=== PATIENT | male | born 1965 | race Caucasian/White ===

== ENCOUNTER 2017-08-26 19:12 | Observation (INO) | payer OTHER, SELFPAY ==
[2017-08-26 19:14] VITALS: BP 142/83; PULSE 117; RESP 18; TEMP 36.4; O2SAT 96; BMI 41.4
--- NOTE | 2017-08-26 19:21 | NURSING ---
CALLED FOR EKG PER RN REQUEST, NO OLD EKG'S IN MUSE
[2017-08-26 19:24] VITALS: BP 139/78; PULSE 123; RESP 20; O2SAT 96
--- NOTE | 2017-08-26 20:25 | EKG12_ITS ---
Test Reason : CP Blood Pressure : / mmHG Vent. Rate : 119 BPM Atrial Rate : 119 BPM P-R Int : 000 ms QRS Dur : 090 ms QT Int : 270 ms P-R-T Axes : 000 057 034 degrees QTc Int : 379 ms Atrial fibrillation Abnormal ECG Confirmed by JAYANT VELASQUEZ, LEV ([id number]), material expeditor RONEN PATEL ([id number] on 08/29/2017 12:53:08 PM Referred By: ZENA Confirmed By:LEV SABA MD
[2017-08-26 20:35] VITALS: BP 114/73; PULSE 107; RESP 17; O2SAT 96
[2017-08-26 20:39] LABS: Absolute Lymphocyte Count 1.23 X10^3/ul (0.83-4.51); Absolute Neutrophil Count 3.4 X10^3/uL (2.0-7.7); Basophil# 0.03 X10^3/uL; Basophil% 0.5 % (0-1); Eosinophil# 0.28 X10^3/uL; Eosinophils% 5.1 % (0-5); Hematocrit 43.5 % (40-54); Hemoglobin 14.7 g/dl (13.0-16.5); Lymphocyte # 1.23 X10^3/ul (4.0); Lymphocyte % 22.5 % (19-41); Mean Corp Hgb Conc 33.8 g/gl (32-36); Mean Corpuscular Hgb 32.5 pg (27.0-32.0); Mean Corpuscular Volume 96.2 fL (80-94); Mean Platelet Vol. 10.8 fl (6.2-12.0); Monocyte# 0.52 X10^3/uL; Monocyte% 9.5 % (0-10); Neutrophil % 62.4 % (47-70); POSITIVE COUNT NO; POSITIVE DIFFERENTIAL NO; POSITIVE MORPHOLOGY NO; Platelet Count 159 K/mm3 (150-450); RBC Distribution Width CV 13.3 % (11.6-14.6); RBC Distribution Width SD 47.2 fl (35.1-43.9); Red Blood Count 4.52 M/mm3 (4.6-6.2); White Blood Count 5.5 K/mm3 (4.4-11.0)
--- NOTE | 2017-08-26 20:45 | RAD_ITS ---
STUDY: X-RAY CHEST REASON FOR EXAM: Male, 52 years old. Chest pain with palpitations TECHNIQUE: PA and lateral views of the chest. COMPARISON: None. 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 The lungs are clear and expanded. There is no demonstrated pleural abnormality. Normal size heart. Normal mediastinum and dereck. Normal visualized pulmonary arteries. Normal visualized aortic arch and descending thoracic aorta. Normal visualized thoracic spine. Normal visualized ribs, clavicles, and shoulders. There is no demonstrated abnormality of the visualized soft tissue structures of the upper abdomen. RAD/Chest PA and Lateral IMPRESSION: No acute cardiopulmonary disease process is seen. Electronically Signed: Angelito Rodriguez MD at 22:21 EST , Service support ,
[2017-08-26 20:50] LABS: Anion Gap 9 (5-15); BUN 16 mg/dL (7-18); BUN/Creat Ratio 16.6 RATIO (10-20); Calcium,Total 8.7 mg/dL (8.5-10.1); Chloride 104 mmol/L (98-107); Creatinine, Serum 0.96 mg/dL (0.70-1.30); EST Glomerular Filtration Rate 86 mL/min (>60); Est Glom Filt Rate - Afr Amer 104 mL/min (>60); Estimated Creatinine Clearance 93.69 ml/min; Glucose 93 mg/dL (74-106); Sodium Level 140 mmol/L (136-145)
[2017-08-26 21:35] VITALS: BP 119/79; PULSE 96; RESP 14; O2SAT 96
[2017-08-26 22:32] VITALS: BP 128/77; PULSE 107; RESP 16; O2SAT 99
--- NOTE | 2017-08-26 22:48 | PCM.HP.STD ---
Problem List (1) BPH (benign prostatic hyperplasia) Status: Chronic Qualifiers: Lower urinary tract symptom presence: unspecified whether lower urinary tract symptoms present Qualified Code(s): N40.0 - Benign prostatic hyperplasia without lower urinary tract symptoms (2) DOMI (obstructive sleep apnea) Status: Chronic (3) Morbid obesity with BMI of 40.0-44.9, adult Status: Chronic (4) Caffeine dependence, continuous Status: Chronic Comment: Notes ongoing routine consumption 12 cups coffee/day (5) New onset atrial fibrillation Status: Acute (6) Sinus infection Status: Acute Qualifiers: Sinusitis location: unspecified location Chronicity: acute Recurrence: non-recurrent Qualified Code(s): J01.90 - Acute sinusitis, unspecified History of Present Illness Date of Admission: 08/26/17 Chief Complaint: Sent per UC with irregular HR, recent sinus infection The patient is a 52 y/o M w/ PMHx: DOMI on q HS CPAP, Caffeine dependence (~12 cup coffee/day), BPH, Morbid Obesity who presents to the [facility] ED on 08/26/17 with history of ongoing sinus pressure, congestion, rhinorrhea, headache with low grade temperatures over the last several days prompting UC evaluation with initiation of abx therapy at that time and concurrent noted irregular HR prompting referral to the ED. 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 He denies any associated chest pain, pressure, dyspnea, increased fatigue although difficult to assess given concurrent sinus infection or palpitations. In the ED work-up included AF, HR 90->120s, BP 114/73, RR 17, 96% on RA, CBC not marked appearing, BMP unremarkable, trop normal x 1, EKG w/ atrial fibrillation rate 120s, CXR without acute process. Past Medical History Past Medical History (Chronic Problems): Chronic Problems BPH (benign prostatic hyperplasia) (Chronic) DOMI (obstructive sleep apnea) (Chronic) Morbid obesity with BMI of 40.0-44.9, adult (Chronic) Caffeine dependence, continuous (Chronic) Notes ongoing routine consumption 12 cups coffee/day Allergies bacitracin [From Neosporin ([id number])] Allergy (Verified 08/26/17 19:24) Rash bacitracin zinc [From Neosporin ([id number])] Allergy (Verified 08/26/17 19:24) Rash neomycin sulfate [From Neosporin ([id number])] Allergy (Verified 08/26/17 19:24) Rash polymyxin B [From Neosporin ([id number])] Allergy (Verified 08/26/17 19:24) Rash Home Medications: Ambulatory Orders Medication Instructions Recorded Terazosin HCl 2 mg PO DAILY 05/06/17 Multivitamin [Multiple Vitamins] 1 each PO DAILY 08/26/17 Surgical History: no surgical history Psychiatric History: No pertinent psych hx Lives: Alone Smoking Status: Never smoker Tobacco Use: Non-smoker Alcohol: None Drugs: - - Caffeine consumptions ~ 12 cups/day. - *Family History Maternal History Items: Diabetes Paternal History Items: Heart Disease - Father w/ history of CHF. Review of Systems Constitutional: Reports: Anorexia, Fever, Malaise, Weakness, Fatigue. Denies: Chills, Weight Change HEENT: Reports: Head Aches, Nasal Congestion, Post Nasal Drip, Sinus Congestion, Sinus Drainage Cardiovascular: Denies: Chest Pain, Edema, Heaviness, Light Headedness, Orthopnea, Palpitations, Syncope Respiratory: Denies: Cough, Shortness of Breath, Shortness of breath at rest, Shortness of breath upon exertion, Sputum production Gastrointestinal: Denies: Abdominal Pain, Nausea, Vomiting Genitourinary: Denies: Dysuria Musculoskeletal: Denies: Joint Pain, Joint Tenderness Skin: Denies: Rash, Wounds Neurological: Denies: Numbness, Tingling, Focal weakness Psychiatric: Denies: Anxiety, Depression, Homicidal Ideations, Suicidal Ideations Hematologic/ Lymphatic: Denies: Easy Bruising, Easy Bleeding VTE Information - Inpt Only VTE Present on Admission: No VTE Mechan Device Prophylaxis: SCD's VTE Pharm Prophylaxis ordered?: Yes Patient Problems: Active and Suspected Problems New onset atrial fibrillation (Acute) Sinus infection (Acute) Subjective: Seated upright in the ED bed, NAD, fatigued. Objective: Physical Examination: General: awake, alert, oriented x 3 and cooperative, seated upright in the ED bed in no apparent distress. Skin: normal color, turgor, no icterus, cyanosis. HEENT: AT/NC, EOMI, PERRLA, moderately dry MM, no carotid bruits or JVD noted, + BL maxillary, frontal facial pressure/discomfort to palpation, congested, posterior OP erythema. Lungs: CTA bilaterally, moderate effort, mild decrease BL bases, no rales, ronchi or wheezing. Heart: Irregular irregular; no gallop, rub audible. Abdomen: soft, morbidly obese, NTTP, ND, normal BS, no HSM; however, habitus makes examination difficult. Extremities: no cyanosis, clubbing, or edema. Neurological: patient awake, alert, oriented x 3; cognitive function intact; pupils equally reactive to light and accomodation; cranial nerves II-XII grossly normal, moving all 4 extremities, no focal deficits, strength mildly globally decreased. Psychiatric: affect appears normal, fatigued, no acute evidence of depressive or anxiety feelings. - Physical Exam Vital Signs Temp Pulse Resp BP Pulse Ox 97.6 F L 107 H 16 128/77 H 99 08/26/17 19:14 08/26/17 22:32 08/26/17 22:32 08/26/17 22:32 08/26/17 22:32 Oxygen Delivery Method Room Air Weight: 297 lb 6.457 oz Body Mass Index (BMI) 41.4 Laboratory Tests Past 24 Hrs 08/26/17 08/26/17 19:20 19:20 WBC 5.5 RBC 4.52 L Hgb 14.7 Hct 43.5 MCV 96.2 H MCH 32.5 H MCHC 33.8 RDW 13.3 RDW Differential 47.2 H Plt Count 159 MPV 10.8 Immature Gran % (Auto) 0.000 Neut % (Auto) 62.4 Lymph % (Auto) 22.5 [place] % (Auto) 9.5 Eos % (Auto) 5.1 H Baso % (Auto) 0.5 Absolute Neuts (auto) 3.4 Absolute Lymphs (auto) 1.23 Total Counted Not Reportable Sodium 140 Potassium 4.0 Chloride 104 Carbon Dioxide 27.0 Anion Gap 9 BUN 16 Creatinine 0.96 Estim Creat Clear Calc 93.69 Est GFR (MDRD) Af Amer 104 Est GFR (MDRD) Non-Af 86 BUN/Creatinine Ratio 16.6 Glucose 93 Calcium 8.7 Troponin I < 0.02 Assessment/Plan Active and Suspected Problems New onset atrial fibrillation (Acute) Sinus infection (Acute) 18 with history of ongoing sinus pressure, congestion, rhinorrhea, headache with low grade temperatures over the last several days prompting UC evaluation with initiation of abx therapy at that time and concurrent noted irregular HR prompting referral to the ED. (1) New onset, Paroxsymal atrial fibrillation: EKG in ED w/ atrial fibrillarion with rate 118, rate variation 90-120s in the ED, asymptomatic. Will admit to PCU, maintain on telemetry, obtain cardiac enzyme serial set, obtain magnesium level, obtain ECHO, obtain TSH level, initiate low dose metoprolol and titrate as needed. Lovenox therapeutic administered. Cardiology consulted given profession with strict parameters of clearance, pending. Advised strongly need to wean caffeine as likely contributor given at least 12 cups coffee per day. (2) Recent Acute Sinus Infection: Possibly viral; however, given ongoing sxs, complaints and low grade temperatures per discussion preference will continue on augmentin, if sxs improved would stop therapy after 5-7 days, add flonase to his current regimen. (3) Morbid Obesity: Weight loss and lifestyle changes encouraged, nutrition consulted. Notes marked weight loss, ~ 150lb over the last 2 years. (4) BPH: Continue home terazosin regimen. (5) DOMI: CPAP q HS. Notes compliance with his therapy. (6) DVT Prophylaxis: SCDs, lovenox. Code Visit OBSV E&M: 78058 Initial observation care L3
--- NOTE | 2017-08-26 22:51 | ED.VISSUMM ---
- ER Visit Summary Date of Service: 08/26/17 Chief Complaint: Atrial fibrillation History of Present Illness: The patient is a 52 M who presents in new onset A. fib. He was recently seen in urgent care for a sinusitis or URI-like illness. He has had about 3-4 days of chills congestion and rhinorrhea. No documented fevers vomiting or diarrhea. They noted that he had an irregular heart rate and that was fast and he was advised to be evaluated in the emergency department. Denies chest pain shortness of breath lightheadedness near syncope. Physical Examination: Initial heart rate 123 vitals otherwise unremarkable Heart irregularly irregular and tachycardic Lungs are clear Abdomen soft nontender Extremities nontender without edema Test Results: EKG shows atrial fibrillation at a rate of 119. CBC BMP troponin unremarkable and chest x-ray shows no acute process. Emergency Department Course and Treatment: Patient was discussed with the hospitalist for observation and further workup including echocardiogram. Treatment Plan: [] Disposition: Admit Impression: New onset atrial fibrillation This note was generated with [employer] dictation software. It may contain incorrect words, spelling, and punctuation that were not noted in review of the chart prior to signing ED Disposition - Plan for ED Patient: Chief Complaint: Palpitations Referrals: Ale Costa NP-C [Primary Care Provider] -
--- NOTE | 2017-08-26 22:58 | HP.PCM_ITS ---
Problem List (1) BPH (benign prostatic hyperplasia) Status: Chronic Qualifiers: Lower urinary tract symptom presence: unspecified whether lower urinary tract symptoms present Qualified Code(s): N40.0 - Benign prostatic hyperplasia without lower urinary tract symptoms (2) DOMI (obstructive sleep apnea) Status: Chronic (3) Morbid obesity with BMI of 40.0-44.9, adult Status: Chronic (4) Caffeine dependence, continuous Status: Chronic Comment: Notes ongoing routine consumption 12 cups coffee/day (5) New onset atrial fibrillation Status: Acute (6) Sinus infection Status: Acute Qualifiers: Sinusitis location: unspecified location Chronicity: acute Recurrence: non-recurrent Qualified Code(s): J01.90 - Acute sinusitis, unspecified History of Present Illness Date of Admission: 08/26/17 Chief Complaint: Sent per UC with irregular HR, recent sinus infection The patient is a 52 y/o M w/ PMHx: DOMI on q HS CPAP, Caffeine dependence (~12 cup coffee/day), BPH, Morbid Obesity who presents to the [facility] ED on 08/26/17 with history of ongoing sinus pressure, congestion, rhinorrhea, headache with low grade temperatures over the last several days prompting UC evaluation with initiation of abx therapy at that time and concurrent noted irregular HR prompting referral to the ED. 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 He denies any associated chest pain, pressure, dyspnea, increased fatigue although difficult to assess given concurrent sinus infection or palpitations. In the ED work-up included AF, HR 90->120s, BP 114/73 , RR 17, 96% on RA, CBC not marked appearing, BMP unremarkable, trop normal x 1 , EKG w/ atrial fibrillation rate 120s, CXR without acute process. Past Medical History Past Medical History (Chronic Problems): Chronic Problems BPH (benign prostatic hyperplasia) (Chronic) DOMI (obstructive sleep apnea) (Chronic) Morbid obesity with BMI of 40.0-44.9, adult (Chronic) Caffeine dependence, continuous (Chronic) Notes ongoing routine consumption 12 cups coffee/day Allergies bacitracin [From Neosporin ([id number])] Allergy (Verified 08/26/17 19:24) Rash bacitracin zinc [From Neosporin ([id number])] Allergy (Verified 08/26/17 19: 24) Rash neomycin sulfate [From Neosporin ([id number])] Allergy (Verified 08/26/17 19: 24) Rash polymyxin B [From Neosporin ([id number])] Allergy (Verified 08/26/17 19:24) Rash Home Medications: Ambulatory Orders Medication Instructions Recorded Terazosin HCl 2 mg PO DAILY 05/06/17 Multivitamin [Multiple Vitamins] 1 each PO DAILY 08/26/17 Surgical History: no surgical history Psychiatric History: No pertinent psych hx Lives: Alone Smoking Status: Never smoker Tobacco Use: Non-smoker Alcohol: None Drugs: - - Caffeine consumptions ~ 12 cups/day. - *Family History Maternal History Items: Diabetes Paternal History Items: Heart Disease - Father w/ history of CHF. Review of Systems Constitutional: Reports: Anorexia, Fever, Malaise, Weakness, Fatigue. Denies: Chills, Weight Change HEENT: Reports: Head Aches, Nasal Congestion, Post Nasal Drip, Sinus Congestion , Sinus Drainage Cardiovascular: Denies: Chest Pain, Edema, Heaviness, Light Headedness, Orthopnea, Palpitations, Syncope Respiratory: Denies: Cough, Shortness of Breath, Shortness of breath at rest, Shortness of breath upon exertion, Sputum production Gastrointestinal: Denies: Abdominal Pain, Nausea, Vomiting Genitourinary: Denies: Dysuria Musculoskeletal: Denies: Joint Pain, Joint Tenderness Skin: Denies: Rash, Wounds Neurological: Denies: Numbness, Tingling, Focal weakness Psychiatric: Denies: Anxiety, Depression, Homicidal Ideations, Suicidal Ideations Hematologic/ Lymphatic: Denies: Easy Bruising, Easy Bleeding VTE Information - Inpt Only VTE Present on Admission: No VTE Mechan Device Prophylaxis: SCD's VTE Pharm Prophylaxis ordered?: Yes Patient Problems: Active and Suspected Problems New onset atrial fibrillation (Acute) Sinus infection (Acute) Subjective: Seated upright in the ED bed, NAD, fatigued. Objective: Physical Examination: General: awake, alert, oriented x 3 and cooperative, seated upright in the ED bed in no apparent distress. Skin: normal color, turgor, no icterus, cyanosis. HEENT: AT/NC, EOMI, PERRLA, moderately dry MM, no carotid bruits or JVD noted, + BL maxillary, frontal facial pressure/discomfort to palpation, congested, posterior OP erythema. Lungs: CTA bilaterally, moderate effort, mild decrease BL bases, no rales, ronchi or wheezing. Heart: Irregular irregular; no gallop, rub audible. Abdomen: soft, morbidly obese, NTTP, ND, normal BS, no HSM; however, habitus makes examination difficult. Extremities: no cyanosis, clubbing, or edema. Neurological: patient awake, alert, oriented x 3; cognitive function intact; pupils equally reactive to light and accomodation; cranial nerves II-XII grossly normal, moving all 4 extremities, no focal deficits, strength mildly globally decreased. Psychiatric: affect appears normal, fatigued, no acute evidence of depressive or anxiety feelings. - Physical Exam Vital Signs Temp Pulse Resp BP Pulse Ox 97.6 F L 107 H 16 128/77 H 99 08/26/17 19:14 08/26/17 22:32 08/26/17 22:32 08/26/17 22:32 08/26/17 22:32 Oxygen Delivery Method Room Air Weight: 297 lb 6.457 oz Body Mass Index (BMI) 41.4 Laboratory Tests Past 24 Hrs 08/26/17 08/26/17 19:20 19:20 WBC 5.5 RBC 4.52 L Hgb 14.7 Hct 43.5 MCV 96.2 H MCH 32.5 H MCHC 33.8 RDW 13.3 RDW Differential 47.2 H Plt Count 159 MPV 10.8 Immature Gran % (Auto) 0.000 Neut % (Auto) 62.4 Lymph % (Auto) 22.5 [place] % (Auto) 9.5 Eos % (Auto) 5.1 H Baso % (Auto) 0.5 Absolute Neuts (auto) 3.4 Absolute Lymphs (auto) 1.23 Total Counted Not Reportable Sodium 140 Potassium 4.0 Chloride 104 Carbon Dioxide 27.0 Anion Gap 9 BUN 16 Creatinine 0.96 Estim Creat Clear Calc 93.69 Est GFR (MDRD) Af Amer 104 Est GFR (MDRD) Non-Af 86 BUN/Creatinine Ratio 16.6 Glucose 93 Calcium 8.7 Troponin I < 0.02 Assessment/Plan Active and Suspected Problems New onset atrial fibrillation (Acute) Sinus infection (Acute) 18 with history of ongoing sinus pressure, congestion, rhinorrhea, headache with low grade temperatures over the last several days prompting UC evaluation with initiation of abx therapy at that time and concurrent noted irregular HR prompting referral to the ED. (1) New onset, Paroxsymal atrial fibrillation: EKG in ED w/ atrial fibrillarion with rate 118, rate variation 90-120s in the ED, asymptomatic. Will admit to PCU , maintain on telemetry, obtain cardiac enzyme serial set, obtain magnesium level, obtain ECHO, obtain TSH level, initiate low dose metoprolol and titrate as needed. Lovenox therapeutic administered. Cardiology consulted given profession with strict parameters of clearance, pending. Advised strongly need to wean caffeine as likely contributor given at least 12 cups coffee per day. (2) Recent Acute Sinus Infection: Possibly viral; however, given ongoing sxs, complaints and low grade temperatures per discussion preference will continue on augmentin, if sxs improved would stop therapy after 5-7 days, add flonase to his current regimen. (3) Morbid Obesity: Weight loss and lifestyle changes encouraged, nutrition consulted. Notes marked weight loss, ~ 150lb over the last 2 years. (4) BPH: Continue home terazosin regimen. (5) DOMI: CPAP q HS. Notes compliance with his therapy. (6) DVT Prophylaxis: SCDs, lovenox. Code Visit OBSV E&M: 21444 Initial observation care L3
[2017-08-26 23:17] VITALS: BP 114/71; PULSE 108; RESP 17; O2SAT 95
[2017-08-27] VITALS (15 sets, daily range): BP systolic 117–139; BP diastolic 69–79; PULSE 67–129; RESP 16–18; TEMP 36.6–37.5; O2SAT 93–97; BMI 41.5; BMI 42.0
--- NOTE | 2017-08-27 00:10 | ECHOCS_ITS ---
Reason For Study: Afib, Aflutter Procedure This was a 2D Doppler, Color Flow transthoracic echocardiogram. Exam performed portable in patient room. Left Ventricle Mild concentric left ventricular hypertrophy. Normal LV size. The estimated ejection fraction is 35 -40 %. Anterior septum, anterior and apical hypokinesis. Right Ventricle The right ventricle is not well visualized. Atria The left atrium is mildly enlarged. Normal right atrium. Mitral Valve Mild (1+) mitral valve insufficiency. Tricuspid Valve Trivial tricuspid valve insufficiency. Aortic Valve Aortic sclerosis, no stenosis. Pulmonic Valve The pulmonic valve is not well visualized. Great Vessels Normal aortic root. Pericardium/Pleural No pericardial effusion. Medication Definity0.4ml given slow IV push to enhance endocardial definition. MMode/2D Measurements & Calculations LVIDd: 4.9 cm IVSd: 1.2 cm Ao root diam: 3.2 cm LVIDs: 3.7 cm LVPWd: 1.2 cm LA dimension: 4.4 cm RVDd: 4.4 cm FS: 25.4 % LAV(MOD-bp): 64.0 ml LAV(MOD-bp) Indexed: 25.8 ml/m2 LA A4 area: 21.4 cm2 RA A4 area: 19.9 cm2 LAV(MOD-sp2): 59.1 ml LAV(MOD-sp4): 61.0 ml Doppler Measurements & Calculations MV E max zaire: 86.7 cm/sec Lat Peak E' [place]: 16.5 cm/sec Med Peak E' [place]: 11.6 cm/sec E/E' lat: 5.3 E/E' med: 7.5 Ao V2 max: 117.6 cm/sec LV V1 max: 91.5 cm/sec PA V2 max: 105.4 cm/sec Ao max P.6 mmHg LV V1 max P.4 mmHg Ao V2 mean: 90.5 cm/sec Ao mean P.5 mmHg Ao V2 VTI: 20.7 cm TR max [place]: 211.3 cm/sec TR max P.9 mmHg Interpretation Summary Mild concentric left ventricular hypertrophy. The estimated ejection fraction is 35-40 %. Anterior septum, anterior and apical hypokinesis The left atrium is mildly enlarged. Mild (1+) mitral valve insufficiency. Ordering Physician: Jossie Heredia Referring Physician: Ale Costa Performed By: Michelle Abebe, DORIAN, RVT
[2017-08-27] MEDS: 0.9% Normal Saline 1,000 ML 125 ML IV (00:32)
[2017-08-27] MEDS: Fluticasone 0.05% 1 SPRAY NASAL.SRY NASAL ×3 (00:51→21:19)
[2017-08-27] MEDS: Amox/Clavulanate 875 MG Tablet PO ×3 (00:52→21:19)
[2017-08-27] MEDS: Metoprolol Tartrate 25 MG Tablet PO ×2 (00:52→08:37)
[2017-08-27] MEDS: Enoxaparin 150 MG/ML Syringe 135 MG SC ×2 (00:52→05:19)
[2017-08-27 01:04] LABS: Magnesium 2.2 mg/dL (1.6-2.6); Thyroid Stim Hormone (TSH) 1.14 uIU/mL (0.358-3.74)
[2017-08-27 05:40] LABS: Hemoglobin 14.3 g/dl (13.0-16.5); Mean Corp Hgb Conc 33.3 g/gl (32-36); Mean Corpuscular Hgb 32.3 pg (27.0-32.0); Mean Corpuscular Volume 97.1 fL (80-94); Mean Platelet Vol. 10.1 fl (6.2-12.0); Platelet Count 150 K/mm3 (150-450); RBC Distribution Width CV 13.3 % (11.6-14.6); RBC Distribution Width SD 47.6 fl (35.1-43.9); Red Blood Count 4.43 M/mm3 (4.6-6.2); White Blood Count 4.5 K/mm3 (4.4-11.0)
[2017-08-27 05:41] LABS: Scan Indicated on CBC? Y/N NO
[2017-08-27 06:14] LABS: Anion Gap 9 (5-15); BUN 13 mg/dL (7-18); BUN/Creat Ratio 16.1 RATIO (10-20); Calcium,Total 8.3 mg/dL (8.5-10.1); Chloride 106 mmol/L (98-107); Cholesterol 89 mg/dL (200); Creatinine, Serum 0.81 mg/dL (0.70-1.30); EST Glomerular Filtration Rate 106 mL/min (>60); Est Glom Filt Rate - Afr Amer 128 mL/min (>60); Estimated Creatinine Clearance 107.65 ml/min; Glucose 88 mg/dL (74-106); High Density Lipoprotein 45 mg/dL; Sodium Level 140 mmol/L (136-145); Triglycerides 30 mg/dL; Very Low Density Lipoprotein 6 mg/dL (5-40)
--- NOTE | 2017-08-27 08:21 | CPS ---
pt has CPAP @[facility] at home, he is going to see if family can bring it in for tonight.
[2017-08-27] MEDS: Doxazosin 1 MG Tablet 2 MG PO (08:36)
[2017-08-27] MEDS: Aspirin 81 MG TAB.CHEW PO (08:36)
[2017-08-27] MEDS: Famotidine 20 MG Tablet PO ×2 (08:37→21:19)
--- NOTE | 2017-08-27 12:00 | PCM.PN.HOSP ---
Patient Problems: Active and Suspected Problems New onset atrial fibrillation (Acute) Sinus infection (Acute) Subjective: Patient is a 52-year-old male with a past medical history of cocaine dependence drinking about 12 cups of coffee daily, obstructive sleep apnea on CPAP nightly, BPH and morbid obesity was admitted on August 26 with a complaint of frontal sinus pressure, congestion, rhinorrhea and headache with low-grade temperature for a few days. On admission he was also noted to have an irregularly irregular heart rate. He was admitted and is is being managed for acute sinusitis and paroxysmal A. fib. He is on Lovenox and metoprolol. Cardiology has been consulted. In and examined this morning. He feels well and has no complaints. He denied having any previous history of an irregularly irregular heart rate, and denies any history of such in his family. He does not have any history of thyroid dysfunction as well. He only knows that his brother has had valve replacement but does not know the indication. He denies any cough, any chest pain, any palpitations, any dizziness or lightheadedness, any abdominal pain, any vomiting or diarrhea. Review of systems otherwise negative. Vitals/I&O's: Vital Signs Temp Pulse Resp BP Pulse Ox 98.2 F 92 16 121/78 H 93 08/27/17 11:03 08/27/17 11:12 08/27/17 11:03 08/27/17 11:03 08/27/17 11:03 Oxygen Delivery Method Room Air Weight: 292 lb 15.909 oz Body Mass Index (BMI) 42.0 Intake and Output for Last 24 Hours 08/25/17 08/26/17 08/27/17 23:59 23:59 23:59 Intake Total 758 / 758 Balance 758 / 758 General: Alert, Oriented x3, Cooperative HEENT: Atraumatic, PERRLA, EOMI, Normocephalic Oral: Moist Mucosa Neck: Supple, No JVD, Negative Carotid Bruits Lungs: Clear to auscultation, Normal air movement, No rhonchi, No wheeze, No rales Cardiovascular: Normal S1, Normal S2, No murmurs, Irregular Rate - Irregularly irregular Abdomen: Bowel Sounds Present, Soft, Non Tender, Non-Distended, No Hepato-splenomegaly Extremities: No clubbing, No cyanosis, No edema, Capillary Refill Less than 3 Seconds Skin: No rashes, No breakdown Musculoskeletal: No Tenderness to Palpation of Joints or Extremities Lymphatic: No Cervical, Supraclavicular, or Inguinal Adenopathy Neurological: Cranial nerves II-XII grossly intact, Motor Exam 5/5 strength throughout Psych/Mental Status: Normal Affect, Appropriate, Alert and oriented to time, place, person, mood and affect Laboratory Results 08/27/17 01:25: Troponin I < 0.02 08/27/17 05:15: WBC 4.5, RBC 4.43 L, Hgb 14.3, Hct 43.0, MCV 97.1 H, MCH 32.3 H, MCHC 33.3, RDW 13.3, RDW Differential 47.6 H, Plt Count 150, MPV 10.1 08/27/17 05:15: Sodium 140, Potassium 4.0, Chloride 106, Carbon Dioxide 25.0, Anion Gap 9, BUN 13, Creatinine 0.81, Estim Creat Clear Calc 107.65, Est GFR (MDRD) Af Amer 128, Est GFR (MDRD) Non-Af 106, BUN/Creatinine Ratio 16.1, Glucose 88, Calcium 8.3 L, Triglycerides 30, Cholesterol 89, LDL Cholesterol 38, VLDL Cholesterol 6, HDL Cholesterol 45 08/27/17 05:15: Troponin I < 0.02 08/27/17 08:55: Troponin I < 0.02 Current Medications Acetaminophen (Tylenol) 650 mg PO Q6H PRN PRN PRN Reason: Mild Pain (scale 0-3)/T>100.7 Al Hydroxide/Mg Hydroxide (Mylanta Ii) 30 ml PO Q6H PRN PRN PRN Reason: Gastric burning Amoxicillin/Clavulanate Potassium (Augmentin Tablet) 875 mg PO BID [facility] Last Admin: 08/27/17 08:36 Dose: 875 mg Aspirin (Aspirin, Baby) 81 mg PO DAILY@0800 [facility] Last Admin: 08/27/17 08:36 Dose: 81 mg Doxazosin Mesylate (Cardura) 2 mg PO DAILY [facility] Last Admin: 08/27/17 08:36 Dose: 2 mg Enoxaparin Sodium (Lovenox) 135 mg SC Q12@0600,1800 [facility] Last Admin: 08/27/17 05:19 Dose: 135 mg Famotidine (Pepcid) 20 mg PO BID [facility] Last Admin: 08/27/17 08:37 Dose: 20 mg Fluticasone Propionate (Flonase Nasal [place]) 1 spray NASAL BID [facility] Last Admin: 08/27/17 08:37 Dose: 1 spray Hydralazine HCl (Apresoline) 10 mg IV Q4H PRN PRN PRN Reason: SBP > 160 Magnesium Hydroxide (Milk Of Magnesia) 30 ml PO DAILY PRN PRN Reason: Constipation Metoprolol Tartrate (Lopressor (Beta Natalie)) 25 mg PO BID [facility] Last Admin: 08/27/17 08:37 Dose: 25 mg Morphine Sulfate (Morphine) 2 - 4 mg IV Q3H PRN PRN PRN Reason: Severe Pain (pain scale 6-10) Morphine Sulfate (Morphine) 1 - 2 mg IV Q4H PRN PRN PRN Reason: Moderate Pain (pain scale 4-5) Ondansetron HCl (Zofran) 4 mg IV Q8H PRN PRN PRN Reason: NAUSEA Oxycodone HCl (Oxyir) 5 mg PO Q4H PRN PRN PRN Reason: Moderate Pain (pain scale 4-5) Promethazine HCl (Phenergan (Ll)) 12.5 mg IV Q6H PRN PRN PRN Reason: NAUSEA/VOMITING Sodium Chloride () 5 - 30 ml IV UD PRN PRN Reason: SALINE FLUSH Temazepam (Restoril) 15 mg PO QHS PRN PRN PRN Reason: insomnia Assessment/Plan Active and Suspected Problems New onset atrial fibrillation (Acute) Sinus infection (Acute) 1. New onset atrial fibrillation Previous history of A. fib. Has a history of sleep apnea on CPAP and notes compliance with his therapy. But this could be a cause of his A. fib; in addition he has a history of excessive coffee intake as well and this could also contribute to it. CHADVASC score- 0 TSH was 1.14. : Lovenox 135 mg subcut twice daily. Cardiology consulted. per discussion with cardiology, will dc lovenox and start eliquis because of MANDEEP on Tuesday For MANDEEP on Tuesday 2D echo ordered. Will monitor. 2. Acute sinusitis- likely viral feels better; says sinus pressure is better. Currently on augmentin, for 5 day course. vitals have remained stable, and cbc showed no leucocytosis. also on flonase 3. BPH: Stable. On terazosin. PEr discussion with cardiology, will switch to tamsulosin due to risk of hypotension. 4. DOMI: On CPAP nightly. Will continue. 5. DVT prophylaxis: SCDs; lovenox dced; now on eliquis This note was generated with [employer] dictation software. It may contain incorrect words, spelling, and punctuation that were not noted in checking the note before signing. Code Visit Inpatient E&M: 47152 Subs Hosp L2
--- NOTE | 2017-08-27 12:09 | PN_ITS ---
Patient Problems: Active and Suspected Problems New onset atrial fibrillation (Acute) Sinus infection (Acute) Subjective: Patient is a 52-year-old male with a past medical history of cocaine dependence drinking about 12 cups of coffee daily, obstructive sleep apnea on CPAP nightly , BPH and morbid obesity was admitted on August 26 with a complaint of frontal sinus pressure, congestion, rhinorrhea and headache with low-grade temperature for a few days. On admission he was also noted to have an irregularly irregular heart rate. He was admitted and is is being managed for acute sinusitis and paroxysmal A. fib. He is on Lovenox and metoprolol. Cardiology has been consulted. In and examined this morning. He feels well and has no complaints. He denied having any previous history of an irregularly irregular heart rate, and denies any history of such in his family. He does not have any history of thyroid dysfunction as well. He only knows that his brother has had valve replacement but does not know the indication. He denies any cough, any chest pain, any palpitations, any dizziness or lightheadedness, any abdominal pain, any vomiting or diarrhea. Review of systems otherwise negative. Vitals/I&O's: Vital Signs Temp Pulse Resp BP Pulse Ox 98.2 F 92 16 121/78 H 93 08/27/17 11:03 08/27/17 11:12 08/27/17 11:03 08/27/17 11:03 08/27/17 11:03 Oxygen Delivery Method Room Air Weight: 292 lb 15.909 oz Body Mass Index (BMI) 42.0 Intake and Output for Last 24 Hours 08/25/17 08/26/17 08/27/17 23:59 23:59 23:59 Intake Total 758 / 758 Balance 758 / 758 General: Alert, Oriented x3, Cooperative HEENT: Atraumatic, PERRLA, EOMI, Normocephalic Oral: Moist Mucosa Neck: Supple, No JVD, Negative Carotid Bruits Lungs: Clear to auscultation, Normal air movement, No rhonchi, No wheeze, No rales Cardiovascular: Normal S1, Normal S2, No murmurs, Irregular Rate - Irregularly irregular Abdomen: Bowel Sounds Present, Soft, Non Tender, Non-Distended, No Hepato- splenomegaly Extremities: No clubbing, No cyanosis, No edema, Capillary Refill Less than 3 Seconds Skin: No rashes, No breakdown Musculoskeletal: No Tenderness to Palpation of Joints or Extremities Lymphatic: No Cervical, Supraclavicular, or Inguinal Adenopathy Neurological: Cranial nerves II-XII grossly intact, Motor Exam 5/5 strength throughout Psych/Mental Status: Normal Affect, Appropriate, Alert and oriented to time, place, person, mood and affect Laboratory Results 08/27/17 01:25: Troponin I < 0.02 08/27/17 05:15: WBC 4.5, RBC 4.43 L, Hgb 14.3, Hct 43.0, MCV 97.1 H, MCH 32.3 H , MCHC 33.3, RDW 13.3, RDW Differential 47.6 H, Plt Count 150, MPV 10.1 08/27/17 05:15: Sodium 140, Potassium 4.0, Chloride 106, Carbon Dioxide 25.0, Anion Gap 9, BUN 13, Creatinine 0.81, Estim Creat Clear Calc 107.65, Est GFR ( MDRD) Af Amer 128, Est GFR (MDRD) Non-Af 106, BUN/Creatinine Ratio 16.1, Glucose 88, Calcium 8.3 L, Triglycerides 30, Cholesterol 89, LDL Cholesterol 38 , VLDL Cholesterol 6, HDL Cholesterol 45 08/27/17 05:15: Troponin I < 0.02 08/27/17 08:55: Troponin I < 0.02 Current Medications Acetaminophen (Tylenol) 650 mg PO Q6H PRN PRN PRN Reason: Mild Pain (scale 0-3)/T>100.7 Al Hydroxide/Mg Hydroxide (Mylanta Ii) 30 ml PO Q6H PRN PRN PRN Reason: Gastric burning Amoxicillin/Clavulanate Potassium (Augmentin Tablet) 875 mg PO BID [facility] Last Admin: 08/27/17 08:36 Dose: 875 mg Aspirin (Aspirin, Baby) 81 mg PO DAILY@0800 [facility] Last Admin: 08/27/17 08:36 Dose: 81 mg Doxazosin Mesylate (Cardura) 2 mg PO DAILY [facility] Last Admin: 08/27/17 08:36 Dose: 2 mg Enoxaparin Sodium (Lovenox) 135 mg SC Q12@0600,1800 [facility] Last Admin: 08/27/17 05:19 Dose: 135 mg Famotidine (Pepcid) 20 mg PO BID [facility] Last Admin: 08/27/17 08:37 Dose: 20 mg Fluticasone Propionate (Flonase Nasal [place]) 1 spray NASAL BID [facility] Last Admin: 08/27/17 08:37 Dose: 1 spray Hydralazine HCl (Apresoline) 10 mg IV Q4H PRN PRN PRN Reason: SBP > 160 Magnesium Hydroxide (Milk Of Magnesia) 30 ml PO DAILY PRN PRN Reason: Constipation Metoprolol Tartrate (Lopressor (Beta Natalie)) 25 mg PO BID [facility] Last Admin: 08/27/17 08:37 Dose: 25 mg Morphine Sulfate (Morphine) 2 - 4 mg IV Q3H PRN PRN PRN Reason: Severe Pain (pain scale 6-10) Morphine Sulfate (Morphine) 1 - 2 mg IV Q4H PRN PRN PRN Reason: Moderate Pain (pain scale 4-5) Ondansetron HCl (Zofran) 4 mg IV Q8H PRN PRN PRN Reason: NAUSEA Oxycodone HCl (Oxyir) 5 mg PO Q4H PRN PRN PRN Reason: Moderate Pain (pain scale 4-5) Promethazine HCl (Phenergan (Ll)) 12.5 mg IV Q6H PRN PRN PRN Reason: NAUSEA/VOMITING Sodium Chloride () 5 - 30 ml IV UD PRN PRN Reason: SALINE FLUSH Temazepam (Restoril) 15 mg PO QHS PRN PRN PRN Reason: insomnia Assessment/Plan Active and Suspected Problems New onset atrial fibrillation (Acute) Sinus infection (Acute) 1. New onset atrial fibrillation * Previous history of A. fib. Has a history of sleep apnea on CPAP and notes compliance with his therapy. But this could be a cause of his A. fib; in addition he has a history of excessive coffee intake as well and this could also contribute to it. * CHADVASC score- 0 * TSH was 1.14. * : Lovenox 135 mg subcut twice daily. * Cardiology consulted. per discussion with cardiology, will dc lovenox and start eliquis because of MANDEEP on Tuesday * For MANDEEP on Tuesday * 2D echo ordered. * Will monitor. 2. Acute sinusitis- likely viral * feels better; says sinus pressure is better. Currently on augmentin, for 5 day course. * vitals have remained stable, and cbc showed no leucocytosis. * also on flonase * 3. BPH: Stable. On terazosin. PEr discussion with cardiology, will switch to tamsulosin due to risk of hypotension. 4. DOMI: On CPAP nightly. Will continue. 5. DVT prophylaxis: SCDs; lovenox dced; now on eliquis This note was generated with [employer] dictation software. It may contain incorrect words, spelling, and punctuation that were not noted in checking the note before signing. Code Visit Inpatient E&M: 07615 Subs Hosp L2
--- NOTE | 2017-08-27 13:06 | PCM.CONS.C ---
Problem List (1) New onset atrial fibrillation Status: Acute Reason for Consult Date of Consultation: 08/27/17 History of Present Illness: The patient is a 52 year old M with past medical history significant for obstructive sleep apnea, obesity and benign prostatic hypertrophy. He went into an urgent care yesterday with complaints of cold-like symptoms. Been having some rhinorrhea. According to him, he was advised that he had a irregular heart rate and therefore needed to go to the hospital. Patient denies any chest pains or shortness of breath either at rest or with exertion. Denies any palpitations. No orthopnea paroxysmal nocturnal dyspnea. No ankle edema. Denies any previous cardiac issues. Denies any history of CVA or TIA. Denies any bleeding problems. Denies any history of hypertension. No history of any vascular disease. [] Past Medical History Allergies/Adverse Reactions: Allergies bacitracin [From Neosporin ([id number])] Allergy (Verified 08/27/17 00:21) Rash bacitracin zinc [From Neosporin ([id number])] Allergy (Verified 08/27/17 00:21) Rash neomycin sulfate [From Neosporin ([id number])] Allergy (Verified 08/27/17 00:21) Rash polymyxin B [From Neosporin ([id number])] Allergy (Verified 08/27/17 00:21) Rash Home Medications: Ambulatory Orders Medication Instructions Recorded Terazosin HCl 2 mg PO QHS 05/06/17 Multivitamin [Multiple Vitamins] 1 each PO DAILY 08/26/17 Past Medical History (Chronic Problems): Chronic Problems BPH (benign prostatic hyperplasia) (Chronic) DOMI (obstructive sleep apnea) (Chronic) Morbid obesity with BMI of 40.0-44.9, adult (Chronic) Caffeine dependence, continuous (Chronic) Notes ongoing routine consumption 12 cups coffee/day Surgical History: no surgical history Psychiatric History: No pertinent psych hx - *Family History Maternal History Items: Diabetes Paternal History Items: Heart Disease - Father w/ history of CHF. Lives: Alone Smoking Status: Never smoker Tobacco Use: Non-smoker Alcohol: None Drugs: - - Caffeine consumptions ~ 12 cups/day. Review of Systems - Review of Systems General: Denies: Fever, Chills, Weight Loss HEENT: Denies: Blurred Vision Cardiovascular: Denies: Chest Discomfort, Chest Discomfort at Rest, Chest Discomfort with Exertion, Shortness of Breath, Shortness of Breath at Rest, Orthopnea, PND, Peripheral Edema, Palpitations, Near Syncope, Syncope Respiratory: Denies: Hemoptysis, Shortness of Breath, Pleurtic Chest Pain Gastrointestinal: Denies: Indigestion, Heart Burn, Abdominal Discomfort, Jaundice Muscoloskeletal: Denies: Myalgias Neurological: Denies: History of TIA, History of CVA Endocrine: Denies: Heat Intolerance, Cold Intolerance Hematologic/ Lymphatic: Denies: Easy Brusing, Easy Bleeding Objective: Vital Signs Temp Pulse Resp BP Pulse Ox 98.2 F 92 16 121/78 H 93 08/27/17 11:03 08/27/17 11:12 08/27/17 11:03 08/27/17 11:03 08/27/17 11:03 Oxygen Delivery Method Room Air Weight: 132.9 kg Body Mass Index (BMI) 42.0 Intake and Output for Last 24 Hours 08/25/17 08/26/17 08/27/17 23:59 23:59 23:59 Intake Total 758 / 758 Balance 758 / 758 General: Healthy Appearing, Awake, Alert, Oriented x 3 HEENT: Atraumatic, Normocephalic Oral: Moist Mucosa Neck: No JVD Lungs: Clear to auscultation Cardiovascular: Irregular Rhythm, Normal S1, Normal S2, No Murmurs Vascular: No Carotid Bruits Abdomen: Bowel Sounds Present, Soft, Non Tender Extremities: No edema Neurological: No Focal Motor or Sensory Deficit Psych/Mental Status: Appropriate 08/27/17 01:25: Troponin I < 0.02 08/27/17 05:15: WBC 4.5, RBC 4.43 L, Hgb 14.3, Hct 43.0, MCV 97.1 H, MCH 32.3 H, MCHC 33.3, RDW 13.3, RDW Differential 47.6 H, Plt Count 150, MPV 10.1 08/27/17 05:15: Sodium 140, Potassium 4.0, Chloride 106, Carbon Dioxide 25.0, Anion Gap 9, BUN 13, Creatinine 0.81, Est GFR (MDRD) Af Amer 128, Est GFR (MDRD) Non-Af 106, BUN/Creatinine Ratio 16.1, Glucose 88, Calcium 8.3 L, Triglycerides 30, Cholesterol 89, LDL Cholesterol 38, VLDL Cholesterol 6, HDL Cholesterol 45 08/27/17 05:15: Troponin I < 0.02 08/27/17 08:55: Troponin I < 0.02 Rhythm: Atrial fibrillation EKG: Atrial fibrillation. No ischemic changes ECHO: Pending Assessment/Plan 1. New onset atrial fibrillation. Discontinue beta-deisi. Start on diltiazem for rate control. He has sleep apnea and that could be the precipitating factor for his atrial fibrillation. Also consider his increased caffeine intake. Advised to continue using his CPAP for sleep apnea. Advised to cut down or preferably eliminate his caffeine intake. As this is as first episode of atrial fibrillation, offered him MANDEEP followed by electrical cardioversion. Risks benefits and alternatives explained. He understands these and wishes to proceed. We will plan on a MANDEEP cardioversion for Tuesday. The patient's chads 2 vascular score is 0. Recommend aspirin long-term. However in anticipation of the electrical cardioversion, I will start him on Eliquis 5 mg twice daily. If electrical cardioversion is undertaken, he will be continued on it briefly afterwards and then discontinued. 2. History of obstructive sleep apnea. Wears CPAP at night 3. Obesity. Lose weight 4. Excessive caffeine intake. Counseled to eliminate or cut back 5. History of BPH
--- NOTE | 2017-08-27 13:16 | CON.PCM_ITS ---
Problem List (1) New onset atrial fibrillation Status: Acute Reason for Consult Date of Consultation: 08/27/17 History of Present Illness: The patient is a 52 year old M with past medical history significant for obstructive sleep apnea, obesity and benign prostatic hypertrophy. He went into an urgent care yesterday with complaints of cold-like symptoms. Been having some rhinorrhea. According to him, he was advised that he had a irregular heart rate and therefore needed to go to the hospital. Patient denies any chest pains or shortness of breath either at rest or with exertion. Denies any palpitations. No orthopnea paroxysmal nocturnal dyspnea. No ankle edema. Denies any previous cardiac issues. Denies any history of CVA or TIA. Denies any bleeding problems. Denies any history of hypertension. No history of any vascular disease. [] Past Medical History Allergies/Adverse Reactions: Allergies bacitracin [From Neosporin ([id number])] Allergy (Verified 08/27/17 00:21) Rash bacitracin zinc [From Neosporin ([id number])] Allergy (Verified 08/27/17 00: 21) Rash neomycin sulfate [From Neosporin ([id number]-[id number])] Allergy (Verified 08/27/17 00: 21) Rash polymyxin B [From Neosporin ([id number])] Allergy (Verified 08/27/17 00:21) Rash Home Medications: Ambulatory Orders Medication Instructions Recorded Terazosin HCl 2 mg PO QHS 05/06/17 Multivitamin [Multiple Vitamins] 1 each PO DAILY 08/26/17 Past Medical History (Chronic Problems): Chronic Problems BPH (benign prostatic hyperplasia) (Chronic) DOMI (obstructive sleep apnea) (Chronic) Morbid obesity with BMI of 40.0-44.9, adult (Chronic) Caffeine dependence, continuous (Chronic) Notes ongoing routine consumption 12 cups coffee/day Surgical History: no surgical history Psychiatric History: No pertinent psych hx - *Family History Maternal History Items: Diabetes Paternal History Items: Heart Disease - Father w/ history of CHF. Lives: Alone Smoking Status: Never smoker Tobacco Use: Non-smoker Alcohol: None Drugs: - - Caffeine consumptions ~ 12 cups/day. Review of Systems - Review of Systems General: Denies: Fever, Chills, Weight Loss HEENT: Denies: Blurred Vision Cardiovascular: Denies: Chest Discomfort, Chest Discomfort at Rest, Chest Discomfort with Exertion, Shortness of Breath, Shortness of Breath at Rest, Orthopnea, PND, Peripheral Edema, Palpitations, Near Syncope, Syncope Respiratory: Denies: Hemoptysis, Shortness of Breath, Pleurtic Chest Pain Gastrointestinal: Denies: Indigestion, Heart Burn, Abdominal Discomfort, Jaundice Muscoloskeletal: Denies: Myalgias Neurological: Denies: History of TIA, History of CVA Endocrine: Denies: Heat Intolerance, Cold Intolerance Hematologic/ Lymphatic: Denies: Easy Brusing, Easy Bleeding Objective: Vital Signs Temp Pulse Resp BP Pulse Ox 98.2 F 92 16 121/78 H 93 08/27/17 11:03 08/27/17 11:12 08/27/17 11:03 08/27/17 11:03 08/27/17 11:03 Oxygen Delivery Method Room Air Weight: 132.9 kg Body Mass Index (BMI) 42.0 Intake and Output for Last 24 Hours 08/25/17 08/26/17 08/27/17 23:59 23:59 23:59 Intake Total 758 / 758 Balance 758 / 758 General: Healthy Appearing, Awake, Alert, Oriented x 3 HEENT: Atraumatic, Normocephalic Oral: Moist Mucosa Neck: No JVD Lungs: Clear to auscultation Cardiovascular: Irregular Rhythm, Normal S1, Normal S2, No Murmurs Vascular: No Carotid Bruits Abdomen: Bowel Sounds Present, Soft, Non Tender Extremities: No edema Neurological: No Focal Motor or Sensory Deficit Psych/Mental Status: Appropriate 08/27/17 01:25: Troponin I < 0.02 08/27/17 05:15: WBC 4.5, RBC 4.43 L, Hgb 14.3, Hct 43.0, MCV 97.1 H, MCH 32.3 H , MCHC 33.3, RDW 13.3, RDW Differential 47.6 H, Plt Count 150, MPV 10.1 08/27/17 05:15: Sodium 140, Potassium 4.0, Chloride 106, Carbon Dioxide 25.0, Anion Gap 9, BUN 13, Creatinine 0.81, Est GFR (MDRD) Af Amer 128, Est GFR (MDRD ) Non-Af 106, BUN/Creatinine Ratio 16.1, Glucose 88, Calcium 8.3 L, Triglycerides 30, Cholesterol 89, LDL Cholesterol 38, VLDL Cholesterol 6, HDL Cholesterol 45 08/27/17 05:15: Troponin I < 0.02 08/27/17 08:55: Troponin I < 0.02 Rhythm: Atrial fibrillation EKG: Atrial fibrillation. No ischemic changes ECHO: Pending Assessment/Plan 1. New onset atrial fibrillation. Discontinue beta-deisi. Start on diltiazem for rate control. He has sleep apnea and that could be the precipitating factor for his atrial fibrillation. Also consider his increased caffeine intake. Advised to continue using his CPAP for sleep apnea. Advised to cut down or preferably eliminate his caffeine intake. As this is as first episode of atrial fibrillation, offered him MANDEEP followed by electrical cardioversion. Risks benefits and alternatives explained. He understands these and wishes to proceed. We will plan on a MANDEEP cardioversion for Tuesday. The patient's chads 2 vascular score is 0. Recommend aspirin long-term. However in anticipation of the electrical cardioversion, I will start him on Eliquis 5 mg twice daily. If electrical cardioversion is undertaken, he will be continued on it briefly afterwards and then discontinued. 2. History of obstructive sleep apnea. Wears CPAP at night 3. Obesity. Lose weight 4. Excessive caffeine intake. Counseled to eliminate or cut back 5. History of BPH
[2017-08-27] MEDS: Tamsulosin HCl 0.4 MG Capsule PO (17:28)
[2017-08-27] MEDS: 0.9% NaCl Peripheral Flush Adult/Peds IV (18:26)
[2017-08-27] MEDS: Carvedilol 3.125 MG TABLET PO (21:19)
[2017-08-27] MEDS: APIXABAN 5 MG TABLET PO (21:19)
[2017-08-28] VITALS (12 sets, daily range): BP systolic 114–121; BP diastolic 62–80; PULSE 72–137; RESP 16–18; TEMP 36.4–36.9; O2SAT 94–97
[2017-08-28] MEDS: Amox/Clavulanate 875 MG Tablet PO ×2 (09:11→21:10)
[2017-08-28] MEDS: APIXABAN 5 MG TABLET PO (09:11)
[2017-08-28] MEDS: Carvedilol 3.125 MG TABLET PO ×2 (09:11→21:10)
[2017-08-28] MEDS: Fluticasone 0.05% 1 SPRAY NASAL.SRY NASAL ×2 (09:12→21:10)
[2017-08-28] MEDS: 0.9% NaCl Peripheral Flush Adult/Peds IV (09:12)
[2017-08-28] MEDS: Famotidine 20 MG Tablet PO ×2 (09:12→21:10)
--- NOTE | 2017-08-28 11:05 | PCM.PN.HOSP ---
Patient Problems: Active and Suspected Problems New onset atrial fibrillation (Acute) Sinus infection (Acute) Subjective: Patient seen and examined this morning. He was lying comfortably in bed and denied having any complaints. He feels very well. Denies any palpitations or dizziness or lightheadedness, denies any chest pain, any abdominal pain, any headache, any diarrhea vomiting. Review of systems otherwise negative. He does not remember the setting for CPAP at home. Objective: Patient is a 52-year-old male with a past medical history of cocaine dependence drinking about 12 cups of coffee daily, obstructive sleep apnea on CPAP nightly, BPH and morbid obesity was admitted on August 26 with a complaint of frontal sinus pressure, congestion, rhinorrhea and headache with low-grade temperature for a few days. On admission he was also noted to have an irregularly irregular heart rate. He was admitted and is being managed for acute sinusitis and paroxysmal A. fib. Started on Lovenox and metoprolol. TSH was within normal limits. Atrial fibrillation is thought to be due to sleep apnea and also excessive coffee intake. Cardiology was consulted and reviewed the patient. Cardiology decided to do MANDEEP on Tuesday. Lovenox was stopped and patient was started on Eliquis. He is on Lovenox and metoprolol. Cardiology has been consulted. Vitals/I&O's: Vital Signs Temp Pulse Resp BP Pulse Ox 98.0 F 72 16 116/62 94 08/28/17 09:00 08/28/17 09:00 08/28/17 09:00 08/28/17 09:00 08/28/17 09:00 Oxygen Delivery Method Room Air Weight: 292 lb 15.909 oz Body Mass Index (BMI) 42.0 Intake and Output for Last 24 Hours 08/26/17 08/27/17 08/28/17 23:59 23:59 23:59 Intake Total 1718 / 1718 Output Total / Balance 1716 / 1716 General: Alert, Oriented x3, Cooperative HEENT: Atraumatic, PERRLA, EOMI, Normocephalic Oral: Moist Mucosa Neck: Supple, No JVD, Negative Carotid Bruits Lungs: Clear to auscultation, Normal air movement, No rhonchi, No wheeze Cardiovascular: Normal S1, Normal S2, No murmurs, - - Heart rate irregularly irregular Abdomen: Bowel Sounds Present, Soft, Non Tender, Non-Distended, No Hepato-splenomegaly Extremities: No clubbing, No cyanosis, No edema, Capillary Refill Less than 3 Seconds Skin: No rashes, No breakdown Musculoskeletal: No Tenderness to Palpation of Joints or Extremities Lymphatic: No Cervical, Supraclavicular, or Inguinal Adenopathy Neurological: Cranial nerves II-XII grossly intact Psych/Mental Status: Normal Affect, Appropriate, Alert and oriented to time, place, person, mood and affect Laboratory Results 08/27/17 14:20: Troponin I < 0.02 Current Medications Acetaminophen (Tylenol) 650 mg PO Q6H PRN PRN PRN Reason: Mild Pain (scale 0-3)/T>100.7 Al Hydroxide/Mg Hydroxide (Mylanta Ii) 30 ml PO Q6H PRN PRN PRN Reason: Gastric burning Amoxicillin/Clavulanate Potassium (Augmentin Tablet) 875 mg PO BID [facility] Last Admin: 08/28/17 09:11 Dose: 875 mg Apixaban (Eliquis) 5 mg PO BID [facility] Last Admin: 08/28/17 09:11 Dose: 5 mg Carvedilol (Coreg) 3.125 mg PO BID [facility] Last Admin: 08/28/17 09:11 Dose: 3.125 mg Famotidine (Pepcid) 20 mg PO BID [facility] Last Admin: 08/28/17 09:12 Dose: 20 mg Fluticasone Propionate (Flonase Nasal [place]) 1 spray NASAL BID [facility] Last Admin: 08/28/17 09:12 Dose: 1 spray Hydralazine HCl (Apresoline) 10 mg IV Q4H PRN PRN PRN Reason: SBP > 160 Magnesium Hydroxide (Milk Of Magnesia) 30 ml PO DAILY PRN PRN Reason: Constipation Morphine Sulfate (Morphine) 2 - 4 mg IV Q3H PRN PRN PRN Reason: Severe Pain (pain scale 6-10) Morphine Sulfate (Morphine) 1 - 2 mg IV Q4H PRN PRN PRN Reason: Moderate Pain (pain scale 4-5) Ondansetron HCl (Zofran) 4 mg IV Q8H PRN PRN PRN Reason: NAUSEA Oxycodone HCl (Oxyir) 5 mg PO Q4H PRN PRN PRN Reason: Moderate Pain (pain scale 4-5) Promethazine HCl (Phenergan (Ll)) 12.5 mg IV Q6H PRN PRN PRN Reason: NAUSEA/VOMITING Sodium Chloride () 5 - 30 ml IV UD PRN PRN Reason: SALINE FLUSH Last Admin: 08/28/17 09:12 Dose: 10 ml Tamsulosin HCl (Flomax) 0.4 mg PO DAILY@1730 JAY Last Admin: 08/27/17 17:28 Dose: 0.4 mg Temazepam (Restoril) 15 mg PO QHS PRN PRN PRN Reason: insomnia Assessment/Plan Active and Suspected Problems New onset atrial fibrillation (Acute) Sinus infection (Acute) 1. New onset atrial fibrillation No Previous history of A. fib. Has a history of sleep apnea on CPAP and notes compliance with his therapy. But this could be a cause of his A. fib; in addition he has a history of excessive coffee intake as well and this could also contribute to it. CHADVASC score- 0 TSH was 1.14. was initially started on lovenox; Cardiology reviewed patient; he was started on eliquis 5mg bid in light of planned MANDEEP on Tuesday 2D echo: EF of 35-40%, with anterior, septal and apical hypokinesis. Mild concentric LVH hypertrophy. Left atrium mildly enlarged. Mild 1+ MV insufficiency. will keep NPO past midnight for MANDEEP tomorrow 2. Acute sinusitis- likely viral feels much better; on AUgmentin for 5 day oral course. also on flonase 3. BPH: Stable. was on terazosin, but this was switched to tamsulosin due to risk of hypotension. 4. DOMI: On CPAP nightly. Will continue. 5. DVT prophylaxis: SCDs; lovenox dced; now on eliquis This note was generated with [employer] software. It may contain incorrect words, spelling, and punctuation that were not noted in checking the note before signing. Code Visit OBSV E&M: 54308 Initial observation care L2
--- NOTE | 2017-08-28 11:11 | PN_ITS ---
Patient Problems: Active and Suspected Problems New onset atrial fibrillation (Acute) Sinus infection (Acute) Subjective: Patient seen and examined this morning. He was lying comfortably in bed and denied having any complaints. He feels very well. Denies any palpitations or dizziness or lightheadedness, denies any chest pain, any abdominal pain, any headache, any diarrhea vomiting. Review of systems otherwise negative. He does not remember the setting for CPAP at home. Objective: Patient is a 52-year-old male with a past medical history of cocaine dependence drinking about 12 cups of coffee daily, obstructive sleep apnea on CPAP nightly , BPH and morbid obesity was admitted on August 26 with a complaint of frontal sinus pressure, congestion, rhinorrhea and headache with low-grade temperature for a few days. On admission he was also noted to have an irregularly irregular heart rate. He was admitted and is being managed for acute sinusitis and paroxysmal A. fib. Started on Lovenox and metoprolol. TSH was within normal limits. Atrial fibrillation is thought to be due to sleep apnea and also excessive coffee intake. Cardiology was consulted and reviewed the patient. Cardiology decided to do MANDEEP on Tuesday. Lovenox was stopped and patient was started on Eliquis. He is on Lovenox and metoprolol. Cardiology has been consulted. Vitals/I&O's: Vital Signs Temp Pulse Resp BP Pulse Ox 98.0 F 72 16 116/62 94 08/28/17 09:00 08/28/17 09:00 08/28/17 09:00 08/28/17 09:00 08/28/17 09:00 Oxygen Delivery Method Room Air Weight: 292 lb 15.909 oz Body Mass Index (BMI) 42.0 Intake and Output for Last 24 Hours 08/26/17 08/27/17 08/28/17 23:59 23:59 23:59 Intake Total 1718 / 1718 Output Total / Balance 1716 / 1716 General: Alert, Oriented x3, Cooperative HEENT: Atraumatic, PERRLA, EOMI, Normocephalic Oral: Moist Mucosa Neck: Supple, No JVD, Negative Carotid Bruits Lungs: Clear to auscultation, Normal air movement, No rhonchi, No wheeze Cardiovascular: Normal S1, Normal S2, No murmurs, - - Heart rate irregularly irregular Abdomen: Bowel Sounds Present, Soft, Non Tender, Non-Distended, No Hepato- splenomegaly Extremities: No clubbing, No cyanosis, No edema, Capillary Refill Less than 3 Seconds Skin: No rashes, No breakdown Musculoskeletal: No Tenderness to Palpation of Joints or Extremities Lymphatic: No Cervical, Supraclavicular, or Inguinal Adenopathy Neurological: Cranial nerves II-XII grossly intact Psych/Mental Status: Normal Affect, Appropriate, Alert and oriented to time, place, person, mood and affect Laboratory Results 08/27/17 14:20: Troponin I < 0.02 Current Medications Acetaminophen (Tylenol) 650 mg PO Q6H PRN PRN PRN Reason: Mild Pain (scale 0-3)/T>100.7 Al Hydroxide/Mg Hydroxide (Mylanta Ii) 30 ml PO Q6H PRN PRN PRN Reason: Gastric burning Amoxicillin/Clavulanate Potassium (Augmentin Tablet) 875 mg PO BID [facility] Last Admin: 08/28/17 09:11 Dose: 875 mg Apixaban (Eliquis) 5 mg PO BID [facility] Last Admin: 08/28/17 09:11 Dose: 5 mg Carvedilol (Coreg) 3.125 mg PO BID [facility] Last Admin: 08/28/17 09:11 Dose: 3.125 mg Famotidine (Pepcid) 20 mg PO BID [facility] Last Admin: 08/28/17 09:12 Dose: 20 mg Fluticasone Propionate (Flonase Nasal [place]) 1 spray NASAL BID [facility] Last Admin: 08/28/17 09:12 Dose: 1 spray Hydralazine HCl (Apresoline) 10 mg IV Q4H PRN PRN PRN Reason: SBP > 160 Magnesium Hydroxide (Milk Of Magnesia) 30 ml PO DAILY PRN PRN Reason: Constipation Morphine Sulfate (Morphine) 2 - 4 mg IV Q3H PRN PRN PRN Reason: Severe Pain (pain scale 6-10) Morphine Sulfate (Morphine) 1 - 2 mg IV Q4H PRN PRN PRN Reason: Moderate Pain (pain scale 4-5) Ondansetron HCl (Zofran) 4 mg IV Q8H PRN PRN PRN Reason: NAUSEA Oxycodone HCl (Oxyir) 5 mg PO Q4H PRN PRN PRN Reason: Moderate Pain (pain scale 4-5) Promethazine HCl (Phenergan (Ll)) 12.5 mg IV Q6H PRN PRN PRN Reason: NAUSEA/VOMITING Sodium Chloride () 5 - 30 ml IV UD PRN PRN Reason: SALINE FLUSH Last Admin: 08/28/17 09:12 Dose: 10 ml Tamsulosin HCl (Flomax) 0.4 mg PO DAILY@1730 JAY Last Admin: 08/27/17 17:28 Dose: 0.4 mg Temazepam (Restoril) 15 mg PO QHS PRN PRN PRN Reason: insomnia Assessment/Plan Active and Suspected Problems New onset atrial fibrillation (Acute) Sinus infection (Acute) 1. New onset atrial fibrillation * No Previous history of A. fib. Has a history of sleep apnea on CPAP and notes compliance with his therapy. But this could be a cause of his A. fib; in addition he has a history of excessive coffee intake as well and this could also contribute to it. * CHADVASC score- 0 * TSH was 1.14. * was initially started on lovenox; Cardiology reviewed patient; he was started on eliquis 5mg bid in light of planned MANDEEP on Tuesday * 2D echo: EF of 35-40%, with anterior, septal and apical hypokinesis. Mild concentric LVH hypertrophy. Left atrium mildly enlarged. Mild 1+ MV insufficiency. * will keep NPO past midnight for MANDEEP tomorrow * * 2. Acute sinusitis- likely viral * feels much better; on AUgmentin for 5 day oral course. * also on flonase * 3. BPH: Stable. was on terazosin, but this was switched to tamsulosin due to risk of hypotension. 4. DOMI: On CPAP nightly. Will continue. 5. DVT prophylaxis: SCDs; lovenox dced; now on eliquis This note was generated with [employer] dictation software. It may contain incorrect words, spelling, and punctuation that were not noted in checking the note before signing. Code Visit OBSV E&M: 31755 Initial observation care L2
--- NOTE | 2017-08-28 12:12 | PCM.PN.CARD ---
Subjectve: No complaints. Objective: Vital Signs Temp Pulse Resp BP Pulse Ox 98.0 F 107 H 16 116/62 94 08/28/17 09:00 08/28/17 11:35 08/28/17 09:00 08/28/17 09:00 08/28/17 09:00 Oxygen Delivery Method Room Air Weight: 132.9 kg Body Mass Index (BMI) 42.0 Intake and Output for Last 24 Hours 08/26/17 08/27/17 08/28/17 23:59 23:59 23:59 Intake Total 1717 Output Total / Balance 1715 General: Healthy Appearing, Awake, Alert, Oriented x 3 Oral: Moist Mucosa Neck: Supple Lungs: Clear to auscultation Cardiovascular: Irregular Rhythm, Normal S1, Normal S2 Abdomen: Bowel Sounds Present, Soft Extremities: No edema Neurological: No Focal Motor or Sensory Deficit Psych/Mental Status: Appropriate 08/27/17 14:20: Troponin I < 0.02 Rhythm: EKG: ECHO: Echocardiogram showed ejection fraction of 35-40% Stress Test: Cardiac Cath: PCI: CT Surgery: Holter monitor: EPS: PPM: CXR: Chest CT Scan: Assessment/Plan 1. Cardiomyopathy. Ejection fraction noted to be 35-40% on echocardiogram with segmental wall motion abnormalities. 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 Therefore offered him cardiac catheterization with coronary angiography and possible revascularization. Risks benefits and alternatives were explained. He understands these and wishes to proceed 2. New onset atrial fibrillation. We will proceed with MANDEEP cardioversion if coronary angiography was negative for any significant coronary artery disease. Hold Eliquis this evening and in the morning in anticipation of cardiac catheterization as noted above. Rate controlled with beta blockers 3. History of obstructive sleep apnea 4. Obesity X Further recommendations will follow results of cardiac catheterization
[2017-08-28] MEDS: Aspirin E.C. 81 MG Tablet PO (12:47)
[2017-08-28] MEDS: Tamsulosin HCl 0.4 MG Capsule PO (16:59)
[2017-08-28] MEDS: Acetaminophen 325 MG Tablet 650 MG PO (17:05)
--- NOTE | 2017-08-28 17:08 | NURSING ---
complains of sore throat on the left side when he swallows only. Minimal redness noted to back of throat. Tylenol 650mg given for same. Augmentin continues. Denies other symptoms. Afebrile.
--- NOTE | 2017-08-28 18:13 | NURSING ---
Patient states that he feels like he isn't peeing as much as he did yesterday. Hat placed in commode and patient informed to urinate in the hat and alert nursing staff when he is finished so that the amount could be recorded. Patient agreed to same. Denies urinary symptoms. Afebrile.
[2017-08-29] VITALS (35 sets, daily range): BP systolic 99–135; BP diastolic 36–84; PULSE 76–102; RESP 12–20; TEMP 36.4–36.9; O2SAT 92–100
[2017-08-29 02:59] LABS: Color, Urine Yellow (Yellow); Glucose, Dipstick Normal (Normal); Ketone-Dipstick Negative (Negative); Leukocyte Esterase-Dipstick Negative /ul (Negative); Nitrite-Dipstick Negative (Negative); Occult Blood-Urine Negative /ul (Negative); Protein-Dipstick Negative (Negative); Urine Bilirubin Dipstick Negative (Negative); Urine Clarity Clear (Clear); Urine Urobilinogen Normal (Normal)
--- NOTE | 2017-08-29 05:55 | EKG12_ITS ---
Test Reason : AM EKG Blood Pressure : / mmHG Vent. Rate : 098 BPM Atrial Rate : 156 BPM P-R Int : 000 ms QRS Dur : 092 ms QT Int : 332 ms P-R-T Axes : 000 056 040 degrees QTc Int : 423 ms Atrial fibrillation Abnormal ECG When compared with ECG of 26-AUG-2017 19:19, MANUAL COMPARISON REQUIRED, DATA IS UNCONFIRMED Confirmed by KRISTI SHIN ([id number]), video editor RONEN PATEL ([id number]) on 09/01/2017 3:11:28 PM Referred By: DR PENA Confirmed By:KRISTI SHIN
[2017-08-29] MEDS: 0.9% NaCl Peripheral Flush Adult/Peds IV (06:05)
[2017-08-29 06:27] LABS: Absolute Lymphocyte Count 1.96 X10^3/ul (0.83-4.51); Absolute Neutrophil Count 3.2 X10^3/uL (2.0-7.7); Basophil# 0.02 X10^3/uL; Basophil% 0.3 % (0-1); Eosinophil# 0.15 X10^3/uL; Eosinophils% 2.6 % (0-5); Hematocrit 46.7 % (40-54); Hemoglobin 15.7 g/dl (13.0-16.5); Lymphocyte # 1.96 X10^3/ul (4.0); Lymphocyte % 34.2 % (19-41); Mean Corp Hgb Conc 33.6 g/gl (32-36); Mean Corpuscular Hgb 32.4 pg (27.0-32.0); Mean Corpuscular Volume 96.5 fL (80-94); Mean Platelet Vol. 10.4 fl (6.2-12.0); Monocyte# 0.43 X10^3/uL; Monocyte% 7.5 % (0-10); Neutrophil # 3.16 X10^3/uL (2.7-7.7); Neutrophil % 55.2 % (47-70); Platelet Count 139 K/mm3 (150-450); RBC Distribution Width CV 13.1 % (11.6-14.6); RBC Distribution Width SD 46.5 fl (35.1-43.9); Red Blood Count 4.84 M/mm3 (4.6-6.2); White Blood Count 5.7 K/mm3 (4.4-11.0)
[2017-08-29 06:34] LABS: POSITIVE COUNT NO; POSITIVE DIFFERENTIAL NO; POSITIVE MORPHOLOGY NO
[2017-08-29 06:35] LABS: Anion Gap 7 (5-15); BUN 13 mg/dL (7-18); BUN/Creat Ratio 15.6 RATIO (10-20); Calcium,Total 8.8 mg/dL (8.5-10.1); Chloride 103 mmol/L (98-107); Creatinine, Serum 0.84 mg/dL (0.70-1.30); EST Glomerular Filtration Rate 102 mL/min (>60); Est Glom Filt Rate - Afr Amer 123 mL/min (>60); Glucose 91 mg/dL (74-106); Potassium 4.4 mmol/L (3.5-5.1); Sodium Level 139 mmol/L (136-145)
[2017-08-29 06:41] LABS: International Normalized Ratio 1.1; Prothrombin Time (Protime)PT. 13.3 SECONDS (11.7-14.9)
[2017-08-29 06:42] LABS: Partial Thromboplast Time 33.6 Seconds (24.1-36.2)
[2017-08-29] MEDS: Carvedilol 3.125 MG TABLET PO (08:54)
[2017-08-29] MEDS: Aspirin E.C. 81 MG Tablet PO (08:57)
--- NOTE | 2017-08-29 09:12 | CASEMGMT ---
According to [facility] website, the following are in-network tertiary facilities: [facility], [place], [facility], [place], [facility], [facility], [place], [facility], and . Vanessa HARTMANN CM
--- NOTE | 2017-08-29 13:00 | NURSING ---
return from stress test
--- NOTE | 2017-08-29 13:00 | ECHOTEE_ITS ---
Reason For Study: Afib, Aflutter Medication Cetacaine Topical [place] given X3 orally. [id number] gargled and swallowed. Versed 2 mg given slow IVP. Fentanyl 25 mcg given slow IVP. Performed a rapid injection of agitated mix of 9 cc saline and 1cc air to assess for atrial septal defect. Left Ventricle Normal size and thickness. The estimated ejection fraction is 65 %. No regional wall motion abnormalities noted. Right Ventricle Normal size and thickness. Normal systolic function. The right ventricular wall motion is normal. Atria Saline contrast study demonstrates trivial right to left interatrial shunt. There is mild sponatenous contrast in the left atrium. The left atrium is mildly enlarged. Possible very small apical thrombus in left atrial appendage. Left atrial appendage contraction velocities less than 0.5 cm/s. Normal right atrium. Prominent eustachian valve. Mitral Valve The mitral valve is structurally normal. No prolapse or stenosis seen. Trivial mitral valve insufficiency. Tricuspid Valve Normal tricuspid valve. Trivial tricuspid valve insufficiency. Right ventricular systolic pressure estimated to be 26 mmHg. Aortic Valve Normal aortic valve. Trisinus/trileaflet aortic valve. Pulmonic Valve Normal pulmonic valve. Vessels Normal aortic root. Normal arch. The pulmonary artery is normal size. Normal pulmonary veins. Interpretation Summary The estimated ejection fraction is 65 %. There is mild sponatenous contrast in the left atrium. The left atrium is mildly enlarged. Trivial mitral valve insufficiency. Right ventricular systolic pressure estimated to be 26 mmHg. Possible very small apical thrombus in left atrial appendage. Left atrial appendage contraction velocities less than 0.5 cm/s Pt appears to be in atrial fibrillation. Would not recommend DCCV at this time. Saline contrast study demonstrates trivial right to left interatrial shunt. Ordering Physician: Kavitha Spencer Referring Physician: Ale Costa Performed By: Michelle Abebe, DORIAN, RVT
[2017-08-29] MEDS: Fluticasone 0.05% 1 SPRAY NASAL.SRY NASAL (14:41)
[2017-08-29] MEDS: Amox/Clavulanate 875 MG Tablet PO ×2 (14:41→21:27)
[2017-08-29] MEDS: Famotidine 20 MG Tablet PO ×2 (14:41→21:27)
--- NOTE | 2017-08-29 14:42 | STRESSREP ---
Stress Test Report Date: 08/29/2017 Procedure: Pharmacologic imaging study Indications: Atrial fibrillation/flutter; CAD Consent: Per the patient Procedure: The patient underwent The baseline ECG demonstrated atrial fibrillation. The peak pharmacologic ECG demonstrated no obvious ECG changes. There were no additional cardiac dysrhythmias pretest, during pharmacologic infusion, or recovery. There was no report of chest discomfort during pharmacologic infusion or recovery. The examination was discontinued secondary to completion of protocol. Impression: 1. Pharmacologic (Regadenoson) evaluation 2. Peak pharmacologic ECG with no obvious ECG changes 3. Nuclear images pending Myocardial perfusion imaging study: Technique: The patient was injected with 12.0 mCi of technetium 99m Cardiolite and subsequently rest SPECT Cardiolite nuclear imaging was obtained in the horizontal long, vertical long, and short axis views. The patient underwent pharmacologic (Regadenoson) evaluation with a peak heart rate of 133 bpm (80% predicted maximal heart rate) with a peak blood pressure 124/74 mmHg. The patient was injected with 36.0 mCi of technetium 99m Cardiolite and subsequently stress SPECT Cardiolite nuclear imaging was obtained in the horizontal long, vertical long, and short axis views. A gated Cardiolite study at peak stress was obtained. Interpretation: Rest and stress SPECT Cardiolite nuclear imaging status post realignment, normalization, and attenuation correction, demonstrates areas of extra cardiac/hepatic and gastrointestinal tracer uptake near the inferior segments. At rest there appears to be relative uniform tracer uptake. Status post stress there is an area of diminished tracer uptake in portions of the mid to distal anterior segments. There are similar type findings on the resting and stress polar map images. There is end systolic thickening and brightening. The gated Cardiolite study demonstrates myocardial thickening and inward wall motion. The reported LVEF is 49%. Impression: 1. Rest and stress SPECT Cardiolite nuclear imaging demonstrate myocardial perfusion changes appearing compatible with an area of stress-induced myocardial ischemia involving portions of the mid to distal anterior segments. 2. The gated Cardiolite study reports an LVEF of 49%. This note was generated with [employer] software. It may contain incorrect words, spelling, and punctuation that were not noted in checking the note before signing.
--- NOTE | 2017-08-29 14:52 | STRESSREP_ITS ---
Stress Test Report Date: 08/29/2017 Procedure: Pharmacologic imaging study Indications: Atrial fibrillation/flutter; CAD Consent: Per the patient Procedure: The patient underwent The baseline ECG demonstrated atrial fibrillation. The peak pharmacologic ECG demonstrated no obvious ECG changes. There were no additional cardiac dysrhythmias pretest, during pharmacologic infusion, or recovery. There was no report of chest discomfort during pharmacologic infusion or recovery. The examination was discontinued secondary to completion of protocol. Impression: 1. Pharmacologic (Regadenoson) evaluation 2. Peak pharmacologic ECG with no obvious ECG changes 3. Nuclear images pending Myocardial perfusion imaging study: Technique: The patient was injected with 12.0 mCi of technetium 99m Cardiolite and subsequently rest SPECT Cardiolite nuclear imaging was obtained in the horizontal long, vertical long, and short axis views. The patient underwent pharmacologic (Regadenoson) evaluation with a peak heart rate of 133 bpm (80% predicted maximal heart rate) with a peak blood pressure 124/74 mmHg. The patient was injected with 36.0 mCi of technetium 99m Cardiolite and subsequently stress SPECT Cardiolite nuclear imaging was obtained in the horizontal long, vertical long, and short axis views. A gated Cardiolite study at peak stress was obtained. Interpretation: Rest and stress SPECT Cardiolite nuclear imaging status post realignment, normalization, and attenuation correction, demonstrates areas of extra cardiac/ hepatic and gastrointestinal tracer uptake near the inferior segments. At rest there appears to be relative uniform tracer uptake. Status post stress there is an area of diminished tracer uptake in portions of the mid to distal anterior segments. There are similar type findings on the resting and stress polar map images. There is end systolic thickening and brightening. The gated Cardiolite study demonstrates myocardial thickening and inward wall motion. The reported LVEF is 49%. Impression: 1. Rest and stress SPECT Cardiolite nuclear imaging demonstrate myocardial perfusion changes appearing compatible with an area of stress-induced myocardial ischemia involving portions of the mid to distal anterior segments. 2. The gated Cardiolite study reports an LVEF of 49%. This note was generated with [employer] software. It may contain incorrect words, spelling, and punctuation that were not noted in checking the note before signing.
--- NOTE | 2017-08-29 15:15 | NURSING ---
to cathead worker
--- NOTE | 2017-08-29 16:10 | NURSING ---
return from manager cath lab
--- NOTE | 2017-08-29 16:23 | CL.D_ITS ---
Patient Name: DANIELLE DELA CRUZ Study Date: 08/29/2017 Performing: Kavitha Spencer MD Ht: 70 inches 178 cm : 1965 Wt: 293.6 lbs 133 kg Age: 52 Gender: male BSA: 2.46 PROCEDURE(S) PERFORMED HY20-FPC/COR/LV CLINICAL PROFILE AND INDICATIONS Stress/Imaging Stress Test w/SPECT MPI: Yes Result: Positive Intermediate RiskStress Test with SP ECT MPI: Positive Intermediate Risk CONCLUSIONS Distal LMCA mildly aneurysmal 30% ostial LAD LVEF 50% RECOMMENDATIONS Medical therapy Risk factor modification DESCRIPTION OF PROCEDURE The patient arrived to the procedure lab. The risks and benefits of the procedure as well as a full d escription of our services here and current unavailability of surgical backup were fully explained to the patient and/or their significant other prior to the catheterization. The Timeout was completed, verifying the correct patient and procedure. The patient's procedural site was prepped and draped in the usual fashion. Local anesthetic was given subcutaneously to right radial region with Lidocaine 2% . Using a modified Seldinger technique, arterial access was obtained via the right radial artery, a 6 Fr sheath was inserted. Left Coronary Artery selective angiography was performed in multiple views u sing a 5 Fr. 4.0 [place] catheter. Right Coronary Artery selective angiography was then performed in mu ltiple views using a 5 Fr. 4.0 [place] catheter. Left Ventriculography was performed in RICH projection using a 5 Fr. Pigtail catheter. LV to AO pullback pressures were then recorded.The arterial sheath wa s pulled and a TR Band was applied for hemostasis. 16cc of air CORONARY ANGIOGRAPHY DOMINANCE: Co- Dominant LEFT HEART ASSESSMENT Left Ventricular Ejection Fraction: by LV Gram 50 % LVEDP: 7 mmHg LEFT MAIN: Distal LMCA mildly aneurysmal LEFT ANTERIOR DECENDING ARTERY: 30% ostial CIRCUMFLEX ARTERY: Minimal luminal irregularities RAMUS: Dual Ramus system. No significant angiographic disease RIGHT CORONARY ARTERY: Mild luminal irregularities COMPLICATIONS No Complications PROCEDURE MEDICATIONS Versed 1 mg IV Fentanyl 25 mcg IV Fentanyl 25 mcg IV Oxygen: 2 L/min via nasal cannula Heparin given IA 08/29/2017 15:50:00 Verapamil 2.5mg, Ntg 100mcgs, 2000 units of Heparin given IA 08/29/2017 15:50:00 SUMMARY OF HEMODYNAMIC DATA Time AIR REST ECG 15:36:15 AO 107/73 (88) SA 15:53:12 LV 117/0, 7 16:02:27 LV 120/0, 7 16:02:35 LVp 104/10, 15 16:03:44 AOp 101/69 (83) 16:03:49 Signed By Kavitha Spencer MD On 08/29/2017 16:23:11 Kavitha Spencer MD
[2017-08-29] MEDS: 0.9% Normal Saline 1,000 ML 150 ML IV (16:45)
--- NOTE | 2017-08-29 17:28 | PCM.PN.HOSP ---
Patient Problems: Active and Suspected Problems New onset atrial fibrillation (Acute) Sinus infection (Acute) Subjective: No new complaints. Status post left heart catheterization. Vitals/I&O's: Vital Signs Temp Pulse Resp BP Pulse Ox 36.7 C 98 17 119/66 96 08/29/17 13:20 08/29/17 13:20 08/29/17 13:20 08/29/17 13:20 08/29/17 13:20 Oxygen Delivery Method Room Air Weight: 132.9 kg Body Mass Index (BMI) 42.0 Intake and Output for Last 24 Hours 08/27/17 08/28/17 08/29/17 23:59 23:59 23:59 Intake Total 1718 / 1718 2340 / 2340 510 / 510 Output Total 1050 / 1050 475 / 475 Balance 1716 / 1716 1290 / 1290 35 / 35 General: Alert, Cooperative, No apparent distress HEENT: Atraumatic, Normocephalic Neck: No Nodes, Thyroid Normal Size and Texture Lungs: Clear to auscultation, Normal air movement, No rhonchi, No wheeze Cardiovascular: Regular rate, Regular Rhythm, Normal S1, Normal S2, No murmurs Abdomen: Bowel Sounds Present, Soft, Non Tender, Non-Distended, No Hepato-splenomegaly Extremities: No edema, Capillary Refill Less than 3 Seconds, No Calf Tenderness Laboratory Results 08/29/17 01:00: Urine Color Yellow, Urine Clarity Clear, Urine pH 7.0, Ur Specific [place] 1.010, Urine Protein Negative, Urine Glucose (UA) Normal, Urine Ketones Negative, Urine Occult Blood Negative, Urine Nitrite Negative, Urine Bilirubin Negative, Urine Urobilinogen Normal, Ur Leukocyte Esterase Negative 08/29/17 06:05: WBC 5.7, RBC 4.84, Hgb 15.7, Hct 46.7, MCV 96.5 H, MCH 32.4 H, MCHC 33.6, RDW 13.1, RDW Differential 46.5 H, Plt Count 139 L, MPV 10.4, Immature Gran % (Auto) 0.200, Neut % (Auto) 55.2, Lymph % (Auto) 34.2, [place] % (Auto) 7.5, Eos % (Auto) 2.6, Baso % (Auto) 0.3, Absolute Neuts (auto) 3.2, Absolute Lymphs (auto) 1.96, Total Counted Not Reportable 08/29/17 06:05: PT 13.3, INR 1.1, APTT 33.6 08/29/17 06:05: Sodium 139, Potassium 4.4, Chloride 103, Carbon Dioxide 29.0, Anion Gap 7, BUN 13, Creatinine 0.84, Estim Creat Clear Calc 103.80, Est GFR (MDRD) Af Amer 123, Est GFR (MDRD) Non-Af 102, BUN/Creatinine Ratio 15.6, Glucose 91, Calcium 8.8 Current Medications Acetaminophen (Tylenol) 650 mg PO Q6H PRN PRN PRN Reason: Mild Pain (scale 0-3)/T>100.7 Last Admin: 08/28/17 17:05 Dose: 650 mg Al Hydroxide/Mg Hydroxide (Mylanta Ii) 30 ml PO Q6H PRN PRN PRN Reason: Gastric burning Amoxicillin/Clavulanate Potassium (Augmentin Tablet) 875 mg PO BID [facility] Last Admin: 08/29/17 14:41 Dose: 875 mg Apixaban (Eliquis) 5 mg PO BID [facility] Aspirin (Ecotrin) 81 mg PO DAILY@0800 [facility] Last Admin: 08/29/17 08:57 Dose: 81 mg Carvedilol (Coreg) 6.25 mg PO BID [facility] Famotidine (Pepcid) 20 mg PO BID [facility] Last Admin: 08/29/17 14:41 Dose: 20 mg Fluticasone Propionate (Flonase Nasal [place]) 1 spray NASAL BID [facility] Last Admin: 08/29/17 14:41 Dose: 1 spray Hydralazine HCl (Apresoline) 10 mg IV Q4H PRN PRN PRN Reason: SBP > 160 Sodium Chloride () 1,000 mls @ 150 mls/hr IV .Q6H40M [facility] Stop: 08/29/17 23:09 Magnesium Hydroxide (Milk Of Magnesia) 30 ml PO DAILY PRN PRN Reason: Constipation Morphine Sulfate (Morphine) 2 - 4 mg IV Q3H PRN PRN PRN Reason: Severe Pain (pain scale 6-10) Morphine Sulfate (Morphine) 1 - 2 mg IV Q4H PRN PRN PRN Reason: Moderate Pain (pain scale 4-5) Ondansetron HCl (Zofran) 4 mg IV Q8H PRN PRN PRN Reason: NAUSEA Oxycodone HCl (Oxyir) 5 mg PO Q4H PRN PRN PRN Reason: Moderate Pain (pain scale 4-5) Promethazine HCl (Phenergan (Ll)) 12.5 mg IV Q6H PRN PRN PRN Reason: NAUSEA/VOMITING Sodium Chloride () 5 - 30 ml IV UD PRN PRN Reason: SALINE FLUSH Last Admin: 08/29/17 06:05 Dose: 10 ml Tamsulosin HCl (Flomax) 0.4 mg PO DAILY@1730 [facility] Last Admin: 08/28/17 16:59 Dose: 0.4 mg Temazepam (Restoril) 15 mg PO QHS PRN PRN PRN Reason: insomnia Assessment/Plan Active and Suspected Problems New onset atrial fibrillation (Acute) Sinus infection (Acute) 1. New onset atrial fibrillation Still in atrial fibrillation, but rate controlled. Continue with Coreg. Patient with noted smoke on the MANDEEP so cardioversion was not performed. Patient will be on Eliquis. Patient will have a follow-up MANDEEP cardioversion as outpatient after several weeks of being on proper anticoagulation. Patient to be monitored overnight and if stable and patient will be likely discharged on the . Code Visit Inpatient E&M: 39987 Subs Hosp L2
--- NOTE | 2017-08-29 17:31 | PN_ITS ---
Patient Problems: Active and Suspected Problems New onset atrial fibrillation (Acute) Sinus infection (Acute) Subjective: No new complaints. Status post left heart catheterization. Vitals/I&O's: Vital Signs Temp Pulse Resp BP Pulse Ox 36.7 C 98 17 119/66 96 08/29/17 13:20 08/29/17 13:20 08/29/17 13:20 08/29/17 13:20 08/29/17 13:20 Oxygen Delivery Method Room Air Weight: 132.9 kg Body Mass Index (BMI) 42.0 Intake and Output for Last 24 Hours 08/27/17 08/28/17 08/29/17 23:59 23:59 23:59 Intake Total 1718 / 1718 2340 / 2340 510 / 510 Output Total 1050 / 1050 475 / 475 Balance 1716 / 1716 1290 / 1290 35 / 35 General: Alert, Cooperative, No apparent distress HEENT: Atraumatic, Normocephalic Neck: No Nodes, Thyroid Normal Size and Texture Lungs: Clear to auscultation, Normal air movement, No rhonchi, No wheeze Cardiovascular: Regular rate, Regular Rhythm, Normal S1, Normal S2, No murmurs Abdomen: Bowel Sounds Present, Soft, Non Tender, Non-Distended, No Hepato- splenomegaly Extremities: No edema, Capillary Refill Less than 3 Seconds, No Calf Tenderness Laboratory Results 08/29/17 01:00: Urine Color Yellow, Urine Clarity Clear, Urine pH 7.0, Ur Specific [place] 1.010, Urine Protein Negative, Urine Glucose (UA) Normal, Urine Ketones Negative, Urine Occult Blood Negative, Urine Nitrite Negative, Urine Bilirubin Negative, Urine Urobilinogen Normal, Ur Leukocyte Esterase Negative 08/29/17 06:05: WBC 5.7, RBC 4.84, Hgb 15.7, Hct 46.7, MCV 96.5 H, MCH 32.4 H, MCHC 33.6, RDW 13.1, RDW Differential 46.5 H, Plt Count 139 L, MPV 10.4, Immature Gran % (Auto) 0.200, Neut % (Auto) 55.2, Lymph % (Auto) 34.2, [place] % ( Auto) 7.5, Eos % (Auto) 2.6, Baso % (Auto) 0.3, Absolute Neuts (auto) 3.2, Absolute Lymphs (auto) 1.96, Total Counted Not Reportable 08/29/17 06:05: PT 13.3, INR 1.1, APTT 33.6 08/29/17 06:05: Sodium 139, Potassium 4.4, Chloride 103, Carbon Dioxide 29.0, Anion Gap 7, BUN 13, Creatinine 0.84, Estim Creat Clear Calc 103.80, Est GFR ( MDRD) Af Amer 123, Est GFR (MDRD) Non-Af 102, BUN/Creatinine Ratio 15.6, Glucose 91, Calcium 8.8 Current Medications Acetaminophen (Tylenol) 650 mg PO Q6H PRN PRN PRN Reason: Mild Pain (scale 0-3)/T>100.7 Last Admin: 08/28/17 17:05 Dose: 650 mg Al Hydroxide/Mg Hydroxide (Mylanta Ii) 30 ml PO Q6H PRN PRN PRN Reason: Gastric burning Amoxicillin/Clavulanate Potassium (Augmentin Tablet) 875 mg PO BID [facility] Last Admin: 08/29/17 14:41 Dose: 875 mg Apixaban (Eliquis) 5 mg PO BID [facility] Aspirin (Ecotrin) 81 mg PO DAILY@0800 [facility] Last Admin: 08/29/17 08:57 Dose: 81 mg Carvedilol (Coreg) 6.25 mg PO BID [facility] Famotidine (Pepcid) 20 mg PO BID [facility] Last Admin: 08/29/17 14:41 Dose: 20 mg Fluticasone Propionate (Flonase Nasal [place]) 1 spray NASAL BID [facility] Last Admin: 08/29/17 14:41 Dose: 1 spray Hydralazine HCl (Apresoline) 10 mg IV Q4H PRN PRN PRN Reason: SBP > 160 Sodium Chloride () 1,000 mls @ 150 mls/hr IV .Q6H40M [facility] Stop: 08/29/17 23:09 Magnesium Hydroxide (Milk Of Magnesia) 30 ml PO DAILY PRN PRN Reason: Constipation Morphine Sulfate (Morphine) 2 - 4 mg IV Q3H PRN PRN PRN Reason: Severe Pain (pain scale 6-10) Morphine Sulfate (Morphine) 1 - 2 mg IV Q4H PRN PRN PRN Reason: Moderate Pain (pain scale 4-5) Ondansetron HCl (Zofran) 4 mg IV Q8H PRN PRN PRN Reason: NAUSEA Oxycodone HCl (Oxyir) 5 mg PO Q4H PRN PRN PRN Reason: Moderate Pain (pain scale 4-5) Promethazine HCl (Phenergan (Ll)) 12.5 mg IV Q6H PRN PRN PRN Reason: NAUSEA/VOMITING Sodium Chloride () 5 - 30 ml IV UD PRN PRN Reason: SALINE FLUSH Last Admin: 08/29/17 06:05 Dose: 10 ml Tamsulosin HCl (Flomax) 0.4 mg PO DAILY@1730 [facility] Last Admin: 08/28/17 16:59 Dose: 0.4 mg Temazepam (Restoril) 15 mg PO QHS PRN PRN PRN Reason: insomnia Assessment/Plan Active and Suspected Problems New onset atrial fibrillation (Acute) Sinus infection (Acute) 1. New onset atrial fibrillation * Still in atrial fibrillation, but rate controlled. * Continue with Coreg. * Patient with noted smoke on the MANDEEP so cardioversion was not performed. Patient will be on Eliquis. Patient will have a follow-up MANDEEP cardioversion as outpatient after several weeks of being on proper anticoagulation. * Patient to be monitored overnight and if stable and patient will be likely discharged on the . Code Visit Inpatient E&M: 38375 Subs Hosp L2
[2017-08-29] MEDS: Tamsulosin HCl 0.4 MG Capsule PO (18:21)
[2017-08-29] MEDS: Carvedilol 6.25 MG Tablet PO (21:26)
[2017-08-29] MEDS: APIXABAN 5 MG TABLET PO (21:27)
[2017-08-30 02:59] VITALS: PULSE 73
[2017-08-30 03:15] VITALS: BP 114/78; PULSE 79; RESP 20; TEMP 36.7; O2SAT 94
[2017-08-30 07:07] VITALS: PULSE 82
[2017-08-30 09:15] VITALS: BP 103/56; PULSE 96; RESP 18; TEMP 36.7; O2SAT 94
[2017-08-30] MEDS: Famotidine 20 MG Tablet PO (09:17)
[2017-08-30] MEDS: Aspirin E.C. 81 MG Tablet PO (09:17)
[2017-08-30] MEDS: Fluticasone 0.05% 1 SPRAY NASAL.SRY NASAL (09:17)
[2017-08-30] MEDS: Amox/Clavulanate 875 MG Tablet PO (09:17)
[2017-08-30] MEDS: Carvedilol 6.25 MG Tablet PO (09:17)
[2017-08-30] MEDS: APIXABAN 5 MG TABLET PO (09:17)
[2017-08-30 11:00] VITALS: PULSE 118
--- NOTE | 2017-08-30 12:02 | PN_ITS ---
Patient Problems: Active and Suspected Problems New onset atrial fibrillation (Acute) Sinus infection (Acute) Subjective: No new events overnight. Otherwise feeling well. Vitals/I&O's: Vital Signs Temp Pulse Resp BP Pulse Ox 36.7 C 118 H 18 103/56 L 94 08/30/17 09:15 08/30/17 11:00 08/30/17 09:15 08/30/17 09:15 08/30/17 09:15 Oxygen Delivery Method Room Air Weight: 132.9 kg Body Mass Index (BMI) 42.0 Intake and Output for Last 24 Hours 08/28/17 08/29/17 08/30/17 23:59 23:59 23:59 Intake Total 2340 / 2340 3450 / 3450 200 / 200 Output Total 1050 / 1050 1525 / 1525 1200 / 1200 Balance 1290 / 1290 1925 / 1925 -1000 / -1000 General: Alert, Cooperative, No apparent distress HEENT: Atraumatic, Normocephalic Neck: No Nodes, Thyroid Normal Size and Texture Lungs: Clear to auscultation, Normal air movement, No rhonchi, No wheeze Cardiovascular: Regular rate, Normal S1, Normal S2 Abdomen: Bowel Sounds Present, Soft, Non Tender, Non-Distended Current Medications Acetaminophen (Tylenol) 650 mg PO Q6H PRN PRN PRN Reason: Mild Pain (scale 0-3)/T>100.7 Last Admin: 08/28/17 17:05 Dose: 650 mg Al Hydroxide/Mg Hydroxide (Mylanta Ii) 30 ml PO Q6H PRN PRN PRN Reason: Gastric burning Amoxicillin/Clavulanate Potassium (Augmentin Tablet) 875 mg PO BID [facility] Last Admin: 08/30/17 09:17 Dose: 875 mg Apixaban (Eliquis) 5 mg PO BID [facility] Last Admin: 08/30/17 09:17 Dose: 5 mg Aspirin (Ecotrin) 81 mg PO DAILY@0800 [facility] Last Admin: 08/30/17 09:17 Dose: 81 mg Carvedilol (Coreg) 6.25 mg PO BID [facility] Last Admin: 08/30/17 09:17 Dose: 6.25 mg Famotidine (Pepcid) 20 mg PO BID [facility] Last Admin: 08/30/17 09:17 Dose: 20 mg Fluticasone Propionate (Flonase Nasal [place]) 1 spray NASAL BID [facility] Last Admin: 08/30/17 09:17 Dose: 1 spray Hydralazine HCl (Apresoline) 10 mg IV Q4H PRN PRN PRN Reason: SBP > 160 Magnesium Hydroxide (Milk Of Magnesia) 30 ml PO DAILY PRN PRN Reason: Constipation Morphine Sulfate (Morphine) 2 - 4 mg IV Q3H PRN PRN PRN Reason: Severe Pain (pain scale 6-10) Morphine Sulfate (Morphine) 1 - 2 mg IV Q4H PRN PRN PRN Reason: Moderate Pain (pain scale 4-5) Ondansetron HCl (Zofran) 4 mg IV Q8H PRN PRN PRN Reason: NAUSEA Oxycodone HCl (Oxyir) 5 mg PO Q4H PRN PRN PRN Reason: Moderate Pain (pain scale 4-5) Promethazine HCl (Phenergan (Ll)) 12.5 mg IV Q6H PRN PRN PRN Reason: NAUSEA/VOMITING Sodium Chloride () 5 - 30 ml IV UD PRN PRN Reason: SALINE FLUSH Last Admin: 08/29/17 06:05 Dose: 10 ml Tamsulosin HCl (Flomax) 0.4 mg PO DAILY@1730 [facility] Last Admin: 08/29/17 18:21 Dose: 0.4 mg Temazepam (Restoril) 15 mg PO QHS PRN PRN PRN Reason: insomnia Assessment/Plan Active and Suspected Problems New onset atrial fibrillation (Acute) Sinus infection (Acute) 1. New onset atrial fibrillation * Still in atrial fibrillation, but rate controlled. * Continue with Coreg. * Patient with noted smoke on the MANDEEP so cardioversion was not performed. Patient will be on Eliquis. Patient will have a follow-up MANDEEP cardioversion as outpatient after several weeks of being on proper anticoagulation. * Patient to be monitored overnight and if stable and patient will be likely discharged on the . * Continue with Eliquis.
--- NOTE | 2017-08-30 12:06 | PCM.WORK.EX ---
Work/School Excuse Work/School Excuse for:: Patient Please excuse this person from:: Work From: 08/26/17 through: 09/01/17
--- NOTE | 2017-08-30 12:06 | PCM.DC ---
- Discharge Diagnoses Current Active Problems: Current Active and Chronic Problems BPH (benign prostatic hyperplasia) (Chronic) DOMI (obstructive sleep apnea) (Chronic) Morbid obesity with BMI of 40.0-44.9, adult (Chronic) Caffeine dependence, continuous (Chronic) Notes ongoing routine consumption 12 cups coffee/day New onset atrial fibrillation (Acute) Sinus infection (Acute) You will use the following diet at home:: Regular Your food should be the consistency of: Regular Your liquids should be the consistency of: Regular/Thin Discharge Activity: Return to Normal Activity Return to work on:: 09/02/17 Call your doctor if you observe: Fever of 101 or Higher, Shortness of breath Allergies/Adverse Reactions: Allergies bacitracin [From Neosporin ([id number])] Allergy (Verified 08/27/17 00:21) Rash bacitracin zinc [From Neosporin ([id number])] Allergy (Verified 08/27/17 00:21) Rash neomycin sulfate [From Neosporin (enp-tlk-lotzy)] Allergy (Verified 08/27/17 00:21) Rash polymyxin B [From Neosporin (itp-cgo-iothm)] Allergy (Verified 08/27/17 00:21) Rash Medications to take at Discharge Terazosin HCl 2 mg PO QHS 05/06/17 Multivitamin [Multiple Vitamins] 1 each PO DAILY 08/26/17 Acetaminophen [Tylenol Tablet] 650 mg PO Q6H PRN PRN tablet 08/30/17 Amox/Clavulanate Tablet [Augmentin Tablet] 875 mg PO BID #6 tab 08/30/17 Apixaban [Eliquis] 5 mg PO BID #60 tab 08/30/17 Aspirin E.C. [Ecotrin] 81 mg PO DAILY@0800 tablet 08/30/17 Carvedilol [Coreg (Beta Natalie)] 6.25 mg PO BID #60 tab 08/30/17 Fluticasone 0.05% [Flonase Nasal [place]] 1 spray NASAL BID #1 nasal.sry 08/30/17 The following prescriptions were given: Amox/Clavulanate Tablet [Augmentin Tablet] 875 mg PO BID #6 tab Apixaban [Eliquis] 5 mg PO BID #60 tab Carvedilol [Coreg (Beta Natalie)] 6.25 mg PO BID #60 tab Fluticasone 0.05% [Flonase Nasal [place]] 1 spray NASAL BID #1 nasal.sry Primary Care Physician: Ale Costa, DORIS-C [Primary Care Provider] - Within 2 Weeks Please Follow Up With: Serg Horton MD When: 2-4 weeks Proposed Discharge Date: 08/30/17
--- NOTE | 2017-08-30 12:09 | DCINST_ITS ---
- Discharge Diagnoses Current Active Problems: Current Active and Chronic Problems BPH (benign prostatic hyperplasia) (Chronic) DOMI (obstructive sleep apnea) (Chronic) Morbid obesity with BMI of 40.0-44.9, adult (Chronic) Caffeine dependence, continuous (Chronic) Notes ongoing routine consumption 12 cups coffee/day New onset atrial fibrillation (Acute) Sinus infection (Acute) You will use the following diet at home:: Regular Your food should be the consistency of: Regular Your liquids should be the consistency of: Regular/Thin Discharge Activity: Return to Normal Activity Return to work on:: 09/02/17 Call your doctor if you observe: Fever of 101 or Higher, Shortness of breath Allergies/Adverse Reactions: Allergies bacitracin [From Neosporin ([id number]-dlk-[id number])] Allergy (Verified 08/27/17 00:21) Rash bacitracin zinc [From Neosporin (cea-ylk-xzcqn)] Allergy (Verified 08/27/17 00: 21) Rash neomycin sulfate [From Neosporin (exm-xll-juymv)] Allergy (Verified 08/27/17 00: 21) Rash polymyxin B [From Neosporin (pgc-xck-cmsol)] Allergy (Verified 08/27/17 00:21) Rash Medications to take at Discharge Terazosin HCl 2 mg PO QHS 05/06/17 Multivitamin [Multiple Vitamins] 1 each PO DAILY 08/26/17 Acetaminophen [Tylenol Tablet] 650 mg PO Q6H PRN PRN tablet 08/30/17 Amox/Clavulanate Tablet [Augmentin Tablet] 875 mg PO BID #6 tab 08/30/17 Apixaban [Eliquis] 5 mg PO BID #60 tab 08/30/17 Aspirin E.C. [Ecotrin] 81 mg PO DAILY@0800 tablet 08/30/17 Carvedilol [Coreg (Beta Natalie)] 6.25 mg PO BID #60 tab 08/30/17 Fluticasone 0.05% [Flonase Nasal [place]] 1 spray NASAL BID #1 nasal.sry 08/30/17 The following prescriptions were given: Amox/Clavulanate Tablet [Augmentin Tablet] 875 mg PO BID #6 tab Apixaban [Eliquis] 5 mg PO BID #60 tab Carvedilol [Coreg (Beta [place])] 6.25 mg PO BID #60 tab Fluticasone 0.05% [Flonase Nasal [place]] 1 spray NASAL BID #1 nasal.sry Primary Care Physician: Ale Costa, DORIS-C [Primary Care Provider] - Within 2 Weeks Please Follow Up With: Serg Horton MD When: 2-4 weeks Proposed Discharge Date: 08/30/17
--- NOTE | 2017-08-30 12:09 | PCM.DC.SUM ---
Discharge Date and Diagnosis - Problem List Patient Problems: Active and Suspected Problems New onset atrial fibrillation (Acute) Sinus infection (Acute) Date of Admission: 08/26/17 Date of Discharge: 08/30/17 - Primary Discharge Diagnosis Active and Suspected Problems New onset atrial fibrillation (Acute) Sinus infection (Acute) - Secondary Discharge Diagnosis Chronic Problems BPH (benign prostatic hyperplasia) (Chronic) DOMI (obstructive sleep apnea) (Chronic) Morbid obesity with BMI of 40.0-44.9, adult (Chronic) Caffeine dependence, continuous (Chronic) Notes ongoing routine consumption 12 cups coffee/day Hospital Course and Treatment Imaging Results: Clinical Impression(s) from Imaging Studies Chest X-Ray 08/26/17 20:45 IMPRESSION: No acute cardiopulmonary disease process is seen. Electronically Signed: Angelito Rodriguez MD at 22:21 EST , Service support , Tj Operations: None Procedures: 2-D Echocardiogram, Cardiac catheterization, Transesophageal Echo Summary of Care Provided: The patient is a 52 year old M presents with an irregular heart rate. Patient was found to be in atrial fibrillation with RVR. Patient underwent a cardiac workup which included a 2D echocardiogram with an ejection fraction of 35-40%. Underwent an echocardiogram, transesophageal that showed an ejection fraction of 65%. It was felt that the the 2D echocardiogram underestimated perhaps due to the atrial fibrillation. It was noted that there was some smoke on the MANDEEP and so cardioversion was not performed given the risk for embolization. Is working the patient continue with anticoagulation with Eliquis and return to see cardiology in the coming weeks to see about getting a cardioversion for his atrial fibrillation. Patient has been on Coreg which is helped keep his rate controlled. Patient did undergo a left heart catheterization that showed minimal coronary artery disease. Patient was observed overnight on the and had no complications. Patient is stable to be discharged home today. [] Discharge Diet: No Restrictions, - - Caffeine in moderation Discharge Activity: Return to Normal Activity Return to work on:: 09/02/17 Call your doctor if you observe: Fever of 101 or Higher, Shortness of breath Home Medications: Medications to take at Discharge Terazosin HCl 2 mg PO QHS 05/06/17 Multivitamin [Multiple Vitamins] 1 each PO DAILY 02/16/18 Acetaminophen [Tylenol Tablet] 650 mg PO Q6H PRN PRN tablet 08/30/17 Amox/Clavulanate Tablet [Augmentin Tablet] 875 mg PO BID #6 tab 08/30/17 Apixaban [Eliquis] 5 mg PO BID #60 tab 08/30/17 Aspirin E.C. [Ecotrin] 81 mg PO DAILY@0800 tablet 08/30/17 Carvedilol [Coreg (Beta Natalie)] 6.25 mg PO BID #60 tab 08/30/17 Fluticasone 0.05% [Flonase Nasal [place]] 1 spray NASAL BID #1 nasal.sry 08/30/17 Following Prescrptions Were Given to Patient: Amox/Clavulanate Tablet [Augmentin Tablet] 875 mg PO BID #6 tab Apixaban [Eliquis] 5 mg PO BID #60 tab Carvedilol [Coreg (Beta Natalie)] 6.25 mg PO BID #60 tab Fluticasone 0.05% [Flonase Nasal [place]] 1 spray NASAL BID #1 nasal.sry Primary Care Physician: Ale Costa, ORDER PLANNER-C [Primary Care Provider] - Within 2 Weeks Please Follow Up With: Serg Horton MD When: 2-4 weeks Disposition: Home Minutes spent on discharge:: 32 Patient Condition:: Good Meaningful Use Info Meaningful Use Diagnoses (Choose all that apply): None applicable Code Visit Inpatient E&M: 23212 Disch Hosp
--- NOTE | 2017-08-30 12:13 | DS.PCM_ITS ---
Discharge Date and Diagnosis - Problem List Patient Problems: Active and Suspected Problems New onset atrial fibrillation (Acute) Sinus infection (Acute) Date of Admission: 08/26/17 Date of Discharge: 08/30/17 - Primary Discharge Diagnosis Active and Suspected Problems New onset atrial fibrillation (Acute) Sinus infection (Acute) - Secondary Discharge Diagnosis Chronic Problems BPH (benign prostatic hyperplasia) (Chronic) DOMI (obstructive sleep apnea) (Chronic) Morbid obesity with BMI of 40.0-44.9, adult (Chronic) Caffeine dependence, continuous (Chronic) Notes ongoing routine consumption 12 cups coffee/day Hospital Course and Treatment Imaging Results: Clinical Impression(s) from Imaging Studies Chest X-Ray 08/26/17 20:45 IMPRESSION: No acute cardiopulmonary disease process is seen. Electronically Signed: Angelito Rodriguez MD at 22:21 EST , Service support , Tj Operations: None Procedures: 2-D Echocardiogram, Cardiac catheterization, Transesophageal Echo Summary of Care Provided: The patient is a 52 year old M presents with an irregular heart rate. Patient was found to be in atrial fibrillation with RVR. Patient underwent a cardiac workup which included a 2D echocardiogram with an ejection fraction of 35-40%. Underwent an echocardiogram, transesophageal that showed an ejection fraction of 65%. It was felt that the the 2D echocardiogram underestimated perhaps due to the atrial fibrillation. It was noted that there was some smoke on the MANDEEP and so cardioversion was not performed given the risk for embolization. Is working the patient continue with anticoagulation with Eliquis and return to see cardiology in the coming weeks to see about getting a cardioversion for his atrial fibrillation. Patient has been on Coreg which is helped keep his rate controlled. Patient did undergo a left heart catheterization that showed minimal coronary artery disease. Patient was observed overnight on the and had no complications. Patient is stable to be discharged home today. [] Discharge Diet: No Restrictions, - - Caffeine in moderation Discharge Activity: Return to Normal Activity Return to work on:: 09/02/17 Call your doctor if you observe: Fever of 101 or Higher, Shortness of breath Home Medications: Medications to take at Discharge Terazosin HCl 2 mg PO QHS 05/06/17 Multivitamin [Multiple Vitamins] 1 each PO DAILY 02/16/18 Acetaminophen [Tylenol Tablet] 650 mg PO Q6H PRN PRN tablet 08/30/17 Amox/Clavulanate Tablet [Augmentin Tablet] 875 mg PO BID #6 tab 08/30/17 Apixaban [Eliquis] 5 mg PO BID #60 tab 08/30/17 Aspirin E.C. [Ecotrin] 81 mg PO DAILY@0800 tablet 08/30/17 Carvedilol [Coreg (Beta Natalie)] 6.25 mg PO BID #60 tab 08/30/17 Fluticasone 0.05% [Flonase Nasal [place]] 1 spray NASAL BID #1 nasal.sry 08/30/17 Following Prescrptions Were Given to Patient: Amox/Clavulanate Tablet [Augmentin Tablet] 875 mg PO BID #6 tab Apixaban [Eliquis] 5 mg PO BID #60 tab Carvedilol [Coreg (Beta Natalie)] 6.25 mg PO BID #60 tab Fluticasone 0.05% [Flonase Nasal [place]] 1 spray NASAL BID #1 nasal.sry Primary Care Physician: Ale Costa, CLINICAL ANALYST-C [Primary Care Provider] - Within 2 Weeks Please Follow Up With: Serg Horton MD When: 2-4 weeks Disposition: Home Minutes spent on discharge:: 32 Patient Condition:: Good Meaningful Use Info Meaningful Use Diagnoses (Choose all that apply): None applicable Code Visit Inpatient E&M: 47654 Disch Hosp
== END 2017-08-30 13:23 | disposition home or self-care (01) ==
LOC: ED 20:32 → PCU 23:18
PROVIDERS: Internal Medicine Cardiovascular Disease; Student in an Organized Health Care Education/Training Program; Admitting Provider Family Medicine; Emergency Provider Emergency Medicine; Family Provider Nurse Practitioner Adult Health; PCP Nurse Practitioner Adult Health
DX: I48.0 Paroxysmal atrial fibrillation (principal); J01.90 Acute sinusitis, unspecified; E66.01 Morbid (severe) obesity due to excess calories; Z68.41 Body mass index [BMI] 40.0-44.9, adult; Z71.3 Dietary counseling and surveillance; G47.33 Obstructive sleep apnea (adult) (pediatric); F15.20 Other stimulant dependence, uncomplicated; N40.0 Benign prostatic hyperplasia without lower urinary tract symptoms; Z79.899 Other long term (current) drug therapy; I42.9 Cardiomyopathy, unspecified; R94.31 Abnormal electrocardiogram [ECG] [EKG]
CPT/HCPCS: 36415; 71046; 78452; 80048; 80061; 81002; 83735; 84443; 84484; 85025; 85027; 85610; 85730; 93005; 93017; 93306; 93312; 93320; 93325; 93458; 96360; 96361; 96372; 97802; 99152; 99153; 99218; 99285; A9500; J7030; Q9957; Q9967; A4216; C1769; C1894; C8929; G0378; J2785

== ENCOUNTER → 2017-09-20 13:46 | Outpatient (CLI) | payer OTHER, SELFPAY ==
[2017-09-20 14:41] LABS: Anion Gap 2 (5-15); BUN 20 mg/dL (7-18); BUN/Creat Ratio 21.8 RATIO (10-20); Calcium,Total 8.9 mg/dL (8.5-10.1); Chloride 107 mmol/L (98-107); Creatinine, Serum 0.92 mg/dL (0.70-1.30); EST Glomerular Filtration Rate 91 mL/min (>60); Est Glom Filt Rate - Afr Amer 110 mL/min (>60); Glucose 84 mg/dL (74-106); Potassium 4.4 mmol/L (3.5-5.1); Sodium Level 141 mmol/L (136-145)
== END ==
PROVIDERS: Family Provider Nurse Practitioner Adult Health; PCP Nurse Practitioner Adult Health; Visit Provider Internal Medicine Cardiovascular Disease
DX: I48.91 Unspecified atrial fibrillation (principal); G47.33 Obstructive sleep apnea (adult) (pediatric); E66.01 Morbid (severe) obesity due to excess calories; Z68.41 Body mass index [BMI] 40.0-44.9, adult; F15.20 Other stimulant dependence, uncomplicated; J32.9 Chronic sinusitis, unspecified; N40.0 Benign prostatic hyperplasia without lower urinary tract symptoms
CPT/HCPCS: 36415; 80048

== ENCOUNTER → 2017-09-21 10:25 | Day surgery (SDC) | payer OTHER, SELFPAY ==
--- NOTE | 2017-09-21 12:59 | PCM.OP.BLANK ---
Problem List (1) New onset atrial fibrillation Status: Acute Operative Report Date of Procedure: 09/21/17 Mr. Rodriguez is a very pleasant 52-year-old morbidly obese gentleman with a history of his obstructive sleep apnea, new onset atrial fibrillation, underwent an admission approximately 3 weeks ago and was referred for MANDEEP guided DC cardioversion. I performed a transesophageal echocardiogram which showed a questionable left atrial thrombus, as well as the fact the patient had not been on anticoagulation for 3 days prior to said MANDEEP. Out of an abundance of caution the patient was placed on p.o. Eliquis which he has been compliant with over the last several weeks. He now presents for elective DC cardioversion. Patient's EF was found to be normal at 65% at that time. Resting EKG: Patient's resting EKG shows atrial fibrillation with controlled ventricular response. The risks/benefits of the cardioversion procedure were thoroughly explained the patient and informed consent was obtained. Patient was brought to the [facility] in the fasting state. The defibrillator pads were placed in the AP position. With the assistance of Dr. Lam Mao the patient was given a total of 80 mg of IV propofol in 40 mg increments, until adequate sedation was obtained. Procedure: Once adequate sedation was obtained the patient received a single synchronized biphasic 200 J shock converting him from atrial fibrillation to sinus bradycardia. This rhythm remained durable, and the 8 defibrillator pads were removed. The patient spontaneously awoke, moves all 4 extremities and tolerated procedure well. Conclusions: Successful beta-deisi and Eliquis assisted DC cardioversion with a single 200 J biphasic synchronized shock. Patient will continue Eliquis therapy for approximately 3 months time. If he returns to atrial fibrillation I would recommend antiarrhythmic assistance such as flecainide combined with beta-deisi. Patient tolerated procedure well. Many thanks to Dr. Lam Mao. Patient to return to work on Tuesday.
--- NOTE | 2017-09-21 13:02 | OP.PCM_ITS ---
Problem List (1) New onset atrial fibrillation Status: Acute Operative Report Date of Procedure: 09/21/17 Mr. Rodriguez is a very pleasant 52-year-old morbidly obese gentleman with a history of his obstructive sleep apnea, new onset atrial fibrillation, underwent an admission approximately 3 weeks ago and was referred for MANDEEP guided DC cardioversion. I performed a transesophageal echocardiogram which showed a questionable left atrial thrombus, as well as the fact the patient had not been on anticoagulation for 3 days prior to said MANDEEP. Out of an abundance of caution the patient was placed on p.o. Eliquis which he has been compliant with over the last several weeks. He now presents for elective DC cardioversion. Patient's EF was found to be normal at 65% at that time. Resting EKG: Patient's resting EKG shows atrial fibrillation with controlled ventricular response. The risks/benefits of the cardioversion procedure were thoroughly explained the patient and informed consent was obtained. Patient was brought to the [facility] [employer] in the fasting state. The defibrillator pads were placed in the AP position. With the assistance of Dr. Lam aMo the patient was given a total of 80 mg of IV propofol in 40 mg increments, until adequate sedation was obtained. Procedure: Once adequate sedation was obtained the patient received a single synchronized biphasic 200 J shock converting him from atrial fibrillation to sinus bradycardia. This rhythm remained durable, and the 8 defibrillator pads were removed. The patient spontaneously awoke, moves all 4 extremities and tolerated procedure well. Conclusions: Successful beta-deisi and Eliquis assisted DC cardioversion with a single 200 J biphasic synchronized shock. Patient will continue Eliquis therapy for approximately 3 months time. If he returns to atrial fibrillation I would recommend antiarrhythmic assistance such as flecainide combined with beta-deisi. Patient tolerated procedure well. Many thanks to Dr. Lam Mao. Patient to return to work on Tuesday.
--- NOTE | 2017-09-21 13:41 | PCM.OP.BLANK ---
Operative Report Date of Procedure: 09/21/17 CONSCIOUS SEDATION REPORT DATE OF SERVICE: September 21, 2017 BRIEF HISTORY OF PRESENT ILLNESS: The patient is a 52-year-old male who presented for elective outpatient cardioversion due to underlying atrial fibrillation. The patient does have a history of obstructive sleep apnea for which he reports compliance with nocturnal CPAP. Echocardiogram completed in August 2017 revealed ejection fraction of 65%. The patient is currently anticoagulated on Eliquis. He reports no previous anesthetic complications. He denies a history of COPD or asthma. The patient does not currently utilize supplemental oxygen at his baseline. PHYSICAL EXAMINATION: VITAL SIGNS: Reviewed and were acceptable. GENERAL: The patient is an obese male, in no apparent distress, speaking in full sentences. He is morbidly obese. HEENT: Normocephalic, atraumatic. Mucous membranes are moist and pink. Good mouth opening noted. Trachea is midline. Good neck mobility. CHEST: S1, S2 irregularly irregular. No murmurs, rubs or gallops were noted. LUNGS: Clear to auscultation bilaterally without appreciable wheezes, rales or rhonchi. ABDOMEN: Soft, nontender, nondistended. Positive bowel sounds. EXTREMITIES: There is no clubbing or cyanosis. Bilateral lower extreme of the edema is present ASA Class: II DESCRIPTION OF PROCEDURE: After confirmation of informed consent, the patient's anesthesia plan was reviewed in detail. Propofol was chosen. Risks and benefits were reviewed and the patient agreed to proceed. At 1244, the patient was given his first bolus of propofol. In total, the patient required 80 mg of propofol to achieve an appropriate level of sedation. Following this, the patient was given a 200 joule synchronized cardioversion by Dr. Horton at the bedside. This was successful in achieving normal sinus rhythm. The patient was monitored until 1254, at which time they reached her baseline mental status and function. The patient tolerated the procedure well. COMPLICATIONS: None ESTIMATED BLOOD LOSS: None RECOMMENDATIONS: Okay to recover in usual fashion.
== END ==
PROVIDERS: Family Provider Nurse Practitioner Adult Health; PCP Nurse Practitioner Adult Health; Visit Provider Internal Medicine Cardiovascular Disease
DX: I48.91 Unspecified atrial fibrillation (principal); Z79.01 Long term (current) use of anticoagulants; G47.33 Obstructive sleep apnea (adult) (pediatric); N40.0 Benign prostatic hyperplasia without lower urinary tract symptoms; F15.20 Other stimulant dependence, uncomplicated; E66.01 Morbid (severe) obesity due to excess calories; Z68.41 Body mass index [BMI] 40.0-44.9, adult; Z79.82 Long term (current) use of aspirin; Z82.49 Family history of ischemic heart disease and other diseases of the circulatory system
CPT/HCPCS: 92960; 93005; J7040

== ENCOUNTER 2018-08-03 18:38 | Emergency (ER) | payer OTHER, SELFPAY ==
[2018-05-29 11:50] VITALS: BMI 47.6
[2018-08-03] VITALS (10 sets, daily range): BP systolic 102–158; BP diastolic 65–92; PULSE 61–97; RESP 16–21; TEMP 36.7; O2SAT 95–987; BMI 47.3
--- NOTE | 2018-08-03 18:47 | EKG12_ITS ---
Test Reason : PALPS Blood Pressure : / mmHG Vent. Rate : 109 BPM Atrial Rate : 053 BPM P-R Int : 000 ms QRS Dur : 090 ms QT Int : 316 ms P-R-T Axes : 000 038 052 degrees QTc Int : 425 ms Atrial fibrillation with rapid ventricular response Abnormal ECG Confirmed by JAYANT VELASQUEZ, LEV ([id number]), medical transcription editor RONEN PATEL ([id number]) on 08/08/2018 3:01:33 PM Referred By: Confirmed By:LEV SABA MD
--- NOTE | 2018-08-03 19:04 | ED.VISSUMM ---
- ER Visit Summary Date of Service: 08/03/18 Chief Complaint: Palpitations History of Present Illness: The patient is a 53 M who presents with palpitations. He was working out at the gym when he started feeling palpitations. He has a history of paroxysmal atrial fibrillation. He is on Eliquis and Coreg at home. He states he is normally on a normal sinus rhythm. He denies chest pain or shortness of breath. He denies any dizziness or lightheadedness. Physical Examination: Vital signs reviewed. HEENT exam unremarkable. Heart is irregularly irregular without murmurs. Lungs are clear bilaterally. Abdomen soft nontender. Extremities reveal no edema. Neurologic exam normal. Test Results: EKG atrial fibrillation with a rate of 109. Laboratory studies normal. Emergency Department Course and Treatment: Patient was given IV Cardizem. It slowed his rate down to the 80s but he was still in atrial fibrillation. I discussed this with Dr. Horton. He recommended electrical cardioversion as long as the patient had taken his Eliquis today. He has. Procedural note: Informed consent was obtained. Patient was placed on a cardiac cath rn with supplemental oxygen. He was then administered 70 mg of propofol with good sedation. The patient had synchronized cardioversion using 200 J. He was then converted into a normal sinus rhythm. EKG informs this. He tolerated the procedure well. He will be monitored for a period of time after his procedure. Patient was electrical cardioverted with good return of normal sinus rhythm. Dr. Horton recommended he increase his Coreg to 6.25 mg twice daily. He will call Dr. Horton's office for follow-up appointment Treatment Plan: [] Disposition: Discharge Impression: Atrial fibrillation with RVR Procedural sedation with electrical cardioversion by ED physician This note was generated with [employer] dictation software. It may contain incorrect words, spelling, and punctuation that were not noted in review of the chart prior to signing ED Disposition - Plan for ED Patient: Chief Complaint: Palpitations Referrals: Ale Costa NP-C [Primary Care Provider] -
[2018-08-03 19:09] LABS: Absolute Lymphocyte Count 2.59 X10^3/ul (0.83-4.51); Absolute Neutrophil Count 4.4 X10^3/uL (2.0-7.7); Basophil# 0.05 X10^3/uL; Basophil% 0.6 % (0-1); Eosinophil# 0.23 X10^3/uL; Eosinophils% 2.9 % (0-5); Hematocrit 47.7 % (40-54); Hemoglobin 16.2 g/dl (13.0-16.5); Lymphocyte # 2.59 X10^3/ul (4.0); Lymphocyte % 32.7 % (19-41); Mean Corpuscular Hgb 32.5 pg (27.0-32.0); Mean Corpuscular Volume 95.8 fL (80-94); Mean Platelet Vol. 10.1 fl (6.2-12.0); Monocyte# 0.61 X10^3/uL; Monocyte% 7.7 % (0-10); Neutrophil # 4.44 X10^3/uL (2.7-7.7); POSITIVE COUNT NO; POSITIVE DIFFERENTIAL NO; POSITIVE MORPHOLOGY NO; Platelet Count 214 K/mm3 (150-450); RBC Distribution Width CV 12.7 % (11.6-14.6); RBC Distribution Width SD 43.9 fl (35.1-43.9); Red Blood Count 4.98 M/mm3 (4.6-6.2); White Blood Count 7.9 K/mm3 (4.4-11.0)
[2018-08-03] MEDS: dilTIAZem 25 MG/5 ML Vial 20 MG IV BOLUS (19:14)
[2018-08-03 20:08] LABS: Anion Gap 10 (5-15); BUN 16 mg/dL (7-18); Calcium,Total 9.4 mg/dL (8.5-10.1); Chloride 102 mmol/L (98-107); Creatinine, Serum 1.07 mg/dL (0.70-1.30); EST Glomerular Filtration Rate 76 mL/min (>60); Est Glom Filt Rate - Afr Amer 92 mL/min (>60); Estimated Creatinine Clearance 80.54 ml/min; Glucose 86 mg/dL (74-106); Sodium Level 137 mmol/L (136-145)
[2018-08-03] MEDS: Propofol 200 MG/20 ML Vial IV BOLUS (20:46)
--- NOTE | 2018-08-03 20:49 | EKG12_ITS ---
Test Reason : POST CARDIO Blood Pressure : / mmHG Vent. Rate : 064 BPM Atrial Rate : 064 BPM P-R Int : 166 ms QRS Dur : 088 ms QT Int : 378 ms P-R-T Axes : 049 042 050 degrees QTc Int : 389 ms Normal sinus rhythm Normal ECG Confirmed by JAYANT VELASQUEZ, LEV ([id number]), news assignment editor RONEN PATEL ([id number]) on 08/08/2018 3:03:58 PM Referred By: Confirmed By:LEV SABA MD
--- NOTE | 2018-08-03 21:05 | DCINST.ED_ITS ---
ED Disposition - Plan for ED Patient: Disposition: Home or Assisted Living Chief Complaint: Palpitations Instructions: ED Afib Referrals: Ale Costa NP-C [Primary Care Provider] - Additional Instructions: Increase your carvedilol to 6.25 mg twice a day. Call Dr. Horton for a follow- up appointment.
== END 2018-08-03 21:28 | disposition home or self-care (01) ==
PROVIDERS: Emergency Provider Emergency Medicine; Family Provider Nurse Practitioner Adult Health; PCP Nurse Practitioner Adult Health
DX: I48.0 Paroxysmal atrial fibrillation (principal); Z79.01 Long term (current) use of anticoagulants; Z79.82 Long term (current) use of aspirin
CPT/HCPCS: 80048; 84484; 85025; 92960; 93005; 96374; 99285; A4216

== ENCOUNTER → 2018-09-02 11:26 | Outpatient (CLI) | payer OTHER, SELFPAY ==
[2018-08-09 08:59] VITALS: BMI 47.3
[2018-09-02 12:28] LABS: T4 Free Direct 0.82 ng/dL (0.76-1.46); Thyroid Stim Hormone (TSH) 1.74 uIU/mL (0.358-3.74)
== END ==
PROVIDERS: Family Provider Nurse Practitioner Adult Health; PCP Nurse Practitioner Adult Health; Referring Provider Nurse Practitioner Family; Visit Provider Nurse Practitioner Family
DX: I48.0 Paroxysmal atrial fibrillation (principal); I25.10 Atherosclerotic heart disease of native coronary artery without angina pectoris
CPT/HCPCS: 36415; 84439; 84443

== ENCOUNTER → 2019-01-06 10:57 | Outpatient (CLI) | payer OTHER, SELFPAY ==
[2018-12-28 10:18] VITALS: BMI 49.6
[2019-01-06 12:13] LABS: AST(SGOT) 15 U/L (15-37); Alanine Aminotransfer ALT/SGPT 22 U/L (16-61); Albumin, Serum 3.5 g/dL (3.2-5.0); Alkaline Phosphatase 72 U/L (45-117); Bilirubin, Direct 0.14 mg/dL (0.00-0.30); Cholesterol 138 mg/dL (200); Globulin 3.9 g/dL (2.2-4.2); High Density Lipoprotein 61 mg/dL; Protein, Total 7.4 g/dL (6.4-8.2); Triglycerides 43 mg/dL; Very Low Density Lipoprotein 9 mg/dL (5-40)
== END ==
PROVIDERS: Family Provider Nurse Practitioner Adult Health; PCP Nurse Practitioner Adult Health; Referring Provider Internal Medicine Cardiovascular Disease; Visit Provider Internal Medicine Cardiovascular Disease
DX: I25.10 Atherosclerotic heart disease of native coronary artery without angina pectoris (principal); N52.9 Male erectile dysfunction, unspecified
CPT/HCPCS: 36415; 80061; 80076; 84403

== ENCOUNTER 2019-07-19 19:04 | Emergency (ER) | payer OTHER, SELFPAY ==
[2018-12-28 10:18] VITALS: BMI 49.6
[2019-07-19 19:05] VITALS: BP 154/61; PULSE 85; RESP 18; TEMP 36.6; O2SAT 96; BMI 53.9
--- NOTE | 2019-07-19 19:22 | EKG12_ITS ---
Test Reason : PALPITATIONS Blood Pressure : / mmHG Vent. Rate : 113 BPM Atrial Rate : 234 BPM P-R Int : 000 ms QRS Dur : 084 ms QT Int : 316 ms P-R-T Axes : 000 054 041 degrees QTc Int : 433 ms Atrial fibrillation with rapid ventricular response Abnormal ECG Confirmed by JAYANT VELASQUEZ, LEV ([id number]), city editor SHARRI CHANDLER ([id number]) on 07/23/2019 10:14:56 AM Referred By: CHONG Confirmed By:LEV SABA MD
--- NOTE | 2019-07-19 19:23 | ED.VIS.GEN ---
History of Present Illness Chief Complaint: Palpitations Informant: Patient Onset: Hours - 1 Context: Sudden Onset - while at rest, watching TV Timing: Continuous Quality: skipping Location: chest Current Severity: Moderate Maximum Severity: Moderate Worsened by: nothing Relieved by: nothing Associated Symptoms: none Narrative: Patient states this feels like when he has gone into atrial fibrillation before. He is on Eliquis for that reason in addition to carvedilol. He states he does not take the carvedilol for anything else such as cardiomyopathy. He denies having any chest discomfort, shortness of breath, calf pain or leg swelling, or lightheadedness/syncope. No recent illnesses. No [id number] medications. Has been compliant with his medications. Denies using any drugs. 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 - Past Medical History (1) Atherosclerosis of [place] coronary artery of [place] heart without angina pectoris Status: Chronic (2) Morbid obesity with BMI of 40.0-44.9, adult Status: Chronic (3) Paroxysmal atrial fibrillation Status: Chronic Comment: DCCV 09/21/17 and 08/03/18 (4) BPH (benign prostatic hyperplasia) Status: Chronic Past Medical History - Allergies and Home Meds Allergies/Adverse Reactions: Allergies bacitracin [From Neosporin ([id number])] Allergy (Verified 07/19/19 19:07) Rash bacitracin zinc [From Neosporin ([id number])] Allergy (Verified 07/19/19 19:07) Rash neomycin sulfate [From Neosporin ([id number])] Allergy (Verified 07/19/19 19:07) Rash polymyxin B [From Neosporin ([id number])] Allergy (Verified 07/19/19 19:07) Rash Primary Care Physician: Ale Costa NP-C [Primary Care Provider] - Surgical History: no surgical history Lives: Alone Smoking Status: Never smoker Drugs: None - Family History Maternal Family History: Family History (Last Reviewed 12/12/18 @ 10:17 by Yi Owen) Father Heart disease Mother Diabetes Family History: Reports: Diabetes Paternal Family History: Family History (Last Reviewed 12/12/18 @ 10:17 by Yi Owen) Father Heart disease Mother Diabetes Family History: Reports: Heart Disease - Father w/ history of CHF. Review of Systems General: Denies: Chills, Fever, Sweats Eyes: Denies: Visual changes - bilaterally, Diplopia ENT: Denies: Rhinorrhea, Sore throat Cardiovascular: Reports: Palpitations. Denies: Chest pain Respiratory: Denies: Dyspnea, Cough, Dyspnea on exertion Gastrointestinal: Denies: Abdominal pain, Nausea, Vomiting, Diarrhea, Melena, Hematochezia Genitourinary: Denies: Dysuria, Hematuria, Frequency Musculoskeletal: Denies: Back pain, Swelling, Extremity Pain Skin: Denies: Rash, Wounds Neurological: Denies: Headache, Weakness, Numbness Physical Exam Vital Signs/Narrative: Vital Signs Temp Pulse Resp BP Pulse Ox 07/19/19 19:05 97.9 F 85 18 154/61 H 96 Inital Vital Signs reviewed: Yes General: Well nourished, Well developed, Obese, No Acute Distress - Well-appearing. No diaphoresis. Head: Normocephalic, Atraumatic Eyes: Perrl, EOMI ENT: Moist mucous membranes, No rhinorrhea Neck: Supple, Nontender, No JVD Cardiovascular: No murmurs, Normal S1, Normal S2, Irregular, Tachycardia Respiratory: No distress, CTA bilaterally, Chest nontender Abdomen: Soft, Nontender, Nondistended, Normal bowel sounds Back: Nontender, Normal Inspection Extremities: Nontender, No edema. Negative for: Calf Tenderness Skin: Normal color, No rash, No Trauma Neurological: Alert, Oriented x3, Cranial nerves II-XII grossly intact, Normal Strength, Normal Sensation Psychological: Normal affect, Normal Mood Diagnostic/Tx/Re-eval Laboratory Tests 07/19/19 07/19/19 Range/Units 19:20 19:20 WBC 8.9 (4.4-11.0) K/mm3 RBC 4.95 (4.6-6.2) M/mm3 Hgb 15.6 (13.0-16.5) g/dL Hct 47.0 (40-54) % MCV 94.9 H (80-94) fL MCH 31.5 (27.0-32.0) pg MCHC 33.2 (32-36) g/dL RDW Std Deviation 43.8 (35.1-43.9) fl RDW Coeff of Jd 12.5 (11.6-14.6) % Plt Count 201 (150-450) K/mm3 MPV 10.5 (6.2-12.0) fl Immature Gran % (Auto) 0.100 (0.0-0.9) % Neut % (Auto) 53.7 (47-70) % Lymph % (Auto) 31.4 (19-41) % Harvey % (Auto) 10.5 H (0-10) % Eos % (Auto) 3.2 (0-5) % Baso % (Auto) 1.1 H (0-1) % Absolute Neuts (auto) 4.8 (2.0-7.7) X10^3/uL Absolute Lymphs (auto) 2.79 (0.83-4.51) X10^3/uL Nucleated RBC % 0 (0-5) % Sodium 143 (136-145) mmol/L Potassium 4.1 (3.5-5.1) mmol/L Chloride 110 H (98-107) mmol/L Carbon Dioxide 29.0 (21.0-32.0) mmol/L Anion Gap 4 L (5-15) BUN 22 H (7-18) mg/dL Creatinine 1.16 (0.70-1.30) mg/dL Estim Creat Clear Calc 74.29 ml/min Est GFR (MDRD) Af Amer 84 (>60) mL/min Est GFR (MDRD) Non-Af 69 (>60) mL/min BUN/Creatinine Ratio 19.0 (10-20) RATIO Glucose 88 (74-106) mg/dL Calcium 8.9 (8.5-10.1) mg/dL Troponin I < 0.015 (<0.045) ng/mL - Rhythm Strip Rhythm Strip: A-fib Rate: 115 Ectopy: None - EKG Initial EKG Interpretation: No Acute Injury Pattern, Atrial Fibrillation Prior: Changed - was NSR. morphology same, however. - Medical Decision Making Patient's rate is down to the 60-70s after Cardizem 20 mg, his blood pressure is 108 systolic, and he is now asymptomatic but still in A. fib. It is unknown how long he has been in A. fib, he may have just become tachycardic when he became symptomatic tonight. Luckily he is already anticoagulated. I discussed with Dr. Christiansen, he agrees that increasing his carvedilol from 6.25 mg twice daily to 12.5 mg twice daily would be reasonable and have him follow-up with Dr. Horton in the office. Patient is comfortable with that plan, given his normal blood work and his symptoms. ED Disposition - Plan for ED Patient: Disposition: Home or Assisted Living Diagnosis: Paroxysmal atrial fibrillation Instructions: Atrial Fibrillation Referrals: Ale Costa, DORIS-Rica [Primary Care Provider] - Serg Horton MD [STAFF PHYSICIAN] - 5-7 Days Additional Instructions: Until you follow-up with Dr. Horton, increase your carvedilol to 12.5 mg twice daily, doubling both of your daily doses.
[2019-07-19] MEDS: dilTIAZem 25 MG/5 ML Vial 20 MG IV BOLUS (19:32)
[2019-07-19 19:35] LABS: Absolute Lymphocyte Count 2.79 X10^3/uL (0.83-4.51); Absolute Neutrophil Count 4.8 X10^3/uL (2.0-7.7); Basophil% 1.1 % (0-1); Eosinophil# 0.28 X10^3/uL; Eosinophils% 3.2 % (0-5); Hemoglobin 15.6 g/dL (13.0-16.5); Lymphocyte # 2.79 X10^3/ul (4.0); Lymphocyte % 31.4 % (19-41); Mean Corp Hgb Conc 33.2 g/dL (32-36); Mean Corpuscular Hgb 31.5 pg (27.0-32.0); Mean Corpuscular Volume 94.9 fL (80-94); Mean Platelet Vol. 10.5 fl (6.2-12.0); Monocyte# 0.93 X10^3/uL; Monocyte% 10.5 % (0-10); NRBC Flagged by Analyzer 0 % (0-5); Neutrophil # 4.77 X10^3/uL (2.7-7.7); Neutrophil % 53.7 % (47-70); Platelet Count 201 K/mm3 (150-450); RBC Distribution Width CV 12.5 % (11.6-14.6); RBC Distribution Width SD 43.8 fl (35.1-43.9); Red Blood Count 4.95 M/mm3 (4.6-6.2); White Blood Count 8.9 K/mm3 (4.4-11.0)
[2019-07-19 19:48] LABS: Anion Gap 4 (5-15); BUN 22 mg/dL (7-18); Calcium,Total 8.9 mg/dL (8.5-10.1); Chloride 110 mmol/L (98-107); Creatinine, Serum 1.16 mg/dL (0.70-1.30); EST Glomerular Filtration Rate 69 mL/min (>60); Est Glom Filt Rate - Afr Amer 84 mL/min (>60); Estimated Creatinine Clearance 74.29 ml/min; Glucose 88 mg/dL (74-106); Potassium 4.1 mmol/L (3.5-5.1); Sodium Level 143 mmol/L (136-145)
[2019-07-19 20:08] VITALS: BP 103/68; PULSE 72; RESP 14; O2SAT 97
[2019-07-19 20:31] VITALS: BP 99/76; PULSE 70; RESP 16; O2SAT 96
== END 2019-07-19 20:32 | disposition home or self-care (01) ==
PROVIDERS: Emergency Provider Emergency Medicine; Family Provider Nurse Practitioner Adult Health; PCP Nurse Practitioner Adult Health
DX: I48.0 Paroxysmal atrial fibrillation (principal); I25.10 Atherosclerotic heart disease of native coronary artery without angina pectoris; E66.01 Morbid (severe) obesity due to excess calories; Z68.41 Body mass index [BMI] 40.0-44.9, adult; N40.0 Benign prostatic hyperplasia without lower urinary tract symptoms; Z79.01 Long term (current) use of anticoagulants; Z79.82 Long term (current) use of aspirin; Z79.899 Other long term (current) drug therapy
CPT/HCPCS: 80048; 84484; 85025; 93005; 96374; 99284; A4216

== ENCOUNTER → 2019-07-26 13:38 | Outpatient (CLI) | payer OTHER, SELFPAY ==
[2019-07-23 15:27] VITALS: BMI 54.2
--- NOTE | 2019-07-26 13:38 | ECHOCS_ITS ---
Reason For Study: A. fib Procedure This was a 2D Doppler, Color Flow transthoracic echocardiogram. The study was technically difficult. Exam performed in department. Left Ventricle Normal size and thickness. The estimated ejection fraction is 65 %. Unable to assess diastolic dysfunction. No regional wall motion abnormalities noted. Right Ventricle Normal size and thickness. Normal systolic function. Atria Normal left atrium. Normal right atrium. Normal atrial septum. Mitral Valve The mitral valve is structurally normal. No prolapse or stenosis seen. Tricuspid Valve Normal tricuspid valve. Unable to estimate RV systolic pressure due to insufficient tricuspid regurgitant envelope. Aortic Valve Normal aortic valve. Trisinus/trileaflet aortic valve. Pulmonic Valve Normal pulmonic valve. Great Vessels Normal aortic root. Normal arch. Normal inferior vena cava. Inferior vena cava collapse with sniff. Pericardium/Pleural No pericardial effusion. Medication 22 gauge I.V. with prn adaptor inserted into right arm. Diluted definity 5ml given slow IV push to enhance endocardial definition. MMode/2D Measurements & Calculations LVIDd: 4.4 cm IVSd: 1.2 cm Ao root diam: 3.5 cm LVIDs: 3.3 cm LVPWd: 1.3 cm RVDd: 3.4 cm FS: 25.2 % LAV(MOD-bp): 66.5 ml LA A4 area: 18.7 cm2 LA dimension(2D): 4.1 cm LAV(MOD-bp) Indexed: 24.5 ml/m2 LAV(MOD-sp2): 87.8 ml LAV(MOD-sp4): 46.9 ml RA A4 area: 18.9 cm2 Doppler Measurements & Calculations MV E max deanna: 83.5 cm/sec Ao V2 max: 115.2 cm/sec LV V1 max: 91.5 cm/sec Ao max P.4 mmHg LV V1 max P.4 mmHg PA V2 max: 123.1 cm/sec Interpretation Summary The estimated ejection fraction is 65 %. Unable to assess diastolic dysfunction. Unable to estimate RV systolic pressure due to insufficient tricuspid regurgitant envelope. Compared to echo report dated 08/27/2017, LV function has improved from 35% to 65%. Pt now appears to be in atrial fibrillation. The study was technically difficult. Contrast injection was performed. Ordering Physician: Serg Horton Referring Physician: Ale Costa Performed By: Paige Fuller RDCS
== END ==
PROVIDERS: Family Provider Nurse Practitioner Adult Health; PCP Nurse Practitioner Adult Health; Referring Provider Internal Medicine Cardiovascular Disease; Visit Provider Internal Medicine Cardiovascular Disease
DX: I48.0 Paroxysmal atrial fibrillation (principal); I25.10 Atherosclerotic heart disease of native coronary artery without angina pectoris; E66.01 Morbid (severe) obesity due to excess calories; I48.91 Unspecified atrial fibrillation; Z68.41 Body mass index [BMI] 40.0-44.9, adult
CPT/HCPCS: 93306; Q9957; A4216; C8929

== ENCOUNTER 2019-08-01 08:57 | Day surgery (SDC) | payer OTHER, SELFPAY ==
[2019-07-23 15:27] VITALS: BMI 54.2
--- NOTE | 2019-07-23 16:16 | RAD_ITS ---
STUDY: X-RAY CHEST REASON FOR EXAM: Male, 54 years old. having cardio version TECHNIQUE: PA and lateral views of the chest. COMPARISON: Report of previous study of August 26, 2017 FINDINGS: The lungs are clear and expanded. There is no demonstrated pleural abnormality. Normal size heart. Normal mediastinum and dereck. Normal visualized pulmonary arteries. Normal visualized aortic arch and descending thoracic aorta. Normal visualized thoracic spine. Normal visualized ribs, clavicles, and shoulders. There is no demonstrated abnormality of the visualized soft tissue structures of the upper abdomen. RAD/Chest PA and Lateral IMPRESSION: Normal x-ray examination of the chest. Electronically Signed: Angelito Rodriguez MD at 22:53 EST , Service support ,
--- NOTE | 2019-07-31 02:47 | HP_ITS ---
HPI HPI History of Present Illness Surgical H&P: Yes Details: Chief Complaint: Routine follow-up Details: Mr. Rodriguez is a very pleasant 54-year-old morbidly obese gentleman with a history of his obstructive sleep apnea who is compliant with his CPAP, initially new onset atrial fibrillation, underwent an admission in August 2017, found to be in new onset atrial fibrillation, and was referred for MANDEEP guided DC cardioversion. I performed a transesophageal echocardiogram which showed a questionable left atrial thrombus, as well as the fact the patient had not been on anticoagulation for 3 days prior to said MANDEEP. Out of an abundance of caution the patient was placed on p.o. Eliquis which he had been compliant with over the several weeks prior to DC cardioversion. Patient's EF was found to be normal at 65% at that time. Patient also underwent a stress test which was found to be abnormal followed by a left heart catheterization in September 2017. This demonstrated mild nonobstructive coronary disease with 30% ostial LAD, mildly aneurysmal distal left main, and mild global LV dysfunction with an EF around 50%. On 09/21/17 the patient underwent successful DC cardioversion, He has been compliant with his medications. He denies any chest pain, angina, shortness of breath, palpitations, or reversion to atrial fibrillation. Patient is able to detect when he goes in and out of atrial fibrillation. Patient does have obstructive sleep apnea and is compliant with his CPAP machine. Denies any serious palpitations. 08/03/2018, the patient developed diaphoresis, palpitations, and sought medical attention to [facility] ER. At that time he was found to be in atrial fibrillation with rapid ventricular response and underwent DC cardioversion. He had had no further atrial fibrillation until July 19, 2019 when he had palpitations and return to the emergency room at [facility] and was found to have recurrent atrial fibrillation although this time he did not receive a DC cardioversion. He has remained on Eliquis. He denies any exertional symptoms. He is compliant with his medications and his CPAP. In our office today's blood pressure is 120/60, pulse is 60 and irregular. His physical exam is as below. Lipids dated 01/06/2019 show an LDL of 68 and HDL of 61. EKG dated 07/19/2019 showed atrial fibrillation with rapid ventricular response, no acute changes. Intake Vital Signs 07/23/19 Height 5 ft 10 in 07/23/19 Weight: 378 lb 07/23/19 BMI 54.2 07/23/19 BP 120/60 07/23/19 Blood Pressure Location Lt brachial 07/23/19 Position Sitting 07/23/19 Respiration 20 H 07/23/19 Pulse 100 07/23/19 Pulse Source Auscultation Intake Visit Reasons: 6 M FU Allergies bacitracin [From Neosporin ([id number])] Allergy (Verified 07/31/19 07:09) Rash bacitracin zinc [From Neosporin ([id number])] Allergy (Verified 07/31/19 07:09) Rash neomycin sulfate [From Neosporin ([id number])] Allergy (Verified 07/31/19 07:09) Rash polymyxin B [From Neosporin ([id number])] Allergy (Verified 07/31/19 07:09) Rash Medications Terazosin HCl 2 mg PO QHS 05/06/17 [History Confirmed 07/31/19] Multivitamin [Multiple Vitamins] 1 ea PO DAILY 08/26/17 [History Confirmed 07/31/19] Aspirin E.C. [Ecotrin] 81 mg PO DAILY@0800 tab 08/30/17 [Rx Confirmed 07/31/19] apixaban 5 mg tablet 5 mg PO BID #60 tab 07/10/19 [Rx Confirmed 07/31/19] carvedilol 12.5 mg tablet 12.5 mg PO BID #60 tab 07/23/19 [Rx Confirmed 07/31/19] flecainide 50 mg tablet 50 mg PO Q12H #60 tab 07/23/19 [Rx Confirmed 07/31/19] PFSH Medical History Atherosclerosis of [place] coronary artery of [place] heart without angina pectoris (Chronic) Paroxysmal atrial fibrillation (Chronic) Morbid obesity with BMI of 40.0-44.9, adult (Chronic) Caffeine dependence, continuous (Chronic) New onset atrial fibrillation (Acute ~08/2017) BPH (benign prostatic hyperplasia) (Chronic) Obstructive sleep apnea (Chronic) Surgical History History of cardioversion (Chronic 09/21/17) History of left heart catheterization (Chronic 08/29/17) Family History Father Heart disease Mother Diabetes Social History Smoking Status: Never smoker ROS Const Const: Positive for fatigue (Very fatigued), body ache and other (Went to ER 07/19/19 for a-fib RVR: Coreg increased to 12.5 bid.); negative for weakness, fever(s), headache(s), chills, frequent falls, night sweats, daytime sleepiness, difficulty sleeping, excessive sweating, weight gain, weight loss, increased appetite, poor appetite or anorexia Eyes Eyes: Negative for blind spots, loss of peripheral vision, transient loss of vision, blurry vision, change in vision, double vision, floaters, tunnel vision or other ENT ENT: Negative for headache(s), dizziness, hearing loss, tinnitus, Nosebleed/epistaxis, balance problems, post nasal drip, lip swelling, tongue swelling, bleeding gums, hoarseness, neck pain, dry mouth or other Cardio Chest Pain: No Palpitations: Yes feels like its: skipping Edema: Bilateral (mild pitting but tight and swollen to shins) Muscle aches with walking: None Resp Respiratory: Positive for SOB with activity (sometimes); negative for SOB at rest, SOB orthopnea\SOB lying down, Cough, Coughing up blood/hemoptysis, chest congestion, pain on inspiration, snoring, stridor, wheezing, crackles, paroxysmal nocturnal dyspnea or other GI GI: Negative nausea, vomiting, heartburn, constipation, belching, bloating, cramping, vomiting blood/hematemesis, bright, red blood in stools, black,tarry stools, loose stools, Difficulty Swallowing or other : Negative for hematuria, frequent nighttime urination/ nocturia, erectile dysfunction or abnormal vaginal bleeding Musc Musc: Negative for muscle aches/ myalgia, muscle weakness, joint pain or balance problems Skin Skin: Negative redness, non-healing lesions, rash, unusual bruising, skin ulcer, wounds, jaundice or other Neuro Neuro: Negative for dizziness, lightheadedness, near syncope, syncope, orthostatic symptoms, frequent falls, headache(s), weakness, confusion, memory loss, restless legs, blurry vision, double vision, vertigo, seizures, lack of coordination or other Murali Hematologic/Lymphatic: Negative for easy bleeding, easy bruising, enlarged lymph nodes or other Endo Endo: Positive for fatigue (Very fatigued); negative for cold intolerance, heat intolerance, excessive sweating, flushing, increased thirst/drinking, increased hunger, hair loss, hair growth or other Psych Psych: Negative for anxiety, depression, thoughts of harming anyone, thoughts of harming yourself, visual hallucinations, panic attacks or audible hallucinations Allergy Allergy/Immunology: Negative for throat swelling, Negative for tongue swelling, Negative for hives, Negative for rash, Negative for lip swelling Cardiology Exam Const Appearance: cooperative, healthy appearing and no acute distress Nutritional Appearance: well nourished Orientation: alert, oriented x3 and oriented to person Head Head: normal to inspection, normocephalic and atraumatic Nose: external nose normal Face and Sinus: face symmetric Mouth: oral mucosae normal Eyes General: appearance normal, both eyes and all related structures Eyelids: eyelids normal Conjunctivae: conjunctivae normal Pupils: PERRL and normal by confrontation EOM: EOM intact bilaterally Neck Neck: normal visual inspection and full ROM Carotids: normal carotid upstroke Chest Chest inspection: normal inspection of the chest Auscultation: Bilateral: Clear to Auscultation Cardio Palpation: normal PMI Rate: regular rate Rhythm: regular rhythm Heart sounds: S1 normal and S2 normal GI GI: normal to inspection, no hepatosplenomegaly and bowel sounds present Neuro General: alert, awake, oriented x3, CN's II-XI intact bilaterally and moves all extremities Skin Skin: no rashes or lesions noted Extremities Pulses: Normal: Right Femoral Pulse, Left Femoral Pulse, Right Dorsalis Pedis Pulse, Left Dorsalis Pedis Pulse, Right Posterior Tibial Pulse, Left Posterior Tibial Pulse, Right Radial Pulse, Left Radial Pulse Lower Extremity Edema: None: Bilateral Psych Psychological: normal affect Assessment & Plan 1. Paroxysmal atrial fibrillation I48.0 DCCV 09/21/17 and 08/03/18 Jamie - GERALDINE Donahue Pt is scheduled to undergo a cardioversion 08/01/[address] Horton Plan - Serg Horton MD 1. Paroxysmal atrial fibrillation: The patient once again had a recurrence of his atrial fibrillation around the beginning of the new year, but he has been compliant with his Eliquis, baby aspirin, Coreg. His heart rate appears to be fairly well controlled on today's exam, and I recommended to continue his Coreg, Eliquis, and that we had flecainide 50 mg p.o. twice daily. We will repeat his EKG in 1 week's time, followed by elective DC cardioversion in 3 weeks time once his flecainide is had time to settle in. If the patient chemically cardiovert, we will not need to DC cardiovert. If we are successful with cardioversion I would recommend continual flecainide therapy as well as his Coreg as well as Eliquis. Of strongly encouraged him to continue his CPAP as well. In addition I would recommend a repeat 2D echo with Doppler for surveillance given his mild global LV dysfunction, atrial fibrillation, and obstructive sleep apnea. Orders Orders: Chest PA and Lateral 07/23/19 2. Atherosclerosis of [place] coronary artery of [place] heart without angina pectoris I25.10 Plan - Serg Horton MD 2. Coronary artery disease: The patient had minimal coronary disease by catheterization in September 2017. He has had no anginal symptoms with or without his atrial fibrillation. Recommend continuing baby aspirin and Coreg therapy. 3. Return office in 6 months. This note was generated using a voice recognition system and there may be incorrect words, spelling or punctuation that were not noted when reviewing the office note prior to saving. Orders Orders: Chest PA and Lateral 07/23/19 Plan Detail Other Medications New: carvedilol must administer with a meal/food 12.5 mg PO BID 60 tabs 11RF flecainide 50 mg PO Q12H 60 tabs 11RF Follow Up +6M ([place]) Coding Level of Care Code Off vis,est,level 3 Diagnoses Paroxysmal atrial fibrillation I48.0 Atherosclerosis of [place] coronary artery of [place] heart without angina pectoris I25.10 Coding Level of Care Code Off vis,est,level 3 Diagnoses Paroxysmal atrial fibrillation I48.0 Atherosclerosis of [place] coronary artery of [place] heart without angina pectoris I25.10 Supplemental Info Supplemental Information Labs LDL Cholesterol 68 mg/dL (0-130) 01/06/19 HDL Cholesterol 61 mg/dL (40-) 01/06/19 Triglycerides 43 mg/dL (-199) 01/06/19 VLDL Cholesterol 9 mg/dL (5-40) 01/06/19 Diagnostics Electrocardiogram 07/19/19 Echocardiogram 07/26/19 Transesophageal Echocardiogram 08/29/17 Stress Test Nuclear Medicine 08/29/17 Stress Test 08/29/17 Cardiac Catheterization 08/29/17 Chest X-Ray 07/23/19 08/01/19 0801 <Electronically signed by Serg Horton MD> Date _ Serg Horton MD
[2019-07-31 07:05] VITALS: BMI 49.6
--- NOTE | 2019-08-01 11:27 | CARDIOVERS_ITS ---
Cardioversion Cardioversion: DC cardioversion results: Patient is brought to the [facility] in the fasting state, and the risk and benefits of the procedure were thoroughly explained to the patient and informed consent was obtained. The defibrillator pads were placed in the AP position, and with the assistance of Dr. Fermin Lockhart received a total of 80 mg of IV propofol, and 40 mg increments. Once adequate sedation was obtained, the patient received a single biphasic 200 J synchronized shock which converted him from atrial fibrillation with controlled ventricular response to normal sinus rhythm/sinus bradycardia with a QT corrected interval of 405 ms. His rhythm remained durable, and the defibrillator pads removed, the patient spontaneously awoke, moves all 4 extremities and tolerated procedure well. Conclusions: Successful flecainide and Eliquis assisted DC cardioversion with a single 200 J biphasic synchronized shock converting him from atrial fibrillation to normal sinus rhythm. Patient remain on current antiarrhythmic and anticoagulation therapy going forward given his recidivism into atrial fibrillation. Should the patient have recurrence of atrial fibrillation we will increase his flecainide and entertain repeat DC cardioversion. Patient tolerated suture well. No complications. Many thanks to Dr. Fermin Lockhart for his assistance.
--- NOTE | 2019-08-01 13:34 | PRO.PCM_ITS ---
Problem List (1) Atherosclerosis of [place] coronary artery of [place] heart without angina pectoris Status: Chronic (2) BPH (benign prostatic hyperplasia) Status: Chronic (3) Caffeine dependence, continuous Status: Chronic Comment: Notes ongoing routine consumption 12 cups coffee/day (4) Morbid obesity with BMI of 40.0-44.9, adult Status: Chronic (5) Paroxysmal atrial fibrillation Status: Chronic Comment: DCCV 09/21/17 and 08/03/18 Procedure Report Date of Procedure: 08/01/19 - Conscious sedation CONSCIOUS SEDATION REPORT BRIEF HISTORY OF PRESENT ILLNESS: The patient is a 54-year-old male who presented to [facility] for an elective outpatient cardioversion due to underlying atrial fibrillation. The patient reports no PO intake since midnight. The patient does have a history of obstructive sleep apnea. The patient reports no history of smoking and COPD. The patient denies any recent constitutional symptoms such as fevers, chills, nausea or vomiting. The patient denies previous anesthetic complications. Patient was noted to have a preserved ejection fraction in the past. Patient does take flecainide and Eliquis at baseline and took these on the day of testing. PHYSICAL EXAMINATION: VITAL SIGNS: Reviewed and were acceptable. GENERAL: The patient is a male, in no apparent distress, speaking in full sentences. HEENT: Normocephalic, atraumatic. Mucous membranes are moist and pink. Good mouth opening noted. Trachea is midline. Good neck mobility. MP IV CHEST: S1, S2 irregularly irregular. No murmurs, rubs or gallops were noted. LUNGS: Clear to auscultation bilaterally without appreciable wheezes, rales or rhonchi. ABDOMEN: Soft, nontender, nondistended. Positive bowel sounds. EXTREMITIES: There is no clubbing, cyanosis or edema. ASA Class: II DESCRIPTION OF PROCEDURE: After confirmation of informed consent, the patient's anesthesia plan was reviewed in detail. Propofol was chosen. Risks and benefits were reviewed and the patient agreed to proceed. At 11:16 AM, the patient was given 40 mg of pro pofol. The patient required a total of 80 mg of propofol throughout the procedure to achieve appropriate sedation. The patient achieved an appropriate level of sedation and received 1 attempt synchronized cardioversion, at [address] Horton at the bedside. This was successful in achieving normal sinus rhythm. The patient was monitored until 11:27 AM, at which time the patient reached their baseline mental status and function. The patient tolerated the procedure well. COMPLICATIONS: None ESTIMATED BLOOD LOSS: None RECOMMENDATIONS: Okay to recover in usual fashion. Code Visit [id number]: Other Procedure See Report - 62592 - 11 minutes
== END 2019-08-01 12:35 | disposition home or self-care (01) ==
LOC: CLSP 08:57
PROVIDERS: Family Provider Nurse Practitioner Adult Health; PCP Nurse Practitioner Adult Health; Referring Provider Internal Medicine Cardiovascular Disease; Visit Provider Internal Medicine Cardiovascular Disease
DX: I48.0 Paroxysmal atrial fibrillation (principal); I48.20 Chronic atrial fibrillation, unspecified; N40.0 Benign prostatic hyperplasia without lower urinary tract symptoms; Z68.43 Body mass index [BMI] 50.0-59.9, adult; E66.01 Morbid (severe) obesity due to excess calories; F15.20 Other stimulant dependence, uncomplicated; I25.10 Atherosclerotic heart disease of native coronary artery without angina pectoris; G47.33 Obstructive sleep apnea (adult) (pediatric); Z79.899 Other long term (current) drug therapy; Z79.82 Long term (current) use of aspirin
CPT/HCPCS: 71046; 92960; 93005; J7040

== ENCOUNTER 2020-03-25 09:10 | Emergency (ER) | payer OTHER, SELFPAY ==
[2020-02-28 14:42] VITALS: BMI 56.7
[2020-03-25] VITALS (7 sets, daily range): BP systolic 122–151; BP diastolic 73–106; PULSE 54–110; RESP 12–24; TEMP 36.7; O2SAT 96–98; BMI 55.7
--- NOTE | 2020-03-25 09:17 | EKG12_ITS ---
Test Reason : CP Blood Pressure : / mmHG Vent. Rate : 102 BPM Atrial Rate : 163 BPM P-R Int : 000 ms QRS Dur : 090 ms QT Int : 346 ms P-R-T Axes : 000 042 052 degrees QTc Int : 450 ms Atrial fibrillation with rapid ventricular response Abnormal ECG Confirmed by SONDRA VELASQUEZ, HEMA ([id number]), electronic news gathering editor SHARRI CHANDLER ([id number]) on 03/31/2020 1:13:06 PM Referred By: CARLOS ALBERTO Confirmed By:MELLO AMARO MD
--- NOTE | 2020-03-25 09:17 | RAD_ITS ---
STUDY: X-RAY CHEST REASON FOR EXAM: Male, 54 years old. AFIB STARTED LAST NIGHT, PT HAS PREV HX OF SAME TECHNIQUE: Single AP portable view of the chest. COMPARISON: Comparison is made with prior study dated 07/23/2019. FINDINGS: EKG electrodes are seen. The lungs are clear and expanded. Scattered calcified granulomas. No acute abnormality is seen. There is no demonstrated pleural abnormality. Normal size heart. Normal mediastinum and dereck. Normal visualized pulmonary arteries. Normal visualized aortic arch and descending thoracic aorta. Normal visualized thoracic spine. Normal visualized ribs, clavicles, and shoulders. There is no demonstrated abnormality of the visualized soft tissue structures of the upper abdomen. RAD/Chest 1 View (Portable) IMPRESSION: No acute abnormality is seen. Electronically Signed: Poli Olivier, at 9:48 EDT , Service support ,
--- NOTE | 2020-03-25 09:24 | ED.DCSUM_ITS ---
History of Present Illness Chief Complaint: Chest Other Informant: Patient Onset: Yesterday Narrative: States that yesterday he was walking into a truck stop and noticed that he was more short of breath than normal took his pulse and noted to be irregular. He states that he has a history of atrial fibrillation. He is on flecainide and carvedilol as well as Eliquis. He states that a couple days ago he noticed that he had forgotten to take his medications. Otherwise he has been compliant. He has had a heart catheterization about 2 years ago that was negative. He has no known structural heart disease. He has had approximately 3 cardioversions in the past. His last one was approximately 8 months ago. He states that this is the shortest time he is gone in between episodes of A. fib. He denies any chest pain. He has no other complaints. The patient last had p.o. at 2300 yesterday. He has not had any complications with sedation in the past. - Past Medical History (1) BPH (benign prostatic hyperplasia) Status: Chronic (2) History of cardioversion Status: Chronic Comment: 09/21/2017; 08/01/2019 (successful) with Flecainide. (3) History of left heart catheterization Status: Chronic (4) Obstructive sleep apnea Status: Chronic (5) Paroxysmal atrial fibrillation Status: Chronic Comment: DCC 09/21/17 and 08/03/18 Past Medical History - Allergies and Home Meds Allergies/Adverse Reactions: Allergies bacitracin [From Neosporin ([id number])] Allergy (Verified 03/25/20 09:18) Rash bacitracin zinc [From Neosporin ([id number])] Allergy (Verified 03/25/20 09:18) Rash neomycin sulfate [From Neosporin ([id number])] Allergy (Verified 03/25/20 09:18) Rash polymyxin B [From Neosporin ([id number]-[id number])] Allergy (Verified 03/25/20 09:18) Rash Primary Care Physician: Oziel Akhtar MD [STAFF PHYSICIAN] - As soon as possible Prior records reviewed: Yes Smoking Status: Never smoker Drugs: None - Family History Maternal Family History: Family History (Last Reviewed 07/23/19 @ 15:27 by Yi Owen) Father Heart disease Mother Diabetes Family History: Reports: Diabetes Paternal Family History: Family History (Last Reviewed 07/23/19 @ 15:27 by iY Owen) Father Heart disease Mother Diabetes Family History: Reports: Heart Disease - Father w/ history of CHF. Review of Systems General: Denies: Chills, Fever, Sweats Eyes: Denies: Visual changes - bilaterally, Diplopia ENT: Denies: Rhinorrhea, Sore throat Cardiovascular: Reports: Palpitations, Heart racing. Denies: Chest pain Respiratory: Reports: Dyspnea. Denies: Cough, Dyspnea on exertion Gastrointestinal: Denies: Abdominal pain, Nausea, Vomiting, Diarrhea, Melena, Hematochezia Genitourinary: Denies: Dysuria, Hematuria, Frequency Musculoskeletal: Denies: Back pain, Extremity Pain Skin: Denies: Rash, Wounds Neurological: Denies: Headache, Weakness, Numbness Physical Exam Vital Signs/Narrative: Vital Signs Temp Pulse Resp BP Pulse Ox 03/25/20 09:11 98.1 F 110 H 23 H 140/85 H 97 Inital Vital Signs reviewed: Yes General: Well nourished, Well developed, Obese, No Acute Distress Head: Normocephalic, Atraumatic Eyes: Perrl, EOMI ENT: Moist mucous membranes, No rhinorrhea Neck: Supple, Nontender Cardiovascular: No murmurs, Irregular, Tachycardia Respiratory: No distress, CTA bilaterally, Chest nontender Abdomen: Soft, Nontender, Nondistended, Normal bowel sounds Back: Nontender, Normal Inspection Extremities: Nontender, No edema Skin: Normal color, No rash Neurological: Alert, Oriented x3, Cranial nerves II-XII grossly intact, Normal Strength, Normal Sensation Psychological: Normal affect, Normal Mood Diagnostic/Tx/Re-eval Clinical Impression(s) from Imaging Studies Chest X-Ray 03/25/20 09:17 IMPRESSION: No acute abnormality is seen. Electronically Signed: Poli Olivier, at 9:48 EDT , Service support , Laboratory Last Values WBC 8.5 K/mm3 (4.4-11.0) 03/25/20 09:15 RBC 4.78 M/mm3 (4.6-6.2) 03/25/20 09:15 Hgb 15.5 g/dL (13.0-16.5) 03/25/20 09:15 Hct 45.8 % (40-54) 03/25/20 09:15 MCV 95.8 fL (80-94) H 03/25/20 09:15 MCH 32.4 pg (27.0-32.0) H 03/25/20 09:15 MCHC 33.8 g/dL (32-36) 03/25/20 09:15 RDW Std Deviation 44.8 fl (35.1-43.9) H 03/25/20 09:15 RDW Coeff of Jd 12.5 % (11.6-14.6) 03/25/20 09:15 Plt Count 217 K/mm3 (150-450) 03/25/20 09:15 MPV 10.9 fl (6.2-12.0) 03/25/20 09:15 Immature Gran % (Auto) 0.200 % (0.0-0.9) 03/25/20 09:15 Neut % (Auto) 65.4 % (47-70) 03/25/20 09:15 Lymph % (Auto) 23.0 % (19-41) 03/25/20 09:15 Anderson % (Auto) 8.0 % (0-10) 03/25/20 09:15 Eos % (Auto) 2.6 % (0-5) 03/25/20 09:15 Baso % (Auto) 0.8 % (0-1) 03/25/20 09:15 Absolute Neuts (auto) 5.5 X10^3/uL (2.0-7.7) 03/25/20 09:15 Absolute Lymphs (auto) 1.95 X10^3/uL (0.83-4.51) 03/25/20 09:15 Nucleated RBC % 0 % (0-5) 03/25/20 09:15 PT 13.4 SECONDS (11.7-14.9) 03/25/20 09:15 INR 1.1 03/25/20 09:15 APTT 30.8 Seconds (24.1-36.2) 03/25/20 09:15 Sodium 141 mmol/L (136-145) 09/15/20 09:15 Potassium 3.9 mmol/L (3.5-5.1) 03/25/20 09:15 Chloride 109 mmol/L (98-107) H 03/25/20 09:15 Carbon Dioxide 29.0 mmol/L (21.0-32.0) 03/25/20 09:15 Anion Gap 3 (5-15) L 03/25/20 09:15 BUN 23 mg/dL (7-18) H 03/25/20 09:15 Creatinine 1.00 mg/dL (0.70-1.30) 03/25/20 09:15 Estim Creat Clear Calc 85.17 ml/min 03/25/20 09:15 Est GFR (MDRD) Af Amer 99 mL/min (>60) 03/25/20 09:15 Est GFR (MDRD) Non-Af 82 mL/min (>60) 03/25/20 09:15 BUN/Creatinine Ratio 23.0 RATIO (10-20) H 03/25/20 09:15 Glucose 96 mg/dL (74-106) 03/25/20 09:15 Calcium 9.4 mg/dL (8.5-10.1) 03/25/20 09:15 Magnesium 2.2 mg/dL (1.6-2.6) 03/25/20 09:15 Troponin I < 0.015 ng/mL (<0.045) 03/25/20 09:15 - Rhythm Strip Rhythm Strip: A-fib Rate: 102 - EKG Initial EKG Interpretation: Atrial Fibrillation - EKG demonstrates atrial fibrillation with RVR at a rate of 102. There are no concerning features of ACS Follow-up EKG Interpretation: Sinus Rhythm - Repeat EKG shows a sinus bradycardia at a rate of 50 with no concerning features of ACS. - Medical Decision Making While awaiting the ED work-up the patient received 10 mg of Cardizem. Heart rate has been steady in the 70s and 80s. Normotensive. After discussion with Dr. Akhtar who is on-call for cardiology patient provided informed consent and written consent for procedural sedation using etomidate and fentanyl. Patient received 13 mg of etomidate and 50 mg of fentanyl. Once adequate sedation was achieved the patient received a synchronized 200 J shock. This resulted in conversion to a sinus rhythm. While under sedation and in recovery he was noted to have apparent sleep apnea. This was discussed and he does carry this diagnosis and is treated for it. He was allowed to recover without incidence. Patient will follow-up in the office to discuss further management of his A. fib. - Critical Care Time Critical care time (excluding procedures): 30-74 minutes - 35 min, Discussing w/Patient &/or Family/Home Health Scheduler, Discussing w/Consultants, Performing Direct Patient Care at Bedside ED Disposition - Plan for ED Patient: Disposition: Home or Assisted Living Diagnosis: Paroxysmal atrial fibrillation, Obstructive sleep apnea, Encounter for cardioversion procedure Instructions: ED AFIB Referrals: Oziel Akhtar MD [STAFF PHYSICIAN] - As soon as possible
[2020-03-25 09:41] LABS: Absolute Lymphocyte Count 1.95 X10^3/uL (0.83-4.51); Absolute Neutrophil Count 5.5 X10^3/uL (2.0-7.7); Basophil# 0.07 X10^3/uL; Basophil% 0.8 % (0-1); Eosinophil# 0.22 X10^3/uL; Eosinophils% 2.6 % (0-5); Hematocrit 45.8 % (40-54); Hemoglobin 15.5 g/dL (13.0-16.5); Lymphocyte # 1.95 X10^3/ul (4.0); Mean Corp Hgb Conc 33.8 g/dL (32-36); Mean Corpuscular Hgb 32.4 pg (27.0-32.0); Mean Corpuscular Volume 95.8 fL (80-94); Mean Platelet Vol. 10.9 fl (6.2-12.0); Monocyte# 0.68 X10^3/uL; NRBC Flagged by Analyzer 0 % (0-5); Neutrophil # 5.54 X10^3/uL (2.7-7.7); Neutrophil % 65.4 % (47-70); Platelet Count 217 K/mm3 (150-450); RBC Distribution Width CV 12.5 % (11.6-14.6); RBC Distribution Width SD 44.8 fl (35.1-43.9); Red Blood Count 4.78 M/mm3 (4.6-6.2); White Blood Count 8.5 K/mm3 (4.4-11.0)
[2020-03-25 09:45] LABS: International Normalized Ratio 1.1; Partial Thromboplast Time 30.8 Seconds (24.1-36.2); Prothrombin Time (Protime)PT. 13.4 SECONDS (11.7-14.9)
[2020-03-25] MEDS: dilTIAZem 25 MG/5 ML Vial 10 MG IV BOLUS (09:49)
[2020-03-25 09:51] LABS: Anion Gap 3 (5-15); BUN 23 mg/dL (7-18); Calcium,Total 9.4 mg/dL (8.5-10.1); Chloride 109 mmol/L (98-107); EST Glomerular Filtration Rate 82 mL/min (>60); Est Glom Filt Rate - Afr Amer 99 mL/min (>60); Estimated Creatinine Clearance 85.17 ml/min; Glucose 96 mg/dL (74-106); Magnesium 2.2 mg/dL (1.6-2.6); Potassium 3.9 mmol/L (3.5-5.1); Sodium Level 141 mmol/L (136-145)
[2020-03-25] MEDS: fentaNYL 100 MCG/2 ML Ampul 50 MCG IV (10:52)
[2020-03-25] MEDS: Etomidate 20 MG/10 ML Vial 26 MG IV (10:53)
--- NOTE | 2020-03-25 10:59 | EKG12_ITS ---
Test Reason : POSTCARDIOVERSION Blood Pressure : / mmHG Vent. Rate : 050 BPM Atrial Rate : 050 BPM P-R Int : 174 ms QRS Dur : 090 ms QT Int : 416 ms P-R-T Axes : 057 054 061 degrees QTc Int : 379 ms Sinus bradycardia Otherwise normal ECG Confirmed by SONDRA VELASQUEZ, HEMA ([id number]), news editor SHARRI CHANDLER ([id number]) on 03/31/2020 1:13:30 PM Referred By: TYSON Confirmed By:MELLO AMARO MD
== END 2020-03-25 12:08 | disposition home or self-care (01) ==
PROVIDERS: Emergency Provider Emergency Medicine; PCP Nurse Practitioner Adult Health
DX: I48.0 Paroxysmal atrial fibrillation (principal); G47.33 Obstructive sleep apnea (adult) (pediatric); E66.9 Obesity, unspecified; Z79.02 Long term (current) use of antithrombotics/antiplatelets; Z79.899 Other long term (current) drug therapy; Z79.82 Long term (current) use of aspirin
CPT/HCPCS: 71045; 80048; 83735; 84484; 85025; 85610; 85730; 93005; 96374; 96375; 99284; J7030; A4216

== ENCOUNTER → 2025-05-28 | Outpatient (CLI) | payer OTHER, SELFPAY ==
--- OUTSIDE RECORDS SUMMARY | 2025-05-28 06:32 | XMS RPT_ITS | CCD ---
Author Organization [facility] Care Team Providers Care Gas Station Clerk Name Role Phone Julissa CARDENAS, Elver Shields Primary Care Provider Serg Horton MD Unavailable [phone] Jaydon Youssef MD Unavailable Serg Horton MD Unavailable Jaydon Youssef MD Unavailable [phone] GIRMA MARTIN MD Primary Care Physician BELEN MUÑOZ Attending GIRMA Fuller Referring Unavailable BELEN MUÑOZ Attending GIRMA Fuller Referring Unavailable KIM MASCORRO MD, KELLI Attending Unavailable GIRMA MARTIN MD Primary Care Unavailable [facility], [place] Attending GIRMA Wahl MD Primary Care Unavailable [facility], KAELYN Durham Attending U GIRMA Benavides MD Primary Care Unavailable [facility], [place] Attending GIRMA Wahl MD Primary Care Unavailable [facility] [place] Attending GIRMA Wahl MD Primary Care Unavailable KIM MASCORRO MD, KELLI Attending Unavailable GIRMA MARTIN MD Primary Care Unavailable [facility], [place] Attending Giovanyva GIRMA Salinas MD Primary Care Unavailable TERRI CLANCY MD Attending Unavailable GIRMA MARTIN MD Primary Care Unavailable [facility], [place] Attending Unava GIRMA Salinas MD Primary Care Unavailable GIRMA MARTIN MD Primary Care Unavailable [facility] [place] Attending Unava GIRMA Salinas MD Primary Care Unavailable ADITI VELASQUEZ, VIKTOR Sal Attending Unavailphu SHORT MD, TENA Admitting Unavailable VERONICA VELASQUEZ, GIRMA Mccoy Primary Care Unavailable NIURKA MCCAIN-EDITOR IN CHIEF, JENARO Attending Un available APURVA VELASQUEZ, SOLA Bryant Attending Unavailable VERONICA VELASQUEZ, GIRMA Nadine Primary Care Unavailable VERONICA VELASQUEZ, GIRMA Mccoy Primary Care Unavailable MATTHEW MANAGER OUTREACH-EDITOR IN CHIEF, SYD Attending Unasincere MARTIN MD, GIRMA Mccoy Primary Care Unavailable DEBBIE MANAGER OUTREACH-EDITOR IN CHIEF, KAREN Shields Attending Unavail able Veronica, Girma Primary Care Unavailable García Bolton Attending Unavailable Julissa TRANSPLANTER, Elver Referring Unavailable Roof TRANSPLANTER, Pierce Becker Attending Unavailable Girma Martin Primary Care Unavailable Girma Martin Referring Unavailable Roof TRANSPLANTER, Pierce Becker Referring Unavailable Girma Martin Primary Care Unavailable Roof TRANSPLANTER, Pierce Becker Attending Unavailable Allergies Allergy Classification Reported Allergen(s) Allergy Type Date of Onset Reaction(s) Facility (5 sources) Hydrocortisone; Translations: [HYDROCORTISONE] Drug Allergy 04-22-2015 [facility] (6 sources) bacitracin / neomycin / polymyxin b; Translations: [bacitracin/neom ycin/polymyxin B topical] Drug Allergy [facility] (1 source) Bacitracin Drug Allergy 05-08-2025 [facility] (1 source) Bacitracin Drug Allergy 05-08-2025 [facility] (1 source) Neomycin Drug Allergy 05-08-2025 [facility] (1 source) polymyxin B Drug allergy (disorder) 05-08-2025 [facility] Medications Current Medications Medication Drug Class(es) Dates Sig (Normalized) Sig (Original) 8 hr acetaminophen 650 mg extended release oral tablet (2 sources) Start: 04-23-2024 Tylenol 8 Hour 650 mg oral tablet, extended release Dose : 1,300 mg = 2 tab(s), Oral, q8h, PRN as needed for pain, 0 Refill(s) Start Date: 04/23/24 Status: Ordered Repeat number: 1 aspirin 81 mg delayed release oral tablet (6 sources) Platelet Aggregation Inhibitor, Nonsteroidal Anti-inflammatory Drug Start: 03-22-2023 aspirin 81 mg oral delayed release tablet Dose : 81 mg = 1 tab(s), Oral, qDay, 0 Refill(s) Start Date: 03/22/23 Status: Ordered Repeat number: 1 24 hr buPROPion hydrochloride 300 mg extended release oral tablet (6 sources) Aminoketone Start: 04-23-2024 take 1 tablet by mouth every hour, then take 1 tablet by mouth every twenty-four hours buPROPion 300 mg/24 hours (XL) oral tablet, extended release Dose : 300 mg = 1 tab(s), Oral, q24h, 0 Refill(s) Start Date: 04/23/24 Status: Ordered Repeat number: 1 Start: 05-05-2023 take 1 tablet by miley th once daily, then take 2 tablets by mouth once daily buPROPion 150 mg/24 hours (XL) oral tablet, extended release take 1 tablet by mouth once daily for 7 days then take 2 tablets once daily THEREAFTER Start Date: 05/05/23 Status: Ordered Start: 04-19-2023 take 1 tablet by miley th once daily, then take 2 tablets by mouth once daily buPROPion XL (WELLBUTRIN XL) 150 mg 24 hr tablet take 1 tablet by mouth once daily for 7 days then take 2 tablets once daily THEREAFTER 0 04/19/2023 Active Comment on above: take 1 tablet by miley th once daily for 7 days then take 2 tablets once daily THEREAFTER carvedilol 12.5 mg oral tablet (10 sources) alpha-Adrenergic Natalie, beta-Adrenergic Natalie Start: 03-22-2023 carvedilol 12.5 mg oral tablet Dose : 12.5 mg = 1 tab(s), Oral, BIDM, 0 Refill(s) Start Date: 03/22/23 Status: Ordered Repeat number: 1 Start: 08-30-2017 take 3.125 mg by miley th twice daily carvedilol (COREG) 6.25 mg tablet Take 3.125 mg by mouth twice daily. 0 08/30/2017 Active Comment on above: Take 3.125 mg by miley th twice daily. flecainide acetate 50 mg oral tablet (10 sources) Antiarrhythmic Start: flecainide 50 mg oral tablet Dose : 50 mg = 1 tab(s), Oral, q12hr, # 180 tab(s), 0 Refill(s) Start Date: 03/22/23 Status: Ordered Quantity: 180.0 Unit: tab(s) Repeat number: 1 Comment on above: Take 50 mg by mouth twice daily. fluticasone propionate 0.05 mg/actuat metered dose nasal spray (8 sources) Corticosteroid Start: take 1 dose nasal route twice daily Flonase 50 mcg/inh nasal spray Dose = 1 spray(s), Nostril, each, BID, 0 Refill(s) Start Date: 03/22/23 Status: Ordered Repeat number: 1 fluticasone prop ionate (FLONASE NASAL) Use in the nose. 0 Active Comment on above: Use in the nose. furosemide 20 mg oral tablet (4 sources) Loop Diuretic Start: 02-08-2024 furosemide 20 mg oral tablet Dose : 20 mg = 1 tab(s), Oral, qDay, PRN ankle swelling, TAKE 1/2 TO 1 TABLET BY MOUTH DAILY NEEDED FOR ANKLE SWELLING Start Date: 02/08/24 Status: Ordered Repeat number: 1 Glucosamine (4 sources) Start: 03-22-2023 glucosamine Oral, 0 Refill(s) Start Date: 03/22/23 Status: Ordered loratadine 10 mg oral capsule (8 sources) Start: 02-05-2022 loratadine 10 mg oral capsule Dose : 10 mg = 1 cap(s), Oral, qDay, 0 Refill(s) Start Date: 03/22/23 Status: Ordered Repeat number: 1 24 hr mirabegron 25 mg extended release oral tablet (1 source) beta3-Adrenergic Agonist Start: 02-08-2024 End: 04-08-2024 Myrbetriq 25 mg oral tablet, extended release Dose : 25 mg = 1 tab(s), Oral, qDay, # 30 tab(s), 1 Refill(s), Pharmacy: [facility] #[id number], 177, cm, 02/08/24 14:15:00 EDT, Height, kg, 02/08/24 14:15:00 EDT, Dosing Weight Start Date: 02/08/24 Stop Date: 04/08/24 Status: Ordered Misc Medication (1 source) Start: 08-21-2024 Misc Medication CBD gummies, 0 Refill(s), 188.9 Start Date: 2/11/25 Status: Ordered Repeat number: 1 montelukast 10 mg oral tablet (8 sources) Leukotriene Receptor Antagonist Start: 03-22-2023 montelukast 10 mg oral tablet Dose : 10 mg = 1 tab(s), Oral, qDay, 0 Refill(s) Start Date: 03/22/23 Status: Ordered Repeat number: 1 Start: 01-28-2023 take 1 tablet by mouth once mo ntelukast (SINGULAIR) 10 mg tablet Take 1 tablet by mouth every afternoon. 0 01/28/2023 Active Comment on above: Take 1 tablet by miley th every afternoon. Multivitamin preparation (10 sources) Start: take 1 tablet by mouth once daily Multivitamin Dose = 1 tab(s), Oral, qDay, 0 Refill(s) Start Date: 03/22/23 Status: Ordered Repeat number: 1 Start: 03-22-2023 take 1 tablet by miley th once daily Multivitamin Dose = 1 tab(s), Oral, qDay, 0 Refill(s) Start Date: 03/22/23 Status: Ordered Start: 03-22-2023 take 1 tablet by miley th once daily Multivitamin Dose = 1 tab(s), Oral, Daily, 0 Refill(s) Start Date: 03/22/23 Status: Ordered multivitamin (DA UNRULY VITAMIN ORAL) Take by mouth. 0 Active Comment on above: Take by mouth. sildenafil 20 mg oral tablet (5 sources) Phosphodiesterase 5 Inhibitor Start: 08-21-19 25 take 1-5 tablets by mouth every hour sildenafil 20 mg oral tablet See Instructions, take between 1-5 tabs 1 hour prior to intercourse, not to exceed 100mg/24 hours, # 30 tab(s), 1 Refill(s), Pharmacy: [facility] #[id number], Erectile dysfunction, 177.8, cm, 08/21/24 9:26:00 EST, Height, kg, 08/21/24 9:26:00 EST, Dosing Weight Start Date: 08/21/24 Status: Ordered Quantity: 30.0 Unit: tab(s) Repeat number: 2 Indication: Male erectile dysfunction, unspecified Start: 03-24-2020 sildenafil ( AGRA) 100 mg tablet Take 0.5 tablets by mouth as needed. 8 tablet 0 03/24/2020 Active Comment on above: Take 0.5 tablets by mouth as needed. Completed/Discontinued Medications Medication Drug Class(es) Dates Sig (Normalized) Sig (Original) [id number] 200 actuat albuterol 0.09 mg/actuat metered dose inhaler (2 sources) beta2-Adrenergic Agonist Start: 04-26-2024 End: 05-26-2024 take 2 puff(s) by inhalation every six hours as needed for wheezing ProAir HFA MDI (90 mcg/inh) inhalation aerosol 2 puff(s), Inhalation, q6hr, PRN as needed for wheezing, # 6.7 gram(s), 0 Refill(s), Pharmacy: [facility] #[id number], 177.8, cm, 04/24/24 0:02:00 EDT, Height, kg, 04/24/24 0:02:00 EDT, Dosing Weight Start Date: 04/26/24 Stop Date: 05/26/24 Status: Ordered Quantity: 6.7 Unit: g Repeat number: 1 apixaban 5 mg oral tablet (10 sources) Factor Xa Inhibitor Start: 03-22-2023 End: 04-20-2023 Eliquis 5 mg oral tablet [10mg BID x 7days-then 5mg BID], Oral, BID, # 74 tab(s), 0 Refill(s), DVT Treatment Dosing, 183.3 Start Date: 03/22/23 Stop Date: 04/20/23 Status: Ordered Start: 08-30-2017 End: 04-20-2023 Eliquis 5 mg oral tablet Dos e : 5 mg = 1 tab(s), Oral, BID, 0 Refill(s), DVT Treatment Dosing, 183.3 Start Date: 03/22/23 Stop Date: 04/20/23 Status: Ordered Repeat number: 1 Comment on above: Take 5 mg by mouth t wice daily. LOW-DOSE ASPIRIN ORAL (4 sources) take 1 tablet by mouth once daily LOW-DOSE ASPIRIN ORAL Take 1 tablet by mouth once daily. 0 Active Comment on above: Take 1 tablet by miley th once daily. naproxen 500 mg oral tablet (3 sources) Nonsteroidal Anti-inflammatory Drug Start: 9 End: 3 take 1 tablet by mouth twice daily at mealtime naproxen (NAPROSYN) 500 mg tablet Take 1 tablet by mouth twice daily with meals. 60 tablet 0 05/07/2019 03/15/2023 Discontinued (Medical Contraindication) Comment on above: Take 1 tablet by miley th twice daily with meals. terazosin 5 mg oral capsule (13 sources) alpha-Adrenergic Natalie Start: 4 End: terazosin 5 mg oral capsule Dose : 5 mg = 1 cap(s), Oral, qHS, # 90 cap(s), 1 Refill(s), Pharmacy: [facility] #[id number], 177, cm, 02/08/24 14:15:00 EDT, Height, kg, 02/08/24 14:15:00 EDT, Dosing Weight Start Date: 02/08/24 Stop Date: 08/06/24 Status: Ordered Quantity: 90.0 Unit: cap(s) Repeat number: 2 Start: 03-22-2023 terazosin 2 mg oral capsule Dose : 2 mg = 1 cap(s), Oral, qHS, 0 Refill(s) Start Date: 03/22/23 Status: Ordered Start: 04-28-2021 End: 10-14-2021 terazosin 2 mg oral capsule Dose : 2 mg = 1 cap(s), Oral, qHS, 0 Refill(s) Start Date: 03/22/23 Status: Ordered Comment on above: TAKE 1 CAPSULE DAILY AT BEDTIME Take 1 capsule by mo alh daily at bedtime. Problems Active Problems Problem Classification Problem Date Documented Date Episodic/Chronic Cardiac dysrhythmias (13 sources) Atrial fibrillation; Translations: [Unspecified atrial fibrillation] Onset: 07-06-2018 07-06-2018 Chronic Coronary atherosclerosis and other heart disease (1 source) Atherosclerotic heart disease of [place] coronary artery without angina pectoris; Translations: [Atherosclerotic heart disease of [place] coronary artery without angina pectoris] Onset: 11-06-2024 Chronic Fluid and electrolyte disorders (1 source) Hypo-osmolality and or hyponatremia; Translations: [Hypo-osmolality and hyponatremia] Episodic Genitourinary symptoms and ill-defined conditions (4 sources) Increased frequency of urination 02-08-2024 Episodic Hyperplasia of prostate (13 sources) Benign prostatic hyperplasia; Translations: [Benign prostatic hyperplasia without lower urinary tract symptoms] Onset: 12-14-2023 Chronic Mood disorders (2 sources) Depressive disorder; Translations: [Depression, unspecified] Chronic Other aftercare (2 sources) Encounter for therapeutic drug level monitoring; Translations: [Encounter for therapeutic drug level monitoring] Onset: 05-08-2025 Episodic Other aftercare (2 sources) Other residential (current) drug therapy; Translations: [Other termite exterminator helper (current) drug therapy] Onset: 05-08-2025 Episodic Other diseases of kidney and ureters (5 sources) Cyst of kidney 12-09-2023 Episodic Other diseases of kidney and ureters (2 sources) Cyst of kidney, acquired; Translations: [Cyst of kidney, acquired] Onset: 12-14-2023 Episodic Other nutritional; endocrine; and metabolic disorders (5 sources) Morbid obesity; Translations: [Morbid (severe) obesity due to excess calories] 04-12-2016 Chronic Other nutritional; endocrine; and metabolic disorders (9 sources) Body mass index 40+ - severely obese; Translations: [Morbid (severe) obesity due to excess calories] Onset: 04-09-2020 04-09-2020 Chronic Other nutritional; endocrine; and metabolic disorders (1 source) Severe obesity; Translations: [Morbid (severe) obesity due to excess calories] 03-15-2023 Chronic Other nutritional; endocrine; and metabolic disorders (2 sources) Morbid (severe) obesity due to excess calories; Translations: [Morbid (severe) obesity due to excess calories] Onset: 05-08-2025 Chronic Other nutritional; endocrine; and metabolic disorders (2 sources) Body mass index (BMI) 40.0-44.9, adult; Translations: [Body mass index [BMI] 40.0-44.9, adult] Onset: 05-08-2025 Chronic Other screening for suspected conditions (not mental disorders or infectious disease) (2 sources) Elevated prostate specific antigen [PSA]; Translations: [ELEVATED PROSTATE SPECIFIC ANTIGEN (PSA)] Onset: 12-14-2023 Episodic Residual codes; unclassified (5 sources) Obstructive sleep apnea syndrome; Translations: [Obstructive sleep apnea (adult) (pediatric)] 07-06-2018 Chronic Residual codes; unclassified (1 source) Family history of prostate cancer 08-21-2024 Episodic Respiratory failure; insufficiency; arrest (adult) (1 source) Acute respiratory failure; Translations: [Acute respiratory failure with hypoxia] Episodic Past or Other Problems Problem Classification Problem Date Documented Date Episodic/Chronic Pneumonia (except that caused by tuberculosis or sexually transmitted disease) (3 sources) Pneumonia; Translations: [Pneumonia, unspecified organism] Onset: 04-23-2024 Episodic Residual codes; unclassified (1 source) Other specified postprocedural states; Translations: [Other specified postprocedural states] Onset: 11-06-2024 Episodic Results Test Name Value Interpretation Reference Range Facility Cardiology Visit Reporton Cardiology Visit Report [facility] [address] [place] [address] OFFICE VISIT Date of Service: 05/08/25 MR#: [id number] Acct: [id number] Name: DANIELLE EUCEDA Rep #: [id number] : 1965 Provider: BLANCA mccoy Age/Sex: 59/M Location: [facility] Status: Signed HPI HPI History of Present Illness Details: This is a 59-year-old male who presents today for an outpatient cardiovascular follow-up of his history of atrial fibrillation status post MANDEEP guided synchronized biphasic DC cardioversion in 2017, status post repeat synchronized biphasic DC cardioversion in August and March 2020, superimposed upon a history of DOMI/CPAP. He tells me that he has not had any episodes of atrial fibrillation in over 5 years. He denies chest, arm, jaw, or neck discomfort. He denies palpitations. He states bilateral lower extremity edema. He denies claudication. He states intermittent shortness of breath with activity such as walking long distances. He denies shortness of breath at rest, orthopnea, or PND. He denies chronic cough. He denies significant, sudden weight gain. He states lightheadedness. He denies dizziness, near-syncope, or syncope. He denies blood in urine, blood in stool, or epistaxis. He denies fever with chills. He denies myalgia. He denies fatigue. His exercise level has remained stable. Intake Vital Signs 11/06/24 09:05 05/08/25 07:48 Height 5 ft 10 in 5 ft 10 in Weight: 429 lb 436 lb BMI 61.5 62.5 BP 146/80 H 142/77 H Blood Pressure Location Lt brachial Lt brachial Position Sitting Sitting Respiration 16 20 H Pulse 73 67 Pulse Source Monitor Monitor Pulse Oximetry (%) 94 Intake Visit Reasons: 6 M FU Repairer Switchgear Required: No Is patient in pain?: No Allergies bacitracin (From Neosporin (qev-ymk-sahcu)) Allergy (Verified 05/08/25 10:11) Rash bacitracin zinc (From Neosporin (css-tpm-rjygk)) Allergy (Verified 05/08/25 10:11) Rash neomycin sulfate (From Neosporin (dwt-dol-dryeb)) Allergy (Verified 05/08/25 10:11) Rash polymyxin B (From Neosporin (eaj-rcr-gxzvr)) Allergy (Verified 05/08/25 10:11) Rash Medications ???Medication ???Instructions ???Recorded ???Confirmed ???Type terazosin 2 mg capsule 2 mg PO QHS 05/06/17 05/08/25 Hist ory multivitamin 1 ea PO DAILY 08/26/17 05/08/25 Hi story aspirin 81 mg tablet,delayed 81 mg PO DAILY #30 tabs 08/12/21 1 Rx release cetirizine 10 mg tablet 10 mg PO DAILY 09/06/22 05/08/25 H istory montelukast 10 mg tablet 10 mg PO QHS 09/06/22 05/08/25 His tory bupropion HCl 300 mg 24 hr tablet, 300 mg PO QAM 09/13/23 05/08/25 History extended release fluticasone propionate 50 1 spray intranasal BID PRN 4 05/08/25 History mcg/actuation nasal spray,suspension CBD PO 11/06/24 05/08/25 History carvedilol 12.5 mg tablet 12.5 mg PO BID #60 tabs 05/08/25 1 Rx flecainide 50 mg tablet 50 mg PO Q12H #180 tabs 05/08/25 1 Rx furosemide 20 mg tablet 10 - 20 mg (0.5 - 1 x 20 mg) PO 05/08/25 Rx QDAY PRN edema #30 tabs tirzepatide 2.5 mg/0.5 mL 2.5 mg (0.5 mL) subcut QWEEK #2 mL 05/08/25 05/08/25 Rx subcutaneous pen injector (Vilma) Ejection fraction %: 65 Have you fallen in the past year?: No PFSH Medical History (Updated 05/08/25 @ 10:37 by Pierce Abebe TRANSPLANTER, TRANSPLANTER-C) Apical mural thrombus Atherosclerosis of [place] coronary artery of [place] heart without angina pectoris Paroxysmal atrial fibrillation Obstructive sleep apnea BPH (benign prostatic hyperplasia) New onset atrial fibrillation ( 08/2017) Caffeine dependence, continuous Morbid obesity with BMI of 40.0-44.9, adult Surgical History History of cardioversion (08/01/19) History of left heart catheterization (08/29/17) Family History Father Heart disease Mother Diabetes Social History Smoking Status: Never smoker alcohol intake: never substance use type: does not use caffeine: Yes Type: carbonated beverages Number of servings: 1 ROS Const Const: Negative for fatigue, weakness, headache(s) or frequent falls Eyes Eyes: Negative for blurry vision ENT ENT: Negative for headache(s), dizziness or Nosebleed/epistaxis Cardio Chest Pain: No Palpitations: No Edema: Bilateral and None Muscle aches with walking: None Resp Respiratory: Positive for SOB with activity; Negative for SOB at rest or SOB orthopnea SOB lying down GI GI: Negative nausea, vomiting, heartburn, bright, red blood in stools or black,tarry stools : Negative for hematuria Musc Musc: Negative for muscle aches/ myalgia Skin Skin: Negative n (more content not included)... Normal [facility] 12 Lead EKG performed by [facility] on 11-06-2024 12 Lead EKG performed by [facility] [address] [place] [address] 12 Lead EKG performed by [facility] 11/06/24 0905 MR#: [id number] Acct: [id number] Name: DANIELLE EUCEDA Rep #: [id number] : 1965 59 From: García Bolton MD Attending Dr: Dr. García Bolton MD Status: DEP Olive RANKIN Ordering Dr: García Bolton MD Date: 11/06/24 Location: [facility] Sex: M C Admitted: BMS/12 Lead EKG performed by [facility] ECG Report Interpretation Sin us Rhythm Electronically signed on 11/06/2024 at 09:50 by García Bolton [employer] Version [id number] 11/06/24 0953 Date García Bolton MD CC: Dr. Girma Martin MD Date Dictated: 11/06/24904 Date Transcribed: 11/06/24904 Car Varnisher: CO Signed Normal [facility] Cardiology Visit Reporton Cardiology Visit Report [facility] [address] [place], [place] [address] OFFICE VISIT Date of Service: 11/06/24 MR#: [id number] Acct: [id number] Name: DANIELLE EUCEDA Rep #: [id number] : 1965 Provider: Dr. García Bolton MD Age/Sex: 59/M Location: [facility] Status: Signed HPI HPI History of Present Illness Details: This is a 59-year-old male who presents today for an outpatient cardiovascular follow-up of his history of atrial fibrillation status post MANDEEP guided synchronized biphasic DC cardioversion in 2017, status post repeat synchronized biphasic DC cardioversion in August and March 2020, superimposed upon a history of DOMI/CPAP. He tells me that he has not had any episodes of atrial fibrillation in over 5 years. He denies chest, arm, jaw, or neck discomfort. He denies palpitations. He states bilateral lower extremity edema. He denies claudication. He states intermittent shortness of breath with activity such as walking long distances. He denies shortness of breath at rest, orthopnea, or PND. He denies chronic cough. He denies significant, sudden weight gain. He states lightheadedness. He denies dizziness, near-syncope, or syncope. He denies blood in urine, blood in stool, or epistaxis. He denies fever with chills. He denies myalgia. He denies fatigue. His exercise level has remained stable. Intake Vital Signs 09/13/23 13:49 11/06/24 09:05 Height 5 ft 10 in 5 ft 10 in Weight: 429 lb BMI 61.5 BP 146/80 H Blood Pressure Location Lt brachial Position Sitting Respiration 16 Pulse 73 Pulse Source Monitor Intake Visit Reasons: 1 Y FU Repairer Switchgear Required: No Accompanied by: Self Is patient in pain?: No Allergies bacitracin (From Neosporin (pbf-fyh-iotvf)) Allergy (Verified 11/06/24 09:10) Rash bacitracin zinc (From Neosporin (emm-mbm-yirzd)) Allergy (Verified 11/06/24 09:10) Rash neomycin sulfate (From Neosporin (kfg-lqr-maojd)) Allergy (Verified 11/06/24 09:10) Rash polymyxin B (From Neosporin (xtl-nmv-ztnip)) Allergy (Verified 11/06/24 09:10) Rash Medications ???Medication ???Instructions ???Recorded ???Confirmed ???Type terazosin 2 mg capsule 2 mg PO QHS 05/06/17 11/06/24 Hist ory multivitamin 1 ea PO DAILY 08/26/17 11/06/24 Hi story aspirin 81 mg tablet,delayed 81 mg PO DAILY #30 tabs 08/12/21 0 11/06/24 Rx release cetirizine 10 mg tablet 10 mg PO DAILY 09/06/22 11/06/24 H istory montelukast 10 mg tablet 10 mg PO QHS 09/06/22 11/06/24 His tory bupropion HCl 300 mg 24 hr tablet, 300 mg PO QAM 09/13/23 11/06/24 History extended release fluticasone propionate 50 1 spray intranasal BID PRN 4 11/06/24 History mcg/actuation nasal spray,suspension carvedilol 12.5 mg tablet 12.5 mg PO BID #60 tabs 09/12/24 0 11/06/24 Rx flecainide 50 mg tablet 50 mg PO Q12H #180 tabs 09/13/24 0 11/06/24 Rx CBD PO 11/06/24 History furosemide 20 mg tablet 10 - 20 mg PO QDAY PRN 11/06/24 History Have you fallen in the past year?: No PFSH Medical History Apical mural thrombus Atherosclerosis of [place] coronary artery of [place] heart without angina pectoris Paroxysmal atrial fibrillation Obstructive sleep apnea BPH (benign prostatic hyperplasia) New onset atrial fibrillation ( 08/2017) Caffeine dependence, continuous Morbid obesity with BMI of 40.0-44.9, adult Surgical History History of cardioversion (08/01/19) History of left heart catheterization (08/29/17) Family History Father Heart disease Mother Diabetes Social History Smoking Status: Never smoker alcohol intake: never substance use type: does not use caffeine: Yes Type: carbonated beverages Number of servings: 1 ROS Const Const: Positive for fatigue; Negative for weakness, headache(s), daytime sleepiness or difficulty sleeping ENT ENT: Negative for headache(s), dizziness or Nosebleed/epistaxis Cardio Chest Pain: No Palpitations: No Edema: Bilateral (BLE - on Lasix prn) Resp Respiratory: Positive for SOB with activity; Negative for SOB at rest, SOB orthopnea SOB lying down or Cough GI GI: Negative nausea, vomiting or heartburn Neuro Neuro: Negative for dizziness, lightheadedness, near syncope, headache(s) or weakness Endo Endo: Positive for fatigue Cardiology Exam Const Appearance: cooperative, healthy appearing, comfortable and no acute distress Nutritional Appearance: well nourished and obese Orientation: alert, awake and oriented x3 Head Head: normal to inspection Ears: hearing grossly normal bilaterally Nose: external no (more content not included)... Normal [facility] .GFRon 09-18-2024 Estimated Glomerular Filtration Rate 91 ml/min/1.73sqm Normal [facility] Comment on above: Result Comment: Stages of Chronic Kidney Disease (CKD) Stage Description eGFR(ml/min/1.73 sq.m.) CKD 1 Normal kidney function or >=90 normal kindney function with possible kidney damage (ex. Proteinuria) CKD 2 Kidney damage with mild loss 60-89 of kidney function CKD 3a Mild to moderate loss of kidney 45-59 function CKD 3b Moderate to severe loss of 30-44 of kindey function CKD 4 Severe loss of kidney function 15-29 CKD 5 Kidney failure <15 Note: (go live 2024) the eGFR calculation was updated to the 2020 CKD-EPI creatinine equation without a race factor to calculate the eGFR results. Performed By: #### C MP, GFR, CBC, ADIFF, ANEU #### [address] [address] BMPon 09-18-2024 BUN/Creatinine Ratio 20.0 ratio Normal 10.0-22.0 [facility] Comment on above: Performed By: #### C MP, GFR, CBC, ADIFF, ANEU #### [address] [address] Calcium [Mass/Vol] 9.5 mg/dL Normal 8.7-10.4 [facility] Comment on above: Performed By: #### C MP, GFR, CBC, ADIFF, ANEU #### [address] [address] Chloride [Moles/Vol] 106 mmol/L Normal 98-110 [facility] Comment on above: Performed By: #### C MP, GFR, CBC, ADIFF, ANEU #### [address] [address] CO2 [Moles/Vol] 30 mmol/L Normal 22-32 [facility] Comment on above: Performed By: #### C MP, GFR, CBC, ADIFF, ANEU #### [address] [address] Creatinine [Mass/Vol] 0.95 mg/dL Normal 0.60-1.40 [facility] Comment on above: Result Comment: Test ing performed on iContainers analyzer using enzymatic creatinine methodology. Performed By: #### C MP, GFR, CBC, ADIFF, ANEU #### [place] [address] Electrolyte Balance 4.0 mEq/L Normal 4.0-15.0 [facility] Comment on above: Performed By: #### C MP, GFR, CBC, ADIFF, ANEU #### [place] [address] Glucose [Mass/Vol] 115 mg/dL Normal 82-115 [facility] Comment on above: Performed By: #### C MP, GFR, CBC, ADIFF, ANEU #### [place] [address] Potassium [Moles/Vol] 4.2 mmol/L Normal 3.5-5.0 [facility] Comment on above: Performed By: #### C MP, GFR, CBC, ADIFF, ANEU #### [place] [address] Sodium [Moles/Vol] 140 mmol/L Normal 136-145 [facility] Comment on above: Performed By: #### C MP, GFR, CBC, ADIFF, ANEU #### [place] [address] Urea nitrogen [Mass/Vol] 19.0 mg/dL Normal 8.0-22.0 [facility] Comment on above: Performed By: #### C MP, GFR, CBC, ADIFF, ANEU #### [place] [address] TSHon 09-18-2024 TSH 1.634 mIU/mL Normal 0.550-4.780 [facility] Comment on above: Performed By: #### C MP, GFR, CBC, ADIFF, ANEU #### [place] [address] CT ANGIOGRAPHY CHEST W/CONTR [place] 05-14-2024 CT ANGIOGRAPHY CHEST W/CONTRAST ORIGINAL EXAMINATION: CTA OF THE CHEST05/14/2024 4:12 pm CTA CHEST WITH CONTRAST TECHNIQUE: CTA of the chest was performed after the administration of intravenous contrast. Multiplanar reformatted images are provided for review. MIP images are provided for review. Automated exposure control, iterative reconstruction, and/or weight based adjustment of the mA/kV was utilized to reduce the radiation dose to as low as reasonably achievable. CTA of the thorax was acquired in the axial plane. Coronal and sagittal reformatted images were reviewed. Three dimensional reconstructions were created on a separate workstation. COMPARISON: None HISTORY: ORDERING SYSTEM PROVIDED HISTORY: Reason for Exam: SHORTNESS OF BREATH, ACUTE RESPIRATORY FAILURE WITH HYPOXIA, OTHER SPECIFIED ABNORMAL FINDINGS OF BLOOD CHEMISTRY SHORTNESS OF BREATH, ACUTE RESPIRATORY FAILURE WITH HYPOXIA, OTHER SPECIFIED ABNORMAL FINDINGS OF BLOOD CHEMISTRYno hx ca FINDINGS: The exam is compromised by beam hardening artifacts and motion artifacts. No central embolism is identified. The subsegmental branch vessels are not well evaluated on this exam. The heart size is borderline. There are no pathologically enlarged axillary, mediastinal or hilar lymph nodes. The aorta is normal in caliber. Respiratory motion artifacts. No pulmonary consolidation identified. There is no pleural effusion or pneumothorax. No aggressive osseous lesions seen. Degenerative changes seen of the spine. The upper abdomen is not evaluated in detail. No suspicious findings seen in the visualized portion of the abdomen. A cyst at the upper pole of the left kidney measures less than 1 Hounsfield units IMPRESSION: 1. The exam is compromised by beam hardening artifacts and motion artifacts. No central embolism is identified. The subsegmental branch vessels are not well evaluated on this exam. 2. Other incidental findings, as above Interpreted by: Everardo Marsh MD Preliminary Report By: Everardo Marsh MD Electronically signed By Everardo Marsh MD Dictated Date: 05/14/2024 4:17:00 PM Prelim Date: 05/14/2024 4:22:23 PM Sign Date: 05/14/2024 4:22:23 PM Ordering Provider: JENARO BAH [facility] RENALon 05-07-2024 US RENAL ORIGINAL EXAMINATION: ULTRASOUND OF THE KIDNEYS 05/05/2024 4:10 pm COMPARISON: CT of the kidneys on 04/07/2023 HISTORY: ORDERING SYSTEM PROVIDED HISTORY: Reason for Exam: Left renal cyst, document stability Permanently stored images were reviewed FINDINGS: The right kidney measures 10.8 x 5.7 x 6.0 cm. The left kidney measures 12.3 x 5.6 x 5.5 cm. Both kidneys have normal cortical thickness and echogenicity. There is no hydronephrosis or evidence of nephrolithiasis. Arising from the upper pole of the left kidney there is a simple cyst that measures 3.6 x 4.3 x 4.6 cm. There is no significant change compared with CT scan on 04/07/2023. No solid mass is present. There is no perinephric abnormality. No ascites is present. Urinary bladder is normal in size and appearance with a volume of 247 mL. Postvoid residual 20 mL is present. Prostate is normal in size measuring 3.6 x 4.3 x 3.8 cm. IMPRESSION: 1. Stable 4.6 cm simple cyst arising from the upper pole of the left kidney. 2. No acute findings. Interpreted by: Chung Nichols MD Preliminary Report By: Chung Nichols MD Electronically signed By Chung Nichols MD Dictated Date: 05/07/2024 1:38:12 AM Prelim Date: 05/07/2024 1:42:02 AM Sign Date: 05/07/2024 1:42:02 AM [facility] Mycoplasma IgG Positive [facility] Comment on above: Result Comment: INTE RPRETATION OF MYCOPLASMA IgG BY EIA: Negative: No detectable M. pneumoniae IgG antibody. Positive: Mycoplasma pneumoniae IgG antibody Detected. Equivocal: Equivocal for IgG antibodies to Mycoplasma pneumoniae. Suggest repeat testing in 10-14 days. Performed By: #### C MP, GFR, CBC, ADIFF, ANEU #### [place] [address] XR CHEST 2 VIEWSon 4 XR CHEST 2 VIEWS ORIGINAL EXAMINATION: TWO XRAY VIEWS OF THE CHEST04/26/2024 11:16 am COMPARISON: Chest radiograph 04/23/2024 HISTORY: ORDERING SYSTEM PROVIDED HISTORY: Reason for Exam: follow up pna FINDINGS: The cardiomediastinal silhouette is stable. Low lung volumes with hypoventilatory changes, notably some interstitial prominence. No pleural effusion. No pneumothorax. No acute osseous abnormality by radiograph; osseous detail is limited. Mild degenerative changes in the spine. IMPRESSION: Hypoventilatory changes. No definite acute cardiopulmonary process by radiograph. I have personally reviewed the images of this examination and agree with the resident's findings and interpretation. Interpreted by: Joseph Rosales MD Preliminary Report By: Jesús Murray Electronically signed By Joseph Rosales MD Dictated Date: 04/26/2024 11:18:44 AM Prelim Date: 04/26/2024 11:33:33 AM Sign Date: 04/26/2024 11:33:33 AM Ordering Provider: VIKTOR Wen [facility] .Auto Diffon 04-25-2024 Basophil, Absolute 0.0 10 3/mcL Normal 0.0-0.3 [facility] Comment on above: Performed By: #### A CONNIE, BMP, GFR, CBC, ADIFF #### [address] [address] Basophils/100 WBC (Bld) 0.5 % Normal 0.0-2.5 [facility] Comment on above: Performed By: #### A CONNIE, BMP, GFR, CBC, ADIFF #### [address] [address] Eosinophil, Absolute 0.3 10 3/mcL Normal 0.0-0.7 [facility] Comment on above: Performed By: #### A CONNIE, BMP, GFR, CBC, ADIFF #### [address] [address] Eosinophils/100 WBC (Bld) 4.9 % Normal 0.0-6.0 [facility] Comment on above: Performed By: #### A CONNIE, BMP, GFR, CBC, ADIFF #### [address] [address] Lymphocyte, Absolute 1.2 10 3/mcL Normal 0.9-4.3 [facility] Comment on above: Performed By: #### A CONNIE, BMP, GFR, CBC, ADIFF #### [address] [address] Lymphocytes/100 WBC (Bld) 17.5 % Low 20.0-40.0 [facility] Comment on above: Performed By: #### A CONNIE, BMP, GFR, CBC, ADIFF #### [address] [address] Monocyte, Absolute 0.9 10 3/mcL Normal 0.1-1.4 [facility] Comment on above: Performed By: #### A CONNIE, BMP, GFR, CBC, ADIFF #### [address] [address] Monocytes/100 WBC (Bld) 13.6 % High 2.0-13.0 [facility] Comment on above: Performed By: #### A CONNIE, BMP, GFR, CBC, ADIFF #### [address] [address] Neutrophils/100 WBC (Bld) 63.5 % Normal 50.0-75.0 [facility] Comment on above: Performed By: #### A CONNIE, BMP, GFR, CBC, ADIFF #### [address] [address] .GFRon 04-25-2024 GFR >60 Normal [facility] Comment on above: Result Comment: GFR Population mean for , Non- Americans Ages 20-29 = 116 mL/min/1.73 sq.m. Ages 30-39 = 107 mL/min/1.73 sq.m. Ages 40-49 = 99 mL/min/1.73 sq.m. Ages 50-59 = 93 mL/min/1.73 sq.m. Ages 60-69 = 85 mL/min/1.73 sq.m. Ages 70+ = 75 mL/min/1.73 sq.m. Chronic Kidney Disease: Less than 60 mL/min/1.73 square meters End Stage Renal Disease: Less than 15 mL/min/1.73 square meters Performed By: #### C MP, GFR, CBC, ADIFF, ANEU #### [address] [address] GFR Non- >60 [facility] Comment on above: Result Comment: GFR Population mean for , Non- Americans Ages 20-29 = 116 mL/min/1.73 sq.m. Ages 30-39 = 107 mL/min/1.73 sq.m. Ages 40-49 = 99 mL/min/1.73 sq.m. Ages 50-59 = 93 mL/min/1.73 sq.m. Ages 60-69 = 85 mL/min/1.73 sq.m. Ages 70+ = 75 mL/min/1.73 sq.m. Chronic Kidney Disease: Less than 60 mL/min/1.73 square meters End Stage Renal Disease: Less than 15 mL/min/1.73 square meters Performed By: #### C MP, GFR, CBC, ADIFF, ANEU #### [address] [address] .NEUABSon 04-25-2024 Neutrophil, Absolute 4.3 10 3/mcL Normal 2.3-8.1 [facility] Comment on above: Performed By: #### A CONNIE, BMP, GFR, CBC, ADIFF #### [place] [address] BMPon 04-25-2024 BUN/Creatinine Ratio 20.2 ratio Normal 10.0-22.0 [facility] Comment on above: Performed By: #### A CONNIE, BMP, GFR, CBC, ADIFF #### [place] [address] Calcium [Mass/Vol] 9.4 mg/dL Normal 8.7-10.4 [facility] Comment on above: Performed By: #### A CONNIE, BMP, GFR, CBC, ADIFF #### [place] [address] Chloride [Moles/Vol] 100 mmol/L Normal 98-110 [facility] Comment on above: Performed By: #### A CONNIE, BMP, GFR, CBC, ADIFF #### [place] [address] CO2 [Moles/Vol] 31 mmol/L Normal 22-32 [facility] Comment on above: Performed By: #### A CONNIE, BMP, GFR, CBC, ADIFF #### [place] [address] Creatinine [Mass/Vol] 0.89 mg/dL Normal 0.60-1.40 [facility] Comment on above: Result Comment: Test ing performed on iContainers analyzer using enzymatic creatinine methodology. Performed By: #### A CONNIE, BMP, GFR, CBC, ADIFF #### [address] [address] Electrolyte Balance 5.0 mEq/L Normal 4.0-15.0 [facility] Comment on above: Performed By: #### A CONNIE, BMP, GFR, CBC, ADIFF #### [address] [address] Glucose [Mass/Vol] 87 mg/dL Normal 82-115 [facility] Comment on above: Performed By: #### A CONNIE, BMP, GFR, CBC, ADIFF #### [place] [id number] Potassium [Moles/Vol] 3.8 mmol/L Normal 3.5-5.0 [facility] Comment on above: Performed By: #### A CONNIE, BMP, GFR, CBC, ADIFF #### [place] [id number] Sodium [Moles/Vol] 136 mmol/L Normal 136-145 [facility] Comment on above: Performed By: #### A CONNIE, BMP, GFR, CBC, ADIFF #### [place] [id number] Urea nitrogen [Mass/Vol] 18.0 mg/dL Normal 8.0-22.0 [facility] Comment on above: Performed By: #### A CONNIE, BMP, GFR, CBC, ADIFF #### [place] [id number] CBCon 04-25-2024 Erythrocyte distribution width (RBC) [Ratio] 13.5 % Normal 11.5-15.5 [facility] Comment on above: Performed By: #### A CONNIE, BMP, GFR, CBC, ADIFF #### [place] [id number] Hematocrit (Bld) [Volume fraction] 38.1 % Low 40.0-52.0 [facility] Comment on above: Performed By: #### A CONNIE, BMP, GFR, CBC, ADIFF #### [place] [id number] Hgb 13.1 G/dL Normal 13.0-17.5 [facility] Comment on above: Performed By: #### A CONNIE, BMP, GFR, CBC, ADIFF #### [address] [address] MCH (RBC) [Entitic mass] 32.8 pg Normal 27.0-33.0 [facility] Comment on above: Performed By: #### A CONNIE, BMP, GFR, CBC, ADIFF #### [address] [address] MCHC 34.3 G/dL Normal 32.0-36.0 [facility] Comment on above: Performed By: #### A CONNIE, BMP, GFR, CBC, ADIFF #### [place] [id number] MCV (RBC) [Entitic vol] 95.6 fL Normal 81.0-100.0 [facility] Comment on above: Performed By: #### A CONNIE, BMP, GFR, CBC, ADIFF #### [place] [address] Platelet 167 10 3/mcL Normal 150-450 [facility] Comment on above: Performed By: #### A CONNIE, BMP, GFR, CBC, ADIFF #### [place] [address] Platelet mean volume (Bld) [Entitic vol] 8.6 fL Normal 6.4-10.5 [facility] Comment on above: Performed By: #### A CONNIE, BMP, GFR, CBC, ADIFF #### [place] [id number] RBC 3.99 10 6/mcL Low 4.50-6.00 [facility] Comment on above: Performed By: #### A CONNIE, BMP, GFR, CBC, ADIFF #### [place] [id number] WBC 6.8 10 3/mcL Normal 4.5-10.8 [facility] Comment on above: Performed By: #### A CONNIE, BMP, GFR, CBC, ADIFF #### [place] [address] LABORATORYOrdered By: SYSTEM SYSTEM on 04-25-2024 Basophils (Bld) [#/Vol] 0.0 103/mcL Normal 0.0 - 0.3 10^3/mcL Workflow SS Basophils/100 WBC (Bld) 0.5 % Normal 0.0 - 2.5 % Workflow SS Calcium [Mass/Vol] 9.4 mg/dL Normal 8.7 - 10. 4 mg/dL ADM SS Chloride [Moles/Vol] 100 mmol/L Normal 98 - 110 mEq/L ADM SS CO2 [Moles/Vol] 31 mmol/L Normal 22 - 32 mEq/L ADM SS Creatinine [Mass/Vol] 0.89 mg/dL Normal 0.60 - 1.40 mg/dL ADM SS Comment on above: Interpretive Data: T esting performed on iContainers analyzer using enzymatic creatinine methodology. Electrolyte Balance 5.0 mEq/L Normal 4.0 - 15.0 mEq/L ADM SS Eosinophils (Bld) [#/Vol] 0.3 103/mcL Normal 0.0 - 0.7 10^3/mcL Workflow SS Eosinophils/100 WBC (Bld) 4.9 % Normal 0.0 - 6.0 % Workflow SS Erythrocyte distribution width (RBC) [Ratio] 13.5 % Normal 11.5 - 15.5 % Workflow SS GFR/1.73 sq M.predicted among blacks MDRD (S/P/Bld) [Vol rate/Area] ml/min/1.73sqm Invalid Interpretation Code Chemistry S Comment on above: Interpretive Data: GFR Population mean for , Non- Americans Ages 20-29 = 116 mL/min/1.73 sq.m. Ages 30-39 = 107 mL/min/1.73 sq.m. Ages 40-49 = 99 mL/min/1.73 sq.m. Ages 50-59 = 93 mL/min/1.73 sq.m. Ages 60-69 = 85 mL/min/1.73 sq.m. Ages 70+ = 75 mL/min/1.73 sq.m. Chronic Kidney Disease: Less than 60 mL/min/1.73 square meters End Stage Renal Disease: Less than 15 mL/min/1.73 square meters GFR/1.73 sq M.predicted among non-blacks MDRD (S/P/Bld) [Vol rate/Area] ml/min/1.73sqm Invalid Interpretation Code Chemistry S Comment on above: Interpretive Data: GFR Population mean for , Non- Americans Ages 20-29 = 116 mL/min/1.73 sq.m. Ages 30-39 = 107 mL/min/1.73 sq.m. Ages 40-49 = 99 mL/min/1.73 sq.m. Ages 50-59 = 93 mL/min/1.73 sq.m. Ages 60-69 = 85 mL/min/1.73 sq.m. Ages 70+ = 75 mL/min/1.73 sq.m. Chronic Kidney Disease: Less than 60 mL/min/1.73 square meters End Stage Renal Disease: Less than 15 mL/min/1.73 square meters Glucose [Mass/Vol] 87 mg/dL Normal 82 - 115 mg/dL ADM SS Hematocrit (Bld) [Volume fraction] 38.1 % Low 40.0 - 52.0 % AH Workflow SS Hemoglobin (Bld) [Mass/Vol] 13.1 G/dL Normal 13.0 - 17.5 G/dL AH Workflow SS Lymphocytes (Bld) [#/Vol] 1.2 103/mcL Normal 0.9 - 4.3 10^3/mcL AH Workflow SS Lymphocytes/100 WBC (Bld) 17.5 % Low 20.0 - 40.0 % AH Workflow SS MCH (RBC) [Entitic mass] 32.8 pg Normal 27.0 - 33.0 pg AH Workflow SS MCHC 34.3 G/dL Normal 32.0 - 36.0 G/dL AH Workflow SS MCV (RBC) [Entitic vol] 95.6 fL Normal 81.0 - 100.0 fL AH Workflow SS Monocytes (Bld) [#/Vol] 0.9 103/mcL Normal 0.1 - 1.4 10^3/mcL AH Workflow SS Monocytes/100 WBC (Bld) 13.6 % High 2.0 - 13.0 % AH Workflow SS Neutrophils (Bld) [#/Vol] 4.3 103/mcL Normal 2.3 - 8.1 10^3/mcL AH Workflow SS Neutrophils/100 WBC (Bld) 63.5 % Normal 50.0 - 75.0 % AH Workflow SS Platelet mean volume (Bld) [Entitic vol] 8.6 fL Normal 6.4 - 10.5 fL AH Workflow SS Platelets (Bld) [#/Vol] 167 103/mcL Normal 150 - 450 10^3/mcL AH Workflow SS Potassium [Moles/Vol] 3.8 mmol/L Normal 3.5 - 5.0 mEq/L AH ADM SS RBC (Bld) [#/Vol] 3.99 106/mcL Low 4.50 - 6.0 0 10^6/mcL AH Workflow SS Sodium [Moles/Vol] 136 mmol/L Normal 136 - 145 mEq/L ADM SS Urea nitrogen [Mass/Vol] 18.0 mg/dL Normal 8.0 - 22.0 mg/dL ADM SS Urea nitrogen/Creatinin e [Mass ratio] 20.2 ratio Normal 10.0 - 22.0 ratio AH ADM SS WBC (Bld) [#/Vol] 6.8 103/mcL Normal 4.5 - 10.8 10^3/mcL Workflow SS .Auto Diffon 04-24-2024 Basophil, Absolute 0.0 10 3/mcL Normal 0.0-0.3 [facility] Comment on above: Performed By: #### C MP, GFR, CBC, ADIFF, ANEU #### [address] [address] Basophils/100 WBC (Bld) 0.3 % Normal 0.0-2.5 [facility] Comment on above: Performed By: #### C MP, GFR, CBC, ADIFF, ANEU #### [address] [address] Eosinophil, Absolute 0.0 10 3/mcL Normal 0.0-0.7 [facility] Comment on above: Performed By: #### C MP, GFR, CBC, ADIFF, ANEU #### [address] [address] Eosinophils/100 WBC (Bld) 0.5 % Normal 0.0-6.0 [facility] Comment on above: Performed By: #### C MP, GFR, CBC, ADIFF, ANEU #### [address] [address] Lymphocyte, Absolute 1.3 10 3/mcL Normal 0.9-4.3 [facility] Comment on above: Performed By: #### C MP, GFR, CBC, ADIFF, ANEU #### [address] [address] Lymphocytes/100 WBC (Bld) 14.2 % Low 20.0-40.0 [facility] Comment on above: Performed By: #### C MP, GFR, CBC, ADIFF, ANEU #### [address] [address] Monocyte, Absolute 1.0 10 3/mcL Normal 0.1-1.4 [facility] Comment on above: Performed By: #### C MP, GFR, CBC, ADIFF, ANEU #### [address] [address] Monocytes/100 WBC (Bld) 10.8 % Normal 2.0-13.0 [facility] Comment on above: Performed By: #### C MP, GFR, CBC, ADIFF, ANEU #### [address] [address] Neutrophils/100 WBC (Bld) 74.2 % Normal 50.0-75.0 [facility] Comment on above: Performed By: #### C MP, GFR, CBC, ADIFF, ANEU #### [address] [address] .GFRon 04-24-2024 GFR >60 Normal [facility] Comment on above: Result Comment: GFR Population mean for , Non- Americans Ages 20-29 = 116 mL/min/1.73 sq.m. Ages 30-39 = 107 mL/min/1.73 sq.m. Ages 40-49 = 99 mL/min/1.73 sq.m. Ages 50-59 = 93 mL/min/1.73 sq.m. Ages 60-69 = 85 mL/min/1.73 sq.m. Ages 70+ = 75 mL/min/1.73 sq.m. Chronic Kidney Disease: Less than 60 mL/min/1.73 square meters End Stage Renal Disease: Less than 15 mL/min/1.73 square meters Performed By: #### C MP, GFR, CBC, ADIFF, ANEU #### [address] [address] GFR Non- >60 Normal [facility] Comment on above: Result Comment: GFR Population mean for , Non- Americans Ages 20-29 = 116 mL/min/1.73 sq.m. Ages 30-39 = 107 mL/min/1.73 sq.m. Ages 40-49 = 99 mL/min/1.73 sq.m. Ages 50-59 = 93 mL/min/1.73 sq.m. Ages 60-69 = 85 mL/min/1.73 sq.m. Ages 70+ = 75 mL/min/1.73 sq.m. Chronic Kidney Disease: Less than 60 mL/min/1.73 square meters End Stage Renal Disease: Less than 15 mL/min/1.73 square meters Performed By: #### C MP, GFR, CBC, ADIFF, ANEU #### [address] [address] .NEUABSon 04-24-2024 Neutrophil, Absolute 6.7 10 3/mcL Normal 2.3-8.1 [facility] Comment on above: Performed By: #### C MP, GFR, CBC, ADIFF, ANEU #### [place] [address] CBCon 04-24-2024 Erythrocyte distribution width (RBC) [Ratio] 13.8 % Normal 11.5-15.5 [facility] Comment on above: Performed By: #### C MP, GFR, CBC, ADIFF, ANEU #### [place] [address] Hematocrit (Bld) [Volume fraction] 41.0 % Normal 40.0-52.0 [facility] Comment on above: Performed By: #### C MP, GFR, CBC, ADIFF, ANEU #### [place] [address] Hgb 14.2 G/dL Normal 13.0-17.5 [facility] Comment on above: Performed By: #### C MP, GFR, CBC, ADIFF, ANEU #### [place] [address] MCH (RBC) [Entitic mass] 33.0 pg Normal 27.0-33.0 [facility] Comment on above: Performed By: #### C MP, GFR, CBC, ADIFF, ANEU #### [place] [id number] MCHC 34.6 G/dL Normal 32.0-36.0 [facility] Comment on above: Performed By: #### C MP, GFR, CBC, ADIFF, ANEU #### [place] [address] MCV (RBC) [Entitic vol] 95.5 fL Normal 81.0-100.0 [facility] Comment on above: Performed By: #### C MP, GFR, CBC, ADIFF, ANEU #### [place] [address] Platelet 177 10 3/mcL Normal 150-450 [facility] Comment on above: Performed By: #### C MP, GFR, CBC, ADIFF, ANEU #### [place] [address] Platelet mean volume (Bld) [Entitic vol] 8.6 fL Normal 6.4-10.5 [facility] Comment on above: Performed By: #### C MP, GFR, CBC, ADIFF, ANEU #### [place] [address] RBC 4.29 10 6/mcL Low 4.50-6.00 [facility] Comment on above: Performed By: #### C MP, GFR, CBC, ADIFF, ANEU #### [place] [id number] WBC 9.0 10 3/mcL Normal 4.5-10.8 [facility] Comment on above: Performed By: #### C MP, GFR, CBC, ADIFF, ANEU #### [place] [address] CMPon 04-24-2024 Albumin Level 3.2 G/dL Normal 3.2-4.8 [facility] Comment on above: Performed By: #### C MP, GFR, CBC, ADIFF, ANEU #### [place] [id number] Albumin/Globulin [Mass ratio] 0.9 {ratio} Normal 0.9-1.6 [facility] Comment on above: Performed By: #### C MP, GFR, CBC, ADIFF, ANEU #### [place] [id number] ALP [Catalytic activity/Vol] 67 U/L Normal 38-126 [facility] Comment on above: Performed By: #### C MP, GFR, CBC, ADIFF, ANEU #### [place] [id number] ALT [Catalytic activity/Vol] 25 U/L Normal 12-55 [facility] [facility] Comment on above: Performed By: #### C MP, GFR, CBC, ADIFF, ANEU #### [place] [id number] AST [Catalytic activity/Vol] 25 U/L Normal 8-34 [facility] Comment on above: Performed By: #### C MP, GFR, CBC, ADIFF, ANEU #### [place] [address] Bili Total 0.60 mg/dL Normal 0.20-1.20 [facility] Comment on above: Result Comment: Use of this assay is not recommended for patients undergoing treatment with eltrombopag due to the potential for falsely elevated results. Performed By: #### C MP, GFR, CBC, ADIFF, ANEU #### [place] [address] BUN/Creatinine Ratio 16.2 ratio Normal 10.0-22.0 [facility] Comment on above: Performed By: #### C MP, GFR, CBC, ADIFF, ANEU #### [place] [id number] Calcium [Mass/Vol] 9.3 mg/dL Normal 8.7-10.4 [facility] Comment on above: Performed By: #### C MP, GFR, CBC, ADIFF, ANEU #### [place] [address] Chloride [Moles/Vol] 101 mmol/L Normal 98-110 [facility] Comment on above: Performed By: #### C MP, GFR, CBC, ADIFF, ANEU #### [address] [address] CO2 [Moles/Vol] 32 mmol/L Normal 22-32 [facility] Comment on above: Performed By: #### C MP, GFR, CBC, ADIFF, ANEU #### [address] [address] Creatinine [Mass/Vol] 1.05 mg/dL Normal 0.60-1.40 [facility] Comment on above: Result Comment: Test ing performed on iContainers analyzer using enzymatic creatinine methodology. Performed By: #### C MP, GFR, CBC, ADIFF, ANEU #### [address] [address] Electrolyte Balance 4.0 mEq/L Normal 4.0-15.0 [facility] Comment on above: Performed By: #### C MP, GFR, CBC, ADIFF, ANEU #### [address] [address] Globulin 3.6 G/dL Normal 1.5-3.8 [facility] Comment on above: Performed By: #### C MP, GFR, CBC, ADIFF, ANEU #### [address] [address] Glucose [Mass/Vol] 100 mg/dL Normal 82-115 [facility] Comment on above: Performed By: #### C MP, GFR, CBC, ADIFF, ANEU #### [address] [address] Potassium [Moles/Vol] 4.2 mmol/L Normal 3.5-5.0 [facility] Comment on above: Performed By: #### C MP, GFR, CBC, ADIFF, ANEU #### [address] [address] Sodium [Moles/Vol] 137 mmol/L Normal 136-145 [facility] Comment on above: Performed By: #### C MP, GFR, CBC, ADIFF, ANEU #### [address] [address] Total Protein 6.8 G/dL Normal 5.7-8.2 [facility] Comment on above: Result Comment: No te - New Reference Range in effect 20 Performed By: #### C MP, GFR, CBC, ADIFF, ANEU #### [address] [address] Urea nitrogen [Mass/Vol] 17.0 mg/dL Normal 8.0-22.0 [facility] Comment on above: Performed By: #### C MP, GFR, CBC, ADIFF, ANEU #### [address] [address] LABORATORYOrdered By: SYSTEM SYSTEM on 04-24-2024 Albumin BCP dye [Mass/Vol] 3.2 G/dL Normal 3.2 - 4.8 G/dL ADM SS Albumin/Globulin [Mass ratio] 0.9 {ratio} Normal 0.9 - 1.6 ratio AH ADM SS ALP [Catalytic activity/Vol] 67 U/L Normal 38 - 126 U/L ADM SS ALT No additional P-5'-P [Catalytic activity/Vol] 25 U/L Normal 12 - 55 U/L ADM SS AST [Catalytic activity/Vol] 25 U/L Normal 8 - 34 U/L AH ADM SS Basophils (Bld) [#/Vol] 0.0 103/mcL Normal 0.0 - 0.3 10^3/mcL AH Workflow SS Basophils/100 WBC (Bld) 0.3 % Normal 0.0 - 2.5 % Workflow SS Bilirubin [Mass/Vol] 0.60 mg/dL Normal 0.20 - 1.20 mg/dL AH ADM SS Comment on above: Interpretive Data: U se of this assay is not recommended for patients undergoing treatment with eltrombopag due to the potential for falsely elevated results. Calcium [Mass/Vol] 9.3 mg/dL Normal 8.7 - 10. 4 mg/dL AH ADM SS Chloride [Moles/Vol] 101 mmol/L Normal 98 - 110 mEq/L AH ADM SS CO2 [Moles/Vol] 32 mmol/L Normal 22 - 32 mEq/L AH ADM SS Creatinine [Mass/Vol] 1.05 mg/dL Normal 0.60 - 1.40 mg/dL AH ADM SS Comment on above: Interpretive Data: Kylah singer performed on [employer] CH analyzer using enzymatic creatinine methodology. Electrolyte Balance 4.0 mEq/L Normal 4.0 - 15.0 mEq/L ADM SS Eosinophils (Bld) [#/Vol] 0.0 103/mcL Normal 0.0 - 0.7 10^3/mcL AH Workflow SS Eosinophils/100 WBC (Bld) 0.5 % Normal 0.0 - 6.0 % AH Workflow SS Erythrocyte distribution width (RBC) [Ratio] 13.8 % Normal 11.5 - 15.5 % AH Workflow SS GFR/1.73 sq M.predicted among blacks MDRD (S/P/Bld) [Vol rate/Area] ml/min/1.73sqm Invalid Interpretation Code [employer] Chemistry S Comment on above: Interpretive Data: GFR Population mean for , Non- Americans Ages 20-29 = 116 mL/min/1.73 sq.m. Ages 30-39 = 107 mL/min/1.73 sq.m. Ages 40-49 = 99 mL/min/1.73 sq.m. Ages 50-59 = 93 mL/min/1.73 sq.m. Ages 60-69 = 85 mL/min/1.73 sq.m. Ages 70+ = 75 mL/min/1.73 sq.m. Chronic Kidney Disease: Less than 60 mL/min/1.73 square meters End Stage Renal Disease: Less than 15 mL/min/1.73 square meters GFR/1.73 sq M.predicted among non-blacks MDRD (S/P/Bld) [Vol rate/Area] ml/min/1.73sqm Invalid Interpretation Code [employer] Chemistry S Comment on above: Interpretive Data: GFR Population mean for , Non- Americans Ages 20-29 = 116 mL/min/1.73 sq.m. Ages 30-39 = 107 mL/min/1.73 sq.m. Ages 40-49 = 99 mL/min/1.73 sq.m. Ages 50-59 = 93 mL/min/1.73 sq.m. Ages 60-69 = 85 mL/min/1.73 sq.m. Ages 70+ = 75 mL/min/1.73 sq.m. Chronic Kidney Disease: Less than 60 mL/min/1.73 square meters End Stage Renal Disease: Less than 15 mL/min/1.73 square meters Globulin 3.6 G/dL Normal 1.5 - 3.8 G/dL ADM SS Glucose [Mass/Vol] 100 mg/dL Normal 82 - 115 mg/dL ADM SS Hematocrit (Bld) [Volume fraction] 41.0 % Normal 40.0 - 52.0 % AH Workflow SS Hemoglobin (Bld) [Mass/Vol] 14.2 G/dL Normal 13.0 - 17.5 G/dL AH Workflow SS Lymphocytes (Bld) [#/Vol] 1.3 103/mcL Normal 0.9 - 4.3 10^3/mcL Workflow SS Lymphocytes/100 WBC (Bld) 14.2 % Low 20.0 - 40.0 % Workflow SS MCH (RBC) [Entitic mass] 33.0 pg Normal 27.0 - 33.0 pg Workflow SS MCHC 34.6 G/dL Normal 32.0 - 36.0 G/dL Workflow SS MCV (RBC) [Entitic vol] 95.5 fL Normal 81.0 - 100.0 fL Workflow SS Monocytes (Bld) [#/Vol] 1.0 103/mcL Normal 0.1 - 1.4 10^3/mcL Workflow SS Monocytes/100 WBC (Bld) 10.8 % Normal 2.0 - 13.0 % Workflow SS Neutrophils (Bld) [#/Vol] 6.7 103/mcL Normal 2.3 - 8.1 10^3/mcL Workflow SS Neutrophils/100 WBC (Bld) 74.2 % Normal 50.0 - 75.0 % Workflow SS Platelet mean volume (Bld) [Entitic vol] 8.6 fL Normal 6.4 - 10.5 fL Workflow SS Platelets (Bld) [#/Vol] 177 103/mcL Normal 150 - 450 10^3/mcL Workflow SS Potassium [Moles/Vol] 4.2 mmol/L Normal 3.5 - 5.0 mEq/L AH ADM SS Protein [Mass/Vol] 6.8 G/dL Normal 5.7 - 8.2 G/dL ADM SS Comment on above: Interpretive Data: * *Note - New Reference Range in effect 20 RBC (Bld) [#/Vol] 4.29 106/mcL Low 4.50 - 6.0 0 10^6/mcL Workflow SS Sodium [Moles/Vol] 137 mmol/L Normal 136 - 145 mEq/L ADM SS Urea nitrogen [Mass/Vol] 17.0 mg/dL Normal 8.0 - 22.0 mg/dL ADM SS Urea nitrogen/Creatinin e [Mass ratio] 16.2 ratio Normal 10.0 - 22.0 ratio ADM SS WBC (Bld) [#/Vol] 9.0 103/mcL Normal 4.5 - 10.8 10^3/mcL Workflow SS LABORATORYOrdered By: Myra Giraldo on 04-24-2024 MRSA (PCR) Not Detected 1 (04/24/24 6:33 AM) Normal Not Detected Auto Viro/Sero SS Comment on above: Result Comment: [place] [id number] MRSA PCR Int MRSA DNA not detecte d by Real-Time Polymerase Chain Reaction (PCR). A negative result may be due to intermittent colonization. Colonization may vary depending on patient treatment, patient status, or exposure to high-risk environments.As with all PCR based in vitro diagnostic tests, extremely low levels of target below the limit of detection of the assay may be detected, but results may not be reproducible. Invalid Interpretation Code Auto Viro/Sero SS MRSAPCRon 04-24-2024 MRSA (PCR) Not detected Normal Not Detected [facility] Comment on above: Result Comment: [place] [id number] Performed By: #### C MP, GFR, CBC, ADIFF, ANEU #### [place] [address] MRSA PCR Int Normal [facility] Comment on above: Result Comment: MRSA DNA not detected by Real-Time Polymerase Chain Reaction (PCR). A negative result may be due to intermittent colonization. Colonization may vary depending on patient treatment, patient status, or exposure to high-risk environments. As with all PCR based in vitro diagnostic tests, extremely low levels of target below the limit of detection of the assay may be detected, but results may not be reproducible. See Below Performed By: #### C MP, GFR, CBC, ADIFF, ANEU #### [place] [id number] MYCOon 04-24-2024 Mycoplasma IgM Negative Normal [facility] Comment on above: Result Comment: INTE RPRETATION OF MYCOPLASMA IgM: Negative: IgM to M. pneumoniae Absent, or at levels below the assay limit of detection. Positive: IgM to M. pneumoniae Present. Invalid: Test results are invalid due to invalid internal control. Assay was performed in duplicate. Repeat testing is suggested if clinically indicated. Performed By: #### C MP, GFR, CBC, ADIFF, ANEU #### [address] [address] No Panel Informationon 04-24 Legionella Urine Ag Presumptive negative for L. pneumophila serogroup 1 antigen in urine, suggesting no recent or current infection. Legionnaire's disease cannot be ruled out since other serogroups and species may also cause disease. [facility] Work Phone: Streptococcus Pneumoniae Urine Antig Presumptive negative for pneumococcal pneumonia, suggesting no current or recent pneumococcal infection. Infection due to Strep pneumoniae cannot be ruled out since the antigen present in the sample may be below the detection limit of the test. [facility] Work Phone: Comment on above: This test has not be en evaluated on patients taking antibiotics for greater than 24 hours or on patients who have recently completed an antibiotic regimen. The accuracy of this test has not been proven in young children. .Auto Diffon 04-23-2024 Basophil, Absolute 0.0 10 3/mcL Normal 0.0-0.3 [facility] Comment on above: Performed By: #### C MP, GFR, CBC, ADIFF, ANEU #### [address] [address] Basophils/100 WBC (Bld) 0.3 % Normal 0.0-2.5 [facility] Comment on above: Performed By: #### C MP, GFR, CBC, ADIFF, ANEU #### [address] [address] Eosinophil, Absolute 0.0 10 3/mcL Normal 0.0-0.7 [facility] Comment on above: Performed By: #### C MP, GFR, CBC, ADIFF, ANEU #### [address] [address] Eosinophils/100 WBC (Bld) 0.1 % Normal 0.0-6.0 [facility] Comment on above: Performed By: #### C MP, GFR, CBC, ADIFF, ANEU #### [address] [address] Lymphocyte, Absolute 0.7 10 3/mcL Low 0.9-4.3 [facility] Comment on above: Performed By: #### C MP, GFR, CBC, ADIFF, ANEU #### [address] [address] Lymphocytes/100 WBC (Bld) 7.2 % Low 20.0-40.0 [facility] Comment on above: Performed By: #### C MP, GFR, CBC, ADIFF, ANEU #### [address] [address] Monocyte, Absolute 0.7 10 3/mcL Normal 0.1-1.4 [facility] Comment on above: Performed By: #### C MP, GFR, CBC, ADIFF, ANEU #### [address] [address] Monocytes/100 WBC (Bld) 7.8 % Normal 2.0-13.0 [facility] Comment on above: Performed By: #### C MP, GFR, CBC, ADIFF, ANEU #### [address] [address] Neutrophils/100 WBC (Bld) 84.6 % High 50.0-75.0 [facility] Comment on above: Performed By: #### C MP, GFR, CBC, ADIFF, ANEU #### [address] [address] .GFRon 04-23-2024 GFR Non- >60 Normal [facility] Comment on above: Result Comment: GFR Population mean for , Non- Americans Ages 20-29 = 116 mL/min/1.73 sq.m. Ages 30-39 = 107 mL/min/1.73 sq.m. Ages 40-49 = 99 mL/min/1.73 sq.m. Ages 50-59 = 93 mL/min/1.73 sq.m. Ages 60-69 = 85 mL/min/1.73 sq.m. Ages 70+ = 75 mL/min/1.73 sq.m. Chronic Kidney Disease: Less than 60 mL/min/1.73 square meters End Stage Renal Disease: Less than 15 mL/min/1.73 square meters Performed By: #### C MP, GFR, CBC, ADIFF, ANEU #### [place] [address] GFR >60 Normal [facility] Comment on above: Result Comment: GFR Population mean for , Non- Americans Ages 20-29 = 116 mL/min/1.73 sq.m. Ages 30-39 = 107 mL/min/1.73 sq.m. Ages 40-49 = 99 mL/min/1.73 sq.m. Ages 50-59 = 93 mL/min/1.73 sq.m. Ages 60-69 = 85 mL/min/1.73 sq.m. Ages 70+ = 75 mL/min/1.73 sq.m. Chronic Kidney Disease: Less than 60 mL/min/1.73 square meters End Stage Renal Disease: Less than 15 mL/min/1.73 square meters Performed By: #### C MP, GFR, CBC, ADIFF, ANEU #### [place] [address] .MDWon 04-23-2024 Monocyte Distribution Width 24.50 High 0.00-20.00 [facility] Comment on above: Result Comment: For adults in ED, MDW>20.0 may be associated with a higher risk of sepsis during the first 12hrs of hospital admission Performed By: #### C MP, GFR, CBC, ADIFF, ANEU #### [place] [address] .NEUABSon 04-23-2024 Neutrophil, Absolute 7.8 10 3/mcL Normal 2.3-8.1 [facility] Comment on above: Performed By: #### C MP, GFR, CBC, ADIFF, ANEU #### [place] [address] APTTon 04-23-2024 aPTT Coag (Bld) [Time] 34.0 s Normal 25.0-35.0 [facility] Comment on above: Result Comment: For Heparin anticoagulation therapy, the recommended therapeutic range is: 54-77 seconds (APTT Correlation with Anti-Xa therapeutic range of 0.3-0.7 units/ml). PLEASE REFERENCE THE PHARMACY PROTOCOL FOR DOSING. Performed By: #### C MP, GFR, CBC, ADIFF, ANEU #### [place] [address] CBCon 04-23-2024 Erythrocyte distribution width (RBC) [Ratio] 13.8 % Normal 11.5-15.5 [facility] Comment on above: Performed By: #### C MP, GFR, CBC, ADIFF, ANEU #### [place] [address] Hematocrit (Bld) [Volume fraction] 42.7 % Normal 40.0-52.0 [facility] Comment on above: Performed By: #### C MP, GFR, CBC, ADIFF, ANEU #### [place] [address] Hgb 14.7 G/dL Normal 13.0-17.5 [facility] Comment on above: Performed By: #### C MP, GFR, CBC, ADIFF, ANEU #### [place] [id number] MCH (RBC) [Entitic mass] 32.9 pg Normal 27.0-33.0 [facility] Comment on above: Performed By: #### C MP, GFR, CBC, ADIFF, ANEU #### [place] [id number] MCHC 34.5 G/dL Normal 32.0-36.0 [facility] Comment on above: Performed By: #### C MP, GFR, CBC, ADIFF, ANEU #### [place] [id number] MCV (RBC) [Entitic vol] 95.5 fL Normal 81.0-100.0 [facility] Comment on above: Performed By: #### C MP, GFR, CBC, ADIFF, ANEU #### [place] [id number] Platelet 192 10 3/mcL Normal 150-450 [facility] Comment on above: Performed By: #### C MP, GFR, CBC, ADIFF, ANEU #### [place] [address] Platelet mean volume (Bld) [Entitic vol] 8.8 fL Normal 6.4-10.5 [facility] Comment on above: Performed By: #### C MP, GFR, CBC, ADIFF, ANEU #### [place] [address] RBC 4.47 10 6/mcL Low 4.50-6.00 [facility] Comment on above: Performed By: #### C MP, GFR, CBC, ADIFF, ANEU #### [place] [address] WBC 9.2 10 3/mcL Normal 4.5-10.8 [facility] Comment on above: Performed By: #### C MP, GFR, CBC, ADIFF, ANEU #### [address] 04-23-2024 CK [Catalytic activity/Vol] 79 U/L Normal 7-185 [facility] Comment on above: Performed By: #### C MP, GFR, CBC, ADIFF, ANEU #### [place] [address] CMPon 04-23-2024 Albumin Level 3.8 G/dL Normal 3.2-4.8 [facility] Comment on above: Performed By: #### C MP, GFR, CBC, ADIFF, ANEU #### [place] [address] Albumin/Globulin [Mass ratio] 0.9 {ratio} Normal 0.9-1.6 [facility] Comment on above: Performed By: #### C MP, GFR, CBC, ADIFF, ANEU #### [place] [address] ALP [Catalytic activity/Vol] 77 U/L Normal 38-126 [facility] Comment on above: Performed By: #### C MP, GFR, CBC, ADIFF, ANEU #### [place] [address] ALT [Catalytic activity/Vol] 23 U/L Normal 12-55 [facility] Comment on above: Performed By: #### C MP, GFR, CBC, ADIFF, ANEU #### [address] [address] AST [Catalytic activity/Vol] 21 U/L Normal 8-34 [facility] Comment on above: Performed By: #### C MP, GFR, CBC, ADIFF, ANEU #### [address] [address] Bili Total 0.70 mg/dL Normal 0.20-1.20 [facility] Comment on above: Result Comment: Use of this assay is not recommended for patients undergoing treatment with eltrombopag due to the potential for falsely elevated results. Performed By: #### C MP, GFR, CBC, ADIFF, ANEU #### [address] [address] BUN/Creatinine Ratio 12.6 ratio Normal 10.0-22.0 [facility] Comment on above: Performed By: #### C MP, GFR, CBC, ADIFF, ANEU #### [address] [address] Calcium [Mass/Vol] 10.1 mg/dL Normal 8.7-10.4 [facility] Comment on above: Performed By: #### C MP, GFR, CBC, ADIFF, ANEU #### [address] [address] Chloride [Moles/Vol] 102 mmol/L Normal 98-110 [facility] Comment on above: Performed By: #### C MP, GFR, CBC, ADIFF, ANEU #### [address] [address] CO2 [Moles/Vol] 29 mmol/L Normal 22-32 [facility] Comment on above: Performed By: #### C MP, GFR, CBC, ADIFF, ANEU #### [address] [address] Creatinine [Mass/Vol] 0.95 mg/dL Normal 0.60-1.40 [facility] Comment on above: Result Comment: Test ing performed on [employer] CH analyzer using enzymatic creatinine methodology. Performed By: #### C MP, GFR, CBC, ADIFF, ANEU #### [place] [id number] Electrolyte Balance 3.0 mEq/L Low 4.0-15.0 [facility] Comment on above: Performed By: #### C MP, GFR, CBC, ADIFF, ANEU #### [address] [address] Globulin 4.2 G/dL High 1.5-3.8 [facility] Comment on above: Performed By: #### C MP, GFR, CBC, ADIFF, ANEU #### [place] [id number] Glucose [Mass/Vol] 109 mg/dL Normal 82-115 [facility] Comment on above: Performed By: #### C MP, GFR, CBC, ADIFF, ANEU #### [place] [address] Potassium [Moles/Vol] 4.0 mmol/L Normal 3.5-5.0 [facility] Comment on above: Performed By: #### C MP, GFR, CBC, ADIFF, ANEU #### [place] [id number] Sodium [Moles/Vol] 134 mmol/L Low 136-145 [facility] Comment on above: Performed By: #### C MP, GFR, CBC, ADIFF, ANEU #### [place] [address] Total Protein 8.0 G/dL Normal 5.7-8.2 [facility] Comment on above: Result Comment: No te - New Reference Range in effect 20 Performed By: #### C MP, GFR, CBC, ADIFF, ANEU #### [place] [id number] Urea nitrogen [Mass/Vol] 12.0 mg/dL Normal 8.0-22.0 [facility] Comment on above: Performed By: #### C MP, GFR, CBC, ADIFF, ANEU #### [address] [address] CVFLURVon 04-23-2024 FLU A PCR Negative Normal Negative [facility] Comment on above: [place]: [place] [id number] Performed By: #### C VFLURV #### [place] [address] FLU B PCR Negative Normal Negative [facility] Comment on above: [place]: [place] [id number] Performed By: #### C VFLURV #### [facility] [address] [place] [address] RSV PCR Negative Normal Negative [facility] Comment on above: Result Comment: [place] [id number] Performed By: #### C VFLURV #### [place] [address] SARS-CoV-2 (COVID-19) RNA LOPEZ+probe Ql (Unsp spec) Negative Normal Negative [facility] Comment on above: Result Comment: [place] [id number] This test has been authorized by FDA under an EUA for use by authorized laboratories and has not been FDA cleared or approved. Results from the Xpert Xpress SARS-CoV-2/Flu/RSV or Xpert Xpress SARS-CoV-2 only test should be correlated with the clinical history, epidemiological data, and other data available to the clinician evaluating the patient. Performance of the Xpert Xpress SARS-CoV-2/Flu/RSV or Xpert Xpress SARS-CoV-2 only test has only been established in nasopharyngeal swab specimens. Erroneous test results might occur from improper specimen collection; failure to follow the recommended sample collection, handling, and storage procedures; technical error; or sample mix-up.False negative results may occur if virus is present at levels below the analytical limit of detection. Viral nucleic acid may persist in vivo, independent of virus viability. Detection of analyte target(s) does not imply that the corresponding virus(es) are infectious or are the causative agents for clinical symptoms.Recent patient exposure to FluMist or other live attenuated influenza vaccines may cause inaccurate positive results. Performed By: #### C VFLURV #### [place] [address] LABORATORYOrdered By: SYSTEM SYSTEM on 04-23-2024 CK [Catalytic activity/Vol] 79 U/L Normal 7 - 185 U/L AH ADM SS Magnesium [Mass/Vol] 1.8 mg/dL Normal 1.6 - 2.4 mg/dL ADM SS Phosphate [Mass/Vol] 2.5 mg/dL Normal 2.4 - 5.1 mg/dL ADM SS Comment on above: Interpretive Data: * *Note - New Reference Range in effect 20 Natriuretic peptide.B prohormone N-Terminal IA [Mass/Vol] 244 pg/mL Normal 0 - 900 pg/mL ADM SS Troponin I.cardiac DL <= 0.01 ng/mL [Mass/Vol] 10 ng/L Normal 0 - 54 ng/L ADM SS Comment on above: Interpretive Data: High Sensitive Troponin I Reference Ranges: Female: 0-34 ng/L Male: 0-54 ng/L Testing performed on [employer] analyzer using direct chemiluminescent technology. Albumin BCP dye [Mass/Vol] 3.8 G/dL Normal 3.2 - 4.8 G/dL ADM SS Albumin/Globulin [Mass ratio] 0.9 {ratio} Normal 0.9 - 1.6 ratio ADM SS ALP [Catalytic activity/Vol] 77 U/L Normal 38 - 126 U/L ADM SS ALT No additional P-5'-P [Catalytic activity/Vol] 23 U/L Normal 12 - 55 U/L ADM SS aPTT Coag (Bld) [Time] 34.0 s Normal 25.0 - 35.0 seconds [employer] SS Comment on above: Interpretive Data: F or Heparin anticoagulation therapy, the recommended therapeutic range is: 54-77 seconds (APTT Correlation with Anti-Xa therapeutic range of 0.3-0.7 units/ml). PLEASE REFERENCE THE PHARMACY PROTOCOL FOR DOSING. AST [Catalytic activity/Vol] 21 U/L Normal 8 - 34 U/L ADM SS Basophils (Bld) [#/Vol] 0.0 103/mcL Normal 0.0 - 0.3 10^3/mcL Workflow SS Basophils/100 WBC (Bld) 0.3 % Normal 0.0 - 2.5 % Workflow SS Bilirubin [Mass/Vol] 0.70 mg/dL Normal 0.20 - 1.20 mg/dL ADM SS Comment on above: Interpretive Data: U se of this assay is not recommended for patients undergoing treatment with eltrombopag due to the potential for falsely elevated results. Calcium [Mass/Vol] 10.1 mg/dL Normal 8.7 - 10. 4 mg/dL ADM SS Chloride [Moles/Vol] 102 mmol/L Normal 98 - 110 mEq/L ADM SS CO2 [Moles/Vol] 29 mmol/L Normal 22 - 32 mEq/L ADM SS Creatinine [Mass/Vol] 0.95 mg/dL Normal 0.60 - 1.40 mg/dL ADM SS Comment on above: Interpretive Data: T esting performed on [employer] analyzer using enzymatic creatinine methodology. Electrolyte Balance 3.0 mEq/L Low 4.0 - 15.0 mEq/L ADM SS Eosinophils (Bld) [#/Vol] 0.0 103/mcL Normal 0.0 - 0.7 10^3/mcL Workflow SS Eosinophils/100 WBC (Bld) 0.1 % Normal 0.0 - 6.0 % Workflow SS Erythrocyte distribution width (RBC) [Ratio] 13.8 % Normal 11.5 - 15.5 % Workflow SS GFR/1.73 sq M.predicted among blacks MDRD (S/P/Bld) [Vol rate/Area] ml/min/1.73sqm Invalid Interpretation Code ADM SS Comment on above: Interpretive Data: GFR Population mean for , Non- Americans Ages 20-29 = 116 mL/min/1.73 sq.m. Ages 30-39 = 107 mL/min/1.73 sq.m. Ages 40-49 = 99 mL/min/1.73 sq.m. Ages 50-59 = 93 mL/min/1.73 sq.m. Ages 60-69 = 85 mL/min/1.73 sq.m. Ages 70+ = 75 mL/min/1.73 sq.m. Chronic Kidney Disease: Less than 60 mL/min/1.73 square meters End Stage Renal Disease: Less than 15 mL/min/1.73 square meters GFR/1.73 sq M.predicted among non-blacks MDRD (S/P/Bld) [Vol rate/Area] ml/min/1.73sqm Invalid Interpretation Code ADM SS Comment on above: Interpretive Data: GFR Population mean for , Non- Americans Ages 20-29 = 116 mL/min/1.73 sq.m. Ages 30-39 = 107 mL/min/1.73 sq.m. Ages 40-49 = 99 mL/min/1.73 sq.m. Ages 50-59 = 93 mL/min/1.73 sq.m. Ages 60-69 = 85 mL/min/1.73 sq.m. Ages 70+ = 75 mL/min/1.73 sq.m. Chronic Kidney Disease: Less than 60 mL/min/1.73 square meters End Stage Renal Disease: Less than 15 mL/min/1.73 square meters Globulin 4.2 G/dL High 1.5 - 3.8 G/dL AH ADM SS Glucose [Mass/Vol] 109 mg/dL Normal 82 - 115 mg/dL AH ADM SS Hematocrit (Bld) [Volume fraction] 42.7 % Normal 40.0 - 52.0 % AH Workflow SS Hemoglobin (Bld) [Mass/Vol] 14.7 G/dL Normal 13.0 - 17.5 G/dL AH Workflow SS Lactate [Moles/Vol] 1.2 mmol/L Normal 0.5 - 2.2 mmol/L AH ADM SS Lymphocytes (Bld) [#/Vol] 0.7 103/mcL Low 0.9 - 4.3 10^3/mcL AH Workflow SS Lymphocytes/100 WBC (Bld) 7.2 % Low 20.0 - 40.0 % AH Workflow SS MCH (RBC) [Entitic mass] 32.9 pg Normal 27.0 - 33.0 pg AH Workflow SS MCHC 34.5 G/dL Normal 32.0 - 36.0 G/dL AH Workflow SS MCV (RBC) [Entitic vol] 95.5 fL Normal 81.0 - 100.0 fL AH Workflow SS Monocyte distribution width Auto (Bld) [Entitic vol] 24.50 1 High 0.00 - 20.00 AH Workflow SS Comment on above: Result Comment: For adults in ED, MDW>20.0 may be associated with a higher risk of sepsis during the first 12hrs of hospital admission Monocytes (Bld) [#/Vol] 0.7 103/mcL Normal 0.1 - 1.4 10^3/mcL AH Workflow SS Monocytes/100 WBC (Bld) 7.8 % Normal 2.0 - 13.0 % AH Workflow SS Neutrophils (Bld) [#/Vol] 7.8 103/mcL Normal 2.3 - 8.1 10^3/mcL Workflow SS Neutrophils/100 WBC (Bld) 84.6 % High 50.0 - 75.0 % Workflow SS Platelet mean volume (Bld) [Entitic vol] 8.8 fL Normal 6.4 - 10.5 fL Workflow Platelets (Bld) [#/Vol] 192 103/mcL Normal 150 - 450 10^3/mcL Workflow SS Potassium [Moles/Vol] 4.0 mmol/L Normal 3.5 - 5.0 mEq/L ADM SS Protein [Mass/Vol] 8.0 G/dL Normal 5.7 - 8.2 G/dL ADM Comment on above: Interpretive Data: * *Note - New Reference Range in effect 20 RBC (Bld) [#/Vol] 4.47 106/mcL Low 4.50 - 6.0 0 10^6/mcL [facility] SS Sodium [Moles/Vol] 134 mmol/L Low 136 - 145 mEq/L [facility] Troponin I.cardiac DL <= 0.01 ng/mL [Mass/Vol] 12 ng/L Normal 0 - 54 ng/L [facility] Comment on above: Interpretive Data: High Sensitive Troponin I Reference Ranges: Female: 0-34 ng/L Male: 0-54 ng/L Testing performed on [employer] analyzer using direct chemiluminescent technology. Urea nitrogen [Mass/Vol] 12.0 mg/dL Normal 8.0 - 22.0 mg/dL [facility] Urea nitrogen/Creatinin e [Mass ratio] 12.6 ratio Normal 10.0 - 22.0 ratio ADM WBC (Bld) [#/Vol] 9.2 103/mcL Normal 4.5 - 10.8 10^3/mcL [facility] LABORATORYOrdered By: Fermin Cloeman on 04-23-2024 M. pneumoniae IgM IA Ql (S) Negative 19 (04/23/24 9:58 PM) Normal Man Viro/Sero SS Comment on above: Interpretive Data: I NTERPRETATION OF MYCOPLASMA IgM: Negative: IgM to M. pneumoniae Absent, or at levels below the assay limit of detection. Positive: IgM to M. pneumoniae Present. Invalid: Test results are invalid due to invalid internal control. Assay was performed in duplicate. Repeat testing is suggested if clinically indicated. LABORATORYOrdered By: Geo Sutherland on 04-23-2024 Appearance (U) Clear (04/23/24 2:16 PM) Normal Clear AH Auto Urine SS Bilirubin Ql (U) Negative (04/23/24 2:16 PM) Normal Neg-Trace AH Auto Urine SS Color (U) Yellow (04/23/24 2:16 PM) Normal AH Auto Urine SS Glucose Test strip (U) [Mass/Vol] Negative Normal Negative AH Auto Urine SS Hemoglobin Auto test strip (U) [Mass/Vol] Negative (04/23/24 2:16 PM) Normal Neg-Trace AH Auto Urine SS Ketones Ql (U) Trace mg/dL Normal Neg-Trace AH Auto Urine SS UA Leuk Est Negative (04/23/24 2:16 PM) Normal Negative AH Auto Urine SS UA Nitrite Negative (04/23/24 2:16 PM) Normal Negative AH Auto Urine SS UA pH 7.0 (04/23/24 2:16 PM) Normal 5.0 - 8.0 AH Auto Urine SS UA Protein Negative Normal Negative AH Auto Urine SS UA Spec Grav 1.020 (04/23/24 2:16 PM) Normal 1.006-1.029 AH Auto Urine SS UA Specimen Type Void (04/23/24 2:16 PM) Normal AH Auto Urine SS UA Urobilinogen 1.0 E.U./dL Normal 0.2-1.0 AH Auto Urine SS LABORATORYOrdered By: Myra Giraldo on 04-23-2024 FLUAV RNA LOPEZ+probe Ql (Resp) Negative 16 (04/23/24 2:16 PM) Normal Negative AH Auto Viro/Sero SS Comment on above: Result Comment: [place] [id number] FLUBV RNA LOPEZ+probe Ql (Resp) Negative 17 (04/23/24 2:16 PM) Normal Negative AH Auto Viro/Sero SS Comment on above: Result Comment: [place] [id number] RSV PCR Negative 18 (04/23/24 2:16 PM) Normal Negative AH Auto Viro/Sero SS Comment on above: Result Comment: [place] s [id number] SARS-CoV-2 (COVID-19) RNA LOPEZ+probe Ql (Resp) Negative 14, 15 (04/23/24 2:16 PM) Normal Negative AH Auto Viro/Sero SS Comment on above: Result Comment: Note s [id number] Interpretive Data: T his test has been authorized by FDA under an EUA for use by authorized laboratories and has not been FDA cleared or approved. Results from the Xpert Xpress SARS-CoV-2/Flu/RSV or Xpert Xpress SARS-CoV-2 only test should be correlated with the clinical history, epidemiological data, and other data available to the clinician evaluating the patient. Performance of the Xpert Xpress SARS-CoV-2/Flu/RSV or Xpert Xpress SARS-CoV-2 only test has only been established in nasopharyngeal swab specimens. Erroneous test results might occur from improper specimen collection; failure to follow the recommended sample collection, handling, and storage procedures; technical error; or sample mix-up.False negative results may occur if virus is present at levels below the analytical limit of detection. Viral nucleic acid may persist in vivo, independent of virus viability. Detection of analyte target(s) does not imply that the corresponding virus(es) are infectious or are the causative agents for clinical symptoms.Recent patient exposure to FluMist or other live attenuated influenza vaccines may cause inaccurate positive results. LACon 04-23-2024 Lactic Acid Lvl 1.2 mmol/L Normal 0.5-2.2 [facility] Comment on above: Performed By: #### C MP, GFR, CBC, ADIFF, ANEU #### [address] [address] MGon 04-23-2024 Magnesium [Mass/Vol] 1.8 mg/dL Normal 1.6-2.4 [facility] Comment on above: Performed By: #### C MP, GFR, CBC, ADIFF, ANEU #### [address] [address] No Panel Informationon 04-23 Microscopic examination of blood, culture Culture has been received in lab and is no growth to date. Routine cultures are held for 5 days. [facility] Work Phone: PBNPon 04-23-2024 Natriuretic peptide B (Bld) [Mass/Vol] 244 pg/mL Normal 0-900 [facility] Comment on above: Performed By: #### C MP, GFR, CBC, ADIFF, ANEU #### [place] [address] PHOSon 04-23-2024 Phosphate [Mass/Vol] 2.5 mg/dL Normal 2.4-5.1 [facility] Comment on above: Result Comment: No te - New Reference Range in effect 20 Performed By: #### C MP, GFR, CBC, ADIFF, ANEU #### [address] 04-23-2024 High Sensitivity Troponin I 12 ng/L Normal 0-54 [facility] Comment on above: Result Comment: High Sensitive Troponin I Reference Ranges: Female: 0-34 ng/L Male: 0-54 ng/L Testing performed on [employer] IM analyzer using direct chemiluminescent technology. Performed By: #### C MP, GFR, CBC, ADIFF, ANEU #### [place] [address] High Sensitivity Troponin I 10 ng/L Normal 0-54 [facility] Comment on above: Result Comment: High Sensitive Troponin I Reference Ranges: Female: 0-34 ng/L Male: 0-54 ng/L Testing performed on [employer] IM analyzer using direct chemiluminescent technology. Performed By: #### C MP, GFR, CBC, ADIFF, ANEU #### [place] [address] UAon 04-23-2024 Color (U) Yellow Normal [facility] Comment on above: Performed By: #### C MP, GFR, CBC, ADIFF, ANEU #### [place] [address] Glucose (U) [Mass/Vol] Negative Normal Negative [facility] Comment on above: Performed By: #### C MP, GFR, CBC, ADIFF, ANEU #### [place] [id number] Ketones Ql (U) Trace Normal Neg-Trace [facility] Comment on above: Performed By: #### C MP, GFR, CBC, ADIFF, ANEU #### [place] [address] UA Appear Clear Normal Clear [facility] Comment on above: Performed By: #### C MP, GFR, CBC, ADIFF, ANEU #### [place] [address] UA Blood Negative Normal Neg-Trace [facility] Comment on above: Performed By: #### C MP, GFR, CBC, ADIFF, ANEU #### [place] [address] UA Leuk Est Negative Normal Negative [facility] Comment on above: Performed By: #### C MP, GFR, CBC, ADIFF, ANEU #### [place] [address] UA Nitrite Negative Normal Negative [facility] Comment on above: Performed By: #### C MP, GFR, CBC, ADIFF, ANEU #### [place] [address] UA pH 7.0 Normal 5.0 - 8.0 [facility] Comment on above: Performed By: #### C MP, GFR, CBC, ADIFF, ANEU #### [place] [address] UA Protein Negative Normal Negative [facility] Comment on above: Performed By: #### C MP, GFR, CBC, ADIFF, ANEU #### [place] [address] UA Spec Grav 1.020 Normal 1.006-1.029 [facility] Comment on above: Performed By: #### C MP, GFR, CBC, ADIFF, ANEU #### [place] [address] UA Specimen Type Void Normal [facility] Comment on above: Performed By: #### C MP, GFR, CBC, ADIFF, ANEU #### [place] [address] UA Urobilinogen 1.0 E.U./dL Normal 0.2-1.0 [facility] Comment on above: Performed By: #### C MP, GFR, CBC, ADIFF, ANEU #### [place] [address] Urobilinogen (U) [Mass/Vol] Negative Normal Neg-Trace [facility] Comment on above: Performed By: #### C MP, GFR, CBC, ADIFF, ANEU #### [address] [address] XR CHEST 1 VIEWon 04-23-2024 XR CHEST 1 VIEW ORIGINAL EXAMINATION: ONE XRAY VIEW OF THE CHEST04/23/2024 3:34 pm COMPARISON: Chest radiograph 12/28/2022, CT chest 12/28/2022 HISTORY: ORDERING SYSTEM PROVIDED HISTORY: Reason for Exam: fever, pain or tachypnea FINDINGS: The cardiomediastinal silhouette is stable. Low lung volumes with hypoventilatory changes, notably bronchovascular crowding. No florid central vascular congestion. No large focal consolidative opacity. No large volume pleural effusion. No pneumothorax. IMPRESSION: Hypoventilatory changes. No definite acute cardiopulmonary process by radiograph. I have personally reviewed the images of this examination and agree with the resident's findings and interpretation. Interpreted by: Jimenez Lawson MD Preliminary Report By: Jesús Murray Electronically signed By Jimenez Lawson MD Dictated Date: 04/23/2024 3:36:05 PM Prelim Date: 04/23/2024 3:44:39 PM Sign Date: 04/23/2024 3:44:39 PM Ordering Provider: MARYANNE Wen [facility] PSAon 12-08-2023 Prostate Specific Antigen 1.22 ng/mL Normal 0.02-4.00 [facility] ([place]) Comment on above: Result Comment: Randa ent results determined by assays using different manufacturers for methods may not be comparable. Performed By: #### P SA #### [address] [address] [address] ABDOMEN W/ + W/O CONTRAST on 04-11-2023 CT ABDOMEN W/ + W/O CONTRAST ORIGINAL EXAMINATION: CT ABDOMEN WITH AND WITHOUT CONTRAST04/07/2023 7:15 am TECHNIQUE: CT of the abdomen was performed without and with the administration of intravenous contrast. Multiplanar reformatted images are provided for review. Automated exposure control, iterative reconstruction, and/or weight based adjustment of the mA/kV was utilized to reduce the radiation dose to as low as reasonably achievable. COMPARISON: CT chest 12/28/2022. HISTORY: ORDERING SYSTEM PROVIDED HISTORY: Reason for Exam: renal lesion NO PT COMPLAINTS, F/U ABN CT CHEST FINDINGS: Pre contrast imaging: Lung bases are clear. There is a well-circumscribed hypodense mass along the lateral upper pole the left kidney measuring 4.5 cm with Hounsfield units measuring 3.0. There is no right or left-sided nephrolithiasis or hydronephrosis. There are no calcified gallstones. Postcontrast imaging: Exophytic left renal mass in the upper pole left kidney has Hounsfield measurement of approximately 1. Both kidneys enhance normally. There is normal enhancement of the visualized portions of the liver and spleen as well as the pancreas and adrenal glands. Caliber of the abdominal aorta is normal. The visualized portions of the large and small bowel are normal. There is no abdominal lymphadenopathy or ascites or free intraperitoneal air. There is multilevel advanced lower thoracic and lumbar spine degenerative disc changes. IMPRESSION: 1. 4.5 cm simple fluid containing cyst in the upper pole the left kidney. 2. No evidence of renal calculus disease or hydronephrosis. Interpreted by: Killian Miramontes Preliminary Report By: Killian Miramontes Electronically signed By Killian Miramontes Dictated Date: 04/11/2023 8:43:59 AM Prelim Date: 04/11/2023 8:49:07 AM Sign Date: 04/11/2023 8:49:07 AM Ordering Provider: KAELYN TAPIA Normal [facility] ([place]) CRE POCon 04-07-2023 Perf Loc - POCT Tested at AM Normal [facility]) Comment on above: Result Comment: [facility] [address] [place], [place] [address] Creatinine [Mass/Vol] 0.72 mg/dL Normal 0.60-1.40 [facility] ([place]) Estimated GFR - POCT >60 Normal >=60 [facility] ([place]) Comment on above: Result Comment: Chronic Kidney Disease: Less than 60 mL/min/1.73 square meters End Stage Renal Disease: Less than 15 mL/min/1.73 square meters Performing Instrument - POCT RADCREAT3 Normal [facility] ([place]) MRI SHOULDER W/O CONTRAST CHARLI YOUNGERBravo 03-28-2023 MRI SHOULDER W/O CONTRAST RIGHT ORIGINAL EXAMINATION: MRI OF THE RIGHT SHOULDER WITHOUT CONTRAST 03/28/2023 1:58 pm TECHNIQUE: Multiplanar multisequence MRI of the right shoulder was performed without the administration of intravenous contrast. COMPARISON: Right shoulder radiographs 08/27/2022 HISTORY: ORDERING SYSTEM PROVIDED HISTORY: Reason for Exam: sprain FINDINGS: Images are degraded by motion artifact and low signal to noise related to body habitus which decreases the sensitivity and specificity of the examination. There is a complete tear of the distal supraspinatus tendon with approximately 3.5 cm retraction. Tearing also likely involves the majority of the infraspinatus tendon. No definite subscapularis tendon tear is identified, however, evaluation is significantly limited. There is severe diffuse rotator cuff muscle atrophy. The long head of the biceps tendon is not seen. A small glenohumeral joint effusion freely communicates with the subacromial subdeltoid bursa. The glenohumeral cartilage is grossly intact. There is moderate osteoarthrosis of the acromioclavicular joint. IMPRESSION: Massive rotator cuff tear involving the supraspinatus tendon and at least a majority of the infraspinatus tendon. There is severe diffuse rotator cuff muscle atrophy. The long head of the biceps tendon is not well seen and is likely torn. Moderate AC joint osteoarthrosis. Interpreted by: Alonso Schmidt Preliminary Report By: Alonso Schmidt Electronically signed By Alonso Schmidt Dictated Date: 03/28/2023 3:46:36 PM Prelim Date: 03/28/2023 3:56:45 PM Sign Date: 03/28/2023 3:56:45 PM Ordering Provider: TERRI CLANCY [facility] ([place]) [facility] REPORT Normal [facility] DATE OF SERVICE: 09/2020 REASON FOR VISIT: Cough, congestion. HISTORY OF PRESENT ILLNESS: This is a 55-year-old male who presented with cough and congestion for the last 4 days. He feels a headache. The cough is not very significant and it is a dry cough. Denied any sore throat, no fever or chills, no shortness of breath. Eating and drinking well. REVIEW OF SYSTEMS: Review of other systems is normal. ALLERGIES: NEOSPORIN. MEDICATIONS: List was reviewed. PHYSICAL EXAMINATION: He is awake and alert, not in distress, no dyspnea. Temperature 97.7, blood pressure 192/82, pulse 60, respirations 22. Pulse oximetry 94% on room air. Pain score is 0/10. HEENT: Remarkable for mild nasal congestion. Throat is not injected. No postnasal drip. Chest: Clear to auscultation. No crackles, wheezing or rhonchi. Heart: Regular rate and rhythm. ASSESSMENT: Upper respiratory infection. PLAN: Clinical findings were discussed with patient in detail. I explained to him that I do not see an immediate need of antibiotics right now. He [facility] PATIENT NAME: DANIELLE EUCEDA [address] [place] MEDICAL REC #: [id number] [place] [address] [facility] REPORT [facility]ICIAN should do saline nasal spray. I gave him Tessalon Perles 100 mg every 6 hours as needed, 30 pills with no refill for cough relief. I gave him a prescription of amoxicillin 875 mg twice a day for 10 days prescription to keep. If his symptoms get worse in the next 3-4 days, he may take the antibiotic. He should also follow up with his doctor as needed. Patient was made aware of the high blood pressure. He stated that he just took medicine before he came to [facility]. Shameka Greene MD [id number] [facility] File#: [id number] END OF DOCUMENT / CHANGE LOG FOLLOWS Last Edited By Elec. Signed By Shameka Greene MD #PAWShameka Wilkins MD #PAWPR on 07/11/2021 13:53 ET on 07/11/2021 13:53 ET Revision Number - 2 Verified/Reviewed by [facility] PATIENT NAME: DANIELLE EUCEDA [address] MEDICAL REC #: [id number] [place] [address] [facility] REPORT [facility] PHYSICIAN 07/11/21 1353 PAWPR [facility] PATIENT NAME: DANIELLE EUCEDA [address] [place]varez MEDICAL REC #: [id number] [place] [address] [facility] REPORT [facility]YSICIAN Normal [facility] Suzi OBSOLETEon 04-28-2021 OBSOLETE Refill (AGINTMLW) DANIELLE EUCEDA ([id number]) 1965 M Date Time Provider Department 04/28/21 ELVER GRANT AGINTMLW During your visit today, we recorded the following information about you: Prema Vilchis LPN 04/28/2021 12:21 PM Signed Last Office Visit 01/19/21. Last Refill 07/28/20. Last labs 01/19/21. Pending Prescriptions Disp Refills TERAZOSIN 2 MG CAPSULE 90 capsule 2 Sig: TAKE 1 CAPSULE DAILY AT BEDTIME CHAVA: Yes Please review and advise. Prema Vilchis LPN Allergies As of Date: 04/28/2021 Noted Allergy Reaction NEOSPORIN (HYDROCORTISONE) 04/22/2015 2 - Rash Date Reviewed: 01/19/2021 Reviewed by: Elver Grant APRN.EDITOR IN CHIEF - Fully Assessed Reason for Visit: Refill Request [94] Visit Diagnosis:Benign prostatic hyperplasia without lower urinary tract symptoms [N40.0] Order(s):terazosin (HYTRIN) 2 mg capsuleTAKE 1 CAPSULE DAILY AT BEDTIMEDisp: 90 capsuleRfl: 2 Prescriptions as of 04/28/2021 - terazosin (HYTRIN) 2 mg capsule TAKE 1 CAPSULE DAILY AT BEDTIME - sildenafil (VIAGRA) 100 mg tablet Take 0.5 tablets by mouth as needed. - flecainide (TAMBOCOR) 50 mg tablet Take 50 mg by mouth twice daily. - multivitamin (DAILY VITAMIN ORAL) Take by mouth. - naproxen (NAPROSYN) 500 mg tablet Take 1 tablet by mouth twice daily with meals. - ELIQUIS 5 mg tab(s) Take 5 mg by mouth twice daily. - carvedilol (COREG) 6.25 mg tablet Take 3.125 mg by mouth twice daily. - LOW-DOSE ASPIRIN ORAL Take 1 tablet by mouth once daily. Problem List As Of Date 04/28/2021 Noted Resolved Benign prostatic hyperplasia [N40.0] Morbid obesity (HCC) [E66.01] DOMI on CPAP [G47.33, Z99.89] Atrial fibrillation (HCC) [I48.91] 07/06/2018 Obesity, Class III, BMI >= 40 [E66.01] 04/09/2020 Body mass index 50.0-59.9, adult (HCC) [Z68.43] 01/19/2021 Prescriptions ordered this encounter Disp Refills Start End TERAZOSIN 2 MG CAPSULE 90 c* 2 04/28/2021 Sig: TAKE 1 CAPSULE DAILY AT BEDTIME Medications Discontinued During This Encounter Prescriptions - terazosin (HYTRIN) 2 mg capsule (Discontinued) TAKE 1 CAPSULE DAILY AT BEDTIME Encounter Status:Closed by [facility]JUAN[facility] DANIELLE EUCEDA ([id number]) 1965 M Date Time Provider Department 01/20/21 ELVER GRANT During your visit today, we recorded the following information about you: Hanna Deleon MA 01/20/2021 7:31 AM Signed ----- Message from Elver Grant APRN.EDITOR IN CHIEF sent at 01/19/2021 5:26 PM EDT ----- CMP and CBC unremarkable Lipids look excellent Hanna Deleon MA 01/20/2021 7:32 AM Signed Patient notified and voiced understanding. Hanna Deleon MA Allergies As of Date: 01/20/2021 Noted Allergy Reaction NEOSPORIN (HYDROCORTISONE) 04/22/2015 2 - Rash Date Reviewed: 01/19/2021 Reviewed by: Elver Grant APRN.EDITOR IN CHIEF - Fully Assessed Reason for Visit: Results [95] Prescriptions as of 01/20/2021 - terazosin (HYTRIN) 2 mg capsule TAKE 1 CAPSULE DAILY AT BEDTIME - sildenafil (VIAGRA) 100 mg tablet Take 0.5 tablets by mouth as needed. - flecainide (TAMBOCOR) 50 mg tablet Take 50 mg by mouth twice daily. - multivitamin (DAILY VITAMIN ORAL) Take by mouth. - naproxen (NAPROSYN) 500 mg tablet Take 1 tablet by mouth twice daily with meals. - ELIQUIS 5 mg tab(s) Take 5 mg by mouth twice daily. - carvedilol (COREG) 6.25 mg tablet Take 3.125 mg by mouth twice daily. - LOW-DOSE ASPIRIN ORAL Take 1 tablet by mouth once daily. Problem List As Of Date 01/20/2021 Noted Resolved Benign prostatic hyperplasia [N40.0] Morbid obesity (HCC) [E66.01] DOMI on CPAP [G47.33, Z99.89] Atrial fibrillation (HCC) [I48.91] 07/06/2018 Obesity, Class III, BMI >= 40 [E66.01] 04/09/2020 Body mass index 50.0-59.9, adult (HCC) [Z68.43] 01/19/2021 Encounter Status:Closed by HANNA DELEON on [facility]/20/21 [facility] DANIEL[facility] EUCEDA ([id number]) 1965 Date Time Provider Department 01/20/21 ELVER GRANT AGINTMLMilton During your visit today, we recorded the following information about you: Sinan King MA 01/20/2021 2:26 PM Signed ----- Message from Elver Grant APRN.EDITOR IN CHIEF sent at 01/20/2021 2:22 PM EDT ----- Hiv negative PSA wnl Sinan King MA 01/20/2021 2:27 PM Signed Patient informed of results. Sinan King MA Allergies As of Date: 01/20/2021 Noted Allergy Reaction NEOSPORIN (HYDROCORTISONE) 04/22/2015 2 - Rash Date Reviewed: 01/19/2021 Reviewed by: Elver Grant APRN.EDITOR IN CHIEF - Fully Assessed Reason for Visit: Results [95] Prescriptions as of 01/20/2021 - terazosin (HYTRIN) 2 mg capsule TAKE 1 CAPSULE DAILY AT BEDTIME - sildenafil (VIAGRA) 100 mg tablet Take 0.5 tablets by mouth as needed. - flecainide (TAMBOCOR) 50 mg tablet Take 50 mg by mouth twice daily. - multivitamin (DAILY VITAMIN ORAL) Take by mouth. - naproxen (NAPROSYN) 500 mg tablet Take 1 tablet by mouth twice daily with meals. - ELIQUIS 5 mg tab(s) Take 5 mg by mouth twice daily. - carvedilol (COREG) 6.25 mg tablet Take 3.125 mg by mouth twice daily. - LOW-DOSE ASPIRIN ORAL Take 1 tablet by mouth once daily. Problem List As Of Date 01/20/2021 Noted Resolved Benign prostatic hyperplasia [N40.0] Morbid obesity (HCC) [E66.01] DOMI on CPAP [G47.33, Z99.89] Atrial fibrillation (HCC) [I48.91] 07/06/2018 Obesity, Class III, BMI >= 40 [E66.01] 04/09/2020 Body mass index 50.0-59.9, adult (HCC) [Z68.43] 01/19/2021 Encounter Status:Closed by SINAN KING on 01/20/21 Normal [facility] CBC panel Auto (Bld)on 01-19 Erythrocyte distribution width (RBC) [Ratio] 12.9 % Normal 11.5-15.0 [facility] Comment on above: Order Comment: Speci men Type: BLOOD SPECIMEN Performed By: #### 5 8410-2 #### [facility] CLIA [id number] [address] [place] [address] [place] Hematocrit (Bld) [Volume fraction] 43.8 % Normal 39.0-51.0 [facility] Comment on above: Order Comment: Speci men Type: BLOOD SPECIMEN Performed By: #### 5 8410-2 #### [facility] CLIA [id number] [address] [place] [address] [place] Hemoglobin (Bld) [Mass/Vol] 14.4 g/dL Normal 13.0-17.0 [facility] Comment on above: Order Comment: Speci men Type: BLOOD SPECIMEN Performed By: #### 5 8410-2 #### [facility] [place] [facility] CLIA [id number] [address] [place] [address] [place] MCH (RBC) [Entitic mass] 32.1 pg Normal 26.0-34.0 [facility] Comment on above: Order Comment: Speci men Type: BLOOD SPECIMEN Performed By: #### 5 8410-2 #### [facility] [place] [facility] CLIA [id number] [address] [place] [address] [facility] MCHC (RBC) [Mass/Vol] 32.9 g/dL Normal 30.5-36.0 [facility] Comment on above: Order Comment: Speci men Type: BLOOD SPECIMEN Performed By: #### 5 8410-2 #### [facility] [place] [facility] CLIA [id number] [address] [place] [address] [place] MCV (RBC) [Entitic vol] 97.8 fL Normal 80.0-100.0 [facility] Comment on above: Order Comment: Speci men Type: BLOOD SPECIMEN Performed By: #### 5 8410-2 #### [facility] [place] [facility] CLIA [id number] [address] [place] [address] [place] Platelet mean volume (Bld) [Entitic vol] 11.2 fL Normal 9.0-12.7 [facility] Comment on above: Order Comment: Speci men Type: BLOOD SPECIMEN Performed By: #### 5 8410-2 #### [facility] [place] [facility] CLIA [id number] [address] [place] [address] [place] Platelets (Bld) [#/Vol] 202 10*3/uL Normal 150-400 [facility] Comment on above: Order Comment: Speci men Type: BLOOD SPECIMEN Performed By: #### 5 8410-2 #### [facility] [place] [facility] CLIA [id number] [address] [place] [address] [place] RBC (Bld) [#/Vol] 4.48 10*6/uL Normal 4.20-6.00 [facility] Comment on above: Order Comment: Speci men Type: BLOOD SPECIMEN Performed By: #### 5 8410-2 #### [facility] [place] [facility] CLIA [id number] [address] [place] [address] [facility] [place] WBC (Bld) [#/Vol] 6.40 10*3/uL Normal 3.70-11.00 [facility] Comment on above: Order Comment: Speci men Type: BLOOD SPECIMEN Performed By: #### 5 8410-2 #### [facility] CLIA [id number] [address] [place] [address] [facility] CNOVon 01-19-2021 CNOV Office Visit (AGINTM LW) JOSE DE JESUSDANIELLE Rica ([id number]) 1965 M Date Time Provider Department 01/19/21 9:00 AM ELVER GRANT During your visit today, we recorded the following information about you: Temperature Pulse Respiration Blood pressure 98.2 degrees 76/minute 18/minute 122/70 Weight Height 177.9 kg 1.778 m Elver Grant APRN.EDITOR IN CHIEF 01/19/2021 9:33 AM Signed This note was created using NoteWriter. Subjective Danielle Euceda is a 55 year old male here today for routine 6 month follow up and follow up on weight. PMH PMH Afib, CAD, BPH, DOMI, obesity. Reports feeling well. Denies changes in health since last office visit. Denies concerns or complaints today. He does note he has gained weight. he also reports getting in September. Reports he is now living in [facility] and will be finding Primary provider closer to home. ? I reviewed his past medical, surgical, social, and family histories today and updated chart. Allergies, chronic medications, and supplements were also reviewed and his list is now up to date. BPH:?this is chronic and well controlled on Terazosin. He was diagnosed 10+ yrs ago. Denies symptoms associated with BPH. Specifically denies slowed urinary stream, difficulty starting stream, nocturia. His previous provider started him on this after he complained of difficulty urinating. ? ? Afib/CAD:?He is seeing manager intensive care,?Dr Horton at [facility].?He was last seen 04/02/20.??He is taking Eliquis, Flecainide, and Coreg for rate control.?Denies any symptoms related to afib.?Denies JAY, dizziness, CP, sob, palpitations.?Pt reports he was in [facility] twice last year for cardioversion. Reports they are considering ablation if continues. Reports last episode end of last summer, fall. ? DOMI:?he was diagnosed 5-6 yrs ago. He wears his CPAP nightly. Denies symptoms referable to DOMI. ? ED:?Reports hard time achieving?and maintaining erection.?States?if he is able to achieve erection he will?lose it quickly.?He has not needed to use Viagra since he has not been sexually active. Reports he just started seeing someone this past weekend. Denies any penal or scrotal pain. Reports he feels his sexual drive is okay. He would like to have available if needed. Denies CP or SOB.? ? Obesity: noted 30 lb wt gain at last office visit. He reports he was not exercising or watching his diet. Since our last office visit he admits to not following diet to well. He has not been exercising. States he got in September and has had a lot going on. States he did lose about 20 lbs but states he gained a lot of it back. 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 He reports he has been successful with losing weight in the past. He reports he is not interested in bariatric surgery or seeing dietitian at this time. Feels he can do this on his own. ? Preventative:?He completed his colonoscopy with Dr Lopez on 04/09/20. Pt reports he was unable to complete colonoscopy due to unable to fully visualize bowel. Pt reports having barium swallow and xrays were completed. Xray noted diverticula, no suspicious findings. He completed shingles, Tdap and COVID vaccines. Review of Systems Constitutional: Negative for activity change, appetite change, chills, diaphoresis, fatigue, fever and unexpected weight change. Respiratory: Negative for cough, chest tightness, shortness of breath and wheezing. Cardiovascular: Positive for leg swelling. Negative for chest pain and palpitations. Chronic stable. Reports in am legs are fine then increase as day progresses Gastrointestinal: Negative for constipation, diarrhea, nausea and vomiting. Endocrine: Negative for cold intolerance, heat intolerance, polydipsia, polyphagia and polyuria. Genitourinary: Negative for difficulty urinating, dysuria, flank pain and frequency. Musculoskeletal: Negative for arthralgias, back pain, gait problem, joint swelling, myalgias and neck pain. Neurological: Negative for dizziness and facial asymmetry. Hematological: Does not bruise/bleed easily. Psychiatric/Behavioral: Negative for confusion, dysphoric mood and sleep disturbance. The patient is not nervous/anxious. Objective 01/19/21 0842 BP: 122/70 BP Site: Right Arm BP Position: Sitting BP Cuff Size: Large Adult Pulse: 76 Resp: 18 Temp: 36.8 ?C (98.2 ?F) TempSrc: Oral Weight: (!) 177.9 kg (392 lb 3.2 oz) Height: 177.8 cm (5' 10) Physical Exam Vitals and nursing note reviewed. Constitutional: General: He is not in acute distress. Appearance: Normal appearance. He is obese. He is not ill-appearing. HENT: Head: Normocephalic and atraumatic. Cardiovascular: Rate and Rhythm: Normal rate and regular rhythm. Pulses: Normal pulses. No decreased pulses. Heart sounds: N (more content not included)... Normal [facility] Comprehensive metabolic 2000 panelon 01-19-2021 Albumin [Mass/Vol] 4.5 g/dL Normal 3.9-4.9 [facility] Comment on above: Order Comment: Speci men Type: BLOOD SPECIMEN Performed By: #### 2 4323-8 #### [facility] CLIA [id number] [address] [place] [address] [place] ALP [Catalytic activity/Vol] 68 U/L Normal 38-113 [facility] Comment on above: Order Comment: Speci men Type: BLOOD SPECIMEN Performed By: #### 2 4323-8 #### [facility] CLIA [id number] [address] [place] [address] [place] ALT With P-5'-P [Catalytic activity/Vol] 19 U/L Normal 10-54 [facility] Comment on above: Order Comment: Speci men Type: BLOOD SPECIMEN Performed By: #### 2 4323-8 #### [facility] [place] [facility] CLIA [id number] [address] [place] [address] [place] Anion gap [Moles/Vol] 7 mmol/L Low 9-18 [facility] Comment on above: Order Comment: Speci men Type: BLOOD SPECIMEN Performed By: #### 2 4323-8 #### [facility] [place] [facility] CLIA [id number] [address] [place] [address] [place] AST With P-5'-P [Catalytic activity/Vol] 18 U/L Normal 14-40 [facility] Comment on above: Order Comment: Speci men Type: BLOOD SPECIMEN Performed By: #### 2 4323-8 #### [facility] [place] [facility] CLIA [id number] [address] [facility] [place] [address] [place] Bilirubin [Mass/Vol] 0.5 mg/dL Normal 0.2-1.3 [facility] Comment on above: Order Comment: Speci men Type: BLOOD SPECIMEN Performed By: #### 2 4323-8 #### [facility] [place] [facility] CLIA [id number] [address] [facility] [place] [address] [place] Calcium [Mass/Vol] 9.9 mg/dL Normal 8.5-10.2 [facility] Comment on above: Order Comment: Speci men Type: BLOOD SPECIMEN Performed By: #### 2 4323-8 #### [facility] [place] [facility] CLIA [id number] [address] [place] [address] [place] Chloride [Moles/Vol] 103 mmol/L Normal 97-105 [facility] Comment on above: Order Comment: Speci men Type: BLOOD SPECIMEN Performed By: #### 2 4323-8 #### [facility] [place] [facility] CLIA [id number] [address] [place] [address] [place] CO2 [Moles/Vol] 29 mmol/L Normal 22-30 [facility] Comment on above: Order Comment: Speci men Type: BLOOD SPECIMEN Performed By: #### 2 4323-8 #### [facility] [place] [facility] CLIA [id number] [address] [place] [address] [place] Creatinine [Mass/Vol] 0.88 mg/dL Normal 0.73-1.22 [facility] Comment on above: Order Comment: Speci men Type: BLOOD SPECIMEN Performed By: #### 2 4323-8 #### [facility] [place] [facility] CLIA [id number] [address] [place] [address] [place] GFR/1.73 sq M.predicted among blacks MDRD (S/P/Bld) [Vol rate/Area] mL/min/{1.73_m2} Normal [facility] Comment on above: Order Comment: Speci men Type: BLOOD SPECIMEN Performed By: #### 2 4323-8 #### [facility] [place] [facility] CLIA [id number] [address] [place] [address] [place] GFR/1.73 sq M.predicted among non-blacks MDRD (S/P/Bld) [Vol rate/Area] mL/min/{1.73_m2} Normal [facility] Comment on above: Order Comment: Speci men Type: BLOOD SPECIMEN Result Comment: eGFR (Estimated GFR) Units of measure: mL/min/1.73 meters squared eGFR is derived from the reexpressed MDRD Study equation using the following parameters: serum creatinine, age, gender and race. The creatinine assay has been calibrated to be traceable to IDMS. An eGFR <60 mL/min/1.73m2 for >3 months is consistent with chronic kidney disease. Refer to KDOQI guidelines for clinical interpretation. In patients with unstable renal function, e.g. those with acute kidney injury, the eGFR may not accurately reflect actual GFR. Performed By: #### 2 4323-8 #### [facility] [place] [facility] CLIA [id number] [address] [place] [address] [place] Glucose [Mass/Vol] 94 mg/dL Normal 74-99 [facility] Comment on above: Order Comment: Speci men Type: BLOOD SPECIMEN Result Comment: The [place] Diabetes Association (ADA) provides guidance for cutoff values for fasting glucose and random glucose. The ADA defines fasting as no caloric intake for at least 8 hours. Fasting plasma glucose results between 100 to 125 mg/dL indicate increased risk for diabetes (prediabetes). Fasting plasma glucose results greater than or equal to 126 mg/dL meet the criteria for diagnosis of diabetes. In the absence of unequivocal hyperglycemia, results should be confirmed by repeat testing. In a patient with classic symptoms of hyperglycemia or hyperglycemic crisis, random plasma glucose results greater than or equal to 200 mg/dL meet the criteria for diagnosis of diabetes. Reference: Standards of Medical Care in Diabetes 2016, [place] Diabetes Association. Diabetes Care. 2016.39(Suppl 1). Performed By: #### 2 4323-8 #### [facility] [place] [facility] CLIA [id number] [address] [place] [address] [place] Potassium [Moles/Vol] 4.7 mmol/L Normal 3.7-5.1 [facility] Comment on above: Order Comment: Speci men Type: BLOOD SPECIMEN Performed By: #### 2 4323-8 #### [facility] [place] [facility] CLIA [id number] [address] [place] [address] [place] Protein [Mass/Vol] 7.3 g/dL Normal 6.3-8.0 [facility] Comment on above: Order Comment: Speci men Type: BLOOD SPECIMEN Performed By: #### 2 4323-8 #### [facility] [place] [facility] CLIA [id number] [address] [place] [address] [place] Sodium [Moles/Vol] 139 mmol/L Normal 136-144 [facility] Comment on above: Order Comment: Speci men Type: BLOOD SPECIMEN Performed By: #### 2 4323-8 #### [facility] [place] [facility] CLIA [id number] [address] [place] [address] [place] Urea nitrogen [Mass/Vol] 12 mg/dL Normal 9-24 [facility] Comment on above: Order Comment: Speci men Type: BLOOD SPECIMEN Performed By: #### 2 4323-8 #### [facility] CLIA [id number] [address] [place] [address] [place] [facility] HIV 1+2 Ab IA Qlon 1 HIV 1 and 2 Ab IA.rapid Nom Normal [facility] Comment on above: Order Comment: Speci men Type: BLOOD SPECIMEN Result Comment: Test not indicated. Performed By: #### 3 1201-7, 2857-1 ####[facility] [id number] [place] [address] HIV 1+2 Ab+HIV1 p24 Ag IA Ql Non-Reactive Normal Nonreactive [facility] Comment on above: Order Comment: Speci men Type: BLOOD SPECIMEN Result Comment: [place] Rev. Code 3701.243(E): This information has been disclosed to you from confidential records protected from disclosure by state law. ???You shall make no further disclosure of this information without the specific, written, and informed release of the individual to whom it pertains or as otherwise permitted by state law. A general authorization for the release of medical or other information is not sufficient for the purpose of the release of HIV test results or diagnoses. Performed By: #### 3 1201-7, 1 ####[facility] [id number] [place] [address] HIVINT Normal [facility] Comment on above: Order Comment: Speci men Type: BLOOD SPECIMEN Result Comment: No e vidence of HIV-1 or HIV-2 infection. Should recent infection be suspected, repeat testing may be considered 2-3 weeks after this draw. Performed By: #### 3 1201-7, 2857-1 ####[facility] [id number] [place] [address] LIPID PANEL BASICon 01-20-20 21 Cholesterol [Mass/Vol] 148 mg/dL Normal <200 [facility] Comment on above: Order Comment: Speci men Type: BLOOD SPECIMEN Result Comment: <200 mg/dL, Desirable 200-239 mg/dL, Borderline high >239 mg/dL, High Performed By: #### L IPB ####[facility] [id number] [place] [address] [facility] Cholesterol in HDL [Mass/Vol] 57 mg/dL Normal >39 [facility] Comment on above: Order Comment: Speci men Type: BLOOD SPECIMEN Result Comment: 40-5 9 mg/dL, Acceptable >59 mg/dL, High: Negative risk factor for coronary heart disease <40 mg/dL, Low: Positive risk factor for coronary heart disease Performed By: #### L IPB ####[facility] [id number] [place] [address] [facility] Cholesterol in LDL [Mass/Vol] 79 mg/dL Normal <100 [facility] Comment on above: Order Comment: Speci men Type: BLOOD SPECIMEN Result Comment: <100 mg/dL, Optimal 100-129 mg/dL, Near optimal/above optimal 130-159 mg/dL, Borderline high 160-189 mg/dL, High >189 mg/dL, Very high Secondary prevention optimal LDL Cholesterol levels are recommended to be < 70 mg/dL Performed By: #### L IPB ####[facility] LAB[facility]IA [id number] [place] [address] [facility] Cholesterol in LDL/Cholesterol in HDL [Mass ratio] 1.39 {ratio} Normal <2.54 [facility] Comment on above: Order Comment: Speci men Type: BLOOD SPECIMEN Result Comment: Refe rence: 1. National Cholesterol Education Program ATP III Guideline At-A-Glance Quick Desk Reference: National Heart, Lung, and Blood [place]. National Institutes of Health. 2001: NIH Publication No. 01-3305. 2. An International Atherosclerosis Society position paper: global recommendations for the management of dyslipidemia: executive summary, Atherosclerosis. 2014: 232(2):410-413. Performed By: #### L IPB ####[facility] [id number] [place] [address] [facility] Cholesterol in VLDL [Mass/Vol] 12 mg/dL Normal <30 [facility] Comment on above: Order Comment: Speci men Type: BLOOD SPECIMEN Performed By: #### L IPB ####[facility] [place] LABCLIA [id number] [place] [address] [facility] Cholesterol non HDL [Mass/Vol] 91 mg/dL Normal <130 [facility] Comment on above: Order Comment: Speci men Type: BLOOD SPECIMEN Result Comment: <130 mg/dL, Optimal 130-159 mg/dL, Near optimal/above optimal 160-189 mg/dL, Borderline high 190-219 mg/dL, High >219 mg/dL, Very high Secondary prevention optimal non HDL Cholesterol levels are recommended to be <100 mg/dL Performed By: #### L IPB ####[facility] [place] LABCLIA [id number] [place] [address] [facility] Cholesterol.total/ Cholesterol in HDL [Mass ratio] 2.60 {ratio} Normal <5.10 [facility] Comment on above: Order Comment: Speci men Type: BLOOD SPECIMEN Performed By: #### L IPB ####[facility] [place] LABCLIA [id number] [facility] [address] [facility] FASTING TIME 12 hrs Normal [facility] Comment on above: Order Comment: Speci men Type: BLOOD SPECIMEN Performed By: #### L IPB ####[facility] [facility] LABCLIA [id number] [place] [address] [facility] Triglyceride [Mass/Vol] 58 mg/dL Normal <150 [facility] Comment on above: Order Comment: Speci men Type: BLOOD SPECIMEN Result Comment: <150 mg/dL, Normal 150-199 mg/dL, Borderline high 200-499 mg/dL, High >499 mg/dL, Very high Performed By: #### L IPB ####[facility] [place] LABCLIA [id number] [place] [address] [facility] Prostate specific Ag [Mass/Vol] 1.14 ng/mL Normal 0.00-3.90 [facility] Comment on above: Order Comment: Speci men Type: BLOOD SPECIMEN Result Comment: Stephanie wilkerson PSA test methodology used is the Direct Chemiluminometric technology. Performed By: #### 3 1201-7, 2857-1 ####[facility] LABORATORYIA [id number] [place] [address] OBSOLETEon 07-28-2020 OBSOLETE Refill (AGINTMLW) DANIELLE EUCEDA ([id number]) 1965 M Date Time Provider Department 07/28/20 ELVER GRANT (MANAGER OUTREACH, EDITOR IN CHIEF)AGINTMLW During your visit today, we recorded the following information about you: Sinan King CMA 07/28/2020 3:22 PM Signed pharmacy electronically requesting refills as follows: Last seen 07/14/20 . Last refill 05/28/20 . Pending Prescriptions Disp Refills TERAZOSIN 2 MG CAPSULE 90 capsule 1 Sig: TAKE 1 CAPSULE DAILY AT BEDTIME CHAVA: Yes Please review and advise. Sinan King CMA Allergies As of Date: 07/28/2020 Noted Allergy Reaction NEOSPORIN (HYDROCORTISONE) 04/22/2015 2 - Rash Date Reviewed: 07/14/2020 Reviewed by: Elver Shields ([employer] Technician) ORTIZ Grant - Fully Assessed Reason for Visit: Refill Request [94] Visit Diagnosis:Benign prostatic hyperplasia without lower urinary tract symptoms [N40.0] Order(s):terazosin (HYTRIN) 2 mg capsuleTAKE 1 CAPSULE DAILY AT BEDTIMEDisp: 90 capsuleRfl: 1 Prescriptions as of 07/28/2020 Sig: TERAZOSIN 2 MG CAPSULE TAKE 1 CAPSULE DAILY AT BEDTI* SILDENAFIL 100 MG TABLET Take 0.5 tablets by mouth as * FLECAINIDE 50 MG TABLET Take 50 mg by mouth twice bharati* DAILY VITAMIN ORAL Take by mouth. NAPROXEN 500 MG TABLET Take 1 tablet by mouth twice * ELIQUIS 5 MG TABLET Take 5 mg by mouth twice gabriel* CARVEDILOL 6.25 MG TABLET Take 3.125 mg by mouth twice * LOW-DOSE ASPIRIN ORAL Take 1 tablet by mouth once d* Problem List As Of Date 07/28/2020 Noted Resolved Benign prostatic hyperplasia [N40.0] More... 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 Sig: TAKE 1 CAPSULE DAILY AT BEDTIME Medications Discontinued During This Encounter Prescriptions - terazosin (HYTRIN) 2 mg capsule (Discontinued) TAKE 1 CAPSULE DAILY AT BEDTIME Encounter Status:Closed by ELVER GRANT CNP on 07/28/20 [facility] 05-09-2020 ALL[facility] HNO ID: [id number] Author: Magalie (Jenae Ferrera Service: Radiology Author Type: Business Objects Developer Type: Allied Health Filed: 05/09/2020 8:16 AM Note Text: Radiology Service Progress Note PATIENT NAME: Danielle Euceda DATE OF SERVICE: May 09, 2020 TIME: 8:10 AM PATIENT IDENTITY VERIFICATION COMPLETED USING TWO (2) IDENTIFIERS: Name and Date of confirmed by patient verbally and Name and Date of confirmed by identification band. FALL SCREENING: Has the patient had 2 falls in the last year or 1 fall with injury or currently using an Ambulatory Assistive Device (Walker, Cane, Wheelchair, Crutches, etc.)? No PATIENT GENDER DATA: Male PATIENT RELEVANT IMPLANT DATA REVIEWED: Not Applicable RADIOLOGY DEPARTMENT: General X-ray: Exam(s) Completed: GI/ Procedure(s): Barium enema with barium contrast PERIPHERAL IV DATA: Not applicable SIGNED BY: RT Melissa May 09, 2020 8:10 AM Normal [facility] XR COLON ROUTINE DOUBLE CONT [facility] 05-09-2020 XR COLON ROUTINE DOUBLE CONTRAST Final Report DATE OF EXAM: May 09 2020 10:29AM [id number] - XR COLON ROUTINE DOUBLE CONTRAST / PROCEDURE REASON: H/O colonoscopy Physician Interpretation EXAM: XR COLON ROUTINE DOUBLE CONTRAST EXAM DATE: 05/09/2020 10:29 AM CLINICAL HISTORY: H/O colonoscopy. Incomplete colonoscopy COMPARISON: None TECHNIQUE: 400 mL of Polibar plus barium contrast was instilled in the rectum via catheter and gravity drip retrogradely opacifying the colon. Total Fluoroscopy Time: 3:36 min:sec. 51 images obtained. RESULT: Manager Mental Health film is unremarkable. Multiple sigmoid diverticula are seen. Contrast refluxed proximally to the level of the distal ileum. Normal filling of the appendix was also seen. IMPRESSION: Sigmoid diverticula. No suspicious finding. Car Varnisher: PSCB Transcribe Date/Time: May 09 2020 1:40P Dictated by : JEFF HENDRICKSON MD This examination was interpreted and the report reviewed and electronically signed by: JEFF HENDRICKSON MD on May 09 2020 1:51PM EST [facility] ANES Christine 04-09-2020 ANES POST HNO ID: [id number] Author: Chris Kendall Service: Anesthesiology Author Type: Physician Type: Anesthesia PostOp Filed: 04/09/2020 4:13 PM Note Text: POST ANESTHESIA EVALUATION NOTE SERVICE DATE: 04/09/2020 SERVICE TIME: 4:13 PM : 1965 Vitals: 04/09/20 1300 Temp: 36.7 ?C (98.1 ?F) 04/09/20 1300 04/09/20 1531 04/09/20 1546 BP: 115/79 120/59 119/62 04/09/20 1300 04/09/20 1531 04/09/20 1546 Pulse: (!) 56 69 64 04/09/20 1300 04/09/20 1531 04/09/20 1546 Resp: 16 17 18 04/09/20 1300 04/09/20 1531 04/09/20 1546 SpO2: 97% 98% 99% Validated Vital Signs: yes No significant anesthesia events. POST ANES STATUS: Stable. Discharge when criteria are met. No further anesthesia follow up required Other Remarks: SIGNATURE: Chris Kendall MD PATIENT NAME: Danielle Euceda DATE: April 09, 2020 TIME: 4:13 PM PAGER/CONTACT #: [facility] ANES PREOPon 04-09-2020 ANES PREOP HNO ID: [id number] Author: Chris Kendall Service: Anesthesiology Author Type: Physician Type: Anesthesia PreOp Filed: 04/09/2020 1:24 PM Note Text: ANESTHESIOLOGY DAY OF SURGERY NOTE SERVICE DATE: 04/09/2020 SERVICE TIME: 1:09 PM : 1965 Procedure(s) (LRB): COLONOSCOPY (Left) Surgeon(s): Jaydon Youssef Estimated body mass index is 53.09 kg/m? as calculated from the following: Height as of 09/07/19: 177.8 cm (5' 10). Weight as of 09/07/19: 167.8 kg (370 lb). Most recent hematocrit and potassium results: Hematocrit 42.5 05/07/2019 Potassium 4.6 05/07/2019 ANES DOS/PREOP NOTE: Vitals: There were no vitals filed for this visit. ACTIVE PROBLEM LIST Benign Prostatic Hyperplasia Morbid Obesity (Hcc) Domi On Cpap Atrial Fibrillation (Hcc) PAST MEDICAL HISTORY Diagnosis Date - A-fib (HCC) - Benign prostatic hyperplasia Terazosin - Morbid obesity (HCC) - Sleep apnea PAST SURGICAL HISTORY Procedure Laterality Date - HEART CATHETERIZATION 08/29/2017 - POLYSOMNOGRAPHY 7.31.12 - POLYSOMNOGRAPHY 9.11.12 POLYSOMNOGRAPHY W/ CPAP/BIPAP Titration FAMILY HISTORY Problem Relation Age of Onset - Breast Cancer Maternal Grandmother - other (CANCER) Mother Social History: Social History Tobacco Use - Smoking status: Never Smoker - Smokeless tobacco: Never Used Substance Use Topics - Alcohol use: No - Drug use: No No current facility-administered medications on file prior to encounter. Current Outpatient Medications on File Prior to Encounter Medication Sig - sildenafil (VIAGRA) 100 mg tablet Take 0.5 tablets by mouth as needed. - terazosin (HYTRIN) 2 mg capsule Take 1 capsule by mouth daily at bedtime. - flecainide (TAMBOCOR) 50 mg tablet Take 50 mg by mouth twice daily. - multivitamin (DAILY VITAMIN ORAL) Take by mouth. - naproxen (NAPROSYN) 500 mg tablet Take 1 tablet by mouth twice daily with meals. - ELIQUIS 5 mg tab(s) Take 5 mg by mouth twice daily. - carvedilol (COREG) 6.25 mg tablet Take 3.125 mg by mouth twice daily. - LOW-DOSE ASPIRIN ORAL Take 1 tablet by mouth once daily. No current facility-administered medications for this encounter. Allergies: ALLERGIES Allergen Reactions - Neosporin [Hydrocor* Rash DOS EXAM: Adequate NPO status: Yes Anesthetic risks, benefits, alternatives, personnel and consent discussed: Yes Patient agrees to proceed: Yes Previous Anesthesia: No history of adverse event. Airway Assessment: MP 2; Neck ROM: Full ROM without neurologic symptoms; Airway Evaluation: No significant abnormalities Symptoms of Sleep Apnea: None Dentition: Teeth intact Additional Physical Exam: Lungs: Patient health status unchanged since recent history and physical. See history and physical for exam findings. Cardiac: Patient health status unchanged since recent history and physical. See history and physical for exam findings. Additional Pertinent Findings: N/A Blood Products: Not anticipated for this procedure. Anesthetic Plan: MAC with Sedation and Standard ASA Monitors Pain Management Plan: Parenteral or Oral and per Surgical Service ASA Class: 4 Other Medical Problems: None Chronic Beta Natalie medication administered within 24 hours: N/A I have interviewed and examined the patient. I have reviewed the medical record and/or the pre-anesthesia evaluation, pertinent labs, and test results. Significant changes in the patient's condition since the History and Physical, not otherwise documented in primary service progress notes: No This contains updated information obtained within 48 hours of Surgery/Procedure. SIGNATURE: Chris Kendall MD PATIENT NAME: Danielle Euceda DATE: April 09, 2020 TIME: 1:09 PM CSN: [id number] Normal [facility] BRIEF OP NOTon 04-09-2020 BRIEF OP NOT HNO ID: [id number] Author: Jaydon Youssef Service: General Surgery Author Type: Physician Type: Brief Op Note Filed: 04/09/2020 3:35 PM Note Text: BRIEF OPERATIVE / PROCEDURE NOTE LOG ID: [id number] SURGERY/PROCEDURE DATE: 04/09/2020 INCISION/PROCEDURE START TIME: 2:32 PM INCISION CLOSE/PROCEDURE END TIME: 3:26 PM SURGEON(S)/PROCEDURALIST(S) AND INSPECTOR AND CLIPPER(S): Surgeon(s) and Role: * Jaydon Youssef - Primary No Additional Staff SURGERY/PROCEDURE(S): Colonoscopy, incomplete ANESTHESIA: Monitored Anesthesia Care FINDINGS: Normal up to hepatic flexure ESTIMATED BLOOD LOSS: 0 ml SPECIMENS: None COMPLICATIONS: None, Incomplete colonoscopy PRE-OP/PRE-PROCEDURE DIAGNOSIS: Screening colonoscopy POST-OP/POST-PROCEDURE DIAGNOSIS: Same as Preop SIGNATURE: Jaydon Youssef MD PATIENT NAME: Danielle Euceda DATE: April 09, 2020 TIME: 3:35 PM PAGER/CONTACT #: Behzad [facility] HISTORY PHYSICALon 0 HISTORY PHYSICAL HNO ID: [id number] Author: Rosario ([employer] Technician) Sotero Service: General Surgery Author Type: Nurse Practitioner Type: HANDP Filed: 04/09/2020 1:34 PM Note Text: HISTORY AND PHYSICAL EXAMINATION SERVICE DATE: 04/09/2020 SERVICE TIME: 11:38 AM PRIMARY CARE PHYSICIAN: Elver Grant APRN.CNP REASON FOR VISIT: Danielle Euceda is a 54 year old male who is scheduled for Procedure(s): COLONOSCOPY (Left) at the request of Dr. Youssef for routine HANDP. The patient has the following: ACTIVE PROBLEM LIST Benign Prostatic Hyperplasia Morbid Obesity (Hcc) Domi On Cpap Atrial Fibrillation (Hcc) Subjective CHIEF COMPLAINT: Screening colonoscopy HPI: Patient is a 54 year old male who presents to [facility] for the above procedure. This is his first colonoscopy. He denies family history of colon cancer. Denies abdominal pain, Nausea, vomiting, constipation, diarrhea, hemtochezia at this time. Patient agrees to proceed with procedure. PAST MEDICAL HISTORY Diagnosis Date - A-fib (HCC) - Benign prostatic hyperplasia Terazosin - Morbid obesity (HCC) - Sleep apnea Uses CPAP PAST SURGICAL HISTORY Procedure Laterality Date - CARDIOVERSION x4 - HEART CATHETERIZATION 08/29/2017 - POLYSOMNOGRAPHY 02.08.12 - POLYSOMNOGRAPHY 03.21.12 POLYSOMNOGRAPHY W/ CPAP/BIPAP Titration FAMILY HISTORY Problem Relation Age of Onset - Breast Cancer Maternal Grandmother - other (CANCER) Mother stomach - Heart Failure Father SOCIAL HISTORY: Social History Tobacco Use - Smoking status: Never Smoker - Smokeless tobacco: Never Used Substance Use Topics - Alcohol use: No - Drug use: No Prior to Admission medications as of 04/09/20 1325 Medication Sig Last Dose Taking terazosin (HYTRIN) 2 mg capsule Take 1 capsule by mouth daily at bedtime. 04/08/2020 at 2200 Yes flecainide (TAMBOCOR) 50 mg tablet Take 50 mg by mouth twice daily. 04/09/2020 at 0800 Yes multivitamin (DAILY VITAMIN ORAL) Take by mouth. 04/08/2020 at Unknown time Yes naproxen (NAPROSYN) 500 mg tablet Take 1 tablet by mouth twice daily with meals. Yes carvedilol (COREG) 6.25 mg tablet Take 3.125 mg by mouth twice daily. 04/09/2020 at 0800 Yes sildenafil (VIAGRA) 100 mg tablet Take 0.5 tablets by mouth as needed. ELIQUIS 5 mg tab(s) Take 5 mg by mouth twice daily. 04/06/2020 at 2200 LOW-DOSE ASPIRIN ORAL Take 1 tablet by mouth once daily. 04/08/2020 No medication comments found. ALLERGIES Allergen Reactions - Neosporin [Hydrocor* Rash REVIEW OF SYSTEMS: PAIN ASSESSMENT: General: Denies fever, chills, and unexpected weight change. Neuro: Denies dizziness + headaches. Denies seizure or stroke Respiratory:+ DOMI Denies SOB or productive cough. Denies asthma, COPD Cardiovascular: + afib Denies CP and palpitations. Denies HTN HLD CAD CHF GI: see HPI : Denies dysuria. Endocrine: No history of diabetes or thyroid conditions. Hematology: Denies history of bleeding or clotting disorder. No known autoimmune disorders Musculoskeletal: Denies joint pain and swelling. Skin: Denies open sores and rashes. Objective PHYSICAL EXAM: VITALS: BP 115/79 Pulse 56 Temp 98.1 Resp 16 SpO2 97% General: NAD. Cooperative. Skin: Skin is warm, no rashes, and no open sores. HEENT: Normocephalic. Cardiovascular: Normal S1 AND S2. RRR, No murmur. Lungs: CTA Bilaterally. No respiratory distress. Abdomen: Soft, nontender, non-distended. Bowel sounds normal in all four quadrants. Extremities: No edema. Neurological: Alert and oriented to person, place, and time. Pulses: radial pulses +2 Diagnostic tests reviewed for today's visit: Lab Value Units Date High Low HB No results within date range. HCT No results within date range. WBC No results within date range. PLT No results within date range. NA No results within date range. K No results within date range. GLUC No results within date range. BUN No results within date range. CREAT No results within date range. PTSEC No results within date range. INR No results within date range. APTT No results within date range. ALT No results within date range. AST No results within date range. TBILI No results within date range. TSH No results within date range. Lab Value Units Date High Low HCGQT No results within date range. UHCG No results within date range. HCG, BODY* No results within date range. Lab Value Units Date High Low ABORHD No results within date range. ABSCREEN No results within date range. Most recent labs Assessment/Plan ANESTHESIA FINDINGS: Intubation History: No prior intubation Significant Anesthesia Considerations: None FAMILY PROBLEMS WITH ANESTHESIA: no history of adverse anesthetic event METS: Climb a flight of stairs or walk up a hill (5.50 METs) Patient denies any chest pain or undue shortness of breath with the above physical activity. Patient has the following medical conditions which may affect per (more content not included)... [facility] NURSING PROGon 04-09-2020 NURSING PROG HNO ID: [id number] Author: Corry (Rn) SHAHBAZ Olguin Service: ? Author Type: Registered Nurse Type: Nursing Progress Note Filed: 04/09/2020 3:34 PM Note Text: POST OP LEARNING RESPONSE INSTRUCTION PROVIDED TO: Patient METHOD OF INSTRUCTION: Verbal instruction PATIENT / FAMILY RESPONSE: Verbalizes understanding of: POST-PROCEDURE INSTRUCTIONS-Correct actions to take to reduce post procedure complications FOLLOW-UP PLAN: Patient instructed to call with any further issues SUPPLEMENTAL MATERIAL: None REFERRAL (RECOMMENDATION): None Electronically Signed By: Corry Olguin RN In Department: [facility] OPERATIVE NOon 04-09-2020 OPERATIVE NO HNO ID: [id number] Author: Jaydon Youssef Service: General Surgery Author Type: Physician Type: Operative Report Filed: 04/09/2020 3:35 PM Note Text: OPERATIVE/PROCEDURE REPORT LOG ID: [id number] SURGERY/PROCEDURE DATE: 04/09/2020 INCISION/PROCEDURE START TIME: 2:32 PM INCISION CLOSE/PROCEDURE END TIME: 3:26 PM SURGEON(S)/PROCEDURALIST(S) AND INSPECTOR AND CLIPPER(S): Surgeon(s) and Role: * Jaydon Youssef - Primary No Additional Staff SURGERY/PROCEDURE(S): Colonoscopy, incomplete ANESTHESIA: Monitored Anesthesia Care SURGERY/PROCEDURE DETAILS: Patient is a 54-year-old male presents for screening colonoscopy. The risks, and complications of the procedure were reviewed with him in detail including bleeding, missing the lesion and perforation requiring emergency surgery and anesthetic risks. Patient brought the endoscopy suite and routine monitoring performed. He is placed in the left lateral decubitus position. After adequate MAC anesthesia is obtained perianal inspection digital rectal exam was normal scope was inserted and passed up to the hepatic flexure. Once up to the hepatic flexure we tried multiple different maneuvers to get over to the right colon and into the cecum however were unsuccessful. He has body habitus also made this difficult to manipulate him around. With this effort to discontinue the procedure and withdraw the scope. Upon withdrawing the scope mucosa up to the hepatic flexure was visualized. No polyps or abnormalities were noted. Retroflexed view was also normal. He tolerated the procedure well. Scope was removed. He will need a barium enema for completion of evaluation. PRE-OP/PRE-PROCEDURE DIAGNOSIS: Screening colonoscopy POST-OP/POST-PROCEDURE DIAGNOSIS: Same as Preop ESTIMATED BLOOD LOSS: 0 ml SPECIMENS: None IMPLANTABLE DEVICES: None DRAINS: None COMPLICATIONS: None, Incomplete colonoscopy PARTICIPATION IN SURGERY/PROCEDURE: I/primary surgeon/proceduralist performed the entire procedure. SIGNATURE: Jaydon Youssef MD PATIENT NAME: Danielle Euceda DATE: April 09, 2020 TIME: 3:30 PM PAGER/CONTACT #: [facility] PT EDon 04-09-2020 PT ED HNO ID: [id number] Author: Do (Rn) SHAHBAZ Robertson Service: Gastroenterology Author Type: Registered Nurse Type: Patient Education Filed: 04/09/2020 1:28 PM Note Text: PRE OP LEARNING ASSESSMENT PROCEDURE/SURGERY: GI PROCEDURES: Colonoscopy READINESS TO LEARN COGNITIVE ABILITY: Alert and oriented MOTIVATION TO LEARN: Eager FAMILY SUPPORT: None - Unavailable/disinterested PATIENT LEARNS BEST BY: Verbal Instruction FACTORS AFFECTING LEARNING: None PHYSICAL LIMITATIONS AFFECTING LEARNING: None Electronically Signed By: Do Robertson RN In Department: [facility] HOSPon 03-26-2020 HOSP Patient:Sabino Euceda MRN: Height:5' 10(1.778 m) Weight:369 lb 14.9 oz (167.8 kg) Outpatient Medications as of 04/09/20: sildenafil (VIAGRA) 100 mg tablet terazosin (HYTRIN) 2 mg capsule flecainide (TAMBOCOR) 50 mg tablet multivitamin (DAILY VITAMIN ORAL) naproxen (NAPROSYN) 500 mg tablet ELIQUIS 5 mg tab(s) carvedilol (COREG) 6.25 mg tablet LOW-DOSE ASPIRIN ORAL Admission/Clinic Administered Medications as of 04/09/20: lactated ringers infusion lidocaine 10 mg/mL (1 %) 1-2 mg injection (XYLOCAINE) Problem List: Benign prostatic hyperplasia [N40.0] Morbid obesity (HCC) [E66.01] DOMI on CPAP [G47.33, Z99.89] Atrial fibrillation (HCC) [I48.91] Allergies: Neosporin [Hydrocortisone] Date Verified: 04/09/20 Lab Values No results within the last 30 days for the following basenames: K,HCT Progress Notes (CARD EPS MAIN): Ezequiel Caraballo Adm 04/09/2020 8:53 AM Signed Outside records received, scanned into EP [employer] drive. Progress Notes (INTM AG LODI ): Sofy Townsend LPN 03/26/2020 2:00 PM Signed ED Follow Up: Patient discharged from [facility] ED on 03/25/2020 1. How are you feeling since your ED visit? Better Have your symptoms improved or resolved? Yes 2. Were you prescribed any medications while in the ED or advised to stop any medication? No - If yes, were you able to fill your prescriptions? Not applicable -if stopped medication, what was the medication? N/A 3. Were you advised to schedule a follow up appointment with your provider? Yes Following up with Health Care Facilities Inspector - If no, Do you feel like you need an appointment scheduled? Not applicable - If yes, Do you need this scheduled now or has this already been scheduled? Not applicable 4. Were you able to contact the office or instructional support assistant provider prior to your ED visit? No 5. Is there anything else I can do for you today? No Pt. Advised he is due for PCP Follow up, will schedule after planned Colonoscopy and Cardiology follow up. Sofy Townsend LPN Normal [facility] Vital Signs Date Time Vital Sign Value Performing Clinician Faci lity 04-26-2024 15:10-0400 Body temperature 98.24 [degF] TENA SHORT MD [address] [place] [id number] 04-26-2024 15:10-0400 Diastolic Blood Pressure Non-Invasive 75 mm[Hg] TENA SHORT MD [address] [place] [address] 04-26-2024 15:10-0400 Heart rate 94 /min TENA SHORT MD [address] [place] [address] 04-26-2024 15:10-0400 Reason For Taking VItal Signs TENA SHORT MD [address] [place] [address] 04-26-2024 15:10-0400 Respiratory rate 18 /min TENA SHORT MD [address] [place] [address] 04-26-2024 15:10-0400 Systolic Blood Pressure Non-Invasive 132 mm[Hg] TENA SHORT MD [address] [place] [address] 04-26-2024 07:25-0400 Body temperature 98.06 [degF] TENA SHORT MD [address] [place] [address] 04-26-2024 07:25-0400 Diastolic Blood Pressure Non-Invasive 74 mm[Hg] TENA SHORT MD [address] [place] [address] 04-26-2024 07:25-0400 Heart rate 83 /min TENA SHORT MD [address] [place] [address] 04-26-2024 07:25-0400 Respiratory rate 17 /min TENA SHORT MD [address] [place] [address] 04-26-2024 07:25-0400 Systolic Blood Pressure Non-Invasive 132 mm[Hg] TENA SHORT MD [address] [place] [address] 04-26-2024 04:02-0400 Respiratory rate 18 /min TENA SHORT MD [address] [place] [address] 04-25-2024 22:51-0400 Body temperature 98.24 [degF] TENA SHORT MD [address] [place] [address] 04-25-2024 22:51-0400 Diastolic Blood Pressure Non-Invasive 57 mm[Hg] TENA SHORT MD [address] [place] [address] 04-25-2024 22:51-0400 Heart rate 69 /min TENA SHORT MD [address] [place] [address] 04-25-2024 22:51-0400 Reason For Taking VItal Signs TENA SHORT MD [address] 04-25-2024 22:51-0400 Systolic Blood Pressure Non-Invasive 131 mm[Hg] TENA SHORT MD [address] 04-25-2024 14:28-0400 Reason For Taking VItal Signs TENA SHORT MD [address] 04-25-2024 06:55-0400 Blood Pressure Cuff Size TENA SHORT MD [address] 04-25-2024 06:55-0400 Blood Pressure Location TENA SHORT MD [address] 04-25-2024 06:55-0400 Blood Pressure Method TENA SHORT MD [address] [place] [address] 04-24-2024 22:46-0400 Blood Pressure Cuff Size TENA SHORT MD [address] [place] [address] 04-24-2024 22:46-0400 Blood Pressure Location TENA SHORT MD [address] [place] [address] 04-24-2024 22:46-0400 Blood Pressure Method TENA SHORT MD [address] [place] [address] 04-24-2024 15:08-0400 Blood Pressure Cuff Size TENA SHORT MD [address] [place] [address] 04-24-2024 15:08-0400 Blood Pressure Location TENA SHORT MD [address] [place] [address] 04-24-2024 15:08-0400 Blood Pressure Method TENA SHORT MD [address] [place] [address] 04-24-2024 00:02-0400 Body height 177.8 cm TENA SHORT MD [facility] 04-24-2024 00:02-0400 Body weight 188.9 kg TENA SHORT MD [address] [place] [address] 04-24-2024 00:02-0400 Body weight 59.75 kg/m2 TENA SHORT MD [address] [place] [address] 04-23-2024 23:05-0400 Heart rate 94 /min TENA SHORT MD [address] 04-23-2024 19:00-0400 Heart rate 84 /min TENA SHORT MD [address] [place] [address] 04-23-2024 18:00-0400 Heart rate 92 /min TENA SHORT MD [address] [place] [address] 04-23-2024 15:56-0400 Mean blood pressure 101 mm[Hg] TENA SHORT MD [address] 04-23-2024 15:00-0400 Mean blood pressure 103 mm[Hg] TENA SHORT MD [address] [place] [address] 04-25-2023 08:28-0400 Body height 177.8 cm Sershabnam Valente Fredis MANJARREZ [facility] 04-25-2023 08:28-0400 Body weight 181.44 kg Sershabnam Brooksmaci Orellanagoivany MANJARREZ [facility] 03-15-2023 08:29-0400 Body height 177.8 cm Sershabnam Orellanagiovany MANJARREZ [facility] 03-15-2023 08:29-0400 Body weight 172.37 kg Belen Carpiolaminmaci Orellanagiovany [facility] Encounters Encounter Date Encounter Type Care Provider Facility Start: 05-28-2025 ambulatory Pierce Abebe NP Facility :[facility] Start: 05-08-2025 End: 05-08-2025 ambulatory Pierce Abebe NP Facility:[facility] Start: 11-06-2024 End: 11-06-2024 ambulatory Girma Martin Facility:[facility] Start: 09-18-2024 End: 09-18-2024 ambulatory SOLA MIXON MD Facility:A Start: 08-21-2024 End: 08-21-2024 ambulatory GIRMA MARTIN MD Facility:[facility] Start: 08-21-2024 End: 08-21-2024 Patient encounter procedure KAREN LEWIS MANAGER OUTREACH-EDITOR IN CHIEF [facility] Start: 05-14-2024 End: 05-14-2024 ambulatory GIRMA MARTIN MD Facility:[facility] Start: 05-05-2024 End: 05-05-2024 ambulatory GIRMA MARTIN MD Facility:[facility] Start: 04-23-2024 End: 04-26-2024 Evaluation and management of inpatient TENA SHORT MD [facility] Start: 03-28-2024 End: 03-28-2024 ambulatory GIRMA MARTIN MD Facility:[facility] Start: 03-28-2024 End: 03-28-2024 Patient encounter procedure CORTANAMARIA CASTRO MANAGER OUTREACH-EDITOR IN CHIEF [facility] Start: 02-08-2024 End: 02-08-2024 ambulatory SYD CASTRO MANAGER OUTREACH-EDITOR IN CHIEF Facility:[facility] Start: 02-08-2024 End: 02-08-2024 Patient encounter procedure CORTNY MATTHEW MANAGER OUTREACH-EDITOR IN CHIEF [facility] Start: 12-14-2023 End: 12-18-2023 ambulatory CORTNY MATTHEW MANAGER OUTREACH-EDITOR IN CHIEF Facility:A Start: 12-14-2023 End: 12-14-2023 [facility]-EDITOR IN CHIEF Facility:A Start: 12-14-2023 End: 12-14-2023 Patient encounter procedure CORTNY MATTHEW MANAGER OUTREACH-EDITOR IN CHIEF [facility] Start: 12-08-2023 End: 12-08-2023 ambulatory [facility] MANAGER OUTREACH-EDITOR IN CHIEF Facility:A Start: 05-05-2023 End: 05-05-2023 ambulatory [facility] MANAGER OUTREACH-EDITOR IN CHIEF Facility:A Start: 04-25-2023 End: 04-25-2023 ambulatory BELEN MCNEAL Facility:[id number] Start: 04-25-2023 End: 04-25-2023 ambulatory Belen Mcneal [facility] Comment on above: Morbid obesity (HCC) (Primary Dx) Start: 04-25-2023 End: 04-25-2023 Telemedicine consultation with patient Belen Mcneal [facility] Start: 04-07-2023 End: 04-07-2023 ambulatory KAELYN TAPIA MANAGER OUTREACH-EDITOR IN CHIEF Facility:A Start: 03-28-2023 End: 03-28-2023 ambulatory TERRI CLANCY MD Facility:[facility] Start: 03-28-2023 End: 03-28-2023 Patient encounter procedure TERRI CLANCY MD [facility] Start: 03-24-2023 ambulatory KELLI MASCORRO MD [facility] ity:A Start: 03-22-2023 End: 03-22-2023 ambulatory KELLI MASCORRO MD Facility:A Start: 03-15-2023 End: 03-15-2023 ambulatory BELNE Shields VIETGORDY FREDIS Facility:[id number] Start: 03-15-2023 End: 03-15-2023 ambulatory Belen Shields Vietgordy Fredis [facility] Comment on above: Class 3 severe obesi ty due to excess calories with body mass index (BMI) of 50.0 to 59.9 in adult, unspecified whether serious comorbidity present (HCC) (Primary Dx) Start: 03-15-2023 End: 03-15-2023 Telemedicine consultation with patient Belen Mcneal [facility] Start: 10-14-2021 Refill Elver uriostegui MANAGER OUTREACH.EDITOR IN CHIEF Work Phone: [facility] Comment on above: Refill Request Start: 06-15-2021 Patient encounter procedure Shameka Greene MD Work Phone: [facility] Start: 06-15-2021 Progress Note Shameka Greene MD Work Phone: [facility] Procedures Date Procedure Procedure Detail Performing Clinician Start: 01-19-2021 Adult depression scr eening assessment Elver Grant MANAGER OUTREACH.EDITOR IN CHIEF Work Phone: Start: 01-19-2021 Lipid 1996 panel - S magda or Plasma Belen Mcneal RD Start: 03-30-2020 Colonoscopy Elver lamar MANAGER OUTREACH.EDITOR IN CHIEF Work Phone: Barium enema TERRI CLANCY MD Plan of Treatment Date Care Activity Detail Author Start: 11-01-2030 Urine microalbumin profile [facility] Comment on above: Postponed from 11/02 (Currently Scheduled) Start: 01-19-2026 Lipid 1996 panel - S magda or Plasma Lipid Screening [facility] Start: 01-19-2026 LIPID SCREEN LIPID SCREEN [facility] Start: 01-19-2026 PROSTATE CANCER SCRE ENING DISCUSSION PROSTATE CANCER SCREENING DISCUSSION [facility] Start: 03-30-2025 Colonoscopy COLONOSCOPY [facility] Start: 03-30-2025 COLORECTAL CANCER SCREENING COLORECTAL CANCER SCREENING [facility] Start: 01-20-2024 DIABETES SCREEN DIABETES SCREEN [facility] Start: 01-20-2024 Diabetes Screening Diabetes Screenin g [facility] Start: 03-11-2023 Covid-19 Vaccine ( season) Covid-19 Vaccine () [facility] Start: 03-11-2023 Influenza vaccination C [facility] Start: 07-11-2022 DEPRESSION ASSESSMENT DEPRESSION ASS ESSMENT [facility] Start: 03-11-2022 Influenza vaccination INFLUENZA (Sea son Ended) [facility] Start: 01-19-2022 Adult depression screening assessment DEPRESSION SCREENING [facility] Start: 05-22-2021 COVID-19 VACCINE (3 - Booster for Moderna series) COVID-19 VACCINE (3 - Booster for Moderna series) [facility] Start: 02-14-2021 COVID-19 VACCINE (3 - Moderna series) COVID-19 VACCINE (3 - Moderna series) [facility] Start: 2008 COLOGUARD (FIT-DNA) COLOGUARD (FIT-D NA) [facility] Start: [address] COLONOGRAPHY [facility] Start: 2008 FECAL OCCULT BLOOD FECAL OCCULT BLOO D [facility] Start: 2008 SIGMOIDOSCOPY SIGMOIDOSCOPY [facility] Immunizations Immunization Date Immunization Notes Care Provider Fa cility 12-20-2020 COVID-19 vaccine, fu ll dose (MODERNA) Elver Julissa MANAGER OUTREACH.EDITOR IN CHIEF Work Phone: [facility] 11-14-2020 COVID-19 vaccine, fu ll dose (MODERNA) Elver Julissa MANAGER OUTREACH.EDITOR IN CHIEF Work Phone: [facility] 11-01-2020 tetanus and diphther ia toxoids, adsorbed, preservative free, for adult use (2 Lf of tetanus toxoid and 2 Lf of diphtheria toxoid) Elver Julissa MANAGER OUTREACH.EDITOR IN CHIEF Work Phone: [facility] 11-01-2020 tetanus toxoid, redu james diphtheria toxoid, and acellular pertussis vaccine, adsorbed Elver Julissa MANAGER OUTREACH.EDITOR IN CHIEF Work Phone: [facility] 11-01-2020 zoster vaccine recombinant Elver Julissa MANAGER OUTREACH.EDITOR IN CHIEF Work Phone: [facility] 07-27-2020 zoster vaccine recombinant Elver Julissa MANAGER OUTREACH.EDITOR IN CHIEF Work Phone: [facility] 05-07-2019 influenza, injectabl e, quadrivalent, contains preservative Elver Julissa MANAGER OUTREACH.EDITOR IN CHIEF Work Phone: [facility] Work Phone: 05-07-2019 influenza virus vaccine, unspecified formulation Belen Mcneal RD [facility] 07-06-2018 influenza, injectabl e, quadrivalent, contains preservative Elver Julissa MANAGER OUTREACH.EDITOR IN CHIEF Work Phone: [facility] 06-03-2017 influenza, seasonal, injectable, preservative free Elver Julissa MANAGER OUTREACH.EDITOR IN CHIEF Work Phone: [facility] 05-19-2017 influenza, injectabl e, quadrivalent, contains preservative Elver Julissa MANAGER OUTREACH.EDITOR IN CHIEF Work Phone: [facility] 04-12-2016 influenza, injectabl e, quadrivalent, contains preservative Elver Julissa MANAGER OUTREACH.EDITOR IN CHIEF Work Phone: [facility] 04-14-2015 influenza, seasonal, injectable Elver Julissa MANAGER OUTREACH.EDITOR IN CHIEF Work Phone: [facility] 04-15-2014 influenza, seasonal, injectable Elver Julissa MANAGER OUTREACH.EDITOR IN CHIEF Work Phone: [facility] Payers Date Payer Category Payer Self-pay 2023 Unknown [id number] 2023 Unknown [id number] 2022 Unknown [id number] 2022 Unknown [id number] 2017 Unknown HARVEY THAPA EARL [id number] 2017-Present [phone] [address] [place] [address] Indemnity [id number]. [id number] 2017 Unknown [id number] 1963 Unknown [id number] 1963 Unknown [id number] [id number] 1963 Unknown [id number] [id number] 1963 Unknown [id number] [id number] 1963 Unknown [id number] 2.16.840.1.588869.3.579.2.62 1963 Unknown [id number] 2.16.840.1.593203.3.579.2. 1963 Unknown [id number] 2.16840.1.720455.3.579.2. 1963 Unknown [id number] 2.16.840.1.878604.3.579.2. 1963 Unknown [id number] 2.16840.1.811658.3.579.2. 1963 Unknown [id number] 2.840.1.195570.3.579.2. 1963 Unknown [id number] 2.16840.1.940696.3.579.2. 1963 Unknown [id number] 2.16840.1.800825.3.579.2. 1963 Unknown [id number] 2.16840.1.300250.3.579.2. 1963 Unknown [id number] 2.16840.1.488914.3.579.2. 1963 Unknown [id number] [id number] Unknown [id number] [id number] Unknown [id number] [id number] Unknown [id number] Social History Date Type Detail Facility Start: 07-19-2014 Tobacco smoking stat [facility] Never smoked tobacco [facility] Start: 07-19-2014 Tobacco use and exposure Smoke less tobacco non-user [facility] Start: 01-19-2021 End: 04-25-2023 Alcohol intake Current non-drinker of alcohol (finding) [facility] Start: 1965 Sex Assigned At Not on file [facility] Start: 03-15-2023 End: 03-22-2023 Tobacco smoking status NHIS Ex-smoker [facility] History of tobacco use Current smoker [facility] History of tobacco use Cigarette Smoker [facility] Start: 03-15-2023 Tobacco use and exposure Forme r smokeless tobacco user [facility] Start: 01-19-2021 End: 03-15-2023 History of Social function [facility] Start: 01-19-2021 End: 03-15-2023 Tobacco use panel [facility] Adult Depression Screening Assessment 0 [facility] Start: 03-15-2023 Alcohol Comment gave up alcohol [facility] Start: 04-06-2020 Gender identity Identifies as male gender (finding) [facility] Sex Assigned At Male [facility] Sexual O[facility] Start: 08-27-2022 Sex Male (finding) [facility] Functional Status Date Assessment Result Facility 04-26-2024 Functional Status Room check performed [facility] 04-26-2024 Functional Status [facility] 04-26-2024 Functional Status [facility] 04-26-2024 Functional Status [facility] 04-26-2024 Functional Status [facility] 04-26-2024 Functional Status [facility] 04-25-2024 Functional Status [facility] 04-25-2024 Functional Status [facility] 04-25-2024 Functional Status [facility] 04-25-2024 Functional Status [facility] 04-25-2024 Functional Status padded oxygen tubing [facility] 04-24-2024 Functional Status [facility] 04-24-2024 Functional Status [facility] 04-24-2024 Functional Status Living [place] [facility] independently, Lives with spouse [facility] 04-24-2024 Functional Status [facility] 04-24-2024 Functional Status [facility] 04-24-2024 Functional Status Sensory Deficits None A [facility] Mental Status Date Assessment Result Facility 04-26-2024 Mental Status Oriented x 4 [facility] 04-25-2024 Mental Status [facility] 04-25-2024 Mental Status [facility] Clinical Notes 01-19-2021 to 04-28-2024 Note Date & Type Note Facility 04-28-2024 Note . MICRO - Microbiology PROCEDURE: Blood Culture (bacterial) [*1] SOURCE: Blood BODY SITE: COLLECTED DATE/TIME: 04/23/2024 14:16 EDT RECEIVED DATE/TIME: 04/23/2024 14:40 EDT START DATE/TIME: 04/23/2024 14:40 EDT FREE TEXT SOURCE: FINAL REPORTS Final Report [] Verified Date/Time/Personnel: 04/28/2024 14:59 EDT Blood Culture: No Growth at 5 days. PRELIMINARY REPORTS Preliminary Report [] Verified Date/Time/Personnel: 04/23/2024 15:59 EDT Culture has been received in lab and is no growth to date. Routine cultures are held for 5 days. Performing Locations *1: This test was performed at: [address], [facility] , [facility] 04-28-2024 Note . MICRO - Microbiology PROCEDURE: Blood Culture (bacterial) [*1] SOURCE: Blood BODY SITE: COLLECTED DATE/TIME: 04/23/2024 14:16 EDT RECEIVED DATE/TIME: 04/23/2024 14:40 EDT START DATE/TIME: 04/23/2024 14:40 EDT FREE TEXT SOURCE: FINAL REPORTS Final Report [] Verified Date/Time/Personnel: 04/28/2024 14:59 EDT Blood Culture: No Growth at 5 days. PRELIMINARY REPORTS Preliminary Report [] Verified Date/Time/Personnel: 04/23/2024 15:59 EDT Culture has been received in lab and is no growth to date. Routine cultures are held for 5 days. Performing Locations *1: This test was performed at: [facility], [address] [place] [address], [id number] , [place] [facility] 04-26-2024 Hospital Discharge instructions Patient Education 04/26/2024 16:58:38 Hypoxia Hypoxia Hypoxia is a condition that happens when there is a lack of oxygen in the body's tissues and organs. When there is not enough oxygen, organs cannot work as they should. This causes serious problems throughout the body and in the brain. What are the causes? This condition may be caused by: Exposure to high altitude. A collapsed lung (pneumothorax). Lung infection (pneumonia). Lung injury. Long-term (chronic) lung disease, such as COPD (chronic obstructive pulmonary disease). Blood collecting in the chest cavity (hemothorax). Food, saliva, or vomit getting into the airway (aspiration). Reduced blood flow (ischemia). Severe blood loss. Slow or shallow breathing (hypoventilation). Blood disorders, such as anemia. Carbon monoxide poisoning. The heart suddenly stopping (cardiac arrest). Anesthetic medicines. Drowning. Choking. What are the signs or symptoms? Symptoms of this condition include: Headache. Fatigue. Drowsiness. Forgetfulness. Nausea. Confusion. Shortness of breath. Dizziness. Bluish color of the skin, lips, or nail beds (cyanosis). Change in consciousness or awareness. If hypoxia is not treated, it can lead to convulsions, loss of consciousness (coma), or brain damage. How is this diagnosed? This condition may be diagnosed based on: A physical exam. Blood tests. A test that measures how much oxygen is in your blood (pulse oximetry). This is done with a sensor that is placed on your finger, toe, or earlobe. Chest X-ray. Tests to check your lung function (pulmonary function tests). A test to check the electrical activity of your heart (electrocardiogram, ECG). You may have other tests to determine the cause of your hypoxia. How is this treated? Treatment for this condition depends on what is causing the hypoxia. You will likely be treated with oxygen therapy. This may be done by giving you oxygen through a face mask or through tubes in your nose. Your health care provider may also recommend other therapies to treat the underlying cause of your hypoxia. Follow these instructions at home: Take xizj-mqf-mpjkgzm and prescription medicines only as told by your health care provider. Do not use any products that contain nicotine or tobacco, such as cigarettes and e-cigarettes. If you need help quitting, ask your health care provider. Avoid secondhand smoke. Work with your health care provider to manage any chronic conditions you have that may be causing hypoxia, such as COPD. Keep all follow-up visits as told by your health care provider. This is important. Contact a health care provider if: You have a fever. You have trouble breathing, even after treatment. You become extremely short of breath when you exercise. Get help right away if: Your shortness of breath gets worse, especially with normal or very little activity. Your skin, lips, or nail beds have a bluish color. You become confused or you cannot think properly. You have chest pain. Summary Hypoxia is a condition that happens when there is a lack of oxygen in the body's tissues and organs. If hypoxia is not treated, it can lead to convulsions, loss of consciousness (coma), or brain damage. Symptoms of hypoxia can include a headache, shortness of breath, confusion, nausea, and a bluish skin color. Hypoxia has many possible causes, including exposure to high altitude, carbon monoxide poisoning, or other health issues, such as blood disorders or cardiac arrest. Hypoxia is usually treated with oxygen therapy. This information is not intended to replace advice given to you by your health care provider. Make sure you discuss any questions you have with your health care provider. Document Released: 08/15/2017 Document Revised: 06/09/2018 Document Reviewed: 08/15/2017 [employer] Patient Education 2020 [employer]. 04/26/2024 16:58:32 Community-Acquired Pneumonia, Adult, Nnff-hy-Lmwh Community-Acquired Pneumonia, Adult Pneumonia is an infection of the lungs. It causes swelling in the airways of the lungs. Mucus and fluid may also build up inside the airways. One type of pneumonia can happen while a person is in a hospital. A different type can happen when a person is not in a hospital (community-acquired pneumonia). What are the causes? This condition is caused by germs (viruses, bacteria, or fungi). Some types of germs can be passed from one person to another. This can happen when you breathe in droplets from the cough or sneeze of an infected person. What increases the risk? You are more likely to develop this condition if you: Have a long-term (chronic) disease, such as: ?Chronic obstructive pulmonary disease (COPD). ?Asthma. ?Cystic fibrosis. ?Congestive heart failure. ?Diabetes. ?Kidney disease. Have HIV. Have sickle cell disease. Have had your spleen removed. Do not take good care of your teeth and mouth (poor dental hygiene). Have a medical condition that increases the risk of breathing in droplets from your own mouth and nose. Have a weakened body defense system (immune system). Are a smoker. Travel to areas where the germs that cause this illness are common. Are around certain animals or the places they live. What are the signs or symptoms? A dry cough. A wet (productive) cough. Fever. Sweating. Chest pain. This often happens when breathing deeply or coughing. Fast breathing or trouble breathing. Shortness of breath. Shaking chills. Feeling tired (fatigue). Muscle aches. How is this treated? Treatment for this condition depends on many things. Most adults can be treated at home. In some cases, treatment must happen in a hospital. Treatment may include: Medicines given by mouth or through an IV tube. Being given extra oxygen. Respiratory therapy. In rare cases, treatment for very bad pneumonia may include: Using a machine to help you breathe. Having a procedure to remove fluid from around your lungs. Follow these instructions at home: Medicines Take xufp-oqj-homucvx and prescription medicines only as told by your doctor. ?Only take cough medicine if you are losing sleep. If you were prescribed an antibiotic medicine, take it as told by your doctor. Do not stop taking the antibiotic even if you start to feel better. General instructions Sleep with your head and neck raised (elevated). You can do this by sleeping in a recliner or by putting a few pillows under your head. Rest as needed. Get at least 8 hours of sleep each night. Drink enough water to keep your pee (urine) pale yellow. Eat a healthy diet that includes plenty of vegetables, fruits, whole grains, low-fat dairy products, and lean protein. Do not use any products that contain nicotine or tobacco. These include cigarettes, e-cigarettes, and chewing tobacco. If you need help quitting, ask your doctor. Keep all follow-up visits as told by your doctor. This is important. How is this prevented? A shot (vaccine) can help prevent pneumonia. Shots are often suggested for: People older than 65 years of age. People older than 19 years of age who: ?Are having cancer treatment. ?Have long-term (chronic) lung disease. ?Have problems with their body's defense system. You may also prevent pneumonia if you take these actions: Get the flu (influenza) shot every year. Go to the dentist as often as told. Wash your hands often. If you cannot use soap and water, use hand utilization review nurse. Contact a doctor if: You have a fever. You lose sleep because your cough medicine does not help. Get help right away if: You are short of breath and it gets worse. You have more chest pain. Your sickness gets worse. This is very serious if: ?You are an older adult. ?Your body's defense system is weak. You cough up blood. Summary Pneumonia is an infection of the lungs. Most adults can be treated at home. Some will need treatment in a hospital. Drink enough water to keep your pee pale yellow. Get at least 8 hours of sleep each night. This information is not intended to replace advice given to you by your health care provider. Make sure you discuss any questions you have with your health care provider. Document Released: 12/13/2008 Document Revised: 10/17/2019 Document Reviewed: 02/22/2019 [employer] Patient Education 2020 [employer]. Follow Up Care 04/23/2024 13:00:04 With:Go to emergency room if symptoms worsen Address:Unknown When:1-2 days With:Follow up with primary care provider Address:Unknown When:1-2 days With:GIRMA MARTIN MD Address: [address] [place] [address] [address] [place] [address]- [phone] When:1-2 days [facility] 04-26-2024 Note Discharge Instructions Thank you for allowing [facility] to assist you with your healthcare needs. The following is important discharge information regarding your hospital visit. Your Care Team GIRMA MARTIN MD What to do next Scheduled Follow-Up Appointments Appointment Type When With Where Contact Information StatusUS Renal 05/05/2024 04:00 PM EDT [facility] Confirmed URO OV 05/07/2024 10:30 AM EDT SYD CASTRO APRN-[facility] Confirmed Follow Up Appointments Follow Up with Go to emergency room if symptoms worsen When:Within 1-2 days Follow Up with Follow up with primary care provider When:Within 1-2 days Follow Up with GIRMA MARTIN MD When:Within 1-2 days Where:[address] [place] [address]- [phone] The Following Activity and Diet Have Been Ordered for You Discharge Activity - Ordered -- NO activity restrictions, 04/26/24 16:34:00 EDT Discharge Return to Work, School, or Sports - Ordered -- within 5-7 days, May return to: work, 04/26/24 16:34:00 EDT Discharge Diet - Ordered -- Type of Diet: Regular Diet, 04/26/24 16:34:00 EDT The Following Equipment Has Been Ordered for You No qualifying data available. The Following Treatments Have Been Ordered for You Discharge Labs No qualifying data available. Discharge Radiology No qualifying data available. Other Therapies No qualifying data available. Post Acute Orders No qualifying data available. Someone Will Contact You Regarding These Home Health Referrals No home referrals have been ordered for you. No one will call you. Allergies Neosporin Medications Please ask your primary doctor or pharmacist before taking any other medication not listed, including over the counter drugs, herbal medications, vitamins and or supplements as they may interact with your home medications. What How Much When Instructions Last Dose New albuterol (ProAir HFA MDI (90 mcg/ inh) inhalation aerosol) 2 puff(s) by inhalation Every 6 hours as needed for as needed for wheezing Duration: 30 Days Pickup at [id number] Unchanged acetaminophen (Tylenol 8 Hour 650 mg oral tablet, extended release) 2 tab(s) by mouth Every 8 hours as needed for as needed for pain Unchanged apixaban (Eliquis 5 mg oral tablet) 1 tab(s) by mouth Two (2) times a day Unchanged aspirin (aspirin 81 mg oral delayed release tablet) 1 tab(s) by mouth Once a day Unchanged buPROPion (buPROPion 300 mg/ 24 hours (XL) oral tablet, extended release) 1 tab(s) by mouth Every 24 hours Unchanged carvedilol (carvedilol 12.5 mg oral tablet) 1 tab(s) by mouth Twice daily with meals Unchanged flecainide (flecainide 50 mg oral tablet) 1 tab(s) by mouth Every 12 hours Unchanged fluticasone nasal (Flonase 50 mcg/ inh nasal spray) 1 spray(s) each nostril Two (2) times a day Unchanged furosemide (furosemide 20 mg oral tablet) 1 tab(s) by mouth Once a day as needed for ankle swelling TAKE 1/ 2 TO 1 TABLET BY MOUTH DAILY NEEDED FOR ANKLE SWELLING Unchanged loratadine (loratadine 10 mg oral capsule) 1 cap by mouth Once a day Unchanged montelukast (montelukast 10 mg oral tablet) 1 tab(s) by mouth Once a day Unchanged multivitamin (Multivitamin) 1 tab(s) by mouth Once a day Unchanged terazosin (terazosin 5 mg oral capsule) 1 cap by mouth Daily at bedtime Duration: 90 Days Pharmacy Information [facility] #[id number]: [address] [place], [place] [id number] [phone] Please take this list to your next doctor s visit. Bring all medications you take, including over the counter medications, herbals and other supplements with you to your doctor s visit. Patients and families are reminded to discard old lists and to update any records with all medication providers or retail pharmacies. Education Materials Hypoxia Hypoxia is a condition that happens when there is a lack of oxygen in the body's tissues and organs. When there is not enough oxygen, organs cannot work as they should. This causes serious problems throughout the body and in the brain. What are the causes? This condition may be caused by: Exposure to high altitude. A collapsed lung (pneumothorax). Lung infection (pneumonia). Lung injury. Long-term (chronic) lung disease, such as COPD (chronic obstructive pulmonary disease). Blood collecting in the chest cavity (hemothorax). Food, saliva, or vomit getting into the airway (aspiration). Reduced blood flow (ischemia). Severe blood loss. Slow or shallow breathing (hypoventilation). Blood disorders, such as anemia. Carbon monoxide poisoning. The heart suddenly stopping (cardiac arrest). Anesthetic medicines. Drowning. Choking. What are the signs or symptoms? Symptoms of this condition include: Headache. Fatigue. Drowsiness. Forgetfulness. Nausea. Confusion. Shortness of breath. Dizziness. Bluish color of the skin, lips, or nail beds (cyanosis). Change in consciousness or awareness. If hypoxia is not treated, it can lead to convulsions, loss of consciousness (coma), or brain damage. How is this diagnosed? This condition may be diagnosed based on: A physical exam. Blood tests. A test that measures how much oxygen is in your blood (pulse oximetry). This is done with a sensor that is placed on your finger, toe, or earlobe. Chest X-ray. Tests to check your lung function (pulmonary function tests). A test to check the electrical activity of your heart (electrocardiogram, ECG). You may have other tests to determine the cause of your hypoxia. How is this treated? Treatment for this condition depends on what is causing the hypoxia. You will likely be treated with oxygen therapy. This may be done by giving you oxygen through a face mask or through tubes in your nose. Your health care provider may also recommend other therapies to treat the underlying cause of your hypoxia. Follow these instructions at home: Take dssy-mdp-ihgxamm and prescription medicines only as told by your health care provider. Do not use any products that contain nicotine or tobacco, such as cigarettes and e-cigarettes. If you need help quitting, ask your health care provider. Avoid secondhand smoke. Work with your health care provider to manage any chronic conditions you have that may be causing hypoxia, such as COPD. Keep all follow-up visits as told by your health care provider. This is important. Contact a health care provider if: You have a fever. You have trouble breathing, even after treatment. You become extremely short of breath when you exercise. Get help right away if: Your shortness of breath gets worse, especially with normal or very little activity. Your skin, lips, or nail beds have a bluish color. You become confused or you cannot think properly. You have chest pain. Summary Hypoxia is a condition that happens when there is a lack of oxygen in the body's tissues and organs. If hypoxia is not treated, it can lead to convulsions, loss of consciousness (coma), or brain damage. Symptoms of hypoxia can include a headache, shortness of breath, confusion, nausea, and a bluish skin color. Hypoxia has many possible causes, including exposure to high altitude, carbon monoxide poisoning, or other health issues, such as blood disorders or cardiac arrest. Hypoxia is usually treated with oxygen therapy. This information is not intended to replace advice given to you by your health care provider. Make sure you discuss any questions you have with your health care provider. Document Released: 08/15/2017 Document Revised: 06/09/2018 Document Reviewed: 08/15/2017 [employer] Patient Education 2020 [employer]. Community-Acquired Pneumonia, Adult Pneumonia is an infection of the lungs. It causes swelling in the airways of the lungs. Mucus and fluid may also build up inside the airways. One type of pneumonia can happen while a person is in a hospital. A different type can happen when a person is not in a hospital (community-acquired pneumonia). What are the causes? This condition is caused by germs (viruses, bacteria, or fungi). Some types of germs can be passed from one person to another. This can happen when you breathe in droplets from the cough or sneeze of an infected person. What increases the risk? You are more likely to develop this condition if you: Have a long-term (chronic) disease, such as: ? Chronic obstructive pulmonary disease (COPD). ? Asthma. ? Cystic fibrosis. ? Congestive heart failure. ? Diabetes. ? Kidney disease. Have HIV. Have sickle cell disease. Have had your spleen removed. Do not take good care of your teeth and mouth (poor dental hygiene). Have a medical condition that increases the risk of breathing in droplets from your own mouth and nose. Have a weakened body defense system (immune system). Are a smoker. Travel to areas where the germs that cause this illness are common. Are around certain animals or the places they live. What are the signs or symptoms? A dry cough. A wet (productive) cough. Fever. Sweating. Chest pain. This often happens when breathing deeply or coughing. Fast breathing or trouble breathing. Shortness of breath. Shaking chills. Feeling tired (fatigue). Muscle aches. How is this treated? Treatment for this condition depends on many things. Most adults can be treated at home. In some cases, treatment must happen in a hospital. Treatment may include: Medicines given by mouth or through an IV tube. Being given extra oxygen. Respiratory therapy. In rare cases, treatment for very bad pneumonia may include: Using a machine to help you breathe. Having a procedure to remove fluid from around your lungs. Follow these instructions at home: Medicines Take vliv-lij-auotqff and prescription medicines only as told by your doctor. ? Only take cough medicine if you are losing sleep. If you were prescribed an antibiotic medicine, take it as told by your doctor. Do not stop taking the antibiotic even if you start to feel better. General instructions Sleep with your head and neck raised (elevated). You can do this by sleeping in a recliner or by putting a few pillows under your head. Rest as needed. Get at least 8 hours of sleep each night. Drink enough water to keep your pee (urine) pale yellow. Eat a healthy diet that includes plenty of vegetables, fruits, whole grains, low-fat dairy products, and lean protein. Do not use any products that contain nicotine or tobacco. These include cigarettes, e-cigarettes, and chewing tobacco. If you need help quitting, ask your doctor. Keep all follow-up visits as told by your doctor. This is important. How is this prevented? A shot (vaccine) can help prevent pneumonia. Shots are often suggested for: People older than 65 years of age. People older than 19 years of age who: ? Are having cancer treatment. ? Have long-term (chronic) lung disease. ? Have problems with their body's defense system. You may also prevent pneumonia if you take these actions: Get the flu (influenza) shot every year. Go to the dentist as often as told. Wash your hands often. If you cannot use soap and water, use hand utilization review nurse. Contact a doctor if: You have a fever. You lose sleep because your cough medicine does not help. Get help right away if: You are short of breath and it gets worse. You have more chest pain. Your sickness gets worse. This is very serious if: ? You are an older adult. ? Your body's defense system is weak. You cough up blood. Summary Pneumonia is an infection of the lungs. Most adults can be treated at home. Some will need treatment in a hospital. Drink enough water to keep your pee pale yellow. Get at least 8 hours of sleep each night. This information is not intended to replace advice given to you by your health care provider. Make sure you discuss any questions you have with your health care provider. Document Released: 12/13/2008 Document Revised: 10/17/2019 Document Reviewed: 02/22/2019 [employer] Patient Education 2020 [employer] Additional Information VACCINATE! IT SAVES LIVES! Members of the community who have not yet received the COVID-19 vaccine and would like to receive it can visit one of [facility] vaccine clinics. There are many vaccine clinic locations within the [facility]. For locations and available times, please visit https://gettheshot.coronavirus.[place].gov/. It is important to note that some COVID mobile vaccine clinics are held outdoors and may be canceled in rainy or stormy conditions. To learn more about pediatric vaccinations (ages 5-11), we invite you to visit the [facility] webpage. [email or web address] [email or web address]-Mvpqzsplgbx-Freque cdat-Qjnhe-[email or web address].html To learn more about the COVID-19 vaccine, we invite you to visit the CDC website for a list of frequently asked questions.https://www.cdc.gov/cor onavirus/2019-ncov/vaccines/faq.h tml [facility] Patient Portal Access Instructions: Stay connected with your healthcare team and access your personal medical information anytime with the [facility] Patient Portal. Please follow the directions below to create your [facility] account: 1.Access the email account you provided upon registration to the hospital/physician office.2.Look for an invitation email from [facility].3.Open the email and access the invitation link: Accept Invitation to [facility].4.Fill in the required trejo to create your account. To access your account, visit [email or web address]. Click the blue button labeled Access Patient Portal and then log in with the username and password that you created in the steps above. You will be able to view your test results, lab results, a summary of your visits, upcoming appointments and more. There is also a convenient messaging option where you can send secure messages to your provider. In addition, you will have the ability to download any documents or summaries to your computer and/or send the information securely to a physician. Remember that your healthcare information is confidential, so carefully consider who you will allow to register on the [facility] Patient Portal for access to your information. You can also access the [facility] Patient Portal on the [employer] jose. Simply click on Patient Portal and then log into your account. If you would like to receive a full copy of your medical records, please contact the [facility] Medical Records Department by calling [phone], Tuesday through Tuesday between 8 a.m. and 4:30 p.m. HOW TO SAFELY DISPOSE OF PRESCRIPTION MEDICATIONS Please use one of the following methods to safely dispose of your unused medications. 1.Use a drug disposal kit: the drug disposal pouch allows you to safely discard your old and unused drugs. Ask your nurse to give you one when you are discharged.2.Visit a local take-back location: Many local pharmacies and police departments have programs that collect old and unwanted prescription drugs. Call your local pharmacy or go to http://[place]/0C4If6z to find one close to you.3.Make use of household items: Use cat litter or old coffee grounds to dispose medications if other options are not available. Mix your drugs with these household products, seal them in an airtight container and throw it into the garbage. Call [facility]: [phone] to be sure your drugs can be disposed of in this way. Some medicines may require a different approach.4.Never flush your medications down the toilet. IF YOU HAVE BEEN PRESCRIBED AN OPIOID FOR PAIN If you have been prescribed an opioid (such as hydrocodone, oxycodone or morphine), it is critical to understand the possible side effects and risks of opioid pain medications. Even when taken as directed, opioids can have several side effects including: Tolerance, meaning you might need to take more of a medication for the same pain relief. Nausea, vomiting and/or constipation. Sleepiness, dizziness, dry mouth, confusion, depression or itching. Physical dependence, meaning you have withdrawal symptoms when a medication is stopped, can develop within a few days. KNOW YOUR RESPONSIBILITIES It is important to know exactly how much and how often to take the opioid pain medications you are prescribed. Never take opioids in higher amounts or more often than prescribed. Do not combine opioids with alcohol or other drugs that cause drowsiness, such as benzodiazepines, also known as benzos, including diazepam and alprazolam, muscle relaxants or sleep aids. Never sell or share prescription opioids. This is illegal. Store opioids in a secure place and out of reach of others (including children, family, friends and visitors). The last page of this document has been signed and retained as a CHART COPY. Signatures Patient Education Materials Hypoxia Community-Acquired Pneumonia, Adult, Kjbm-sn-Lvqv Medication Leaflets My discharge plan and instructions have been reviewed and explained to me and I,DANIELLE EUCEDA understand my current condition and have read and understand these discharge instructions. I have received a written copy of the plan/instructions. If I have questions, I am aware that I should contact my doctor. 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: Date/Time: Relationship to Patient: ____ Witness Name/Signature: Date/Time: [facility] 04-26-2024 Discharge summary Date of Service 04/26/2024 Discharge Diagnosis Pneumonia, unspecified organism (J18.9 - ICD-10-CM) Pneumonia, unspecified organism (J18.9 - ICD-10-CM) Acute respiratory failure with hypoxia (J96.01 - ICD-10-CM) Body mass index [BMI] 50.0-59.9, adult (Z68.43 - ICD-10-CM) Hypo-osmolality and hyponatremia (E87.1 - ICD-10-CM) Unspecified atrial fibrillation (I48.91 - ICD-10-CM) Benign prostatic hyperplasia with lower urinary tract symptoms (N40.1 - ICD-10-CM) Depression, unspecified (F32.A - ICD-10-CM) Obstructive sleep apnea (adult) (pediatric) (G47.33 - ICD-10-CM) Major depressive disorder, single episode, unspecified (F32.9 - ICD-10-CM) Shortness of breath ([id number] - PNED) Sinus infection ([id number] - PNED) Additional Orders: Other status: Chest XR 2 Views (PA & Lateral),04/26/24 9:08:00 EDT, 04/26/24 9:08:00 EDT, Routine, follow up pna, Wt k.9, [facility], ME6E(Complete) Ordered: Discharge,04/26/24 16:29:00 EDT, Discharged to: Home Ordered: Discharge,04/26/24 16:34:00 EDT, Discharged to: Home Ordered: Discharge Activity,NO activity restrictions, 04/26/24 16:34:00 EDT Ordered: Discharge Diet,Type of Diet: Regular Diet, 04/26/24 16:34:00 EDT Ordered: Discharge Return to Work, School, or Sports,within 5-7 days, May return to: work, 04/26/24 16:34:00 EDT Ordered: ProAir HFA MDI (90 mcg/inh) inhalation aerosol,2 puff(s), Inhalation, q6hr, PRN as needed for wheezing, # 6.7 gram(s), 0 Refill(s), Pharmacy: [id number], 177.8, cm, 04/24/24 0:02:00 EDT, Height, kg, 04/24/24 0:02:00 EDT, Dosing Weight Other status: Rocephin,Start: 04/25/24 19:53:00 EDT, Dose = 1 gram(s), = 10 mL, IV Push (INT), qDay, Rate: 120 mL/hr, Infuse over: 5 minute(s), 0, 04/25/24 19:47:00 EDT(Reschedule) Hospital Course 58 years old male with past medical history significant for morbid obesity, atrial fibrillation on Eliquis, BPH, left renal cysts, urinary frequency/urgency [facility] with a chief concern of fever, cough, shortness of breath and wheezing going on for the past couple of days. Chest x-ray done in the emergency room did not show any acute infection. Patient was started on aerosols oxygen therapy was provided which has been weaned down during the course of his hospitalization. In addition to that patient was put on Rocephin and azithromycin all of these have been discontinued for now. Patient was continued on oxygen has mention he was allowed to use his CPAP at night oxygen during the daytime. Patient has continued to do well and follow-up chest x-ray did not reveal any acute infection process. He was on azithromycin which was discontinued because atypicals were negative but Rocephin has been continued he has received over 4 days. Patient was also given aggressive aerosol therapy. Patient overall has been continuing to improve during the course of. Patient medications are his Lasix dose was held however at the time of admission. Patient's other home medications for A-fib BPH will work to do well on a regular basis at least for the first week. Patient can return to work in the next 1 week. Overall he is medically stable for discharge. Allergies Neosporin Consults No qualifying data available. Physical Exam Vitals and Measurements T: 36.8 C (Oral) TMIN: 36.7 C (Oral) TMAX: 36.8 C (Oral) HR: 94 RR: 18 BP: 132/75 SpO2: 91% Weight Dosing Weight: 188.9 kg (04/24/24) General Appearance: no acute distress, Head: atraumatic, perrrla, EENT:moist mucosa,, normal pharynx, normal tonsils and adenoids and tongue Neck:trachea midline, no carotid bruit, no mass or lymphadenopathy. Cardiac: RRR, no murmurs, normal S1 and S2 Lungs: Normal chest wall expansion, clear to auscultation Abdomen: Soft nontender nondistended, normal bowel sounds all quadrants, no hepatomegaly, guarding Genitourinary: No inguinal hernia, Musculoskeletal:Range of Motion intact in all extremities, strength intact, Extremities: No edema, Neurological:Awake alert oriented x3, cranial nerves II through XII intact, DTR intact, sensory function intact, Skin: Warm dry, pink, no rash, purpura, petechia Psychiatric: Normal affect, intact cognition, Code Status Code Status - Ordered -- 04/23/24 17:49:00 EDT, Full Code, Constant Order Admission Date 04/23/2024 Discharge Date Medications New Prescription albuterol (ProAir HFA MDI (90 mcg/inh) inhalation aerosol)2 puff(s) by inhalation every 6 hours as needed as needed for wheezing for 30 Days. Refills: 0. Unchanged acetaminophen (Tylenol 8 Hour 650 mg oral tablet, extended release)2 tab(s) by mouth every 8 hours as needed as needed for pain. apixaban (Eliquis 5 mg oral tablet)1 tab(s) by mouth two (2) times a day. aspirin (aspirin 81 mg oral delayed release tablet)1 tab(s) by mouth once a day. buPROPion (buPROPion 300 mg/24 hours (XL) oral tablet, extended release)1 tab(s) by mouth every 24 hours. carvedilol (carvedilol 12.5 mg oral tablet)1 tab(s) by mouth twice daily with meals. flecainide (flecainide 50 mg oral tablet)1 tab(s) by mouth every 12 hours. fluticasone nasal (Flonase 50 mcg/inh nasal spray)1 spray(s) each nostril two (2) times a day. furosemide (furosemide 20 mg oral tablet)1 tab(s) by mouth once a day as needed ankle swelling. TAKE 1/2 TO 1 TABLET BY MOUTH DAILY NEEDED FOR ANKLE SWELLING. loratadine (loratadine 10 mg oral capsule)1 cap by mouth once a day. montelukast (montelukast 10 mg oral tablet)1 tab(s) by mouth once a day. multivitamin (Multivitamin)1 tab(s) by mouth once a day. terazosin (terazosin 5 mg oral capsule)1 cap by mouth daily at bedtime for 90 Days. Refills: 1. Follow Up Appointments No qualifying data available. Follow Up Labs/Studies Discharge Labs No Follow-up Labs Discharge Studies No Follow-up Studies Discharge Diet Discharge Diet - Ordered -- Type of Diet: Regular Diet, 04/26/24 16:34:00 EDT Discharge Activity Discharge Activity - Ordered -- NO activity restrictions, 04/26/24 16:34:00 EDT Discharge Return to Work, School, or Sports - Ordered -- within 5-7 days, May return to: work, 04/26/24 16:34:00 EDT Condition on Discharge stable, improved, on room air Discharge Disposition home Time Spent 35 min Digitally Signed by VIKTOR PENNINGTON MD on 04/26/2024 04:48 PM [facility] 04-26-2024 Note ORIGINAL EXAMINATION: TWO XRAY VIEWS OF THE CHEST04/26/2024 11:16 am COMPARISON: Chest radiograph 04/23/2024 HISTORY: ORDERING SYSTEM PROVIDED HISTORY: Reason for Exam: follow up pna FINDINGS: The cardiomediastinal silhouette is stable. Low lung volumes with hypoventilatory changes, notably some interstitial prominence. No pleural effusion. No pneumothorax. No acute osseous abnormality by radiograph; osseous detail is limited. Mild degenerative changes in the spine. IMPRESSION: Hypoventilatory changes. No definite acute cardiopulmonary process by radiograph. I have personally reviewed the images of this examination and agree with the resident's findings and interpretation. Interpreted by: Joseph Rosales MD Preliminary Report By: Jesús Murray Electronically signed By Joseph Rosales MD Dictated Date: 04/26/2024 11:18:44 AM Prelim Date: 04/26/2024 11:33:33 AM Sign Date: 04/26/2024 11:33:33 AM Ordering Provider: [facility] 04-25-2024 Note Date of Service 04/25/2024 Chief Complaint sob Subjective Patient seen and examined discussed with staff. Patient sitting at the edge of the bed and currently has been weaned off his oxygen on room air doing well. Patient does occasionally have cough he has been on CPAP at night.` Objective Vitals and Measurements T: 36.7 C (Oral) TMIN: 36.4 C (Oral) TMAX: 37.0 C (Oral) HR: 69 RR: 18 BP: 134/86 SpO2: 92% ````` General Appearance: no acute distress, Head: atraumatic, perrrla, EENT:moist mucosa,, normal pharynx, normal tonsils and adenoids and tongue Neck:trachea midline, no carotid bruit, no mass or lymphadenopathy. Cardiac: RRR, no murmurs, normal S1 and S2 Lungs: Normal chest wall expansion, clear to auscultation Abdomen: Soft nontender nondistended, normal bowel sounds all quadrants, no hepatomegaly, guarding Genitourinary: No inguinal hernia, Musculoskeletal:Range of Motion intact in all extremities, strength intact, gait normal Extremities: No edema, Neurological:Awake alert oriented x3, cranial nerves II through XII intact, DTR intact, sensory function intact, Skin: Warm dry, pink, no rash, purpura, petechia Psychiatric: Normal affect, intact cognition, Intake and Output 7AM Yesterday to 7AM Today Intake and Output (Last 24 hours) Intake Oral Intake 220.00 Output Stool Count 0.00 Urine Count 3.00 Total Summary Total Intake 220.00 Total Output 0.00 Fluid Balance 220.00 Physical Exam Weight Dosing Weight: 188.9 kg (04/24/24) Medications Medications (19) Active Scheduled: (9) apixaban 5 mg tablet 5 mg 1 tab(s), Oral, BID aspirin 81 mg EC 81 mg 1 tab(s), Oral, qDay azithromycin 250 mg tablet 500 mg 2 tab(s), Oral, qDay bupropion 300 mg/24 hours ER tablet 300 mg 1 tab(s), Oral, q24h carvedilol 12.5 mg tablet 12.5 mg 1 tab(s), Oral, BIDM flecainide 50 mg tablet 50 mg 1 tab(s), Oral, q12hr loratadine 10 mg Tablet 10 mg 1 tab(s), Oral, qDay montelukast 10 mg Tablet 10 mg 1 tab(s), Oral, qDay terazosin 5 mg Capsule 5 mg 1 cap(s), Oral, qHS Continuous: (0) PRN: (10) acetaminophen 325 mg Tablet 650 mg 2 tab(s), Oral, q6hr acetaminophen 325 mg Tablet 650 mg 2 tab(s), Oral, q4h acetaminophen 650 mg Suppository 650 mg 1 supp, Rectal, q4h Al hydrox/Mg hydrox/simethicone 200-200-20 mg/5 mL Susp UD 30 mL, Oral, q2h albuterol - ipratropium 2.5 mg-0.5 mg/3 mL Inhal Chanda UD 3 mL, Inhalation, q4hRT bisacodyl 5 mg EC tablet 10 mg 2 tab(s), Oral, qDay dextrose 50% Solution Disp syringe 50 mL 12.5 gram(s) 25 mL, IV Push, AsDirected docusate-senna (Senokot S) 50 mg-8.6 mg Tablet 1 tab(s), Oral, BID melatonin 3 mg tablet 3 mg 1 tab(s), Oral, qHS ondansetron 2 mg/ 1 mL 2 mL INJ 4 mg 2 mL, IV Push, q4h Lab Results 04/25 08:04 WBC: 6.8 Hgb: 13.1 Hct: 38.1 L Platelet: 167 Neutrophil %: 63.5 Glucose Level: 87 Sodium Level: 136 Potassium Level: 3.8 BUN: 18.0 Creatinine Lvl (s): 0.89 04/24 09:09 WBC: 9.0 Hgb: 14.2 Hct: 41.0 Platelet: 177 Neutrophil %: 74.2 Glucose Level: 100 Sodium Level: 137 Potassium Level: 4.2 BUN: 17.0 Creatinine Lvl (s): 1.05 EKG No qualifying data available. Assessment/Plan Orders: CPAP as at home, 04/25/24 7:46:00 EDT, qhsRT 1: Acute hypoxic respiratory failure most likely secondary to congestive heart failure likely exacerbated by pneumonia. Patient is on azithromycin but taken off rocephin on 04/23.. Atypicall are negative. also getting aggressive diuresis. 2D echocardiogram has been done. He does see cardiology for A-fib. 2: Pneumonia likely community-acquired requiring increased amount of oxygen, 80% on room air. Patient is currently restarted on Rocephin and taken off azithromycin, will add DuoNebs if not already getting. Will also add Mucinex. 3: Congestive heart failure: 2D echocardiogram noted with no gross abnl, continue with IV Lasix, will consult cardiology. 4: Atrial fibrillation patient remains on Coreg Eliquis and is on flecainide. 5: Major depression continue with home medications. 6 BPH 7: Obstructive sleep apnea uses CPAP at home which he should be able to do here along with oxygen. 8: Hyponatremia may be secondary to diuresis will need to monitor. 9: Morbid obesity diet exercise. Patient is high risk due to complicated medical history including congestive heart failure, atrial fibrillation. Patient will be taken off his azithromycin since the atypicals are negative put back on Rocephin. Blood work is within normal range. Will start discharge planning. Oxygen has been weaned off he is currently on room air. Continue IV Lasix. Anticipated Date of Discharge Level of Care Indication Regular Floor DVT Prophylaxis Full anticoagulation Maintenance IVF Indication NA / No maintenance IVF Indwelling Urinary Catheter Indication NA No indwelling catheter Anticipated Timeline of Discharge 24 hours Anticipated DC Disposition Home without services Time Spent 35 min Digitally Signed by VIKTOR PENNINGTON MD on 04/25/2024 07:51 PM [facility] 04-24-2024 Note Date of Service 04/24/2024 Chief Complaint sob Subjective Patient seen and examined discussed with staff. Patient is lying in bed states that he usually lays flat. Patient is on 2 L of oxygen at this time states he is starting to cough up some stuff. Patient also has been diuresing well. Patient denies any nausea vomiting abdominal pain chest pain he is morbidly obese. 5 family member likely his is in the room with him. Objective Vitals and Measurements T: 36.9 C (Oral) TMIN: 36.9 C (Oral) TMAX: 37.1 C (Oral) HR: 64 RR: 18 BP: 122/64 SpO2: 95% HT: 177.8 cm WT: 188.9 kg BMI: 59.75 General Appearance: no acute distress, Head: atraumatic, perrrla, EENT:moist mucosa,, normal pharynx, normal tonsils and adenoids and tongue Neck:trachea midline, no carotid bruit, no mass or lymphadenopathy. Cardiac: RRR, no murmurs, normal S1 and S2 Lungs: Normal chest wall expansion, decreased air Abdomen: Soft nontender distended, normal bowel sounds all quadrants, no hepatomegaly, guarding Genitourinary: No inguinal hernia, Musculoskeletal:Range of Motion intact in all extremities, strength intact, Extremities: No edema, Neurological:Awake alert oriented x3, cranial nerves II through XII intact, DTR intact, sensory function intact, Skin: Warm dry, pink, no rash, purpura, petechia Psychiatric: Normal affect, intact cognition, Intake and Output 7AM Yesterday to 7AM Today Intake and Output (Last 24 hours) Intake Oral Intake 530.00 Output Stool Count 0.00 Urine Count 0.00 Total Summary Total Intake 530.00 Total Output 0.00 Fluid Balance 530.00 Physical Exam Weight Dosing Weight: 188.9 kg (04/24/24) Medications Medications (19) Active Scheduled: (9) apixaban 5 mg tablet 5 mg 1 tab(s), Oral, BID aspirin 81 mg EC 81 mg 1 tab(s), Oral, qDay azithromycin 250 mg tablet 500 mg 2 tab(s), Oral, qDay bupropion 300 mg/24 hours ER tablet 300 mg 1 tab(s), Oral, q24h carvedilol 12.5 mg tablet 12.5 mg 1 tab(s), Oral, BIDM flecainide 50 mg tablet 50 mg 1 tab(s), Oral, q12hr loratadine 10 mg Tablet 10 mg 1 tab(s), Oral, qDay montelukast 10 mg Tablet 10 mg 1 tab(s), Oral, qDay terazosin 5 mg Capsule 5 mg 1 cap(s), Oral, qHS Continuous: (0) PRN: (10) acetaminophen 325 mg Tablet 650 mg 2 tab(s), Oral, q6hr acetaminophen 325 mg Tablet 650 mg 2 tab(s), Oral, q4h acetaminophen 650 mg Suppository 650 mg 1 supp, Rectal, q4h Al hydrox/Mg hydrox/simethicone 200-200-20 mg/5 mL Susp UD 30 mL, Oral, q2h albuterol - ipratropium 2.5 mg-0.5 mg/3 mL Inhal Chanda UD 3 mL, Inhalation, q4hRT bisacodyl 5 mg EC tablet 10 mg 2 tab(s), Oral, qDay dextrose 50% Solution Disp syringe 50 mL 12.5 gram(s) 25 mL, IV Push, AsDirected docusate-senna (Senokot S) 50 mg-8.6 mg Tablet 1 tab(s), Oral, BID melatonin 3 mg tablet 3 mg 1 tab(s), Oral, qHS ondansetron 2 mg/ 1 mL 2 mL INJ 4 mg 2 mL, IV Push, q4h Lab Results 04/24 09:09 WBC: 9.0 Hgb: 14.2 Hct: 41.0 Platelet: 177 Neutrophil %: 74.2 Glucose Level: 100 Sodium Level: 137 Potassium Level: 4.2 BUN: 17.0 Creatinine Lvl (s): 1.05 04/23 14:16 WBC: 9.2 Hgb: 14.7 Hct: 42.7 Platelet: 192 Neutrophil %: 84.6 H Glucose Level: 109 Sodium Level: 134 L Potassium Level: 4.0 BUN: 12.0 Creatinine Lvl (s): 0.95 EKG EKG (ED) - Completed -- 04/23/24 14:07:00 EDT, 04/23/24 14:07:00 EDT Assessment/Plan Orders: Basic Metabolic Panel(BMP), 04/25/24 5:00:00 EDT, Next AM Draw (one day only), Blood, Once, Preferred Lab: [facility], Stop date 04/25/24 5:00:00 EDT Complete Blood Count(CBC), 04/25/24 5:00:00 EDT, Next AM Draw (one day only), Blood, Once, Preferred Lab: [facility], Stop date 04/25/24 5:00:00 EDT assessment and plan: 1: Acute hypoxic respiratory failure most likely secondary to congestive heart failure likely exacerbated with secondary to pneumonia. Patient is on Rocephin azithromycin also getting aggressive diuresis. 2D echocardiogram has been done. He does see cardiology for A-fib. 2: Pneumonia likely community-acquired requiring increased amount of oxygen, 80% on room air. Patient is currently Rocephin and azithromycin will add DuoNebs if not already getting. Will also add Mucinex. 3: Congestive heart failure will check a 2D echocardiogram continue with IV Lasix will consult cardiology. 4: Atrial fibrillation patient remains on Coreg Eliquis and is on flecainide. 5: Major depression continue with home medications. 6 BPH 7: Obstructive sleep apnea uses CPAP at home which she should be able to do here along with oxygen. 8: Hyponatremia may be secondary to diuresis will need to monitor. 9: Morbid obesity diet exercise. Patient is high risk due to complicated medical history including congestive heart failure atrial fibrillation. Currently patient is going to be continued on her home oxygen two 2D echo to be checked continue IV Lasix. Anticipated Date of Discharge Level of Care Indication Regular Floor DVT Prophylaxis Other: specify in note Maintenance IVF Indication Other: specify in note Indwelling Urinary Catheter Indication NA No indwelling catheter Anticipated Timeline of Discharge 72+ hours Anticipated DC Disposition Home c C Time Spent 51 min Digitally Signed by IVKTOR PENNINGTON MD on 04/24/2024 04:13 PM [facility] 04-24-2024 Note Exam Date Time Procedure Performing Provider Status 04/24/24 2:37 PM Echocardiogram, Adult - CV Auth (Verified) [facility] 10-15-2024 Note. MICRO - Microbiology PROCEDURE: Legionella Urine Ag [*1] SOURCE: Urine BODY SITE: COLLECTED DATE/TIME: 04/24/2024 13:15 EDT RECEIVED DATE/TIME: 04/24/2024 13:20 EDT START DATE/TIME: 04/24/2024 13:20 EDT FREE TEXT SOURCE: FINAL REPORTS Final Report [] Verified Date/Time/Personnel: 04/24/2024 14:09 EDT Presumptive negative for L. pneumophila serogroup 1 antigen in urine, suggesting no recent or current infection. Legionnaire's disease cannot be ruled out since other serogroups and species may also cause disease. Performing Locations *1: This test was performed at: [address], [address] , [facility] [id number] Note. MICRO - Microbiology PROCEDURE: Streptococcus Pneumoniae Urine Antig [^1 *1] SOURCE: Urine BODY SITE: COLLECTED DATE/TIME: 04/24/2024 13:15 EDT RECEIVED DATE/TIME: 04/24/2024 13:20 EDT START DATE/TIME: 04/24/2024 13:20 EDT FREE TEXT SOURCE: FINAL REPORTS Final Report [] Verified Date/Time/Personnel: 04/24/2024 14:09 EDT Presumptive negative for pneumococcal pneumonia, suggesting no current or recent pneumococcal infection. Infection due to Strep pneumoniae cannot be ruled out since the antigen present in the sample may be below the detection limit of the test. Interpretive Data ^1: Streptococcus Pneumoniae Urine Antig This test has not been evaluated on patients taking antibiotics for greater than 24 hours or on patients who have recently completed an antibiotic regimen. The accuracy of this test has not been proven in young children. Performing Locations *1: This test was performed at: [address], [address] , [facility] [id number] History and physical note Date of Service April 23, 2024 Chief Complaint sent from PCP for SOB and leg edema. on abx tx and getting worse History of Present Illness A 58 years old male with past medical history significant for morbid obesity, atrial fibrillation on Eliquis, BPH, left renal cysts, urinary frequency/urgency presented to [facility] with a chief concern of fever, cough, shortness of breath and wheezing going on for the past couple of days Patient stated that around 3 weeks ago he had a sinus infection and left earache and was prescribedamoxicillin that improved his earache but he still has some sinus congestion. For the past few days he has been having cough without any significant sputum production, shortnessof breath, he was febrile up to 102 and wheezing. ED course: Vital signs, labs, imaging report and EKG personally reviewed He was tachycardic, hypoxic oxygen saturation dropping to 88% on room air. On my evaluation he was satting in low 90s on room air. CBC showed normal white count 9200 with left shift, hemoglobin 14.7, platelet 192. UA negative for UTI CMP shows sodium 134 proBNP normal at 244, troponin negative. PCR test for SARS-CoV-2/flu A/flu B/RSV virus negative. Chest x-ray showed hypoventilatory changes EKG on admission showed sinus tachycardia with QTc of 381 ms. Review of Systems Review of systems are negative except as mentioned in HPI Physical Exam Vitals and Measurements T: 37.2 C (Oral) HR: 95 RR: 22 BP: 165/76 SpO2: 94% No qualifying data available. General Appearance: Appears to be stable and in no acute distress Head: Atraumatic and normocephalic EENT: EOMI, PERRLA, no oropharyngeal erythema, no tonsillar exudates, no conjunctival injection. sclera anicteric. Neck: No thyromegaly, no cervical lymphadenopathy, trachea midline Cardiac: S1 and S2 normal. RRR. No murmurs, rubs, or gallops. No JVD. No hepatojugular reflex. Lungs: Good air entry bilaterally. No increased work for breathing. No wheezes, rhonchi, or rales. Abdomen: Soft, nontender, nondistended. Normoactive bowel sounds. No rebound or guarding. Negative Carlisle's sign. No hepatosplenomegaly. Musculoskeletal: Full range of motion upper and lower extremities. No CVA tenderness. Extremities: 1 positive bilateral lower extremity edema Neurological: No gross motor deficits Skin: No abrasions, scars, or hematomas on visible skin. No cyanosis. No purulent discharge. Psychiatric: Alert and oriented, well groomed, euthymic. cooperative Lab Results 04/23 14:16 WBC: 9.2 Hgb: 14.7 Hct: 42.7 Platelet: 192 Neutrophil %: 84.6 H Glucose Level: 109 Sodium Level: 134 L Potassium Level: 4.0 BUN: 12.0 Creatinine Lvl (s): 0.95 WBC: 9.2 10^3/mcL (04/23/24 14:16:00) RBC: 4.47 10^6/mcL Low (04/23/24 14:16:00) Hgb: 14.7 G/dL (04/23/24 14:16:00) Hct: 42.7 % (04/23/24 14:16:00) MCV: 95.5 fL (04/23/24 14:16:00) MCH: 32.9 pg (04/23/24:16:00) MCHC: 34.5 G/dL (04/23/24 14:16:00) RDW: 13.8 % (04/23/24 14:16:00) Platelet: 192 10^3/mcL (04/23/24 14:16:00) MPV: 8.8 fL (04/23/24 14:16:00) Monocyte Distribution Width: 24.5 High (04/23/24 14:16:00) Neutrophil %: 84.6 % High (04/23/24 14:16:00) Lymphocyte %: 7.2 % Low (04/23/24 14:16:00) Monocyte %: 7.8 % (04/23/24 14:16:00) Eosinophil %: 0.1 % (04/23/24 14:16:00) Basophil %: 0.3 % (04/23/24 14:16:00) Neutrophil, Absolute: 7.8 10^3/mcL (04/23/24 14:16:00) Lymphocyte, Absolute: 0.7 10^3/mcL Low (04/23/24 14:16:00) Monocyte, Absolute: 0.7 10^3/mcL (04/23/24 14:16:00) Eosinophil, Absolute: 0 10^3/mcL (04/23/24 14:16:00) Basophil, Absolute: 0 10^3/mcL (04/23/24 14:16:00) APTT: 34 seconds (04/23/24 14:16:00) UA Specimen Type: Void (04/23/24 14:16:00) UA Color: Yellow (04/23/24:16:00) UA Appear: Clear (04/23/24:16:00) UA Spec Grav: 1.020 (04/23/24::) UA Glucose: Negative. (04/23/24:16:00) UA Bili: Negative. (04/23/24:16:) UA Ketones: Trace (04/23/24:16:00) UA Blood: Negative. (04/23/24:) UA pH: 7.0 (04/23/24:16:) UA Protein: Negative.1 (04/23/24::) UA Urobilinogen: 1.0 (04/23/24::) UA Nitrite: Negative. (04/23/24::) UA Leuk Est: Negative. (04/23/24::) Glucose Level: 109 mg/dL (04/23/24:16:00) Sodium Level: 134 mEq/L Low (04/23/24:16:00) Potassium Level: 4 mEq/L (04/23/24:16:) Chloride: 102 mEq/L (04/23/24:16:) CO2: 29 mEq/L (04/23/24::) Electrolyte Balance: 3 mEq/L Low (04/23/24:16:00) BUN: 12 mg/dL (04/23/24:16:00) Creatinine Lvl (s): 0.95 mg/dL (04/23/24:16:00) BUN/Creatinine Ratio: 12.6 ratio (04/23/24:16:) Calcium Lvl: 10.1 mg/dL (04/23/24:16:00) Total Protein: 8 G/dL (04/23/24:16:00) Albumin Level: 3.8 G/dL (04/23/24:16:00) Globulin: 4.2 G/dL High (04/23/24 14:16:00) A/G Ratio: 0.9 ratio (04/23/24:16:00) Bili Total: 0.7 mg/dL (04/23/24:16:00) Alk Phos: 77 U/L (04/23/24:16:00) AST/SGOT: 21 U/L (04/23/24:16:00) ALT/SGPT: 23 U/L (04/23/24:16:00) GFR Non-: >60 (04/23/24:16:00) GFR : >60 (04/23/24:16:) Lactic Acid Lvl: 1.2 mmol/L (04/23/24:16:00) N-Terminal proBNP: 244 pg/mL (04/23/24:17:00) High Sensitivity Troponin I: 10 ng/L (04/23/24:17:00) SARS-CoV-2 PCR: Cepheid Neg (04/23/24:16:00) FLU A PCR: Cepheid Neg (04/23/24:16:00) FLU B PCR: Cepheid Neg (04/23/24:16:00) RSV PCR: Cepheid Neg (04/23/24:16:00) Imaging Results and Diagnostics XR Chest 1 View Result Date: April 23, 2024 Verified By: JIMENEZ LAWSON MD CLINICAL STATEMENT: IMPRESSION: Hypoventilatory changes. No definite acute cardiopulmonary process byradiograph. I havepersonally reviewed the images of this examination and agree with theresident's findings and interpretation. EKG EC04/23/24: SINUS TACHYCARDIA NONSPECIFIC T ABNORMALITIES, LATERAL LEADS This EKG was read and contributed directly to the care of the patient Electronic Signature: KRYSTYNA LAMAS MD 04/23/2024 16:22:39 Assessment/Plan Patient is admitted to regular floor for acute hypoxic respiratory failure likely secondary to community-acquired pneumonia, also bilateral lower extremity edema possible CHF. Case discussed with ED physician Assessment: Acute hypoxic respiratory failure Community-acquired pneumonia Bilateral lower extremity edema Atrial fibrillation Depression BPH Morbid obesity Urinary frequency/urgency Plan: -Oxygen saturation dropped to 88% room air in the ER, on medicine was satting in low 90s on room air, as needed oxygen via nasal cannula -Even though chest x-ray was negative for pneumonia clinically he seems to have pneumonia with fever, cough, shortness of breath and wheezing. Will cover with Rocephin and azithromycin, atypicals ordered, blood cultures ordered, PCR test for SARS-CoV-2/flu A/flu B/RSV was negative, as needed breathing treatments. -Patient does have 1 positive bilateral lower extremity edema on my evaluation, he states that is chronic in nature and is on as needed Lasix at home, his proBNP is normal although it can be falsely low in obesity. Will order echocardiogram, ordered one-time dose of IV Lasix 40 mg, reevaluate tomorrow, consider consulting cardiology if echo shows evidence of CHF -Resume home medication of Coreg, flecainide and apixaban for A-fib -Resume home bupropion for depression History of BPH, morbid obesity and urinary frequency/urgency. DVT prophylaxis: SCDs Lovenox 30 mg SQ twice daily due to morbid obesity Note was written using [employer] rewrite editor software. Some of the meaning of the words and sentences might have changed during rewrite editor, if there was ever some confusion about the meaning of some sentences, please do not hesitate to contact me. Problem List/Past Medical History Ongoing ATRIAL FIBRILLATION BPH with obstruction/lower urinary tract symptoms Renal cyst, left Urinary frequency Procedure/Surgical History Barium enema Medications Home Medications (12) Active aspirin 81 mg oral delayed release tablet 81 mg = 1 tab(s), Oral, qDay buPROPion 300 mg/24 hours (XL) oral tablet, extended release 300 mg = 1 tab(s), Oral, q24h carvedilol 12.5 mg oral tablet 12.5 mg = 1 tab(s), Oral, BIDM Eliquis 5 mg oral tablet 5 mg = 1 tab(s), Oral, BID flecainide 50 mg oral tablet 50 mg = 1 tab(s), Oral, q12hr Flonase 50 mcg/inh nasal spray 1 spray(s), Nostril, each, BID furosemide 20 mg oral tablet 20 mg = 1 tab(s), PRN, Oral, qDay loratadine 10 mg oral capsule 10 mg = 1 cap(s), Oral, qDay montelukast 10 mg oral tablet 10 mg = 1 tab(s), Oral, qDay Multivitamin 1 tab(s), Oral, qDay terazosin 5 mg oral capsule 5 mg = 1 cap(s), Oral, qHS Tylenol 8 Hour 650 mg oral tablet, extended release 1,300 mg = 2 tab(s), PRN, Oral, q8h Allergies Neosporin Social History Alcohol Use: Never., 03/22/2023 Tobacco Nicotine Use: Former smoker, quit more than 30 days ago., 03/22/2023 Family History Cancer: Mother. Diabetes: Mother. Heart disease: Father and Brother. Prostate cancer: Brother. Health Status Family Member(s) Immunizations No qualifying data available. Code Status Code Status - Ordered -- 04/23/24 17:49:00 EDT, Full Code, Constant Order Digitally Signed by TENA SHORT MD on 04/23/2024 06:57 PM [id number] ORIGINAL EXAMINATION: ONE XRAY VIEW OF THE CHEST04/23/2024 3:34 pm COMPARISON: Chest radiograph 12/28/2022, CT chest 12/28/2022 HISTORY: ORDERING SYSTEM PROVIDED HISTORY: Reason for Exam: fever, pain or tachypnea FINDINGS: The cardiomediastinal silhouette is stable. Low lung volumes with hypoventilatory changes, notably bronchovascular crowding. No florid central vascular congestion. No large focal consolidative opacity. No large volume pleural effusion. No pneumothorax. IMPRESSION: Hypoventilatory changes. No definite acute cardiopulmonary process by radiograph. I have personally reviewed the images of this examination and agree with the resident's findings and interpretation. Interpreted by: Jimenez Lawson MD Preliminary Report By: Jesús Murray Electronically signed By Jimenez Lawson MD Dictated Date: 04/23/2024 3:36:05 PM Prelim Date: 04/23/2024 3:44:39 PM Sign Date: 04/23/2024 3:44:39 PM Ordering Provider: [facility]10-14-2024 NoteSINUS TACHYCARDIA NONSPECIFIC T ABNORMALITIES, LATERAL LEADS This EKG was read and contributed directly to the care of the patient Electronic Signature: KRYSTYNA LAMAS MD 04/23/2024 16:22:39[facility] 10-14-2024 Evaluation + Plan noteExtracted from: Title:History and Physical Author:TENA SHORT MD Date:04/23/24 Patient is admitted to regul ar floor for acute hypoxic respiratory failure likely secondary to community-acquired pneumonia, also bilateral lower extremity edema possible CHF. Case discussed with ED physician Assessment: Acute hypoxic respiratory failure Community-acquired pneumonia Bilateral lower extremity edema Atrial fibrillation Depression BPH Morbid obesity Urinary frequency/urgency Plan: -Oxygen saturation dropped to 88% room air in the ER, on medicine was satting in low 90s on room air, as needed oxygen via nasal cannula -Even though chest x-ray was negative for pneumonia clinically he seems to have pneumonia with fever, cough, shortness of breath and wheezing. Will cover with Rocephin and azithromycin, atypicals ordered, blood cultures ordered, PCR test for SARS-CoV-2/flu A/flu B/RSV was negative, as needed breathing treatments. -Patient does have 1 positive bilateral lower extremity edema on my evaluation, he states that is chronic in nature and is on as needed Lasix at home, his proBNP is normal although it can be falsely low in obesity. Will order echocardiogram, ordered one-time dose of IV Lasix 40 mg, reevaluate tomorrow, consider consulting cardiology if echo shows evidence of CHF -Resume home medication of Coreg, flecainide and apixaban for A-fib -Resume home bupropion for depression History of BPH, morbid obesity and urinary frequency/urgency. DVT prophylaxis: SCDs Lovenox 30 mg SQ twice daily due to morbid obesity Note was written using Depop rewrite editor software. Some of the meaning of the words and sentences might have changed during rewrite editor, if there was ever some confusion about the meaning of some sentences, please do not hesitate to contact me. Future Appointments Appointment Date:05/05/2024 04:00:00 PM Scheduled Provider: Location:[facility] Appointment Type:US Renal Appointment Date:05/07/2024 10:30:00 AM Scheduled Provider:SYD CASTRO Location:UROLOGY Appointment Type:URO OV Future Scheduled Tests Radiology* US Renal 05/05/24 [facility] 06-07-2024 Note. MICRO - Microbiology PROCEDURE: Urine Culture [*1] SOURCE: Urine, Clean Catch BODY SITE: COLLECTED DATE/TIME: 12/14/2023 14:35 EDT RECEIVED DATE/TIME: 12/14/2023 21:13 EDT START DATE/TIME: 12/14/2023 21:14 EDT FREE TEXT SOURCE: FINAL REPORTS Final Report [] Verified Date/Time/Personnel: 12/16/2023 07:46 EDT No growth at 48 hours. PRELIMINARY REPORTS Preliminary Report [] Verified Date/Time/Personnel: 12/15/2023 10:43 EDT No growth to date Performing Locations *1: This test was performed at: [facility], [address] [place] [address], [facility]- , [facility] ([place])04-25-2023 NoteHNO ID: [id number] Author: Belen Muñoz RD Service: ? Author Type: Registered Dietitian Type: Progress Notes Filed: 04/25/2023 10:30 AM Note Text: Nutritional Therapy Re-Assessment, Virtual Nutrition Diagnosis: Overweight/obesity, related to, physical inactivity, as evidenced by BMI above normative standard for age and gender and physical limitation RECOMMENDED MALNUTRITION DIAGNOSIS: NO MALNUTRITION IDENTIFIED NUTRITION CARE PLAN: Nutrition Intervention 04/25/2023: Discussed tracking intake, using MyFitnessPal. Discussed importance of keeping muscle tone as not as physically active now being off of work. Nutrition Monitoring AND Evaluation: -Monitor weight -Monitor progress of goals: Goals: -track intake on MyFitnessPal -increase water to 64 oz daily -decrease sugar free drinks such as pop and juice (have juice at a certain time during day rather than sipping on throughout the day) -plans to ride stationary bike at gym, start at once a week then build up to 3 times a week -one serving at evening snack time (read labels), if hungry Need for Follow up: yes, in 4-6 weeks. PROGRESS: Interval History: States it has been a rough month, was on light duty at work as tore 3 muscles in shoulder, currently on medical leave. Awaiting surgery end of June he states. States he does not eat as much now that he is home, but states he probably eats more than he thinks he does. Trying to watch sugar intake. States may have a coke every once in a while but not often due to caffeine. More likely to use artificial sweetener such as splenda. Staying up later at night, having snacks after dinner. States he is getting in good vegetable intake. States getting at least 8 hours of sleep now. Patient relates 20# weight gain from last visit to inaccuracy with March weight as was unsure what his weight was at then. 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 Resting Metabolic Rate: 2638 Current weight reflects a 20# weight gain since visit in March-patient related to inaccuracy with the weight he reported in March. Malnutrition Screening Significant unintentional weight loss? No Eating less than 75% of usual intake for more than 2 weeks? No Potential Signs of Inflammation: no identifiable sources Nutritional status: Education Materials Provided: None this visit READINESS TO LEARN Cognitive ability: Alert and oriented Motivation to learn: Interested Family support: High - Very involved in pt care Instruction provided to: Patient Patient learns best by: Individual Instruction Factors affecting learning: None Physical limitations affecting learning: None Likelihood of Adherence: Moderate Referred by Dr. Girma TERRELLT Billing Type: Re-assess/15 min 3 units 45 mins SIGNATURE: Belen Mcneal RD PATIENT NAME: Danielle Euceda DATE: April 25, 2023 TIME: 8:34 AM PAGER: /[facility]10-16-2023 Instructions* Patient Instructions* Belen Muñoz RD - 04/25/2023 10:29 AM EDT Goals: -track intake on MyFitnessPal -increase water to 64 oz daily -decrease sugar free drinks such as pop and juice (have juice at a certain time during day rather than sipping on throughout the day) -plans to ride stationary bike at gym, start at once a week then build up to 3 times a week -one serving at evening snack time (read labels), if hungry [facility] History of Present illness Narrative* Belen Muñoz RD - 04/25/2023 8:34 AM EDT Nutritional Therapy Re-Assessment, Virtual Nutrition Diagnosis: Overweight/obesity, related to, physical inactivity, as evidenced by BMI abovenormative standard for age and gender and physical limitation RECOMMENDED MALNUTRITION DIAGNOSIS: NO MALNUTRITION IDENTIFIED NUTRITION CARE PLAN: Nutrition Intervention 04/25/2023: Discussed tracking intake, using MyFitnessPal. Discussed importance of keeping muscle tone as not as physically active now being off of work. Nutrition Monitoring & Evaluation: -Monitor weight -Monitor progress of goals: Goals: -track intake on MyFitnessPal -increase water to 64 oz daily -decrease sugar free drinks such as pop and juice (have juice at a certain time during day rather than sipping on throughout the day) -plans to ride stationary bike at gym, start at once a week then build up to 3 times a week -one serving at evening snack time (read labels), if hungry Need for Follow up: yes, in 4-6 weeks. PROGRESS: Interval History: States it has been a rough month, was on light duty at work as tore 3 muscles in shoulder, currently on medical leave. Awaiting surgery end of June he states. States he does noteat as much now that he is home, but states he probably eats more than he thinks he does. Trying to watch sugar intake. States may have a coke every once in a while but not often due to caffeine. More likely to use artificial sweetener such as splenda. Staying up later at night, having snacks after dinner. States he is getting in good vegetable intake. States getting at least 8 hours of sleep now. Patient relates 20# weight gain from last visit to inaccuracy with March weight as was unsure what his weight was at then. 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 Resting Metabolic Rate: 2638 Current weight reflects a 20# weight gain since visit in March-patient related to inaccuracy with the weight he reported in March. Malnutrition Screening Significant unintentional weight loss? No Eating less than 75% of usual intake for more than 2 weeks? No Potential Signs of Inflammation: no identifiable sources Nutritional status: Education Materials Provided: None this visit READINESS TO LEARN Cognitive ability: Alert and oriented Motivation to learn: Interested Family support: High - Very involved in pt care Instruction provided to: Patient Patient learns best by: Individual Instruction Factors affecting learning: None Physical limitations affecting learning: None Likelihood of Adherence: Moderate Referred by Dr. Girma STRATTON Billing Type: Re-assess/15 min 3 units 45 mins SIGNATURE: Belen Mcneal RD PATIENT NAME: Danielle Euceda DATE: April 25, 2023 TIME: 8:34 AM PAGER: n/a documented in this encounterKindred Healthcare09-18-2023 Note ORIGINAL EXAMINATION: MRI OF THE RIGHT SHOULDER WITHOUT CONTRAST 03/28/2023 1:58 pm TECHNIQUE: Multiplanar multisequence MRI of the right shoulder was performed without the administration of intravenous contrast. COMPARISON: Right shoulder radiographs 08/27/2022 HISTORY: ORDERING SYSTEM PROVIDED HISTORY: Reason for Exam: sprain FINDINGS: Images are degraded by motion artifact and low signal to noise related to body habitus which decreases the sensitivity and specificity of the examination. There is a complete tear of the distal supraspinatus tendon with approximately 3.5 cm retraction. Tearing also likely involves the majority of the infraspinatus tendon. No definite subscapularis tendon tear is identified, however, evaluation is significantly limited. There is severe diffuse rotator cuff muscle atrophy. The long head of the biceps tendon is not seen. A small glenohumeral joint effusion freely communicates with the subacromial subdeltoid bursa. The glenohumeral cartilage is grossly intact. There is moderate osteoarthrosis of the acromioclavicular joint. IMPRESSION: Massive rotator cuff tear involving the supraspinatus tendon and at least a majority of the infraspinatus tendon. There is severe diffuse rotator cuff muscle atrophy. The long head of the biceps tendon is not well seen and is likely torn. Moderate AC joint osteoarthrosis. Interpreted by: Alonso Schmidt Preliminary Report By: Alonso Schmidt Electronically signed By Alonso Schmidt Dictated Date: 03/28/2023 3:46:36 PM Prelim Date: 03/28/2023 3:56:45 PM Sign Date: 03/28/2023 3:56:45 PM Ordering Provider: [facility] [place]09-05-2023 NoteHNO ID: [id number] Author: Belen Muñoz RD Service: ? Author Type: Registered Dietitian Type: Progress Notes Filed: 03/15/2023 9:35 AM Note Text: Nutrition Therapy Initial Assessment Nutrition Diagnosis: Excessive carbohydrate intake, related to: food and nutrition related knowledge deficit, as evidenced by diet recall . Anthropometrics: Height: Last 1 Encounter Ht Readings: Date: Ht: 03/15/2023 177.8 cm (5' 10) Current weight: Last 1 Encounter Wt Readings: Date: Wt: 03/15/2023 172.4 kg (380 lb) Body mass index is 54.52 kg/m?. Resting Metabolic Rate: 2547 Current Outpatient Medications Medication Sig montelukast (SINGULAIR) 10 mg tablet Take 1 tablet by mouth every afternoon. loratadine 10 mg cap fluticasone propionate (FLONASE NASAL) Use in the nose. terazosin (HYTRIN) 2 mg capsule Take 1 capsule by mouth daily at bedtime. flecainide (TAMBOCOR) 50 mg tablet Take 50 mg by mouth twice daily. multivitamin (DAILY VITAMIN ORAL) Take by mouth. ELIQUIS 5 mg tab(s) Take 5 mg by mouth twice daily. carvedilol (COREG) 6.25 mg tablet Take 3.125 mg by mouth twice daily. LOW-DOSE ASPIRIN ORAL Take 1 tablet by mouth once daily. sildenafil (VIAGRA) 100 mg tablet Take 0.5 tablets by mouth as needed. (Patient not taking: Reported on 03/15/2023) No current facility-administered medications for this visit. Patient presents with referral for weight loss with diet and lifestyle changes. Lives with . does grocery shopping and cooking. No specific diet. had bariatric surgery in August, patient eats what eats he states. Bed around 9pm, wakes at 4am, 7 hours of sleep a night, wears CPAP machine. States he can make changes with his diet. Lost a few pounds when started eating how eats in August. Hard to lose weight he states. Lowest weight was 280#, gained weight after developed Afib in 2018. States very seldom adds salt to food. States does not drink as much water as should as cannot stop to pee that often, states drinks about a half gallon water daily (64oz). Patient's symptoms are: Weight Concerns: failure to lose weight Diet History: Wakes 4am, drinks water when takes pills Breakfast - 5am protein shake (pure protein) Snack - granola bar Lunch - 11am/12pm sandwich on multigrain (ham and sometimes tajik cheese, or trail bologna, or PB sandwich), water or coke zero or diet coke 20oz Snack - PB crackers, protein bar or granola bar, coffee on way home (decaf) with 1 cream, splenda Dinner - 6:30/7pm chicken with asparagus and maybe bread OR meatloaf with baked potatoes (butter) and veggie, drinks coke zero 20oz or water or ocean spray juice 32oz (drinks this all day when at home) Snack - plain popcorn, occasionally chips and pretzels Beverages - water Alcohol- none Vitamins/Supplements - multivitamin Activity: 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 No formal exercise. RECOMMENDED MALNUTRITION DIAGNOSIS: NO MALNUTRITION IDENTIFIED Malnutrition Screening Significant unintentional weight loss? No Eating less than 75% of usual intake for more than 2 weeks? No Potential Signs of Inflammation: no identifiable sources NUTRITION CARE PLAN Nutrition Intervention 03/15/2023: Discussed cutting back on added suagr, limit to no more than 18 grams a day. Discussed evening snacking not needed as eating dinner about 2 hours before bed, as well as evening snacking higher in carbohydrates. Discussed importance of fiber intake and how it plays into satiety. Discussed trying herbal teas if feels like he needs something to satisfy oral fixation in evening after dinner. Nutrition Monitoring AND Evaluation: -monitor weight and progress on goals Goals: -limit added sugar to no more than 18 grams a day for weight loss -add small fruit to breakfast such as apple or banana -half plate of nonstarchy vegetables, 1/4 protein and 1/4 carbohydrate for lunch and dinner -add vegetables to lunch -cut back or out diet pops -one time on weekends of physical activity, may go to [facility] -not snacking after dinner Need for Follow up: 4-6 weeks 60 minutes of MNT provided Belen Mcneal, [facility]09-05-2023 Instructions* Patient Instructions* Belen Muñoz, RD - 03/15/2023 8:53 AM EDT Goals: -limit added sugar to 18 grams a day for weight loss -add small fruit to breakfast such as apple or banana -half plate of nonstarchy vegetables, 1/4 protein and 1/4 carbohydrate for lunch and dinner -add vegetables to lunch -cut back or out diet pops -one time on weekends of physical activity, may go to [facility] -not snacking after dinner documented in this encounterKindred Healthcare09-05-2023 History of Present illness Narrative* Belen Muñoz RD - 03/15/2023 8:37 AM EDT Nutrition Therapy Initial Assessment Nutrition Diagnosis: Excessive carbohydrate intake, related to: food and nutrition related knowledge deficit, as evidenced by diet recall . Anthropometrics: Height: Last 1 Encounter Ht Readings: Date: Ht: 03/15/2023 177.8 cm (5' 10) Current weight: Last 1 Encounter Wt Readings: Date: Wt: 03/15/2023 172.4 kg (380 lb) Body mass index is 54.52 kg/m . Resting Metabolic Rate: 2547 Current Outpatient Medications Medication Sig montelukast (SINGULAIR) 10 mg tablet Take 1 tablet by mouth every afternoon. loratadine 10 mg cap fluticasone propionate (FLONASE NASAL) Use in the nose. terazosin (HYTRIN) 2 mg capsule Take 1 capsule by mouth daily at bedtime. flecainide (TAMBOCOR) 50 mg tablet Take 50 mg by mouth twice daily. multivitamin (DAILY VITAMIN ORAL) Take by mouth. ELIQUIS 5 mg tab(s) Take 5 mg by mouth twice daily. carvedilol (COREG) 6.25 mg tablet Take 3.125 mg by mouth twice daily. LOW-DOSE ASPIRIN ORAL Take 1 tablet by mouth once daily. sildenafil (VIAGRA) 100 mg tablet Take 0.5 tablets by mouth as needed. (Patient not taking: Reported on 03/15/2023) No current facility-administered medications for this visit. Patient presents with referral for weight loss with diet and lifestyle changes. Lives with . does grocery shopping and cooking. No specific diet. had bariatric surgery in August, patient eats what eats he states. Bed around 9pm, wakes at 4am, 7 hours of sleep a night, wears CPAP machine. States he can make changes with his diet. Lost a few pounds when started eating how eats in August. Hard to lose weight he states. Lowest weight was 280#, gained weight after developed Afib in 2018. States very seldom adds salt to food. States does not drink as much water as should as cannot stop to pee that often, states drinks abouta half gallon water daily (64oz). Patient's symptoms are: Weight Concerns: failure to lose weight Diet History: Wakes 4am, drinks water when takes pills Breakfast - 5am protein shake (pure protein) Snack - granola bar Lunch - 11am/12pm sandwich on multigrain (ham and sometimes tajik cheese, or trail bologna, or PB sandwich), water or coke zero or diet coke 20oz Snack - PB crackers, protein bar or granola bar, coffee on way home (decaf) with 1 cream, splenda Dinner - 6:30/7pm chicken with asparagus and maybe bread OR meatloaf with baked potatoes (butter) and veggie, drinks coke zero 20oz or water or ocean spray juice 32oz (drinks this all day when at home) Snack - plain popcorn, occasionally chips and pretzels Beverages - water Alcohol- none Vitamins/Supplements - multivitamin Activity: 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 No formal exercise. RECOMMENDED MALNUTRITION DIAGNOSIS: NO MALNUTRITION IDENTIFIED Malnutrition Screening Significant unintentional weight loss? No Eating less than 75% of usual intake for more than 2 weeks? No Potential Signs of Inflammation: no identifiable sources NUTRITION CARE PLAN Nutrition Intervention 03/15/2023: Discussed cutting back on added suagr, limit to no more than 18 grams a day. Discussed evening snacking not needed as eating dinner about 2 hours before bed, as well as eveningsnacking higher in carbohydrates. Discussed importance of fiber intake and how it plays into satiety. Discussed trying herbal teas if feels like he needs something to satisfy oral fixation in evening after dinner. Nutrition Monitoring & Evaluation: -monitor weight and progress on goals Goals: -limit added sugar to no more than 18 grams a day for weight loss -add small fruit to breakfast such as apple or banana -half plate of nonstarchy vegetables, 1/4 protein and 1/4 carbohydrate for lunch and dinner -add vegetables to lunch -cut back or out diet pops -one time on weekends of physical activity, may go to [facility] -not snacking after dinner Need for Follow up: 4-6 weeks 60 minutes of MNT provided Belen Mcneal RD documented in this encounterKindred Healthcare04-06-2022 Miscellaneous Notes* Telephone Encounter - Lucinda Alba MA - 10/14/2021 7:47 AM EDT Last OV 01/19/21 Pt to f/u in 1 year Labs 01/19/21 Pharmacy calls in requesting the following refill(s): Pending Prescriptions Disp Refills TERAZOSIN 2 MG CAPSULE 90 capsule 1 Sig: Take 1 capsule by mouth daily at bedtime. CHAVA: No Lucinda Alba MA documented in this encounterKindred Healthcare12-06-2021 History of Present illness Narrative* Shameka Greene MD - 06/15/2021 12:20 PM EST DATE OF SERVICE: 06/12/2021 REASON FOR VISIT: Cough, congestion. HISTORY OF PRESENT ILLNESS: This is a 55-year-old male who presented with cough and congestion for the last 4 days. He feels a headache. The cough is not very significant and it is a dry cough. Denied any sore throat, no fever or chills, no shortness of breath. Eating and drinking well. REVIEW OF SYSTEMS: Review of other systems is normal. ALLERGIES: NEOSPORIN. MEDICATIONS: List was reviewed. PHYSICAL EXAMINATION: He is awake and alert, not in distress, no dyspnea. Temperature 97.7, blood pressure 192/82, pulse 60, respirations 22. Pulse oximetry 94% on room air. Pain score is 0/10. HEENT: Remarkable for mild nasal congestion. Throat is not injected. No postnasal drip. Chest: Clear to auscultation. No crackles, wheezing or rhonchi. Heart: Regular rate and rhythm. ASSESSMENT: Upper respiratory infection. PLAN: Clinical findings were discussed with patient in detail. I explained to him that I do not see an immediate need of antibiotics right now. He should do saline nasal spray. I gave him Tessalon Perles 100 mg every 6 hours as needed, 30 pills with no refill for cough relief. I gave him a prescription of amoxicillin 875 mg twice a day for 10 days prescription to keep. If his symptoms get worse in the next 3-4 days, he may take the antibiotic. He should also follow up with his doctor as needed. Patient was made aware of the high blood pressure. He stated that he just took [facility] Shameka Greene MD [id number] SSI File#: [id number] END OF DOCUMENT / CHANGE LOG FOLLOWS Last Edited By Elec. Signed By Shameka Greene MD #PAWPR Shameka Greene MD #PAWPR on 07/11/2021 13:53 ET on 07/11/2021 13:53 ET Revision Number - 2 ^^^ Verified/Reviewed by 07/11/21 135[address] [facility] PATIENT NAME: DANIELLE EUCEDA [address] [facility] [address] Alvarez MEDICAL REC #: [id number] [place] [address] [facility] REPORT [facility] PHYSICIAN documented in this encounterCleveland [id number] NoteHNO ID: [id number] Author: Elver Grant APRN.EDITOR IN CHIEF Service: ? Author Type: Nurse Practitioner Type: Progress Notes Filed: 01/19/2021 9:33 AM Note Text: This note was created using WISErgriter. Subjective Danielle Euceda is a 55 year old male here today for routine 6 month follow up and follow up on weight. PMH PMH Afib, CAD, BPH, DOMI, obesity. Reports feeling well. Denies changes in health since last office visit. Denies concerns or complaints today. He does note he has gained weight. he also reports getting in September. Reports he is now living in [facility] and will be finding Primary provider closer to home. ? I reviewed his past medical, surgical, social, and family histories today and updated chart. Allergies, chronic medications, and supplements were also reviewed and his list is now up to date. BPH:?this is chronic and well controlled on Terazosin. He was diagnosed 10+ yrs ago. Denies symptoms associated with BPH. Specifically denies slowed urinary stream, difficulty starting stream, nocturia. His previous provider started him on this after he complained of difficulty urinating. ? ? Afib/CAD:?He is seeing manager intensive care,?Dr Horton at [facility].?He was last seen 04/02/20.??He is taking Eliquis, Flecainide, and Coreg for rate control.?Denies any symptoms related to afib.?Denies JAY, dizziness, CP, sob, palpitations.?Pt reports he was in [facility] twice last year for cardioversion. Reports they are considering ablation if continues. Reports last episode end of last summer, fall. ? DOMI:?he was diagnosed 5-6 yrs ago. He wears his CPAP nightly. Denies symptoms referable to DOMI. ? ED:?Reports hard time achieving?and maintaining erection.?States?if he is able to achieve erection he will?lose it quickly.?He has not needed to use Viagra since he has not been sexually active. Reports he just started seeing someone this past weekend. Denies any penal or scrotal pain. Reports he feels his sexual drive is okay. He would like to have available if needed. Denies CP or SOB.? ? Obesity: noted 30 lb wt gain at last office visit. He reports he was not exercising or watching his diet. Since our last office visit he admits to not following diet to well. He has not been exercising. States he got in September and has had a lot going on. States he did lose about 20 lbs but states he gained a lot of it back. 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 He reports he has been successful with losing weight in the past. He reports he is not interested in bariatric surgery or seeing dietitian at this time. Feels he can do this on his own. ? Preventative:?He completed his colonoscopy with Dr Lopez on 04/09/20. Pt reports he was unable to complete colonoscopy due to unable to fully visualize bowel. Pt reports having barium swallow and xrays were completed. Xray noted diverticula, no suspicious findings. He completed shingles, Tdap and COVID vaccines. Review of Systems Constitutional: Negative for activity change, appetite change, chills, diaphoresis, fatigue, fever and unexpected weight change. Respiratory: Negative for cough, chest tightness, shortness of breath and wheezing. Cardiovascular: Positive for leg swelling. Negative for chest pain and palpitations. Chronic stable. Reports in am legs are fine then increase as day progresses Gastrointestinal: Negative for constipation, diarrhea, nausea and vomiting. Endocrine: Negative for cold intolerance, heat intolerance, polydipsia, polyphagia and polyuria. Genitourinary: Negative for difficulty urinating, dysuria, flank pain and frequency. Musculoskeletal: Negative for arthralgias, back pain, gait problem, joint swelling, myalgias and neck pain. Neurological: Negative for dizziness and facial asymmetry. Hematological: Does not bruise/bleed easily. Psychiatric/Behavioral: Negative for confusion, dysphoric mood and sleep disturbance. The patient is not nervous/anxious. Objective 01/19/21 0842 BP: 122/70 BP Site: Right Arm BP Position: Sitting BP Cuff Size: Large Adult Pulse: 76 Resp: 18 Temp: 36.8 ?C (98.2 ?F) TempSrc: Oral Weight: (!) 177.9 kg (392 lb 3.2 oz) Height: 177.8 cm (5' 10) Physical Exam Vitals and nursing note reviewed. Constitutional: General: He is not in acute distress. Appearance: Normal appearance. He is obese. He is not ill-appearing. HENT: Head: Normocephalic and atraumatic. Cardiovascular: Rate and Rhythm: Normal rate and regular rhythm. Pulses: Normal pulses. No decreased pulses. Heart sounds: Normal heart sounds, S1 normal and S2 normal. Pulmonary: Effort: Pulmonary effort is normal. Breath sounds: Normal breath sounds. Abdominal: General: Bowel sounds are normal. Palpations: Abdomen is soft. Tenderness: There is no abdominal tenderness. Musculoskeletal: General: No swelling. Righ (more content not included)...[facility] Appointment Date:04/06/2023 07:30:00 AM Scheduled Provider: Location:CT Appointment Type:CT Urogram Future Scheduled Tests Radiology* CT Urogram 04/06/23 [facility] Evaluation + Plan note Future Appointments Appointment Date:02/08/2024 02:30:00 PM Scheduled Provider:SYD CASTRO Location:UROLOGY Appointment Type:URO OV Appointment Date:05/07/2024 10:30:00 AM Scheduled Provider:SYD CASTRO Location:UROLOGY Appointment Type:URO OV Future Scheduled Tests Radiology* US Renal 05/05/24 [facility] Evaluation + Plan note Future Appointments Appointment Date:03/28/2024 02:30:00 PM Scheduled Provider:SYD CASTRO Location:UROLOGY Appointment Type:URO OV Appointment Date:05/07/2024 10:30:00 AM Scheduled Provider:SYD CASTRO Location:UROLOGY Appointment Type:URO OV Future Scheduled Tests Radiology* US Renal 05/05/24 [facility] Evaluation + Plan note Future Appointments Appointment Date:05/07/2024 10:30:00 AM Scheduled Provider:SYD CASTRO Location:UROLOGY Appointment Type:URO OV Future Scheduled Tests Radiology* US Renal 05/05/24 [facility] Evaluation + Plan note Future Appointments Appointment Date:08/21/2025 10:30:00 AM Scheduled Provider:SYD CASTRO Location:UROLOGY Appointment Type:URO OV Future Scheduled Tests Laboratory* Prostate Specific Antigen 08/21/25 [facility] Evaluation note* Diagnosis Benign prostatic hyperplasia without lower urinary tract symptoms documented in this encounter [facility] note* Diagnosis Class 3 severe obesity due to excess calories with body mass index (BMI) of 50.0 to 59.9 in adult, unspecified whether serious comorbidity present (HCC)- Primary documented in this encounter [facility] note* Diagnosis Morbid obesity (HCC)- Primary Morbid obesity [facility] Narrative No data available for this section [facility] Discharge instructions No data available for this section [facility] Progress note No data available for this section [facility] Summary Purpose Family History No Family History Records FoundNo Family History Records FoundNo Family History Records FoundNo Family History Records Found No data available for this section No Family History Records Found No data available for this section No data available for this section No Family History Records Found No data available for this section No data available for this section No Family History Records Found No data available for this section No Family History Records FoundNo Family History Records Found Advance Directives No Advanced Directives Records FoundDocuments on File Type 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 Advance Directive(s) 04/09/2020 11:57 AM Additional Source Comments (unrecognized sect ion and content) No Status Records FoundNo Status Records FoundNo Status Records FoundNo Status Records FoundNo Status Records FoundNo Status Records FoundNo Status Records FoundNo Status Records FoundNo Status Records Found INFORMATION SOURCE (unrecogn ized section and content) DATE CREATED AUTHOR 05/10/2020 Scarlet Danielson [facility] DATE CREATED AUTHOR AUTHOR'S ORGANIZ ATION 01/24/2021 Rydalaquilino Danielson [facility] DATE CREATED AUTHOR AUTHOR'S ORGANIZ ATION 07/25/2021 [facility] DATE CREATED AUTHOR AUTHOR'S ORGANIZ ATION 10/06/2021 [facility] [place] DATE CREATED AUTHOR AUTHOR'S ORGANIZ ATION 04/25/2023 [facility] DATE CREATED AUTHOR AUTHOR'S ORGANIZ ATION 03/08/2024 [facility] DATE CREATED AUTHOR AUTHOR'S ORGANIZ ATION [facility]20[facility] DATE CREATED AUTHOR AUTHOR'S ORGANIZ ATION 09/30/2024 [facility] DATE CREATED AUTHOR AUTHOR'S ORGANIZ ATION 05/19/2025 [facility] Source Comments (unrecognize d section and content) In the event this informatio n is protected by the Federal Confidentiality of Alcohol and Drug Abuse Patient Records regulations: The Federal rules restrict any use of the information to criminally investigate or prosecute any alcohol or drug abuse patient.[facility] HealthcareIn the event this information is protected by the Federal Confidentiality of Alcohol and Drug Abuse Patient Records regulations: The Federal rules restrict any use of the information to criminally investigate or prosecute any alcohol or drug abuse patient.[facility]red HealthcareIn the event this information is protected by the Federal Confidentiality of Alcohol and Drug Abuse Patient Records regulations: The Federal rules restrict any use of the information to criminally investigate or prosecute any alcohol or drug abuse patient.[facility] HealthcareIn the event this information is protected by the Federal Confidentiality of Alcohol and Drug Abuse Patient Records regulations: The Federal rules restrict any use of the information to criminally investigate or prosecute any alcohol or drug abuse patient.[facility] Reason for Visit (unrecogniz ed section and content) Reason Onset Date Comments Refill Request 10/14/2021 Reason Comments Medical Nutrition Therapy Specialty Diagnoses / Procedures Referred By Contac t Referred To Contact NUTRITION Diagnoses Body mass index (BMI) 50.0-59.9, adult z68.43 Adult BMI 50-59.9, Dr. Martin paper referral Procedures OFFICE/OUTPATIENT NEW MODERATE MDM 45-59 MINUTES VIDEO SPEC NEW Girma Martin MD [address] [employer] Referral ID Status Reason Start Date Expiration Date Visits Re quested Visits Authorized [id number] Closed 03/15/2023 07/10/2023 1 1 Specialty Diagnoses / Procedures Referred By Contac t Referred To Contact NUTRITION Diagnoses Obesity Procedures DM MGMT X20 CHART WRITER VISIT Girma Martin MD [address] [address] [address] [place] [address] Referral ID Status Reason Start Date Expiration Date Visits Requested Visits Authorized [id number] Outside PCP OON/Self Pay Override 03/15/2023 09/11/2023 1 1 Care Teams (unrecognized sec tion and content) Gas Station Clerk Relationship Specialty Start Date End Date Elver Grant, MANAGER OUTREACH.EDITOR IN CHIEF PCP - General 04/14/15 Serg Horton MD Health Care Facilities Inspector Cardiology 11/22/19 Jaydon Youssef MD [address] [place] [address] [place] [address] Surgeon General Surgery 11/22/19 Gas Station Clerk Relationship Specialty Start Date End Date Elver Grant, MANAGER OUTREACH.EDITOR IN CHIEF PCP - General 04/14/15 11/16/21 Serg Horton MD Health Care Facilities Inspector Cardiology 11/22/19 Jaydon Youssef MD [address] [place] [address] Surgeon General Surgery 11/22/19 Gas Station Clerk Relationship Specialty Start Date End Date Serg Horton MD Health Care Facilities Inspector Cardiology 11/22/19 Jaydon Youssef MD [address] [place] [address] [place] [address] Surgeon General Surgery 11/22/19 Gas Station Clerk Relationship Specialty Start Date End Date Serg Horton MD Health Care Facilities Inspector Cardiology 11/22/19 Jaydon Youssef MD [address] [place] [address] [place] [phone] Surgeon General Surgery 11/22/19 FOR RECORDS PERTAINING TO PATIENTS WHO ARE OR HAVE BEEN ENROLLED IN A CHEMICAL DEPENDENCY/SUBSTANCEABUSE PROGRAM, SOME INFORMATION MAY BE OMITTED. This clinical summary was aggregated from multiple sources. Caution should be exercised in using it in the provision of clinical care. This summary normalizes information from multiple sources, and as a consequence, information in this document may materially change the coding, format and clinical context of patient data. In addition, data may be omitted in some cases. CLINICAL DECISIONS SHOULD BE BASED ON THE PRIMARY CLINICAL RECORDS. [facility]. provides no warranty or guarantee of the accuracy or completeness of information in this document.
--- NOTE | 2025-05-28 17:37 | STRESSREP ---
Stress Test Report Pharmacologic myocardial perfusion stress test. 59-year-old male with a history of atrial fibrillation on flecainide. Resting EKG demonstrates sinus bradycardia with a rate of 50 bpm. Resting blood pressure is 135/77 mmHg. 0.4 mg of regadenoson was infused per usual protocol followed by rapid intravenous saline flush injection. Continuous EKG monitoring was performed. The maximum heart rate was 86 bpm which was 54% of max impacted heart rate the maximum workload was 1 metabolic equivalent. At rest there were no ST or T wave changes noted to suggest ischemia and at peak infusion nonspecific ST changes were noted which did not meet the criteria for ischemia. No clinical angina is noted. The final blood pressure was 133/70 mmHg. Myocardial perfusion protocol. 15.8 mCi of technetium 99m sestamibi was injected at rest. 0.4 mg of regadenoson was infused per usual protocol. At peak infusion 46 point mCi of technetium 99m sestamibi was injected stress images were obtained stress and rest images were reconstructed and compared in the short axis vertical long and horizontal long axis. Gated images were also obtained. Perfusion SPECT analysis: Review of the stress images demonstrate normal uptake of tracer noted in all areas of the myocardium. The resting images similar demonstrated normal uptake of tracer noted in all areas of the myocardium. No areas of reversibility are noted to suggest ischemia and no previous infarct is noted. Gated SPECT analysis: The gated ejection fraction is 61%. Conclusion: Normal pharmacologic myocardial perfusion stress test. Preserved ejection fraction.
== END | disposition home or self-care (01) ==
LOC: CVS 06:30
PROVIDERS: PCP Family Medicine; Referring Provider Nurse Practitioner Family; Visit Provider Nurse Practitioner Family
DX: I48.0 Paroxysmal atrial fibrillation (principal); E66.01 Morbid (severe) obesity due to excess calories; Z68.41 Body mass index [BMI] 40.0-44.9, adult; Z51.81 Encounter for therapeutic drug level monitoring; Z79.899 Other long term (current) drug therapy
CPT/HCPCS: 78452; 93017; A9500; A4216; J2785